=== PATIENT | male | born 1950 | race African-American/Black ===

== ENCOUNTER 2019-11-23 07:24 | Outpatient (CLI) | payer MEDICARE, SELFPAY ==
[2019-11-23 08:06] LABS: Alanine Aminotransferase 24 U/L (4-50); Albumin Level 4.2 g/dL (3.5-5.1); Alkaline Phosphatase 73 U/L (38-126); Aspartate Amino Transferase 25 U/L (17-59); Bilirubin,Total 0.4 mg/dL (0.2-1.3); Blood Urea Nitrogen 13 mg/dL (9-20); Carbon Dioxide 29 mmol/L (22-30); Chloride 104 mmol/L (98-107); Cholesterol 124 mg/dL (0-200); Estimated Glomerular Filt Rate > 60; Glucose 122 mg/dL (75-110); HDL Direct 41 mg/dL; Sodium 137 mmol/L (137-145); Triglycerides 97 mg/dL (<150)
[2019-11-23 08:09] LABS: Hemoglobin A1C 7.2 % (<5.7)
[2019-11-23 08:17] LABS: LDL Cholesterol Direct 64 mg/dL
== END 2019-11-23 07:25 | disposition home or self-care (01) ==
PROVIDERS: PCP Emergency Medicine; Visit Provider Emergency Medicine
DX: E78.5 Hyperlipidemia, unspecified (principal); E11.9 Type 2 diabetes mellitus without complications
CPT/HCPCS: 36415; 80053; 80061; 83036

== ENCOUNTER 2020-04-11 07:42 | Outpatient (CLI) | payer MEDICARE, SELFPAY ==
[2020-04-11 08:39] LABS: Alanine Aminotransferase 21 U/L (4-50); Alkaline Phosphatase 73 U/L (38-126); Anion Gap 7 mmol/L (8-16); Aspartate Amino Transferase 26 U/L (17-59); Bilirubin,Total 0.5 mg/dL (0.2-1.3); Blood Urea Nitrogen 13 mg/dL (9-20); Calcium 9.3 mg/dL (8.4-10.2); Carbon Dioxide 27 mmol/L (22-30); Chloride 103 mmol/L (98-107); Cholesterol 126 mg/dL (0-200); Estimated Glomerular Filt Rate > 60; Glucose 149 mg/dL (75-110); HDL Direct 38 mg/dL; Potassium 4.3 mmol/L (3.4-5.0); Sodium 137 mmol/L (137-145); Triglycerides 115 mg/dL (<150)
[2020-04-11 08:43] LABS: Hemoglobin A1C 6.7 % (<5.7)
[2020-04-11 08:50] LABS: LDL Cholesterol Direct 67 mg/dL
== END 2020-04-11 07:43 | disposition home or self-care (01) ==
PROVIDERS: PCP Emergency Medicine; Visit Provider Emergency Medicine
DX: E11.9 Type 2 diabetes mellitus without complications (principal)
CPT/HCPCS: 36415; 80053; 80061; 83036

== ENCOUNTER 2020-10-11 09:42 | Outpatient (CLI) | payer MEDICARE, SELFPAY ==
[2020-10-11 10:15] LABS: Alanine Aminotransferase 20 U/L (4-50); Albumin Level 4.2 g/dL (3.5-5.1); Alkaline Phosphatase 70 U/L (38-126); Anion Gap 6 mmol/L (8-16); Aspartate Amino Transferase 26 U/L (17-59); Bilirubin,Total 0.4 mg/dL (0.2-1.3); Blood Urea Nitrogen 13 mg/dL (9-20); Calcium 9.4 mg/dL (8.4-10.2); Carbon Dioxide 29 mmol/L (22-30); Chloride 106 mmol/L (98-107); Cholesterol 131 mg/dL (0-200); Estimated Glomerular Filt Rate > 60; Glucose 117 mg/dL (75-110); HDL Direct 44 mg/dL; Potassium 4.4 mmol/L (3.4-5.0); Sodium 141 mmol/L (137-145); Triglycerides 88 mg/dL (<150)
[2020-10-11 10:17] LABS: Hemoglobin A1C 6.9 % (<5.7)
[2020-10-11 10:26] LABS: LDL Cholesterol Direct 64 mg/dL
[2020-10-11 11:24] LABS: Creatinine Urine 154.1 mg/dL
[2020-10-11 15:40] LABS: MALB Creatinine Ratio < 3.9 mg/g (0-30); Microalbumin Urine Random < 6.0 mg/L (0-16.7)
== END 2020-10-11 09:43 | disposition home or self-care (01) ==
PROVIDERS: PCP Emergency Medicine; Visit Provider Emergency Medicine
DX: E78.5 Hyperlipidemia, unspecified (principal); E11.8 Type 2 diabetes mellitus with unspecified complications
CPT/HCPCS: 36415; 80053; 80061; 82043; 83036

== ENCOUNTER 2020-10-18 14:13 | Outpatient (CLI) | payer MEDICARE, SELFPAY ==
[2020-10-18 14:39] LABS: Basophils Percent Auto 0.2 % (0.2-1.2); Eosinophils Absolute Auto 0.1 K/mm3 (0-0.3); Eosinophils Percent Auto 2.1 % (0-4.4); Hematocrit 41.1 % (42.0-52.0); Hemoglobin 13.4 g/dL (14.0-18.0); Immature Granulocyte Absolute 0.01 K/mm3 (0.00-0.031); Immature Granulocyte Percent A 0.2 % (0-0.5); Lymphocytes Absolute Auto 1.73 K/mm3 (0.9-3.2); Lymphocytes Percent Auto 40.2 % (18.3-44.2); Mean Corpuscular HGB Conc 32.6 g/dl (32-36); Mean Corpuscular Hemoglobin 27.1 pg (26-34); Mean Corpuscular Volume 83.2 fl (80-100); Monocytes Absolute Auto 0.4 K/mm3 (0.1-0.6); Monocytes Percent Auto 9.3 % (2.6-8.5); Neutrophils Absolute Auto 2.1 K/mm3 (1.3-6.7); Platelet Count Result 204 k/mm3 (150-375); Red Blood Count 4.94 M/mm3 (4.6-6.20); Red Cell Distribution Width 13.5 % (11.5-14.5); White Blood Count 4.3 K/mm3 (4.5-10.0)
== END 2020-10-18 14:14 | disposition home or self-care (01) ==
PROVIDERS: PCP Emergency Medicine; Visit Provider Emergency Medicine
DX: R53.83 Other fatigue (principal)
CPT/HCPCS: 36415; 84443; 85025

== ENCOUNTER → 2020-11-02 10:54 | Outpatient (CLI) | payer MEDICARE, SELFPAY ==
--- NOTE | ~2020-11-02 | MR_ITS ---
EXAMINATION: MR cervical spine wo con DATE: 11/02/2020 11:43 INDICATION: Cervical radiculopathy. TECHNIQUE: Magnetic resonance imaging (MRI) of the cervical spine was performed without intravenous c ontrast. Sequences included sagittal T2-weighted FSE, sagittal STIR FSE, sagittal T1-weighted FSE, ax ial MERGE, and axial T2-weighted FSE. COMPARISON: Cervical spine MRI 12/12/2010 FINDINGS: There is 7 degrees dextrocurvature of cervical spine. Vertebral body heights are normal. Th ere is moderately decreased disc height at C4-C5 and C5-C6 and mildly decreased disc height at C6-C7. The spinal cord signal intensity is normal. The following disc levels are specifically discussed: C2-C3: The disc does not extend beyond the endplate margin. There is no uncovertebral joint osteoarth ritis. There is mild right and severe left facet joint osteoarthritis. There is mild left neural fora bindu stenosis. There is no central canal stenosis. C3-C4: There is a central extrusion. There is mild bilateral uncovertebral joint osteoarthritis. Ther e is mild right and severe left facet joint osteoarthritis. There is mild bilateral neural foraminal stenosis. There is mild central canal stenosis. C4-C5: The disc is bulging. There is moderate bilateral uncovertebral joint osteoarthritis. There is mild right and moderate left facet joint osteoarthritis. There is moderate bilateral neural foraminal stenosis. There is mild central canal stenosis. C5-C6: The disc is bulging. There is moderate right and severe left uncovertebral joint osteoarthriti s. There is mild bilateral facet joint osteoarthritis. There is moderate right and severe left neural foraminal stenosis. There is mild central canal stenosis. C6-C7: The disc is bulging. There is moderate bilateral uncovertebral joint osteoarthritis. There is no facet joint osteoarthritis. There is mild bilateral neural foraminal stenosis. There is mild centr al canal stenosis. C7-T1: There is a central protrusion. There is no uncovertebral joint osteoarthritis. There is mild r ight and severe left facet joint osteoarthritis. There is mild right and moderate left neural foramin al stenosis. There is mild central canal stenosis. IMPRESSION: 1. Moderate cervical spondylosis, mildly worsened from 12/12/2010. Reviewed, dictated and finalized at location B.
== END ==
PROVIDERS: PCP Emergency Medicine; Visit Provider Nurse Practitioner Family
DX: M54.12 Radiculopathy, cervical region (principal); M47.812 Spondylosis without myelopathy or radiculopathy, cervical region
CPT/HCPCS: 72141

== ENCOUNTER 2021-02-21 09:49 | Outpatient (CLI) | payer MEDICARE, SELFPAY ==
[2021-02-21 11:34] LABS: Alanine Aminotransferase 22 U/L (4-50); Alkaline Phosphatase 70 U/L (38-126); Anion Gap 9 mmol/L (8-16); Aspartate Amino Transferase 26 U/L (17-59); Bilirubin,Total 0.4 mg/dL (0.2-1.3); Blood Urea Nitrogen 11 mg/dL (9-20); Calcium 8.8 mg/dL (8.4-10.2); Carbon Dioxide 25 mmol/L (22-30); Chloride 106 mmol/L (98-107); Estimated Glomerular Filt Rate > 60; Glucose 153 mg/dL (65-110); Potassium 4.2 mmol/L (3.4-5.0); Sodium 140 mmol/L (137-145)
== END 2021-02-21 09:50 | disposition home or self-care (01) ==
LOC: ANHLAB 09:54
PROVIDERS: PCP Emergency Medicine; Visit Provider Emergency Medicine
DX: E11.9 Type 2 diabetes mellitus without complications (principal); I10 Essential (primary) hypertension
CPT/HCPCS: 36415; 80053; 83036

== ENCOUNTER 2021-05-23 06:50 | Outpatient (CLI) | payer MEDICARE, SELFPAY ==
[2021-05-23 07:50] LABS: Hemoglobin A1C 6.7 % (<5.7)
[2021-05-23 07:51] LABS: Alanine Aminotransferase 19 U/L (4-50); Albumin Level 4.1 g/dL (3.5-5.1); Alkaline Phosphatase 85 U/L (38-126); Anion Gap 9 mmol/L (8-16); Aspartate Amino Transferase 24 U/L (17-59); Bilirubin,Total 0.3 mg/dL (0.2-1.3); Blood Urea Nitrogen 12 mg/dL (9-20); Carbon Dioxide 26 mmol/L (22-30); Chloride 105 mmol/L (98-107); Cholesterol 122 mg/dL (0-200); Estimated Glomerular Filt Rate > 60; Glucose 104 mg/dL (65-110); HDL Direct 45 mg/dL; Potassium 3.8 mmol/L (3.4-5.0); Sodium 140 mmol/L (137-145); Triglycerides 88 mg/dL (<150)
[2021-05-23 08:02] LABS: LDL Cholesterol Direct 58 mg/dL
[2021-05-23 08:21] LABS: Creatinine Urine 140.3 mg/dL
[2021-05-23 08:26] LABS: MALB Creatinine Ratio 4.3 mg/g (0-30)
== END 2021-05-23 06:51 | disposition home or self-care (01) ==
PROVIDERS: PCP Emergency Medicine; Visit Provider Emergency Medicine
DX: E11.9 Type 2 diabetes mellitus without complications (principal); I10 Essential (primary) hypertension
CPT/HCPCS: 36415; 80053; 80061; 82043; 83036

== ENCOUNTER 2021-11-03 07:49 | Outpatient (CLI) | payer MEDICARE, SELFPAY ==
[2021-11-03 09:02] LABS: Alanine Aminotransferase 22 U/L (6-50); Albumin Level 3.7 g/dL (3.5-5.1); Alkaline Phosphatase 72 U/L (38-126); Anion Gap 4 mmol/L (8-16); Aspartate Amino Transferase 24 U/L (17-59); Bilirubin,Total 0.3 mg/dL (0.2-1.3); Blood Urea Nitrogen 15 mg/dL (9-20); Calcium 8.6 mg/dL (8.4-10.2); Carbon Dioxide 27 mmol/L (22-30); Chloride 107 mmol/L (98-107); Cholesterol 134 mg/dL (0-200); Estimated Glomerular Filt Rate > 60; Glucose 159 mg/dL (65-110); HDL Direct 42 mg/dL; Potassium 4.5 mmol/L (3.4-5.0); Sodium 138 mmol/L (137-145); Triglycerides 93 mg/dL (<150)
[2021-11-03 09:12] LABS: LDL Cholesterol Direct 64 mg/dL
[2021-11-03 09:17] LABS: Creatinine Urine 145.2 mg/dL
[2021-11-03 09:21] LABS: Hemoglobin A1C 7.1 % (<5.7)
[2021-11-03 10:16] LABS: MALB Creatinine Ratio < 4.1 mg/g (0-30); Microalbumin Urine Random < 6.0 mg/L (0-16.7)
== END 2021-11-03 07:50 | disposition home or self-care (01) ==
LOC: ANHLAB 07:50
PROVIDERS: PCP Emergency Medicine; Visit Provider Emergency Medicine
DX: E11.9 Type 2 diabetes mellitus without complications (principal); I10 Essential (primary) hypertension
CPT/HCPCS: 36415; 80053; 80061; 82043; 83036

== ENCOUNTER 2021-11-08 10:55 | Outpatient (CLI) | payer MEDICARE, SELFPAY ==
[2021-11-08 12:07] LABS: Basophils Percent Auto 0.2 % (0.2-1.2); Eosinophils Absolute Auto 0.1 K/mm3 (0-0.3); Eosinophils Percent Auto 2.3 % (0-4.4); Hematocrit 42.2 % (42.0-52.0); Hemoglobin 13.2 g/dL (14.0-18.0); Immature Granulocyte Absolute 0.01 K/mm3 (0.00-0.031); Immature Granulocyte Percent A 0.2 % (0-0.5); Lymphocytes Absolute Auto 1.62 K/mm3 (0.9-3.2); Lymphocytes Percent Auto 36.6 % (18.3-44.2); Mean Corpuscular HGB Conc 31.3 g/dl (32-36); Mean Corpuscular Hemoglobin 26.9 pg (26-34); Mean Corpuscular Volume 86.1 fl (80-100); Mean Platelet Volume 10.5 fl (7.4-10.4); Monocytes Absolute Auto 0.3 K/mm3 (0.1-0.6); Neutrophils Absolute Auto 2.4 K/mm3 (1.3-6.7); Neutrophils Percent Auto 53.7 % (45.5-73.1); Platelet Count Result 195 k/mm3 (150-375); Red Cell Distribution Width 14.4 % (11.5-14.5); White Blood Count 4.4 K/mm3 (4.5-10.0)
== END 2021-11-08 10:56 | disposition home or self-care (01) ==
PROVIDERS: PCP Emergency Medicine; Visit Provider Emergency Medicine
DX: R53.83 Other fatigue (principal)
CPT/HCPCS: 36415; 84443; 85025

== ENCOUNTER 2022-03-07 08:17 | Outpatient (CLI) | payer MEDICARE, SELFPAY ==
[2022-03-07 09:05] LABS: Alanine Aminotransferase 19 U/L (6-50); Albumin Level 4.3 g/dL (3.5-5.1); Alkaline Phosphatase 76 U/L (38-126); Anion Gap 7 mmol/L (8-16); Aspartate Amino Transferase 23 U/L (17-59); Bilirubin,Total 0.6 mg/dL (0.2-1.3); Blood Urea Nitrogen 14 mg/dL (9-20); Calcium 9.4 mg/dL (8.4-10.2); Carbon Dioxide 28 mmol/L (22-30); Chloride 103 mmol/L (98-107); Cholesterol 185 mg/dL (0-200); Estimated Glomerular Filt Rate > 60; Glucose 121 mg/dL (65-110); HDL Direct 51 mg/dL; Potassium 4.4 mmol/L (3.4-5.0); Sodium 138 mmol/L (137-145); Triglycerides 109 mg/dL (<150)
[2022-03-07 09:17] LABS: LDL Cholesterol Direct 105 mg/dL
[2022-03-07 09:35] LABS: Prostate Specific Antigen 4.6 ng/mL (< OR = 4.0)
[2022-03-07 10:12] LABS: Creatinine Urine 265.6 mg/dL
[2022-03-07 10:14] LABS: MALB Creatinine Ratio 3.8 mg/g (0-30); Microalbumin Urine Random 10.1 mg/L (0-16.7)
[2022-03-07 10:31] LABS: Hemoglobin A1C 6.7 % (<5.7)
== END 2022-03-07 08:18 | disposition home or self-care (01) ==
PROVIDERS: PCP Emergency Medicine; Visit Provider Emergency Medicine
DX: Z12.5 Encounter for screening for malignant neoplasm of prostate (principal); E11.9 Type 2 diabetes mellitus without complications; I10 Essential (primary) hypertension
CPT/HCPCS: 36415; 80053; 80061; 82043; 83036; 84153; G0103

== ENCOUNTER 2022-04-03 08:56 | Outpatient (CLI) | payer MEDICARE, SELFPAY ==
--- NOTE | 2022-04-03 09:00 | ECG_ITS ---
Measurements Intervals [place] Rate: 67 P: 61 [place]: 155 QRS: 72 QRSD: 85 T: 42 QT: 351 QTc: 371 Interpretive Statements SINUS RHYTHM MODERATE VOLTAGE CRITERIA FOR LVH, CONSIDER NORMAL VARIANT [MEETS CRITERIA IN ONE OF: R(aVL), S(V1), R(V5), R(V5/V6)+S(V1)] NO PREVIOUS ECG AVAILABLE FOR COMPARISON Electronically Signed On 04-03-2022 16:15:55 CDT by Dalia Pruitt M.D.
[2022-04-03 09:33] LABS: Anion Gap 13 mmol/L (8-16); Blood Urea Nitrogen 11 mg/dL (9-20); Calcium 8.6 mg/dL (8.4-10.2); Carbon Dioxide 24 mmol/L (22-30); Chloride 104 mmol/L (98-107); Estimated Glomerular Filt Rate > 60; Glucose 168 mg/dL (65-110); Potassium 4.2 mmol/L (3.4-5.0); Sodium 141 mmol/L (137-145)
== END 2022-04-03 08:57 | disposition home or self-care (01) ==
LOC: ANHSURGERY 09:01
PROVIDERS: Anesthesiology; PCP Emergency Medicine; Visit Provider Otolaryngology
DX: E11.9 Type 2 diabetes mellitus without complications (principal); Z01.818 Encounter for other preprocedural examination
CPT/HCPCS: 36415; 80048; 93005

== ENCOUNTER 2022-04-13 01:48 | Day surgery (SDC) | payer MEDICARE, SELFPAY ==
[2022-04-02 12:34] VITALS: BMI 25.0
--- NOTE | 2022-04-02 12:44 | PC.NURSE ---
PRE-OP INSTRUCTIONS, PLEASE READ CAREFULLY Report to the Outpatient Waiting Room, entrance under the green pavilion located off [facility], at time _1100_ on date _04/13/22_. Planned Procedure Time: _1 PM_. Time changes happen often and if your time is changed the preop area will call you the afternoon before. - You and your visitor will be asked to self-screen and do not enter if you have any COVID symptoms. - We encourage only one visitor and NO visitors under age 16 are allowed at this time. Your visitor will receive communication by the phone number that is given day of service. - The patient visitor is requested to social distance or may leave the building when not with patient due to restrictions. - A mask is required within the hospital. Patients may have clear liquids (water, carbonated beverages, clear teas, apple juice) until 3 hours prior to surgery (1000 AM) with a maximum of 20 ounces. - No food from midnight until time of surgery Take the following medications with a SIP of water the morning of surgery: _ALPRAZOLAM, NASAL SPRAY IF NEEDED_ Medications to discontinue per physician _NONE_, Date to take last dose Please no deodorant, or body powder the day of surgery. No jewelry (including any body piercings) or valuables the day of surgery, leave them at home. Please take a shower or bath the night before, or the morning of, surgery with an antibacterial soap. Wear comfortable, loose fitting clothing. - Jewelry must be removed prior to entering the operating room. Rings and piercings that are not removed may be cut off. - The hospital will not accept responsibility for valuables. - Please leave all valuables, including medications, at home the day of surgery. If you are going home after surgery, a licensed emergency medical technician/driver must drive you home. - NO public transportation without another adult. - We recommend that an adult stay with you for 24 hours following discharge. - We also recommend that you do not drive, make important decision, drink alcoholic beverages, or take any drugs that were not prescribed by your health care provider for at least 24 hours after your discharge time. Follow any additional instructions given to you from your surgeon. If you or anyone in your household have experienced Covid symptoms in the past week, please notify your surgeon or the nurse liaison at the phone number below for possible testing. Telephone instructions given to ____PT and asked if any additional questions and then verbalized understanding. Patient advised to call surgeon office or pre surgery nurse liaison [phone] if any additional questions.
--- NOTE | 2022-04-12 10:15 | P.HP_ITS ---
H&P: HPI History of Present Illness Date/Time: 04/12/22 10:15 Chief Complaint: Oropharyngeal mass Narrative: planned surgical procedure Review of Systems Review of Systems: All systems reviewed & are unremarkable except as noted in HPI and below [facility] Past Medical History Medical History Diabetes mellitus HTN (hypertension) Family History Family History Mother Family history of diabetes mellitus in first degree relative, Onset Age: 72 Father Family history of diabetes mellitus in first degree relative, Onset Age: 75 Sibling Family history of kidney disease Social History Social History (Updated 03/26/22 @ 14:14 by KEN Torres) Smoking status: Former smoker Alcohol intake: current Alcohol use details: STATES MAYBE 4 BEERS/MONTH Substance use: current Substance use type: marijuana Other substance usage details: MEDICAL MARIJUANA CARD - DAILY USAGE Spiritual care concerns: No Meds Home Medications and Allergies Home Medications Medication Instructions Recorded Confirmed Type sertraline 50 mg tablet (Zoloft) 50 mg PO DAILY 06/28/19 04/02/22 History sildenafil 50 mg tablet (Viagra) 50 mg PO .COMPLEX 06/28/19 04/02/22 History sitagliptin phosphate 50 mg tablet 50 mg PO DAILY 06/28/19 04/02/22 History (Januvia) zolpidem 10 mg tablet (Ambien) 10 mg PO ONCE PRN insomnia #1 02/22/21 04/02/22 Rx tablet fluticasone propionate 50 1 - 2 spray intranasal DAILY PRN 10/17/21 04/02/22 Rx mcg/actuation nasal nasal congestion #16 mL spray,suspension (Flonase Allergy Relief) alprazolam 0.5 mg tablet (Xanax) 0.5 mg PO BID PRN anxiety #60 tabs 12/06/21 04/02/22 Rx lisinopril 5 mg tablet See Rx Instructions .Route 04/02/22 04/02/22 Rx .COMPLEX #90 tabs Allergies Allergy/AdvReac Type Severity Reaction Status Date / Time No Known Allergies Allergy Unknown NONE Verified 04/02/22 12:31 Exam Narrative: or pharyngeal mass Assessment and Plan Assessment and plan (1) Pharyngeal mass: Code(s): J39.2 - Other diseases of pharynx Status: Acute Assessment and Plan: OR excisional biopsy or pharyngeal mass set up like a tonsil may need the needle tip Bovie extended protected. Operative time 20 minutes risks were discussed including bleeding infection damage to surrounding structures need for further procedures failure to resolve symptoms failure to obtain diagnosis pain bleeding damage to any structure by Anesthesia during the induction and maintenance numbness coughing.
[2022-04-13] VITALS (8 sets, daily range): BP systolic 126–157; BP diastolic 75–86; PULSE 60–86; RESP 14–22; TEMP 36.2–36.8; O2SAT 98–100
--- NOTE | 2022-04-13 07:12 | WPDHPUPDATE1 ---
History and Physical Update Update Date/Time: 04/13/22 07:12 History and Physical has been reviewed, including an updated exam of the patient. There are NO changes in the patient's condition. Risks, benefits, and alternatives have been discussed and questions answered. Patient agrees to proceed with procedure.
[2022-04-13 11:12] LABS: Glucose Point of Care 115 mg/dl (65-105)
[2022-04-13] MEDS: LACTATED RINGERS 1,000 ML 30 ML IV CONT ×2 (11:29→13:05)
--- NOTE | 2022-04-13 11:54 | WPDANESEPPF ---
Anes - Initial Pre Proc Eval Procedure: Operation Date: 04/13/22 12:30 Proposed Procedures p Resection of Oropharyngeal Mass - Solo Salinas MD Date/Time: 04/13/22 11:54 Surgeon: Solo Salinas MD Pre Op Diagnosis: Oropharyngeal Mass Patient Data Age: 71 Gender: M Height: 1.75 m Weight: 75.5 kg Last Vital Signs Temp 36.8 C 04/13/22 11:26 Pulse 68 04/13/22 11:26 Resp 14 04/13/22 11:26 BP 126/75 04/13/22 11:26 Pulse Ox 100 04/13/22 11:26 O2 Del Method Room Air 04/13/22 11:26 Allergies Allergy/AdvReac Type Severity Reaction Status Date / Time No Known Allergies Allergy Unknown NONE Verified 04/13/22 11:29 Home Medications Medication Instructions Recorded Confirmed Type sertraline 50 mg tablet (Zoloft) 50 mg PO DAILY 06/28/19 04/02/22 History sildenafil 50 mg tablet (Viagra) 50 mg PO .COMPLEX 06/28/19 04/02/22 History sitagliptin phosphate 50 mg tablet 50 mg PO DAILY 06/28/19 04/02/22 History (Januvia) zolpidem 10 mg tablet (Ambien) 10 mg PO ONCE PRN insomnia #1 02/22/21 04/02/22 Rx tablet fluticasone propionate 50 1 - 2 spray intranasal DAILY PRN 10/17/21 04/02/22 Rx mcg/actuation nasal nasal congestion #16 mL spray,suspension (Flonase Allergy Relief) alprazolam 0.5 mg tablet (Xanax) 0.5 mg PO BID PRN anxiety #60 tabs 12/06/21 04/13/22 Rx lisinopril 5 mg tablet See Rx Instructions .Route 04/02/22 04/02/22 Rx .COMPLEX #90 tabs Laboratory Tests 04/13/22 11:09 POC Capillary Glucose 115 mg/dl H mg/dl (65-105) Patient hx anesthesia problems: none Family hx anesthesia problems: none Results Review: All pre-operative results and documents have been reviewed as part of the pre-operative evaluation. [facility] Past Medical History Medical History Diabetes mellitus HTN (hypertension) Surgical History Surgical History (Updated 04/13/22 @ 11:54 by Greg Sepulveda MD) History of lumbar surgery Hx of tonsillectomy Family History Family History Mother Family history of diabetes mellitus in first degree relative, Onset Age: 72 Father Family history of diabetes mellitus in first degree relative, Onset Age: 75 Sibling Family history of kidney disease Social History Social History Smoking status: Former smoker Alcohol intake: current Alcohol use details: STATES MAYBE 4 BEERS/MONTH Substance use: current Substance use type: marijuana Other substance usage details: MEDICAL MARIJUANA CARD - DAILY USAGE Living arrangements: with family Spiritual care concerns: No Anes - Eval Final PreProcedure Day of Procedure 04/13/22 11:54 Patient weight: normal Heart: regular rate and rhythm Lungs: clear to auscultation Airway: Mallampati scale class II Neurological: alert and oriented Last oral intake: >/= 8 hours ASA classification: III Emergent: no Anesthetic plan: proceed Anesthesia type and monitoring: general ETT and standard monitoring Results Review: All pre-operative results and documents have been reviewed as part of the pre-operative evaluation. Informed Consent: The patient's anesthetic plan and its attendant risks and benefits were discussed with the patient/family/POA. Questions were solicited and answers provided to the satisfaction of the patient/family/POA.
[2022-04-13 13:20] LABS: Glucose Point of Care 110 mg/dl (65-105)
--- NOTE | 2022-04-16 08:54 | W.PM.PROC2 ---
Procedure Note - Detailed Date of Procedure 04/13/22 Pre-op Diagnosis Oropharyngeal Mass Post-op Diagnosis Same Procedure Performed Excisional biopsy or pharyngeal mass Surgeon Solo Salinas MD Anesthesia General Indications see above Findings very small lymphoid appearing tissue appeared non sinister sent for biopsy purpose sent for pathologic analysis Description of Procedure patient identified consent verified. Patient brought operating. Time-out performed. General anesthesia induced endotracheal tube secured. Patient prepped draped position. Second time-out performed. Set up like a tonsil McIvor mouthgag open reveal small amount of cobblestoning lymphoid tissue in the oropharynx this was excised with Bovie electrocautery at a setting 10 sent for pathologic analysis. Blood loss 1 cc. McIvor gag removed no bleeding care the patient given Anesthesiology. I performed all dictated portions the procedure. There no complications. Patient. Estimated Blood Loss 1 Drains No Packing No Pathology Yes Complications No immediate complications Condition Stable Disposition PACU
== END 2022-04-13 15:05 | disposition home or self-care (01) ==
PROVIDERS: PCP Emergency Medicine; Visit Provider Otolaryngology
PROC: (CPT 42800; principal; 2022-04-13 12:30)
DX: J39.2 Other diseases of pharynx (principal); E11.9 Type 2 diabetes mellitus without complications; I10 Essential (primary) hypertension; Z87.891 Personal history of nicotine dependence
CPT/HCPCS: 42800; 36415; 80048; 82948; 88304; 93005; J0330; J1100; J2405; J2704; J3010; J7120

== ENCOUNTER 2022-07-13 08:07 | Outpatient (CLI) | payer MEDICARE, SELFPAY ==
[2022-07-13 08:59] LABS: Alanine Aminotransferase 20 U/L (6-50); Albumin Level 4.1 g/dL (3.5-5.1); Alkaline Phosphatase 84 U/L (38-126); Anion Gap 8 mmol/L (8-16); Aspartate Amino Transferase 25 U/L (17-59); Bilirubin,Total 0.5 mg/dL (0.2-1.3); Blood Urea Nitrogen 13 mg/dL (9-20); Calcium 8.9 mg/dL (8.4-10.2); Carbon Dioxide 28 mmol/L (22-30); Chloride 105 mmol/L (98-107); Cholesterol 133 mg/dL (0-200); Estimated Glomerular Filt Rate > 60; Glucose 117 mg/dL (65-110); HDL Direct 44 mg/dL; Sodium 141 mmol/L (137-145); Triglycerides 97 mg/dL (<150)
[2022-07-13 09:10] LABS: LDL Cholesterol Direct 56 mg/dL
[2022-07-13 09:13] LABS: Hemoglobin A1C 6.5 % (<5.7)
[2022-07-13 09:21] LABS: Creatinine Urine 174.6 mg/dL
[2022-07-13 09:25] LABS: MALB Creatinine Ratio 3.6 mg/g (0-30); Microalbumin Urine Random 6.2 mg/L (0-16.7)
== END 2022-07-13 08:08 | disposition home or self-care (01) ==
PROVIDERS: PCP Emergency Medicine; Visit Provider Emergency Medicine
DX: E11.9 Type 2 diabetes mellitus without complications (principal); I10 Essential (primary) hypertension
CPT/HCPCS: 36415; 80053; 80061; 82043; 83036

== ENCOUNTER 2022-07-24 10:27 | Emergency (ER) | payer MEDICARE, SELFPAY ==
--- NOTE | ~2022-07-24 | XR_ITS ---
EXAMINATION: XR abdomen obstructive series DATE: 07/24/2022 11:11 INDICATION: Bloating. TECHNIQUE: Upright and supine views of the abdomen on 4 radiographs were obtained. COMPARISON: None. FINDINGS: There are no dilated loops of bowel. There is a paucity of stool in the colon. No free intr aperitoneal gas. IMPRESSION: 1. Normal bowel gas pattern. Reviewed, dictated and finalized at location A. L [employer]
[2022-07-24 10:38] VITALS: BP 136/76; PULSE 98; RESP 18; TEMP 36.8; O2SAT 99
--- NOTE | 2022-07-24 10:47 | ED.ABDPAIN ---
HPI - Abdominal Pain General Chief Complaint: Abdominal Pain Stated Complaint: Diarrhea/Abdominal Pain Time Seen by Provider: 07/24/22 10:47 Source: patient and RN notes reviewed Mode of arrival: ambulatory Limitations: no limitations History of Present Illness HPI narrative: 71 y/o male with hx DM and HTN presented for c/o abdominal bloating and gas, and decreased appetite. Endorses about 1 week ago he started with these symptoms as well as diarrhea. Diarrhea resolved after taking Imodium. These symptoms are worsening his chronic insomnia, stating he is a [place] vet. LBM 2 days ago, after imodium. Reports only able to eat half an omelet this morning. Denies associated abdominal pain, nausea or vomiting. Patient changed from Zoloft to Lexapro about 6 days ago. Otherwise denies significant changes in routine. Denies sick contacts. Reports DM well controlled. Related Data Home Medications Medication Instructions Recorded Confirmed sildenafil 50 mg tablet (Viagra) 50 mg PO .COMPLEX 06/28/19 07/24/22 Allergies Allergy/AdvReac Type Severity Reaction Status Date / Time No Known Allergies Allergy Unknown NONE Verified 07/24/22 10:35 Review of Systems Review of Systems: CONSTITUTIONAL: Denies body aches, fever, chills ENT: Denies rhinorrhea, congestion CARDIOVASCULAR: Denies chest pain, palpitations, or edema. RESPIRATORY: Denies cough or dyspnea. GASTROINTESTINAL: Denies abdominal pain, nausea, vomiting, diarrhea GENITOURINARY: Denies dysuria, hematuria, or CVA tenderness. SKIN: Denies rash, itching, or wounds. MUSCULOSKELETAL: Denies back pain, joint pain, or myalgia. NEUROLOGIC: Denies headache, numbness, tingling, or weakness. All systems reviewed & are unremarkable except as noted in HPI and below [facility] Past Medical History Medical History Diabetes mellitus HTN (hypertension) Surgical History Surgical History History of lumbar surgery Hx of tonsillectomy Family History Family History Mother Family history of diabetes mellitus in first degree relative, Onset Age: 72 Father Family history of diabetes mellitus in first degree relative, Onset Age: 75 Sibling Family history of kidney disease Social History Social History Smoking status: Former smoker Alcohol intake: current Alcohol use details: STATES MAYBE 4 BEERS/MONTH Substance use: current Substance use type: marijuana Other substance usage details: MEDICAL MARIJUANA CARD - DAILY USAGE Living arrangements: with family Gender identity (if verbalized by the patient): Male Sexual Orientation (if Verbalized by the Patient): Straight or Heterosexual Spiritual care concerns: No Comments At time of signature, I have reviewed and agree with nursing past medical, surgical, social and family history unless otherwise noted. Please see nursing chart for further information. There is no relevant family history pertinent to the presenting complaint Exam Narrative: GENERAL: Well-appearing, and in no acute distress. EYES: EOMI. Conjunctivae normal. ENT: Mucous membranes pink and moist. CHEST: No respiratory distress. Clear to auscultation. HEART: Regular rate and rhythm. No murmur appreciated. Normal peripheral pulses. ABDOMEN: abd soft, nondistended, normal active bowel sounds. Nontender abdomen; No guarding, rebound tenderness, asymmetry EXTREMITIES: Normal range of motion. No edema. SKIN: Warm, dry, no rash. Capillary refill normal. Normal skin turgor. NEURO: No focal deficits. Alert and oriented x3. PSYCH: Normal affect. Course Course Emergency Course: Patient is aware of diagnosis, understands and agrees to treatment plan. Anticipatory guidance given. Patient agrees to follow-u
== END 2022-07-24 11:32 | disposition home or self-care (01) ==
PROVIDERS: Emergency Provider Nurse Practitioner Family; PCP Emergency Medicine
DX: R14.0 Abdominal distension (gaseous) (principal); E11.9 Type 2 diabetes mellitus without complications; I10 Essential (primary) hypertension; Z87.891 Personal history of nicotine dependence
CPT/HCPCS: 74019; 99213; G0463

== ENCOUNTER 2022-10-20 06:40 | Outpatient (CLI) | payer MEDICARE, SELFPAY ==
[2022-10-20 07:13] LABS: Alanine Aminotransferase 23 U/L (6-50); Alkaline Phosphatase 86 U/L (38-126); Anion Gap 6 mmol/L (8-16); Aspartate Amino Transferase 24 U/L (17-59); Bilirubin,Total 0.4 mg/dL (0.2-1.3); Blood Urea Nitrogen 9 mg/dL (9-20); Calcium 8.8 mg/dL (8.4-10.2); Carbon Dioxide 28 mmol/L (22-30); Chloride 106 mmol/L (98-107); Cholesterol 108 mg/dL (0-200); Estimated Glomerular Filt Rate > 60; Glucose 103 mg/dL (65-110); HDL Direct 42 mg/dL; Sodium 140 mmol/L (137-145); Triglycerides 83 mg/dL (<150)
[2022-10-20 07:23] LABS: LDL Cholesterol Direct 52 mg/dL
[2022-10-20 07:27] LABS: Creatinine Urine 232.8 mg/dL
[2022-10-20 07:33] LABS: MALB Creatinine Ratio 20.3 mg/g (0-30); Microalbumin Urine Random 47.2 mg/L (0-16.7)
[2022-10-20 08:38] LABS: Hemoglobin A1C 6.8 % (<5.7)
== END 2022-10-20 06:41 | disposition home or self-care (01) ==
PROVIDERS: PCP Emergency Medicine; Visit Provider Emergency Medicine
DX: E11.9 Type 2 diabetes mellitus without complications (principal)
CPT/HCPCS: 36415; 80053; 80061; 82043; 83036

== ENCOUNTER 2022-10-22 09:53 | Outpatient (CLI) | payer MEDICARE, SELFPAY ==
[2022-10-22 10:19] LABS: Hematocrit 41.5 % (42.0-52.0); Hemoglobin 13.3 g/dL (14.0-18.0); Mean Corpuscular Hemoglobin 27.3 pg (26-34); Mean Platelet Volume 10.2 fl (7.4-10.4); Platelet Count Result 182 k/mm3 (150-375); Red Blood Count 4.88 M/mm3 (4.6-6.20); Red Cell Distribution Width 13.9 % (11.5-14.5); White Blood Count 3.3 K/mm3 (4.5-10.0)
[2022-10-22 10:28] LABS: Alanine Aminotransferase 22 U/L (6-50); Alkaline Phosphatase 84 U/L (38-126); Anion Gap 6 mmol/L (8-16); Aspartate Amino Transferase 22 U/L (17-59); Bilirubin,Total 0.4 mg/dL (0.2-1.3); Blood Urea Nitrogen 17 mg/dL (9-20); Calcium 8.8 mg/dL (8.4-10.2); Carbon Dioxide 27 mmol/L (22-30); Chloride 104 mmol/L (98-107); Cholesterol 124 mg/dL (0-200); Estimated Glomerular Filt Rate > 60; Glucose 203 mg/dL (65-110); HDL Direct 41 mg/dL; Potassium 4.4 mmol/L (3.4-5.0); Sodium 137 mmol/L (137-145); Triglycerides 105 mg/dL (<150)
[2022-10-22 10:39] LABS: LDL Cholesterol Direct 64 mg/dL
[2022-10-22 10:56] LABS: Hemoglobin A1C 6.7 % (<5.7)
[2022-10-22 10:58] LABS: Thyroid Stimulating Hormone 0.864 uIU/mL (0.465-4.680)
[2022-10-22 19:00] LABS: Creatinine Urine 119.8 mg/dL
[2022-10-22 19:40] LABS: MALB Creatinine Ratio < 5.0 mg/g (0-30); Microalbumin Urine Random < 6.0 mg/L (0-16.7)
[2022-10-27 15:17] LABS: Testosterone Free 69.9 pg/mL (30.0-135.0); Testosterone Total 603 ng/dL (250-1100)
== END 2022-10-22 09:54 | disposition home or self-care (01) ==
PROVIDERS: PCP Emergency Medicine; Visit Provider Emergency Medicine
DX: R53.83 Other fatigue (principal); E78.5 Hyperlipidemia, unspecified; E11.9 Type 2 diabetes mellitus without complications; R79.89 Other specified abnormal findings of blood chemistry; E03.9 Hypothyroidism, unspecified
CPT/HCPCS: 36415; 80053; 80061; 82043; 83036; 84402; 84403; 84443; 85027

== ENCOUNTER 2023-01-15 04:43 | Emergency (ER) | payer MEDICARE, SELFPAY ==
[2023-01-15 04:44] VITALS: BP 107/67; PULSE 62; RESP 14; TEMP 36.4; O2SAT 100
--- NOTE | 2023-01-15 05:45 | ED.SKABFB ---
HPI - Skin/Abscess/Foreign Bdy General Chief complaint: Skin/Abscess/Foreign Body Stated complaint: growth on the back of my neck Time Seen by Provider: 01/15/23 05:16 Source: patient and RN notes reviewed Mode of arrival: ambulatory Limitations: no limitations History of Present Illness HPI narrative: This is a 72 year old male who presents for evaluation of itchy bump to his neck. He states he has notice itchy bump to the back of his neck. HE is unsure if he was stung by anything. He denies any pain, fever, chills or drainage. He has not taken anything for his symptoms. He denies rash or itching any where. Related Data Home Medications Medication Instructions Recorded Confirmed sildenafil 50 mg tablet (Viagra) 50 mg PO .COMPLEX 06/28/19 07/24/22 Allergies Allergy/AdvReac Type Severity Reaction Status Date / Time No Known Allergies Allergy Unknown NONE Verified 07/24/22 10:35 Review of Systems Review of Systems: All systems reviewed & are unremarkable except as noted in HPI and below [facility] Past Medical History Medical History Diabetes mellitus HTN (hypertension) Surgical History Surgical History History of lumbar surgery Hx of tonsillectomy Family History Family History Mother Family history of diabetes mellitus in first degree relative, Onset Age: 72 Father Family history of diabetes mellitus in first degree relative, Onset Age: 75 Sibling Family history of kidney disease Social History Social History Smoking status: Former smoker Alcohol intake: current Alcohol use details: STATES MAYBE 4 BEERS/MONTH Substance use: current Substance use type: marijuana Other substance usage details: MEDICAL MARIJUANA CARD - DAILY USAGE Living arrangements: with family Gender identity (if verbalized by the patient): Male Sexual Orientation (if Verbalized by the Patient): Straight or Heterosexual Spiritual care concerns: No Exam Const: General: no acute distress and alert Nutritional Appearance: well nourished Orientation/consciousness: patient oriented x3 HENMT: Head: normal to inspection Ears: external ears normal Face and sinus: normal facial exam Mouth: Yes Normal oral and palatal mucosa present, Yes lip normal and Yes moist mucous membranes Eyes: EOM: EOMs intact bilaterally Neck: Neck: no lymphadenopathy and no meningeal signs Other: posterior neck with possible area of swelling, no erythema, no lesions or wounds. Resp: Effort & Inspection: normal respiratory effort Skin: General skin exam: normal color Rashes: no rashes Wounds: no wounds Neuro: General: patient oriented x3, moves all extremities and CN's II-XI intact bilaterally Psych: Mental Status: mental status grossly normal Affect: normal affect Attitude: cooperative Course Reevaluation(s) Reevaluation #1: I looked at patient's neck with bedside ultrasound, no edema or no fluid. I discussed with patient we will treat with antihistamine and steroid cream. I do not see sign of infection at this point. Date: 01/15/23 Time: 05:47 Vital Signs Vital signs: Vital Signs Temperature 97.6 F 01/15/23 04:44 Pulse Rate 62 01/15/23 04:44 Respiratory Rate 14 01/15/23 04:44 Blood Pressure 107/67 01/15/23 04:44 Pulse Oximetry 100 01/15/23 04:44 Oxygen Delivery Room Air 01/15/23 04:44 Temperature 97.6 F 01/15/23 04:44 Pulse Rate 68 01/15/23 05:58 Respiratory Rate 15 01/15/23 05:58 Blood Pressure 118/72 01/15/23 05:58 Pulse Oximetry 99 01/15/23 05:58 Oxygen Delivery Room Air 01/15/23 04:44 Discharge Plan Discharge Clinical Impression: Itching Patient Disposition: Home, Self-Care Condition: Stable Instructions: Ant
[2023-01-15 05:58] VITALS: BP 118/72; PULSE 68; RESP 15; O2SAT 99
== END 2023-01-15 06:00 | disposition home or self-care (01) ==
PROVIDERS: Emergency Provider General Practice; PCP Emergency Medicine
DX: L29.9 Pruritus, unspecified (principal); E11.9 Type 2 diabetes mellitus without complications; I10 Essential (primary) hypertension; Z87.891 Personal history of nicotine dependence
CPT/HCPCS: 99283

== ENCOUNTER 2023-02-02 07:37 | Outpatient (CLI) | payer MEDICARE, SELFPAY ==
[2023-02-02 09:02] LABS: Hemoglobin A1C 6.6 % (<5.7)
[2023-02-02 09:12] LABS: LDL Cholesterol Direct 65 mg/dL
[2023-02-02 09:24] LABS: Alanine Aminotransferase 19 U/L (6-50); Alkaline Phosphatase 74 U/L (38-126); Anion Gap 8 mmol/L (8-16); Aspartate Amino Transferase 24 U/L (17-59); Bilirubin,Total 0.4 mg/dL (0.2-1.3); Blood Urea Nitrogen 16 mg/dL (9-20); Calcium 8.6 mg/dL (8.4-10.2); Carbon Dioxide 25 mmol/L (22-30); Chloride 107 mmol/L (98-107); Cholesterol 117 mg/dL (0-200); Estimated Glomerular Filt Rate > 60; Glucose 106 mg/dL (65-110); HDL Direct 38 mg/dL; Potassium 4.4 mmol/L (3.4-5.0); Sodium 140 mmol/L (137-145); Triglycerides 78 mg/dL (<150)
== END 2023-02-02 07:38 | disposition home or self-care (01) ==
PROVIDERS: PCP Emergency Medicine; Visit Provider Emergency Medicine
DX: E78.5 Hyperlipidemia, unspecified (principal); E11.9 Type 2 diabetes mellitus without complications
CPT/HCPCS: 36415; 80053; 80061; 83036

== ENCOUNTER 2023-02-05 10:06 | Outpatient (CLI) | payer MEDICARE, SELFPAY ==
[2023-02-05 10:29] LABS: Hematocrit 40.7 % (42.0-52.0); Hemoglobin 13.2 g/dL (14.0-18.0); Mean Corpuscular HGB Conc 32.4 g/dl (32-36); Mean Corpuscular Hemoglobin 27.7 pg (26-34); Mean Corpuscular Volume 85.5 fl (80-100); Mean Platelet Volume 9.9 fl (7.4-10.4); Platelet Count Result 203 k/mm3 (150-375); Red Blood Count 4.76 M/mm3 (4.6-6.20); Red Cell Distribution Width 13.7 % (11.5-14.5); White Blood Count 4.4 K/mm3 (4.5-10.0)
== END 2023-02-05 10:07 | disposition home or self-care (01) ==
PROVIDERS: PCP Emergency Medicine; Visit Provider Emergency Medicine
DX: E11.9 Type 2 diabetes mellitus without complications (principal)
CPT/HCPCS: 36415; 84443; 85027

== ENCOUNTER 2023-04-14 03:27 | Emergency (ER) | payer MEDICARE, SELFPAY ==
--- NOTE | ~2023-04-14 | XR_ITS ---
EXAMINATION: XR chest 2V DATE: 04/14/2023 04:36 INDICATION: Cough TECHNIQUE: Frontal and lateral views of the chest are obtained COMPARISON: 05/29/2018 FINDINGS: The lungs are free of acute opacities. No pleural effusion or pneumothorax. The cardiomedia stinal silhouette is normal. There is mild thoracic spondylosis. IMPRESSION: 1. No acute cardiopulmonary abnormality. Reviewed, dictated and finalized at location F. MOBILE SALESMAN
[2023-04-14 03:30] VITALS: BP 120/66; PULSE 86; RESP 20; TEMP 36.6; O2SAT 98
--- NOTE | 2023-04-14 03:45 | ED.URI ---
HPI - URI/Sore Throat General Chief Complaint: Upper Respiratory Infection Stated Complaint: Sinus infection Time Seen by Provider: 04/14/23 03:45 History of Present Illness HPI Narrative: Patient is a 72-year-old male with history of diabetes, hyperlipidemia here with flu-like symptoms. He states that they began 2 days ago. He notes that initially started with some sinus congestion and sore throat. He now notes that he has had a cough. Tonight he came to the emergency department because the cough made it unable for him to sleep. He endorses some shortness of breath. Denies chest pain. Denies any GI symptoms. Denies any urinary symptoms. Related Data Home Medications Medication Instructions Recorded Confirmed sildenafil 50 mg tablet (Viagra) 50 mg PO .COMPLEX 06/28/19 04/02/23 Allergies Allergy/AdvReac Type Severity Reaction Status Date / Time No Known Allergies Allergy Unknown NONE Verified 02/04/23 09:49 Review of Systems Review of Systems: All systems reviewed & are unremarkable except as noted in HPI and below PMFSH Past Medical History Medical History Diabetes mellitus HTN (hypertension) Surgical History Surgical History History of lumbar surgery Hx of tonsillectomy Family History Family History Mother Family history of diabetes mellitus in first degree relative, Onset Age: 72 Father Family history of diabetes mellitus in first degree relative, Onset Age: 75 Sibling Family history of kidney disease Social History Social History Smoking status: Former smoker Alcohol intake: current Alcohol use details: STATES MAYBE 4 BEERS/MONTH Substance use: current Substance use type: marijuana Other substance usage details: MEDICAL MARIJUANA CARD - DAILY USAGE Lack of Transportation: No Lack of Food: Never True Current Housing: I Have Housing Concerned About Future Housing: No Difficulty Paying Gas/Electric Bills: No Difficulty Paying for Meds: No Currently Unemployed: No Education: High School Diploma/GED Difficulty w/ Childcare or Family Care: No Living arrangements: with family Gender identity (if verbalized by the patient): Male Sexual Orientation (if Verbalized by the Patient): Straight or Heterosexual Spiritual care concerns: No Exam Narrative: GENERAL: Well-appearing, well-nourished, and in no acute distress. HEAD: Normocephalic, atraumatic. EYES: PERRLA and EOMI. ENT: Nares clear. Mucous membranes moist. mild posterior pharyngeal erythema, no edema, no exudates, uvula midline. NECK: Supple. CHEST: Bilateral wheeze, good air movement. No respiratory distress. HEART: Regular rate and rhythm. Normal peripheral pulses. ABDOMEN: Soft, nontender, nondistended. EXTREMITIES: Normal range of motion. No edema. SKIN: Warm, dry, no rash. NEURO: No focal deficits. Alert and oriented x3. PSYCH: Normal mood and affect. Course Course Emergency Course: Chart review performed. Patient here with concern for upper respiratory symptoms. Triage vitals normal. PCP visit note from Dr. White reviewed from 02/04/23. They note history of HTN, DM. Patient seen and evaluated. In no acute distress. Suspect viral URI. He is wheezing and has some SOB. Given age, will do ACS workup however he has no chest pain. Will do CXR, breathing treatment, Viral swab. Lab work reviewed. CBC grossly normal, consistent with baseline in our system. CMP grossly normal. Troponin negative. CXR normal. Patient is COVID positive. The results of pertinent diagnostic studies and exam findings were discussed. The patient?s provisional diagnosis and plan of care were discussed with the patient and present family. The patient and/or present family express
[2023-04-14 03:53] VITALS: BP 122/68; PULSE 77; RESP 16; O2SAT 100
--- NOTE | 2023-04-14 04:00 | ECG_ITS ---
Measurements Intervals [place] Rate: 60 P: 59 WI: 155 QRS: 77 QRSD: 82 T: 55 QT: 357 QTc: 358 Interpretive Statements SINUS RHYTHM VOLTAGE CRITERIA FOR LVH BORDERLINE ECG COMPARED TO ECG 04/03/2022 09:20:53 NO SIGNIFICANT CHANGES Electronically Signed On 04-14-2023 6:58:27 SEWER HEAD by Piotr Dubon D.O.
[2023-04-14 04:20] VITALS: PULSE 65; RESP 18
[2023-04-14] MEDS: ALBUTEROL SULFATE NEB 2.5 MG/3 ML INH INHALATION (04:20)
[2023-04-14 04:21] LABS: Basophils Percent Auto 0.5 % (0.2-1.2); Eosinophils Percent Auto 0.8 % (0-4.4); Hematocrit 40.3 % (42.0-52.0); Hemoglobin 13.2 g/dL (14.0-18.0); Immature Granulocyte Absolute 0.01 K/mm3 (0.00-0.031); Immature Granulocyte Percent A 0.3 % (0-0.5); Lymphocytes Absolute Auto 1.12 K/mm3 (0.9-3.2); Lymphocytes Percent Auto 28.3 % (18.3-44.2); Mean Corpuscular HGB Conc 32.8 g/dl (32-36); Mean Corpuscular Hemoglobin 27.6 pg (26-34); Mean Corpuscular Volume 84.1 fl (80-100); Mean Platelet Volume 9.8 fl (7.4-10.4); Monocytes Absolute Auto 0.7 K/mm3 (0.1-0.6); Monocytes Percent Auto 17.2 % (2.6-8.5); Neutrophils Absolute Auto 2.1 K/mm3 (1.3-6.7); Neutrophils Percent Auto 52.9 % (45.5-73.1); Platelet Count Result 160 k/mm3 (150-375); Red Blood Count 4.79 M/mm3 (4.6-6.20); Red Cell Distribution Width 14.4 % (11.5-14.5)
[2023-04-14] MEDS: IPRATROPIUM BR 0.02% INH SOLN 0.5 MG/2.5 ML VIAL INHALATION (04:21)
[2023-04-14 04:29] VITALS: PULSE 58; RESP 18
[2023-04-14 04:31] LABS: Alanine Aminotransferase 23 U/L (6-50); Albumin Level 4.2 g/dL (3.5-5.1); Alkaline Phosphatase 66 U/L (38-126); Anion Gap 8 mmol/L (8-16); Aspartate Amino Transferase 32 U/L (17-59); Bilirubin,Total 0.4 mg/dL (0.2-1.3); Blood Urea Nitrogen 14 mg/dL (9-20); Calcium 8.9 mg/dL (8.4-10.2); Carbon Dioxide 23 mmol/L (22-30); Chloride 105 mmol/L (98-107); Estimated CRCL calculation 58 ml/min; Estimated Glomerular Filt Rate > 60; Glucose 137 mg/dL (65-110); Sodium 136 mmol/L (137-145)
[2023-04-14 04:39] LABS: Influenza A QL RT-PCR Negative (Negative); Influenza B QL RT-PCR Negative (Negative); RSV RNA, RT-PCR Negative (Negative); SARS-CoV-2 RNA PCR Positive (Negative)
[2023-04-14 04:42] LABS: Troponin I 0.016 ng/mL (0.000-0.034)
== END 2023-04-14 05:06 | disposition home or self-care (01) ==
PROVIDERS: Emergency Provider Student in an Organized Health Care Education/Training Program; PCP Emergency Medicine
DX: U07.1 COVID-19 (principal); J06.9 Acute upper respiratory infection, unspecified; E11.9 Type 2 diabetes mellitus without complications; I10 Essential (primary) hypertension; Z87.891 Personal history of nicotine dependence
CPT/HCPCS: 36415; 71046; 80053; 84484; 85025; 87637; 93005; 94640; 99284

== ENCOUNTER 2023-07-02 08:49 | Outpatient (CLI) | payer MEDICARE, SELFPAY | END 2023-07-02 08:50 | disposition home or self-care (01) | LOC: ANHAUDIO 08:50 | PROVIDERS: PCP Emergency Medicine; Visit Provider Emergency Medicine | DX: H90.3 Sensorineural hearing loss, bilateral (principal) | CPT/HCPCS: 92557; 92567 ==

== ENCOUNTER 2023-08-02 09:44 | Outpatient (CLI) | payer MEDICARE, SELFPAY ==
[2023-08-02 10:31] LABS: Cholesterol 137 mg/dL (0-200); HDL Direct 43 mg/dL; Triglycerides 76 mg/dL (<150)
[2023-08-02 10:42] LABS: LDL Cholesterol Direct 81 mg/dL
[2023-08-02 10:47] LABS: Hemoglobin A1C 6.9 % (<5.7)
== END 2023-08-02 09:45 | disposition home or self-care (01) ==
PROVIDERS: PCP Emergency Medicine; Visit Provider Emergency Medicine
DX: E11.9 Type 2 diabetes mellitus without complications (principal); I10 Essential (primary) hypertension
CPT/HCPCS: 36415; 80061; 83036

== ENCOUNTER 2023-10-28 07:31 | Outpatient (CLI) | payer MEDICARE, SELFPAY ==
[2023-10-28 08:25] LABS: LDL Cholesterol Direct 68 mg/dL
[2023-10-28 09:02] LABS: Vitamin D 25 Hydroxy 46.6 ng/mL
[2023-10-28 09:26] LABS: Creatinine Urine 217.9 mg/dL
[2023-10-28 09:31] LABS: Microalbumin Urine Random 6.5 mg/L (0-16.7)
[2023-10-28 09:33] LABS: Hemoglobin A1C 6.3 % (<5.7)
[2023-10-28 10:02] LABS: Alanine Aminotransferase 19 U/L (6-50); Albumin Level 4.3 g/dL (3.5-5.1); Alkaline Phosphatase 80 U/L (38-126); Anion Gap 11 mmol/L (4-12); Aspartate Amino Transferase 26 U/L (17-59); Bilirubin,Total 0.5 mg/dL (0.2-1.3); Blood Urea Nitrogen 16 mg/dL (9-20); Calcium 9.5 mg/dL (8.4-10.2); Carbon Dioxide 22 mmol/L (22-30); Chloride 108 mmol/L (98-107); Cholesterol 128 mg/dL (0-200); Estimated Glomerular Filt Rate > 60; Glucose 66 mg/dL (65-110); HDL Direct 47 mg/dL; Potassium 4.2 mmol/L (3.4-5.0); Sodium 141 mmol/L (137-145); Triglycerides 184 mg/dL (<150)
== END 2023-10-28 07:32 | disposition home or self-care (01) ==
LOC: ANHLAB 07:33
PROVIDERS: PCP Emergency Medicine; Visit Provider Emergency Medicine
DX: E78.5 Hyperlipidemia, unspecified (principal); E55.9 Vitamin D deficiency, unspecified; E11.9 Type 2 diabetes mellitus without complications
CPT/HCPCS: 36415; 80053; 80061; 82043; 82306; 83036

== ENCOUNTER 2023-12-02 09:44 | Emergency (ER) | payer MEDICARE, SELFPAY ==
--- NOTE | ~2023-12-02 | XR_ITS ---
EXAMINATION: XR chest 2V DATE: 12/02/2023 12:55 INDICATION: Shortness of breath TECHNIQUE: PA and lateral views of the chest were obtained. COMPARISON: Chest radiograph dated 04/14/2023 FINDINGS: The lungs remain clear with no focal airspace opacities, pulmonary edema, pleural effusion or pneumot horax. The cardiomediastinal silhouette is normal. Mild to moderate thoracic spondylosis. IMPRESSION: 1. No acute cardiopulmonary disease. Reviewed, dictated and finalized at location B.
[2023-12-02 09:52] VITALS: BP 128/66; PULSE 62; RESP 18; TEMP 36.4; O2SAT 100
--- NOTE | 2023-12-02 11:12 | ECG_ITS ---
Test Date: 2023-12-02 11:15:34 Measurements Intervals [place] Rate: 56 P: 45 OK: 161 QRS: 61 QRSD: 92 T: 26 QT: 366 QTc: 355 Interpretive Statements SINUS BRADYCARDIA EARLY REPOLARIZATION BORDERLINE ECG No previous ECG available for comparison Electronically Signed On 12-02-2023 15:58:32 CDT by Timothy High M.D.
[2023-12-02 11:31] LABS: Basophils Percent Auto 0.3 % (0.2-1.2); Eosinophils Absolute Auto 0.1 K/mm3 (0-0.3); Eosinophils Percent Auto 2.4 % (0-4.4); Hematocrit 41.6 % (42.0-52.0); Hemoglobin 13.4 g/dL (14.0-18.0); Immature Granulocyte Absolute 0.01 K/mm3 (0.00-0.031); Immature Granulocyte Percent A 0.3 % (0-0.5); Lymphocytes Absolute Auto 1.22 K/mm3 (0.9-3.2); Lymphocytes Percent Auto 32.1 % (18.3-44.2); Mean Corpuscular HGB Conc 32.2 g/dl (32-36); Mean Corpuscular Hemoglobin 27.5 pg (26-34); Mean Corpuscular Volume 85.2 fl (80-100); Mean Platelet Volume 9.6 fl (7.4-10.4); Monocytes Absolute Auto 0.3 K/mm3 (0.1-0.6); Monocytes Percent Auto 8.4 % (2.6-8.5); Neutrophils Absolute Auto 2.2 K/mm3 (1.3-6.7); Neutrophils Percent Auto 56.5 % (45.5-73.1); Platelet Count Result 185 k/mm3 (150-375); Red Blood Count 4.88 M/mm3 (4.6-6.20); Red Cell Distribution Width 14.1 % (11.5-14.5); White Blood Count 3.8 K/mm3 (4.5-10.0)
--- NOTE | 2023-12-02 12:28 | ED.GENADULT ---
HPI - General Adult General Chief complaint: Recheck/Abnormal Lab/Rx Stated complaint: light headed, high BP Time Seen by Provider: 12/02/23 12:04 Source: patient, RN notes reviewed and old records reviewed Mode of arrival: ambulatory Limitations: no limitations History of Present Illness HPI narrative: This is a 73 year old male with history of hypertension, BPH who presents for evaluation of weakness. 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 He has not felt well since that event. He reports he reports being weak since that event. He also states this morning he got up and he felt lightheaded. He checked his blood pressure this morning and it was 190s systolic so he called his PCP. They did not answer his call so he came to ER. His blood pressure was normal on arrival to ER. He denies vertigo, chest pain , nausea, abdominal pain or focal weakness. HE does reports weakness and shortness of breath. Related Data Home Medications Medication Instructions Recorded Confirmed sildenafil 50 mg tablet (Viagra) 50 mg PO .COMPLEX 06/28/19 11/05/23 Allergies Allergy/AdvReac Type Severity Reaction Status Date / Time No Known Allergies Allergy Unknown NONE Verified 12/02/23 09:52 Review of Systems Constitutional: Constitutional: Reports fatigue and Reports weakness ENT: Reports dizziness Cardiovascular: Cardiovascular: Denies syncope, Denies rapid heart rate, Denies irregular heart rhythm, Denies leg edema and Reports dyspnea Respiratory: Respiratory: Denies chest congestion, Denies hemoptysis, Denies excessive phlegm production and Reports dyspnea Gastrointestinal: Gastrointestinal: Denies abdominal pain, Denies hematochezia, Denies diarrhea and Denies vomiting Genitourinary: Genitourinary: Denies hematuria, Denies dysuria, Denies penile discharge and Denies testicular pain Musculoskeletal: Musculoskeletal: Denies joint swelling, Denies loss of height and Denies muscle weakness Neurologic: Denies syncope, Reports headache(s), Denies focal weakness and Reports weakness PMFSH Past Medical History Medical History Acute hemorrhoid Acute non-recurrent frontal sinusitis Anxiety disorder, unspecified Apneic spell Asbestos exposure Shanon infection Cervicalgia COPD (chronic obstructive pulmonary disease) Cough with congestion of paranasal sinus COVID Depression Diabetes mellitus Dizziness Encounter for screening for malignant neoplasm of colon HTN (hypertension) Hypogonadism in male Insomnia Intractable hiccups Loud snoring Mixed hyperlipidemia Oral herpes Other hyperlipidemia Pharyngeal mass Post-operative pain PTSD (post-traumatic stress disorder) Rectal bleed Squamous cell carcinoma of penis Thrush Vitamin D deficiency Surgical History Surgical History History of lumbar surgery Hx of tonsillectomy Family History Family History Mother Family history of diabetes mellitus in first degree relative, Onset Age: 72 Father Family history of diabetes mellitus in first degree relative, Onset Age: 75 Sibling Family history of kidney disease Social History Social History Smoking status: Former smoker Alcohol intake: current Alcohol use details: STATES MAYBE 4 BEERS/MONTH Substance use: current Substance use type: marijuana Other substance usage details: MEDICAL MARIJUANA CARD - DAILY USAGE Do You Feel Safe in your Home?: Yes Lack of Transportation: No Lack of Food: Never True Current Housing: I Have Housing Concerned About Future Housing: No Difficulty Paying Gas/Electric Bills: No Difficulty Paying for Meds: No Currently Unemployed: No Education: High School Diploma/GED Difficulty w/ Childcare or Family Car
[2023-12-02 12:49] LABS: Prothrombin Time 13.5 Seconds (11.1-14.7)
[2023-12-02 12:50] LABS: Partial Thromboplastin Time 32.6 Seconds (22.3-36.8)
[2023-12-02 13:00] LABS: NT Pro B Type Natriuretic Pept < 20 pg/mL (19.9-100); Troponin I < 0.012 ng/mL (0.000-0.034)
[2023-12-02 13:03] LABS: D Dimer 0.45 ug/mL (<0.48)
[2023-12-02] MEDS: SODIUM CHLORIDE 0.9% IV 1,000 ML 999 ML IV CONT (13:04)
[2023-12-02 13:05] VITALS: BP 114/66; PULSE 59; RESP 14; O2SAT 100
[2023-12-02 13:13] LABS: Appearance Urine Clear (Clear); Bilirubin Urine Negative (Negative); Blood Urine Negative (Negative); Color Urine Yellow (Yellow); Glucose Urine UA Negative (Negative); Ketones Urine Negative (Negative); Leukocyte Esterase Ur Negative LEU/UL (Negative); Nitrate Urine Negative (Negative); Protein Urine Negative (Negative); Specific Grav Ur 1.008 (1.001-1.035); Urobilinogen Urine 0.2 mg/dL (<2.0); pH Urine 7.5 (5.0-9.0)
[2023-12-02 13:17] LABS: Add Urine Microscopic? NO
[2023-12-02 13:37] VITALS: BP 116/68; BP 120/82; PULSE 59; PULSE 61
[2023-12-02 13:39] VITALS: BP 131/72; PULSE 64
[2023-12-02 14:12] LABS: Alanine Aminotransferase 20 U/L (6-50); Albumin Level 4.2 g/dL (3.5-5.1); Alkaline Phosphatase 69 U/L (38-126); Anion Gap 7 mmol/L (4-12); Aspartate Amino Transferase 32 U/L (17-59); Bilirubin,Total 0.5 mg/dL (0.2-1.3); Blood Urea Nitrogen 12 mg/dL (9-20); Calcium 9.3 mg/dL (8.4-10.2); Carbon Dioxide 23 mmol/L (22-30); Chloride 106 mmol/L (98-107); Estimated CRCL calculation 57 ml/min; Estimated Glomerular Filt Rate > 60; Glucose 135 mg/dL (65-110); Potassium 4.3 mmol/L (3.4-5.0); Sodium 136 mmol/L (137-145)
[2023-12-02 14:44] VITALS: BP 141/84; PULSE 58; RESP 14; TEMP 36.6; O2SAT 100
== END 2023-12-02 14:46 | disposition home or self-care (01) ==
PROVIDERS: Emergency Medicine; Emergency Provider General Practice; PCP Emergency Medicine
DX: E86.0 Dehydration (principal); R42 Dizziness and giddiness; E11.9 Type 2 diabetes mellitus without complications; I10 Essential (primary) hypertension; J44.9 Chronic obstructive pulmonary disease, unspecified; E78.2 Mixed hyperlipidemia; Z87.891 Personal history of nicotine dependence
CPT/HCPCS: 36415; 71046; 80053; 81003; 83880; 84484; 85025; 85380; 85610; 85730; 93005; 96360; 96361; 99284; J7030

== ENCOUNTER 2024-02-11 07:23 | Outpatient (CLI) | payer MEDICARE, SELFPAY ==
[2024-02-11 08:12] LABS: Cholesterol 148 mg/dL (0-200); HDL Direct 48 mg/dL; Triglycerides 71 mg/dL (<150)
[2024-02-11 08:23] LABS: LDL Cholesterol Direct 80 mg/dL
[2024-02-11 08:29] LABS: Hemoglobin A1C 6.7 % (<5.7)
[2024-02-11 10:42] LABS: Creatinine Urine 257.6 mg/dL
[2024-02-11 10:47] LABS: MALB Creatinine Ratio 2.8 mg/g (0-30); Microalbumin Urine Random 7.3 mg/L (0-16.7)
== END 2024-02-11 07:24 | disposition home or self-care (01) ==
LOC: ANHLAB 07:27
PROVIDERS: PCP Emergency Medicine; Visit Provider Emergency Medicine
DX: E78.5 Hyperlipidemia, unspecified (principal); E55.9 Vitamin D deficiency, unspecified; E11.9 Type 2 diabetes mellitus without complications
CPT/HCPCS: 36415; 80061; 82043; 82306; 83036

== ENCOUNTER 2024-05-11 07:01 | Outpatient (CLI) | payer MEDICARE, SELFPAY ==
[2024-05-11 08:07] LABS: Alanine Aminotransferase 16 U/L (6-50); Alkaline Phosphatase 63 U/L (38-126); Anion Gap 4 mmol/L (4-12); Aspartate Amino Transferase 21 U/L (17-59); Bilirubin,Total 0.5 mg/dL (0.2-1.3); Blood Urea Nitrogen 11 mg/dL (9-20); Calcium 8.9 mg/dL (8.4-10.2); Carbon Dioxide 30 mmol/L (22-30); Chloride 106 mmol/L (98-107); Cholesterol 115 mg/dL (0-200); Estimated Glomerular Filt Rate > 60; Glucose 94 mg/dL (65-110); HDL Direct 45 mg/dL; Potassium 3.9 mmol/L (3.4-5.0); Sodium 140 mmol/L (137-145); Triglycerides 82 mg/dL (<150)
[2024-05-11 08:19] LABS: LDL Cholesterol Direct 48 mg/dL
[2024-05-11 09:38] LABS: Creatinine Urine 259.9 mg/dL
[2024-05-11 09:42] LABS: MALB Creatinine Ratio 3.8 mg/g (0-30)
[2024-05-11 09:50] LABS: Vitamin D 25 Hydroxy 54.5 ng/mL
[2024-05-11 09:53] LABS: Hemoglobin A1C 6.9 % (<5.7)
== END 2024-05-11 07:02 | disposition home or self-care (01) ==
PROVIDERS: PCP Emergency Medicine; Visit Provider Emergency Medicine
DX: E78.5 Hyperlipidemia, unspecified (principal); E11.9 Type 2 diabetes mellitus without complications; E55.9 Vitamin D deficiency, unspecified
CPT/HCPCS: 36415; 80053; 80061; 82043; 82306; 83036

== ENCOUNTER 2024-07-04 14:16 | Emergency (ER) | payer MEDICARE, SELFPAY ==
--- NOTE | ~2024-07-04 | CT_ITS ---
Clinical indication:Fall COMPARISON:Reference is made to plain film evaluation of the chest dated 12/02/2023 TECHNIQUE: Multiple contiguous axial images of the chest were performed without the administration of intravenous contrast. FINDINGS: LUNG:Trace bibasilar atelectasis. The remainder of the lungs are clear. MEDIASTINUM:No significant mediastinal lymphadenopathy.1 HEART:The heart is enlarged, without pericardial effusion. SOFT TISSUES OF THE CHEST: Unremarkable BONES OF THE CHEST: No acute rib fracture. VISUALIZED PORTION OF THE UPPER ABDOMEN: The gallbladder, pancreas, and visualized portion of the aryan er are unremarkable without surrounding free fluid suggest acute traumatic injury. IMPRESSION: No acute fracture or CT evidence of pulmonary contusion, as detailed above. Reviewed, dictated and finalized at location A. TH OCCUPATIONS INSTRUCTOR
--- NOTE | ~2024-07-04 | CT_ITS ---
History: Fall PROCEDURE: CT thoracic spine without intravenous contrast. COMPARISON: None TECHNIQUE: Multiple contiguous axial images of the thoracic spine were performed without the administration of i ntravenous contrast. DLP: 1213 mGy-cm FINDINGS: Preservation of the normal curvature of the thoracic spine is identified. Significant degenerative disease is identified with osteophyte formation, disc space narrowing, endpl ate changes and vacuum phenomena. No acute compression fractures are present. No soft tissue abnormality is noted. Impression: Degenerative disease, without acute fracture, as detailed above. Reviewed, dictated and finalized at location A. CLOSER Impression: Degenerative disease, without acute fracture, as detailed above.
--- NOTE | ~2024-07-04 | CT_ITS ---
History: Fall PROCEDURE: CT head without contrast. COMPARISON: None TECHNIQUE: Axial imaging of the head performed from the skull base to the vertex without IV contrast. Sagittal a nd coronal reformations obtained. DLP: 605 mGy-cm FINDINGS: The ventricles are normal in size, shape and position. There is no mass, mass effect or midline shift. There is no abnormal extra-axial fluid collection or intracranial hemorrhage. Basal ganglia calcifications are present. Visualized paranasal sinuses are clear. The mastoid air cells are well aerated. No acute displaced fractures within the overlying cranium. Impression: No acute intracranial hemorrhage or suspicious mass effect. Reviewed, dictated and finalized at location A. P AND WHEAT FARMER Impression: No acute intracranial hemorrhage or suspicious mass effect.
--- NOTE | ~2024-07-04 | CT_ITS ---
History: Fall PROCEDURE: CT cervical spine without intravenous contrast. COMPARISON: None TECHNIQUE: Multiple contiguous axial images of the cervical spine were performed without the administration of i ntravenous contrast. DLP: 457 mGy-cm FINDINGS: Straightening of the normal curvature of the cervical spine is identified, likely muscular in origin. No acute fractures are present. Significant degenerative disease is identified, with osteophyte formation, disc space narrowing, endp late changes and facet arthropathy. The bilateral lung apices are unremarkable. Densely calcified atherosclerotic disease. The airway is patent. Impression: Straightening of the normal curvature of the cervical spine, likely muscular in origin. Degenerative disease, without acute fracture. Reviewed, dictated and finalized at location A. ICAL DATA MANAGEMENT MANAGER Impression: Straightening of the normal curvature of the cervical spine, likely muscular in origin. Degenerative disease, without acute fracture.
--- OUTSIDE RECORDS SUMMARY | 2024-07-04 14:19 | XMS_ITS | Encounter Summary ---
Author Name [facility] [place] [facility] [place] Address [address] [place] [address] Care Team Providers Care Fishing Reel Assembler Name Role Phone LEYLA YANCEY Primary Care Provider Unavailabl e Insurance Providers: All historical and current Section Date Range: From patient's date of to the date document was created. This section includes the names of all active insurance providers for the patient. Insurance Provider Type of Coverage Plan Name Start of Policy Coverage End of Policy Coverage Group Number Member ID Insurance Provider's Telephone Number Policy Kapadia's Name Patient's Relationship to Policy Kapadia [facility] (WNR) MEDICARE ADVANTAGE [facility] ([facility]) Jun 10, 2022 [id number] Dereje RANGEL KETURAHERIL PATIENT AETNA [facility] ([facility]) MEDICARE ADVANTAGE [facility] ([facility]) Jun 10, 2021 [id number] Dereje RANGEL URADELL PATIENT [employer] [facility] (WNR) MEDICARE ADVANTAGE [facility] ([facility]) Jun 10, 2017 [id number] [phone] Dereje RANGELL PATIENT [employer]ETNA [facility] ([facility]) MEDICARE [facility] (WNR) Jun 10, 2017 [id number] P JUAN CARLOS,E URADELL PATIENT [employer] [facility] (WNR) MEDICARE ADVANTAGE [facility] (WNR) Jun 10, 2017 [id number] P JUAN CARLOS,E URADELL PATIENT [employer] [facility] (WNR) MEDICARE ADVANTAGE [facility] (WNR) Jun 10, 2017 [id number] P [phone] JUAN CARLOS,E URADELL PATIENT [facility] Jun 10, 2004 [id number] [phone] JUAN CARLOSDerejeL PATIENT Selected Encounter This section includes the information on record at [place] for the Encounter. Date/Time Encounter Type Encounter Description Reason Provider Source Apr 02, 2024 10:30 AM OFFICE O/P EST LOW 20 MIN PODIATRY ICD-10-CM E11.9 Type 2 diabetes mellitus without complications ABIGAIL ARMENTA [facility] Encounter Template Text not used by [place] Assessments - Encounter Diagnoses This section includes the primary and secondary diagnoses documented for the Encounter. Date/Time Primary/Secondary Diagnosis Diagnosis Name Provider Source Apr 02, 2024 10:53 AM PRIMARY Type 2 diabetes mellitus without complications KAILEE ARMENTA [facility] Apr 02, 2024 10:53 AM SECONDARY Hallux valgus (acquired), left foot KAILEE ARMENTA [facility] Apr 02, 2024 10:53 AM SECONDARY Hallux valgus (acquired), right foot KAILEE ARMENTA [facility] Apr 02, 2024 10:53 AM SECONDARY Other hammer toe(s) (acquired), left foot KAILEE ARMENTA [facility] Apr 02, 2024 10:53 AM SECONDARY Other hammer toe(s) (acquired), right foot KAILEE ARMENTA [facility] Apr 02, 2024 10:53 AM SECONDARY Tinea unguium KAILEE ARMENTA [facility] Plan of Treatment: Future Appointments (+ 6 months) and Future Tests (+/- 45 days) The Plan of Treatment section includes future care activities for the patient from all [place] [facility] This section includes future appointments and future orders which are active, pending or scheduled. Future Appointments This section includes appointments that were scheduled to occur 6 months from the date of the Encounter, up to a maximum of 20 appointments. The data comes from all [place] treatment [facility]. Appointment Date/Time Appointment Type Appointme nt Facility Name Apr 22, 2024 01:30 PM AMBULATORY - SURGERY . [facility] Apr 27, 2024 10:20 AM AMBULATORY - NONE [facility] May 25, 2024 01:00 PM AMBULATORY - NONE [facility] Jul 03, 2024 10:00 AM AMBULATORY - NONE [facility] Aug 03, 2024 11:00 AM AMBULATORY - SURGERY [facility] Sep 01, 2024 11:00 AM AMBULATORY - MEDICINE [facility] Sep 07, 2024 03:00 PM AMBULATORY - SURGERY [facility] Social History: Smoking Status (Most current) and Tobacco Use (All prior to encounter date) This section includes the most current, and the historical, smoking and tobacco- related health factors from the [place] facility where the Encounter took place. Current Smoking Status This section includes the most current smoking, or tobacco-related health factor, from the [place] facility where the Encounter took place. Date/Time Current Smoking Status Comment Michela ity May 18, 2019 09:42 AM [place]-TOBACCO QUIT [address] [facility] Tobacco Use History This section includes a history of the smoking, or tobacco-related health factors, that were collected on or before the date of the Encounter. The data comes from the [place] facility where the Encounter took place. Date/Time Smoking Status/Tobacco Use Comment F acility May 18, 2019 09:42 AM [place]-TOBACCO QUIT [address] [facility] May 23, 2015 09:00 AM QUIT TOBACCO >[address] [facility] May 20, 2014 10:02 AM QUIT TOBACCO >[address] [facility] Jul 01, 2012 05:09 PM LIFETIME NON-USER OF TOBACCO [facility] May 26, 2012 07:39 PM LIFETIME NON-USER OF TOBACCO [facility] Feb 13, 2011 10:35 PM LIFETIME NON-USER OF TOBACCO [facility] Jul 22, 2009 11:00 AM QUIT TOBACCO >[address] [facility] Jul 18, 2009 10:12 PM LIFETIME NON-USER OF TOBACCO [facility] October 29, 2008 06:19 PM QUIT TOBACCO >[address] [facility] Advance Directives: All historical and current Section Date Range: From patient's date of to the date document was created. This section includes ALL of a patient's completed or amended [place] Advance and Rescinded Directives. The entries below indicate that a directive exists for the patient, but an actual copy is not included with this document. The data comes from all [place] facilities. Date Advance Directives Provider Source May 28, 2012 ADVANCE DIRECTIVE DISCUSSION RENETTA DIOR [facility] Nov 21, 2010 ADVANCE DIRECTIVE DISCUSSION CHRISTOPHER MUNOZ [facility] Jan 02, 2007 ADVANCE DIRECTIVE RANDEE CAMARILLO [facility] October 28, 2002 ADVANCE DIRECTIVE JUANCHO BURROWS [facility] Encounter Notes: All associated encounter notes This section contains the clinical notes associated to the Encounter. Date/Time Encounter Note(s) Provider Source Apr 02, 2024 10:38 AM PODIATRY NOTE: LOCAL TITLE: PODIATRY NOTE STANDARD TITLE: PODIATRY NOTE DATE OF NOTE: APR 02, 2024@10:38 ENTRY DATE: APR 02, 2024@10:38:42 AUTHOR: SHEILA ARMENTA COSIGNER: URGENCY: STATUS: COMPLETED S: 73 year old NIDDM male presents to clinic for routine diabetic foot exam. He denies any current foot pain or problems. Pt. has hx of spinal sx at [facility] with chronic low back pain per pt. Pt. denies any changes to his medical history since his last clinic visit on 10-21-23. Pt. denies any history of trauma, redness, or swelling b/l. He endorses intermittent numbness b/l. Pt. states that he is being followed by his PCP for diabetes and blood sugar levels. His last blood sugar was 85 mg/dl three mornings ago per pt. Pt. denies tobacco use. He is retired. Since his last visit, pt. received new DM shoes/inserts thru prosthetics as ordered without complications per pt. Pt. denies any foot problems or pain b/l. 69 in [175.3 cm] (08/27/2023 10:26) 173.6 lb [78.74 kg] (08/27/2023 10:26) HBA1c: HGA1C 6.9 H % 02/27/2024 11:16 No changes to objective exam findings from last visit. O: Pt. ambulated into clinic wearing DM shoes without assistance in NAD. He is alert and oriented x 3. Vasc: DP and PT pulses 2/4 b/l. CFT < 4 seconds x 10 digits. No edema or variscosities noted b/l. Sparse digital hair growth noted b/l Neuro: Protective sensation was intact to all sites tested per the 5.07 semmes norma monofilament b/l. Derm: Skin temp, texture, and turgor WNL b/l. Interdigital webspaces dry, clean, and intact b/l. No skin keratomas, breaks, or ulcers noted b/l. Mycotic toenails x 10. Clinical evidence of mycosis exists including: yellow, hypertrophic, nail lysis, and nail debris. No signs of tinea pedis b/l. No SOI noted b/l. No erythema, edema or calor noted b/l. Ortho: No pain noted on palpation of either foot or ankle. Upon WB mild pes planus foot type noted b/l. No signs of equinus noted b/l. No signs of acute or chronic charcot joint changes noted b/l. Moderate HAV L and severe HAV R 1st MPJ with lateral hallux deviation noted --- asymptomatic. Digits 2-4 b/l are dorsally and semi-rigidly contracted --- asymptomatic. Both hallux abut the b/l 2nd digits. No other gross foot abnormalities noted b/l. A: 1. NIDDM controlled 2. HAV b/l --- asymptomatic 3. Hammertoes b/l --- asymptomatic 4. Onychomycosis x 10 P: 1. Exam 2. Debride mycotic toenails x 10 without incident 3. Inspect feet daily for changes 4. Continue to wear his DM shoes/inserts daily 5. RTC 4 months per order Low risk per [facility] directive 1122 Pt. told any complications or new pedal complaints to go to the ER or triage clinic [id number]. /brittany/ SHEILA ARMENTA DPM Staff Physician - Podiatry Signed: 04/02/2024 10:53 SHEILA ARMENTA [facility]
--- OUTSIDE RECORDS SUMMARY | 2024-07-04 14:19 | XMS_ITS | Clinical Summary ---
Author Organization [facility] Address [address] [place] [address] Care Team Providers Care Chemist Proteins Name Role Phone Timothy White MD Primary Care Provide r Allergies No known active allergies Medications metFORMIN (GLUCOPHAGE) 500 mg tablet take 1 tablet by oral route 2 times every day with morning and evening meals 0 0 03/18/2014 Active sertraline (ZOLOFT) 25 mg tablet take 1 tablet by oral route every day 0 0 08/19/2014 Active ALPRAZolam (XANAX) 0.5 mg tablet TK 1 T PO BID 0 12/15/2018 Active lisinopril (PRINIVIL,ZESTR IL) 5 mg tablet TK 1 T PO QD 2 10/23/2018 Active JANUVIA 25 mg tablet TK 1 T PO QD 2 11/11/2018 Active cyclobenzaprine (FLEXERIL) 5 mg tablet TK 1 T PO TID PRN FOR 1 WEEK 10/20/2019 Active albuterol HFA (PROVENTIL HFA,VENTOLIN HFA,PROAIR HFA) 90 mcg/actuation inhaler 06/06/2023 Active fluticasone propionate (FLONASE) 50 mcg/actuation nasal spray 06/06/2023 Active Active Problems Problem Noted Date Diagnosed Date Restrictive lung disease 07/19/2020 Assessment & Plan (07/19/2020 5:09 PM LEDGE MAN): Previous CT scan of the chest did not show any parenchymal lung disease. Restrictive lung disease is likely due to obesity. TJ (obstructive sleep apnea) 07/19/2020 Assessment & Plan (06/20/2021 1:30 PM LEDGE MAN): The patient will continue with auto titrating CPAP set at 8-15 cm water pressure to treat obstructive sleep apnea. The patient denied need for supplies. D[facility] [employer] The patient and I discussed the recall in depth. The patient was instructed to examine CPAP machine prior to use for debris. The patient also received information while in the office in regards to the CPAP registration for the recall. Assessment & Plan (02/23/2021 3:31 PM CDT): The patient was benefiting from the CPAP unit prior to the recall. Since he is not using a So Clean machine and has not noticed any particulate matter in his humidifier hose, then I have recommended restarting the auto titrating CPAP unit with a range of 8-15 cm water pressure. His DME supplier is [employer]. I asked him to follow up here in 3 months. I will send an order to the [facility] for him to receive a previous style of fullface mask. Assessment & Plan (07/19/2020 5:09 PM LEDGE MAN): Continue with CPAP at night. Shortness of breath 12/30/2019 Assessment & Plan (07/19/2020 5:09 PM LEDGE MAN): PFT's show moderate restrictive lung disease likely due to body habitus. Patient was advised to lose weight. Assessment & Plan (12/30/2019 2:50 PM CDT): I will obtain BNP and full set of PFTs for further evaluation of his dyspnea with exertion. Diastolic congestive heart failure (CMS/HCC) Assessment & Plan (07/19/2020 5:10 PM LEDGE MAN): Diastolic dysfunction is compensated. He is not requiring diuretics at present. Assessment & Plan (12/30/2019 2:50 PM CDT): Heart failure seems to be compensated at present. As mentioned above will obtain BNP. Assessment & Plan (01/04/2019 7:55 PM CDT): Patient has grade 1 diastolic dysfunction. He is asymptomatic. His not requiring any diuretics at present. Asbestos exposure 10/23/2016 Assessment & Plan (12/30/2019 2:51 PM CDT): No evidence of asbestosis on prior CT scans. Assessment & Plan (01/04/2019 7:56 PM CDT): Patient has history of asbestos exposure. CT scan of the chest done with high-resolution and PFTs do not support any evidence of asbestosis. Neck pain 08/14/2016 Overview (11/02/2016): Neck pain Low back pain 08/14/2016 Overview (11/02/2016): Low back pain, unspecified back pain laterality, unspecified chronicity, with sciatica presence unspecified Multiple-level cervical spondylosis without myel opathy 08/14/2016 Overview (11/02/2016): Multiple-level cervical spondylosis without myelopathy Osteoarthritis of cervical spine 08/27/2014 Overview (09/14/2016): Cervical spondylosis Postprocedural state 04/15/2014 Overview (09/14/2016): Postprocedural state finding Sciatica 03/18/2014 Overview (09/15/2016): Sciatica of right side Herniation of lumbar intervertebral disc without myelopathy 03/18/2014 Overview (09/15/2016): Displacement of lumbar intervertebral disc without myelopathy Resolved Problems Problem Noted Date Diagnosed Date Resolved Date ILD (interstitial lung disease) (CMS/[facility]) 10/30/2016 12/23/2018 Encounters Date Type Department Care Team Description 04/14/2024 2:44 PM LEDGE MAN - 04/14/2024 11:59 PM LEDGE MAN Hospital Encounter [facility] Respiratory Therapy [address] [place] [address] Shortness of breath Discharge Disposition: Discharge to home or self care 04/13/2024 2:20 PM LEDGE MAN Office Visit [facility] [address] [facility] [facility] 6th [address] [place] [address] Gosia Liao, PhD Insomnia due to mental condition (Primary Dx); PTSD (post-traumatic stress disorder) from Last 3 Months Immunizations Name Administration Dates Next Due Pneumococcal Polysaccharide PPV23 01/16/2017 Surgical History Surgery Date Site/Laterality Comments TONSILLECTOMY SINUS SURGERY LUMBAR SPINE SURGERY Medical History Medical History Date Comments Diabetes mellitus (HCC) Diabetes mellitus; Comments: CCB 03/18/2014 - Acquired scoliosis Scoliosis Depression Depression PTSD (post-traumatic stress disorder) High blood pressure Family History Medical History Relation Name Comments Diabetes Mother Diabetes mellit us; Relation Name Status Comments Mother Social History Tobacco Use Types Packs/Day Years Used Date Smoking Tobacco: Never Smokeless Tobacco: Never Tobacco Cessation:Counseling Given: Not Answered AUDIT-C Answer Date Recorded Q1: How often do you have a drink containing alc ohol? 2-4 times a month 06/20/2021 Average Number of Drinks Not on file 022 Q3: How often do you have si x or more drinks on one occasion? Never 06/20/2021 Sex and Gender Information Value Date Recorded Sex Assigned at Not on file Legal Sex Male 10:01 AM LEDGE MAN Gender Identity Not on file Sexual Orientation Not on file Obstetrics History Last Filed Vital Signs Vital Sign Reading Time Taken Comments Blood Pressure 131/83 03/25/2024 7:27 PM CDT Pulse 72 03/25/2024 7:27 PM CDT Temperature 36.8 ??C (98.3 ??F) 03/25/2024 7:27 PM CD T Respiratory Rate 18 03/25/2024 1:09 PM CDT Oxygen Saturation 100% 04/14/2024 3:00 PM LEDGE MAN Inhaled Oxygen Concentration - - Weight 77.3 kg (170 lb 8 oz) 03/25/2024 7:27 PM CDT Height 175.3 cm (5' 9 ) 03/25/2024 7:27 PM CDT Body Mass Index 25.18 03/25/2024 7:27 PM CDT Plan of Treatment Health Maintenance Due Date Last Done Comments Colon Cancer Screening-Colonoscopy 1950 Depression Screening 1950 Fall Risk Assessment 1950 Hepatitis C Screening 1950 Prostate Cancer Screening-PSA 1950 Hepatitis B Screening 11/01/1967 Well Visit 65+ 2014 Covid-19 Vaccine (5 - 2023-2 5 season) 2024 10/05/2021, 03/29/2021, 08/25/2020, Additional history exists Influenza Vaccine (#1) 2024 03/18/2007 DTaP/Tdap/Td Vaccine (3 - Td or Tdap) 05/16/2026 05/16/2016, 10/08/2006 Pneumococcal vaccine 65+ Completed 017, 12/19/2016, 01/14/2015, Additional history exists Zoster Vaccine Completed 03/21/2018, 12/08, 07/04/2010 Procedures Procedure Name Priority Date/Time Associated Diagnosis Comments PULMONARY FUNCTION TEST (PFT) Routine 04/14/2024 4:09 PM LEDGE MAN Shortness of breath from Last 3 Months Results * Pulmonary Function Test - (04/14/2024 4:09 PM LEDGE MAN) Anatomical Region Laterality Modality PFT 04/14/2024 3:00 PM LEDGE MAN Narrative 04/16/2024 12:48 PM LEDGE MAN METHACHOLINE CHALLENGE TEST Diann Elder 04/15/2024 INTERPRETATION Methacholine challenge test was performed with incremental doses of methacholine per protocol. There was no significant decrease noted in the FEV1. IMPRESSION 1. No bronchial hyper-responsiveness by spirometric indices. ??Clinical correlation recommended. Electronically signed by Monse Gerber MD ?? Kayla Atkinson MD PFT ORDERABLES Final Result from Last 3 Months Insurance [address] [address] MEDICARE SOLUTIONS Member Subscriber Plan / Payer (Ef fective 2022-Present) Name:Diann Elder Relation to Subscriber:Self Name:Diann Elder Payer ID:[id number] (NAIC) Type:[facility] MEDICARE Address: [place] [id number] [address] [id number] MEDICARE SOLUTIONS [address] [id number] MEDICARE SOLUTIONS Member Subscriber Plan / Payer (Ef fective 2023-Present) Name:Diann Elder Relation to Subscriber:Self Name:Diann Elder Payer ID:[id number] (NAIC) Type:[employer] MEDICARE Address: [address] Care Teams Chemist Proteins Relationship Specialty Start Date End Date Timothy White MD [address] [place] [address] [facility] - General 09/07/16
--- OUTSIDE RECORDS SUMMARY | 2024-07-04 14:19 | XMS_ITS | Encounter Summary ---
Author Name [facility] [facility] [place] [facility] [facility] [place] Address [address] [place] [address] Care Team Providers Care City Secretary Name Role Phone LEYLA YANCEY Primary Care [...] Kapadia's Name Patient's Relationship to Policy Kapadia [facility] (WNR) MEDICARE ADVANTAGE [facility] ([facility]) Jun 10, 2022 [id number] Dereje RANGELADELL PATIENT AETNA [facility] ([facility]) MEDICARE ADVANTAGE MCR ([facility]) Jun 10, 2021 [id number] Dereje RANGEL URADELL PATIENT AETNA [facility] (WN) MEDICARE ADVANTAGE MCR ([facility]) Jun 10, 2017 [id number] [phone] Dereje RANGEL URADELL PATIENT AETNA [facility] ([facility]) MEDICARE ADVANTAGE MCR (WNR) Jun 10, 2017 [id number] [phone] Dereje RANGELL PATIENT AETNA [facility] (WNR) MEDICARE ADVANTAGE MCR (WNR) Jun 10, 2017 [id number] P Dereje RANGELL PATIENT AETNA [facility] (WNR) MEDICARE ADVANTAGE MCR (WNR) Jun 10, 2017 [id number] P Dereje RANGELL PATIENT [facility] ([facility] CE ORGANIZ CAREE R SERVI CE Jun 10, 2004 [id number] [phone] Dereje RANGEL PATIENT Selected Encounter This section includes the information on record at [place] for the Encounter. Date/Time Encounter Type Encounter Description Reason Provider Source Apr 27, 2024 10:20 AM MANUAL THERAPY 1/> [facility] CLIENT ENGAGEMENT MANAGER ICD-10-CM M54.2 Cervicalgia TEODORO NICHOLAS [facility] Encounter Template Text not used by [place] Assessments - Encounter Diagnoses This section includes the primary and secondary diagnoses documented for the Encounter. Date/Time Primary/Secondary Diagnosis Diagnosis Name Provider Source Apr 27, 2024 10:31 AM PRIMARY Cervicalgia [facility] Apr 27, 2024 10:31 AM SECONDARY Low back pain, unspecified [facility] Apr 27, 2024 10:31 AM SECONDARY Pain in thoracic spine [facility] Plan of Treatment: Future Appointments (+ 6 months) and Future Tests (+/- 45 days) The Plan of Treatment section includes future care activities for the patient from all [place] [facility]. This section includes future appointments and future orders which are active, pending or scheduled. Future Appointments This section includes appointments that were scheduled to occur 6 months from the date of the Encounter, up to a maximum of 20 appointments. The data comes from all [place] treatment facilities. Appointment Date/Time Appointment Type Appointme nt Facility Name May 25, 2024 01:00 PM AMBULATORY - NONE [facility] Jul 03, 2024 10:00 AM AMBULATORY - NONE [facility] Aug 03, 2024 11:00 AM AMBULATORY - SURGERY [facility] Sep 01, 2024 11:00 AM AMBULATORY - MEDICINE [facility] Sep 07, 2024 03:00 PM AMBULATORY - SURGERY [facility] Social History: Smoking Status (Most current) and Tobacco Use (All prior to encounter date) This section includes the most current, and the historical, smoking and tobacco- related health factors from the [place] facility where the Encounter took place. Current Smoking Status This section includes the most current smoking, or tobacco-related health factor, from the [place] facility where the Encounter took place. Date/Time Current Smoking Status Comment Facil ity May 18, 2019 09:42 AM [place] [address] [facility] Tobacco Use History This section includes a history of the smoking, or tobacco-related health factors, that were collected on or before the date of the Encounter. The data comes from the [place] facility where the Encounter took place. Date/Time Smoking Status/Tobacco Use Comment F acility May 18, 2019 09:42 AM [place]-TO[place] QU[place] [address] [facility] May 23, 2015 09:00 AM QUIT TOBACCO >[address] [facility] May 20, 2014 10:02 AM QUIT TOBACCO >[address] [facility] Jul 01, 2012 05:09 PM LIFETIME NON-USER OF TOBACCO [facility] May 26, 2012 07:39 PM LIFETIME NON-USER OF TOBACCO [facility] Feb 13, 2011 10:35 PM LIFETIME NON-USER OF TOBACCO [facility] Jul 22, 2009 11:00 AM QUIT TOBACCO >[address] [facility] Jul 18, 2009 10:12 PM LIFETIME NON-USER OF TOBACCO [facility] October 29, 2008 06:19 PM QUIT TOBACCO >[address] [facility] Advance Directives: All historical and current Section Date Range: From patient's date of to the date document was created. This section includes ALL of a patient's completed or amended [place] Advance and Rescinded Directives. The entries below indicate that a directive exists for the patient, but an actual copy is not included with this document. The data comes from all [place] facilities. Date Advance Directives Provider Source May 28, 2012 ADVANCE DIRECTIVE DISCUSSION RENETTA DIOR [facility] Nov 21, 2010 ADVANCE DIRECTIVE DISCUSSION CHRISTOPHER MUNOZ [facility] Jan 02, 2007 ADVANCE DIRECTIVE RANDEE CAMARILLO [facility] October 28, 2002 ADVANCE DIRECTIVE JUANCHO BURROWS [facility] Encounter Notes: All associated encounter notes This section contains the clinical notes associated to the Encounter. Date/Time Encounter Note(s) Provider Source Apr 27, 2024 07:33 AM CHIROPRACTIC NOTE: LOCAL TITLE: [facility] F[facility]U [facility] STANDARD TITLE: CHIROPRACTIC NOTE DATE OF NOTE: APR 27, 2024@07:33 ENTRY DATE: APR 27, 2024@07:33:33 AUTHOR: TEODORO NICHOLAS COSIGNER: URGENCY: STATUS: COMPLETED VISIT # 5 SUBJECTIVE: presents for a follow-up chiropractic visit. He feels the same since last visit. He reports short term relief with treatment and says he always feel looser. He has no pain, just stiffness. Nothing new to report regarding his health history. He rates his pain today as 0/10. OBJECTIVE: MOVEMENT/POSTURE: The Kiester ambulates without difficulty or the need for assistance. SEGMENTAL DYSFUNCTION: motion restrictions noted in the cervical, thoracic, and lumbar/SIJ regions PALPATION: Tight and tender muscles of the cervical, thoracic and lumbar paraspinal mm b/l EXAMINATION APPEARANCE, MOOD & ORIENTATION The patient is a 73 year old BLACK OR NOT OR MALE, who is alert and oriented to person, place, and time. The patient is in no apparent distress and is well developed and well nourished. Patient walks with no difficulty. There is no visible antalgia nor hitch in his gait. ASSESSMENT: Non-specific chronic neck and low back pain with associated segmental dysfunction complicated by myalgia, past surgery and comorbidities. No red flags. Described past resident care manager rn as beneficial. Patient prognosis for conservative care is good. Currently he is very active, is managing his own health, knows and understands the benefits of active care vs passive. Trial of care can proceed. No need for further testing at this time. REFERRAL DATE: 08/27/23 EXAM DATE(S): 01/15/24 14:00 INITIAL TREATMENT DATE: 01/15/24 14:00 TYPE OF CARE: active DISCHARGE DATE: ALERTS: L/S surgery, scar present in the lower segments PLAN: Plan of care will consist of 4-6 visits consisting of chiropractic manipulation with an incremental increase in home care instructions depending on the patient's response. The patient agrees to this plan. The was informed that part of today's treatment would be performed by chiropractic student Roel Gaspar and they agreed to treatment. Today's treatment consisted of: -Table-assisted flexion/distraction with circumduction of the lumbar spine. Passive stretching of lumbar paraspinal mm was also achieved during this treatment. -Table-assited manual manipulation was performed in the lumbar/SIJ regions. -Gentle manual manipulation Thoracic (AP) -Gentle mobilization of cervical (supine) region -Instrument Assisted mobilization of the cervical -Myofascial treatment (mix of pin and stretch and soft tissue mobilization) of the cervical paraspinal mm b/l. Manual Therapy: 8 min Treatment was well tolerated and without incident. HOME CARE: -continue using pool for walking/exercise 3x/week -continue using mindfulness ashanti at home -Desk posture handout (chin tucks, Bruegger exercise, doorway pec stretch, lacrosse ball for self-myofascial care, cat/camel, self-thoracic mobilization)- 12 reps, 3 sec hold, 2x/day -Seated Yoga WHOLE HEALTH: We discussed [facility] offerings that are available as an adjunct to resident care manager rn. The orientation/coaching process was described. I gave the a printed information packet, website, and phone number for scheduling. RTC: 4 weeks /brittany/ TEODORO NICHOLAS [facility] Chiropractor Signed: 04/27/2024 10:31 TEODORO NICHOLAS [facility]
--- OUTSIDE RECORDS SUMMARY | 2024-07-04 14:19 | XMS_ITS | Encounter Summary ---
Author Name [facility] [place] Organization [facility] [place] [facility] [place] Address [address] [place] [address] Care Team Providers Care Feather Edger Name Role Phone LEYLA YANCEY Primary Care [...] Kapadia's Name Patient's Relationship to Policy Kapadia [facility] (WNR) MEDICARE ADVANTAGE [facility] ([facility]) Jun 10, 2022 [id number] Dereje RANGELADELL PATIENT AETNA [facility] ([facility]) MEDICARE ADVANTAGE [facility] ([facility]) Jun 10, 2021 [id number] Dereje RANGEL URADELL PATIENT AETNA [facility] (WN) MEDICARE ADVANTAGE MCR ([facility]) Jun 10, 2017 [id number] Dereje RANGEL URADELL PATIENT AETNA [facility] ([facility]) MEDICARE ADVANTAGE [facility] (WNR) Jun 10, 2017 [id number] P [phone] Dereje RANGELL PATIENT AETNA [facility] (WNR) MEDICARE ADVANTAGE [facility] (WNR) Jun 10, 2017 [id number] P Dereje RANGELL PATIENT AETNA [facility] (WNR) MEDICARE ADVANTAGE [facility] (WNR) Jun 10, 2017 [id number] P Dereje RANGELL PATIENT [facility] ([facility] ORGANIZ CAREE R SERVI CE Jun 10, 2004 [id number] [phone] Dereje RANGEL PATIENT Selected Encounter This section includes the information on record at MD for the Encounter. 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 Date/Time Primary/Secondary Diagnosis Diagnosis Name Provider Source May 25, 2024 03:50 PM PRIMARY Cervicalgia SERRANT MARGRET STALLINGS [facility] May 25, 2024 03:50 PM SECONDARY Low back pain, unspecified MARGRET LAZO [facility] May 25, 2024 03:50 PM SECONDARY Pain in thoracic spine MARGRET LAZO [facility] Plan of Treatment: Future Appointments (+ 6 months) and Future Tests (+/- 45 days) The Plan of Treatment section includes future care activities for the patient from all [facility]. This section includes future appointments and future orders which are active, pending or scheduled. Future Appointments This section includes appointments that were scheduled to occur 6 months from the date of the Encounter, up to a maximum of 20 appointments. The data comes from all MD treatment facilities. Appointment Date/Time Appointment Type Appointme nt Facility Name Jul 03, 2024 10:00 AM AMBULATORY - NONE [facility] Aug 03, 2024 11:00 AM AMBULATORY - SURGERY [facility] Sep 01, 2024 11:00 AM AMBULATORY - MEDICINE Eneida TONY [facility] Sep 07, 2024 03:00 PM AMBULATORY - SURGERY [facility] Nga [facility] Social History: Smoking Status (Most current) and Tobacco Use (All prior to encounter date) This section includes the most current, and the historical, smoking and tobacco- related health factors from the MD facility where the Encounter took place. Current Smoking Status This section includes the most current smoking, or tobacco-related health factor, from the MD facility where the Encounter took place. Date/Time Current Smoking Status Comment Facil ity May 18, 2019 09:42 AM MD-TOBACCO QUIT 15 YRS OR MORE [facility] Tobacco Use History This section includes a history of the smoking, or tobacco-related health factors, that were collected on or before the date of the Encounter. The data comes from the MD facility where the Encounter took place. Date/Time Smoking Status/Tobacco Use Comment F acility May 18, 2019 09:42 AM MD-TOBACCO QUIT 15 YRS OR MORE [facility] May 23, 2015 09:00 AM QUIT TOBACCO >7 YEARS AGO [facility] May 20, 2014 10:02 AM QUIT TOBACCO >7 YEARS AGO [facility] Jul 01, 2012 05:09 PM LIFETIME NON-USER OF TOBACCO [facility] May 26, 2012 07:39 PM LIFETIME NON-USER OF TOBACCO [facility] Feb 13, 2011 10:35 PM LIFETIME NON-USER OF TOBACCO [facility] Jul 22, 2009 11:00 AM QUIT TOBACCO >7 YEARS AGO [facility] Jul 18, 2009 10:12 PM LIFETIME NON-USER OF TOBACCO [facility] October 29, 2008 06:19 PM QUIT TOBACCO >7 YEARS AGO [facility] Advance Directives: All historical and current Section Date Range: From patient's date of to the date document was created. This section includes ALL of a patient's completed or amended MD Advance and Rescinded Directives. The entries below indicate that a directive exists for the patient, but an actual copy is not included with this document. The data comes from all MD facilities. Date Advance Directives Provider Source May 28, 2012 ADVANCE DIRECTIVE DISCUSSION RENETTA DIOR [facility] Nov 21, 2010 ADVANCE DIRECTIVE DISCUSSION CHRISTOPHER MUNOZ [facility] Jan 02, 2007 ADVANCE DIRECTIVE MARQUISERANDEE R [facility] October 28, 2002 ADVANCE DIRECTIVE JUANCHO BURROWS [facility] Encounter Notes: All associated encounter notes This section contains the clinical notes associated to the Encounter. Date/Time Encounter Note(s) Provider Source May 25, 2024 07:32 AM CHIROPRACTIC NOTE: LOCAL TITLE: CHIROPRACTIC WHOLE HEALTH F/U [facility] STANDARD TITLE: CHIROPRACTIC NOTE DATE OF NOTE: MAY 25, 2024@07:32 ENTRY DATE: MAY 25, 2024@07:33 AUTHOR: MATTHEW LAZO COSIGNER: TEODORO NICHOLAS URGENCY: STATUS: COMPLETED CHIROPRACTIC WHOLE HEALTH F/U STL Has ADDENDA VISIT #6 SUBJECTIVE: presents for follow-up chiropractic visit. Report had cryotherapy 2 weeks ago, felt better and looser afterwards. Denies any pain just general stiffness. Has been performing his HEP, adding additional stretches that he has found on a phone ashanti. Reports he mostly feels tired and has not been able to sleep well the last couple of days, attributes to new medication prescribed, reports has appointment on Saturday with his primary and will be talking about it. Rates his pain 0 out of 10. OBJECTIVE: MOVEMENT/POSTURE: The [place] ambulates without difficulty or the need for [...] and comorbidities. No red flags. Described past hemodialysis patient care specialist as beneficial. Patient prognosis for conservative care [...] response. The patient agrees to this plan. Today's treatment consisted of: -Table-assisted flexion/distraction with [...] that are available as an adjunct to hemodialysis patient care specialist. The orientation/coaching process was described. I gave the a printed information packet, website, and phone number for scheduling. RTC: 4 weeks /brittany/ JARON STALLINGS Chiropractic Resident Signed: 05/25/2024 16:39 /es/ TEODORO NICHOLAS [facility] Chiropractor Cosigned: 05/26/2024 07:33 05/26/2024 ADDENDUM STATUS: COMPLETED I reviewed the subjective and regional findings related to this 's condition. I verified and concur with those findings. I evaluated and supervised the resident's treatment today. /brittany/ TEODORO NICHOLAS [facility] Chiropractor Signed: 05/26/2024 07:33 [facility]
--- OUTSIDE RECORDS SUMMARY | 2024-07-04 14:19 | XMS_ITS | Encounter Summary ---
Author Name [place] Address [address] [place] [address] Care Team Providers Care Cellulose Insulation Helper Name Role Phone LEYLA YANCEY Primary Care [...] Kapadia's Name Patient's Relationship to Policy Kapadia [facility] (WNR) MEDICARE ADVANTAGE [facility] ([facility]) Jun 10, 2022 [id number] Dereje RANGEL KETURAHERIL PATIENT AETNA [facility] ([facility]) MEDICARE ADVANTAGE [facility] ([facility]) Jun 10, 2021 [id number] [phone] Dereje RANGEL URADELL PATIENT AETNA [facility] (WNR) MEDICARE ADVANTAGE [facility] ([facility]) Jun 10, 2017 [id number] P [phone] Dereje RANGELL PATIENT AETNA [facility] ([facility]) MEDICARE ADVANTAGE [facility] (WNR) Jun 10, 2017 [id number] P [phone] Dereje RANGELL PATIENT AETNA [facility] (WNR) MEDICARE ADVANTAGE [facility] (WNR) Jun 10, 2017 [id number] P JUAN CARLOSDerejeADELL PATIENT AETNA [facility] (WNR) MEDICARE ADVANTAGE [facility] (WNR) Jun 10, 2017 [id number] P Dereje RANGELL PATIENT [facility] ORGANIZ CAREE R SERVI CE Jun 10, 2004 [id number] Dereje RANGEL PATIENT Selected Encounter This section includes the information on record at [place] for the Encounter. Date/Time Encounter Type Encounter Description Reason Provider Source Apr 22, 2024 01:30 PM OFFICE O/P EST LOW 20 MIN OPTOMETRY ICD-10-CM H25.13 Age-related nuclear cataract, bilateral BALLARD,DORINDASoteroFADI THI IHE Encounter Template Text not used by [place] Assessments - Encounter Diagnoses This section includes the primary and secondary diagnoses documented for the Encounter. Date/Time Primary/Secondary Diagnosis Diagnosis Name Provider Source Apr 22, 2024 03:22 PM PRIMARY Age-related nuclear cataract, bilateral [facility] Apr 22, 2024 03:22 PM SECONDARY Dry eye syndrome of bilateral lacrimal glands [facility] Apr 22, 2024 03:22 PM SECONDARY Ocular hypertension, bilateral [facility] Plan of Treatment: Future Appointments (+ 6 months) and Future Tests (+/- 45 days) The Plan of Treatment section includes future care activities for the patient from all [place] treatmentfacilities. This section includes future appointments and future orders which are active, pending or scheduled. Future Appointments This section includes appointments that were scheduled to occur 6 months from the date of the Encounter, up to a maximum of 20 appointments. The data comes from all [place] treatment facilities. Appointment Date/Time Appointment Type Appointme nt Facility Name Apr 27, 2024 10:20 AM AMBULATORY - NONE [facility] May 25, 2024 01:00 PM AMBULATORY - NONE . MARY Ennis [facility] Jul 03, 2024 10:00 AM AMBULATORY - NONE [facility] MARY Enins [facility] Aug 03, 2024 11:00 AM AMBULATORY - SURGERY . Nga TRAN [facility] Sep 01, 2024 11:00 AM AMBULATORY - MEDICINE [facility] Sep 07, 2024 03:00 PM AMBULATORY - SURGERY [facility] N[facility] Advance Directives: All historical and current Section Date Range: From patient's date of to the date document was created. This section includes ALL of a patient's completed or amended [place] Advance and Rescinded Directives. The entries below indicate that a directive exists for the patient, but an actual copy is not included with this document. The data comes from all [place] facilities. Date Advance Directives Provider Source May 28, 2012 ADVANCE DIRECTIVE DISCUSSION RENETTA DIOR [facility] Nov 21, 2010 ADVANCE DIRECTIVE DISCUSSION CHRISTOPHER MUNOZ [facility] Jan 02, 2007 ADVANCE DIRECTIVE RANDEE CAMARILLO [facility] October 28, 2002 ADVANCE DIRECTIVE JUANCHO BURROWS [facility] Encounter Notes: All associated encounter notes This section contains the clinical notes associated to the Encounter. Date/Time Encounter Note(s) Provider Source Apr 22, 2024 01:51 PM OPTOMETRY CONSULT: LOCAL TITLE: OPTOMETRY CONSULT [facility] STANDARD TITLE: OPTOMETRY CONSULT DATE OF NOTE: APR 22, 2024@13:51 ENTRY DATE: APR 22, 2024@13:51:21 AUTHOR: ALLEN BALLARD COSIGNER: URGENCY: STATUS: COMPLETED Ocular Coherence Tomography Report RNFL/ONH and Macula Note: The image can be viewed on [employer] Reason for OCT: 1. Ocular Hypertension Assessment: Pachymetry OD: 490 um OS: 490 um /es/ ALLEN BALLARD O.D. Staff Physician, Optometry Signed: 04/22/2024 13:51 ALLEN BALLARD [facility] Apr 22, 2024 08:11 AM OPTOMETRY NOTE: LOCAL TITLE: OPTOMETRY NOTE STANDARD TITLE: OPTOMETRY NOTE DATE OF NOTE: APR 22, 2024@08:11 ENTRY DATE: APR 22, 2024@08:11:14 AUTHOR: ALLEN BALLARD EXP COSIGNER: URGENCY: STATUS: COMPLETED Last seen: 12/24/2023 CC: 1. Physician directed follo up for ocular hypertension started on latanoprost QHS OU last exam reports compliance is very good, like clock work 2. dry eye having difficulty using gtts 3-4 times a day would like something that lasts a little longer Ocular meds: Latanoprost QHS OU LD: last night Refresh soln 0.5% Ocular ROS: 1. 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 Cataracts, OU 3. Dry Eye, OU (-) ocular injuries (-) ocular surgeries/injections/lase r treatments Family OcHX: (-) blindness (-) glaucoma (-) AMD (-) RD Cardiovascular ROS: no change from problem & medication lists CPRS Problem list, medications and allergies reviewed: CPRS Serology for Diabetes GLUCOSE 206 H mg/dL 02/27/2024 11:16 HGA1C 6.9 H % 02/27/2024 11:16 Cardiovascular BP: 136/81 (02/27/2024 10:27) Pulse: 69 (02/27/2024 10:27) Neuro: Orientation: Normal Psych: Mood/Affect: Normal Depression/suicide ideation: NO VISUAL ACUITY With correction Distance Visual Acuity Pie Chef OD: 20/20 OS: 20/20 Pupils PERRL OU (-)APD, Pie Chef very miotic pupils, minimally reactive Confrontation: FTFC OU Extra-Ocular Muscles Full OU Externals/adnexa Unremarkable OU SLIT LAMP EXAMINATION Lids/Lashes/Lacrimal mild MDG Conjunctiva/Sclera White/quiet OU Cornea Clear OU, Nasal pterygium OU OD>OS Ant Chamber Deep and quiet OU Iris Normal, (-)NVI OU Lens 1 NS cataract OU (undilated) Intraocular Pressures (Goldmann) 1 gtt fluress Date OD OS Tests Drops 04/22/2024 10 11 Pachs Latanoprost QHS OU 12/24/23 24 24 1402 none 06/17/23 25 26 1257 none 06/19/22 21 21 1342 none 12/21/20 19 20 OCT none 03/18/19 22 22 OCT 04/03/18 21 21 OCT none 10/03/17 20 19 none 04/03/17 20 24 HVF none 09/27/16 18 18 OCT, HVF none 03/27/16 21 21 none 11/04/14 19 20-dilated 09/23/13 18 18-dilated 05/22/13 19 21 07/21/12 18 21 OCT 02/28/12 18 18 02/25/12 OCT 07/19/11 18 18 01/04/10 15 18 gonio, pachs, HVF 09/27/09 20 20 04/01/07 14 16 RETINAL EVALUATION - undilated views w/ 90D, last DFE 06/2023, difficult views 2/2 small pupils - Optic Nerve OD: 0.6 CDR Flat, pink, distinct (-)NVD OS: 0.5 CDR Flat, pink, distinct (-)NVD Aurora Bansal, Optometry Pie Chef participated in the care of this under my supervision. I personally examined the patient and provided the following assessment and plan: Assessment/Plan 04/22/2024 1. 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, OU - IOPs: today 03/20 treated Tmax: , gonio open to CBB 360 prior (2021) CCT today 490 OU - OCT RNFL 06/17/2023 OD: no RNFL quad thinning, clock hour thinning at 12,1 and 5 OS: superior RNFL thinning however scanning artifact - HVF 24-2 12/24/2023 - low reliability, excessive high FPs OD: no glaucomatous defects OS: dense defect PD, TD map clear - Hx of unreliable HVF test taker, unreliable x3 - Pachs 04/23/2024 OD 492, OS 492 - (-)FoHx glaucoma - Edu pt on all findings and including: nature of condition and importance of compliance with returns for scheduled follow up to prevent optic nerve damage, reduction in vision and/or blindness. - Continue using latanaprost QHS OU as directed - RTC 6 months for comprehensive with OCT RNFL, sooner prn 2. 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 3. Cataracts, OU - Not visually significant - Defer c/e until BVA is 20/40 or worse and signs/sx indicate - monitor 4. Dry Eye, OU - Switched to liquigel OU TID - Edu pt on all findings. Discussed importance of compliance with treatment to alleviate and prevent symptoms of dry eye. - Monitor 5. Refractive Error with Presbyopia, OU - BCVA stable - monitor in 4 months Pt edu on all findings and given the opportunity to have questions answered RTC 6 months for comprehensive with OCT RNFL, sooner prn /brittany/ ALLEN BALLARD O.D. Staff Physician, Optometry Signed: 04/23/2024 10:39 ALLEN BALLARD [facility]
--- OUTSIDE RECORDS SUMMARY | 2024-07-04 14:19 | XMS_ITS | Continuity of Care Document ---
Author Organization [employer] Address [address] [place] [address] Insurance Providers Payer Plan Claims Address Claims Phone Policy Number Group Number Relation Employer Guarantor Name Guarantor Guarantor Address Guarantor Phone Aena [facility] [id number] Vladimir Elder 1950 [address] [place] [id number] [facility] [id number] Vladimir Elder 1950 [address] [place] [address] [facility] [id number] Vladimir Elder 1950 [address] [place] [id number] Problems Unknown Problems Results Test Value / Unit Interpretation Reference Ran Jerrod Orozco_[facility]X_Genetic _Lab_Result.pdf Allergies, adverse reactions, alerts No known allergies and adverse reactions Medications No administered medications reported Vital Signs No vital signs reported Social History No smoking Hx information available
--- OUTSIDE RECORDS SUMMARY | 2024-07-04 14:19 | XMS_ITS | Encounter Summary ---
Author Name [facility] [facility] [place] Address [address] [place] [address] Care Team Providers Care Straddle Bug Name Role Phone LEYLA YANCEY Primary Care [...] Kapadia's Name Patient's Relationship to Policy Kapadia [facility] ([place]NR) MEDICARE ADVANTAGE [facility] ([facility]) Jun 10, 2022 [id number] Dereje RANGELADELL PATIENT AETNA [facility] ([facility]) MEDICARE ADVANTAGE [facility] ([facility]) Jun 10, 2021 [id number] Dereje RANGEL URADELL PATIENT AETNA [facility] (WN) MEDICARE ADVANTAGE [facility] ([facility]) Jun 10, 2017 [id number] [phone] Dereje RANGEL URADELL PATIENT AETNA [facility] ([facility]) MEDICARE ADVANTAGE [facility] (WNR) Jun 10, 2017 [id number] [phone] Dereje RANGELL PATIENT AETNA [facility] ([place]NR) MEDICARE ADVANTAGE [facility] (WNR) Jun 10, 2017 [id number] P Dereje RANGELL PATIENT AETNA [facility] ([place]) MEDICARE ADVANTAGE [facility] (WNR) Jun 10, 2017 [id number] P Dereje RANGELL PATIENT [facility] ([facility] ORGANIZ CAREE R SERVI CE Jun 10, 2004 [id number] [phone] Dereje RANGEL PATIENT Selected Encounter This section includes the information on record at [place] for the Encounter. 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 Date/Time Primary/Secondary Diagnosis Diagnosis Name Provider Source Feb 21, 2024 08:44 AM PRIMARY Cervicalgia SERRANT STALLINGS,MARGRET [facility] Feb 21, 2024 08:44 AM SECONDARY Low back pain, unspecified SERRANT STALLINGS,MARGRET [facility] Feb 21, 2024 08:44 AM SECONDARY Myalgia, unspecified site SERRANT STALLINGS,MARGRET [facility] Feb 21, 2024 08:44 AM SECONDARY Pain in thoracic spine SERRANT STALLINGS,MARGRET [facility] Plan of Treatment: Future Appointments (+ 6 months) and Future Tests (+/- 45 days) The Plan of Treatment section includes future care activities for the patient from all [place] [facility]. This section includes future appointments and future orders which are active, pending or scheduled. Future Appointments This section includes appointments that were scheduled to occur 6 months from the date of the Encounter, up to a maximum of 20 appointments. The data comes from all [place] treatment facilities. Appointment Date/Time Appointment Type Appointme nt Facility Name Feb 26, 2024 09:30 AM AMBULATORY - NONE [facility] Feb 27, 2024 10:30 AM [facility] Mar 18, 2024 02:00 PM AMBULATORY - NONE . CANDICE Andrade [facility] Mar 30, 2024 10:20 AM AMBULATORY - NONE [facility] Apr 02, 2024 10:30 AM AMBULATORY - SURGERY [facility] Apr 22, 2024 01:30 PM AMBULATORY - SURGERY [facility] Apr 27, 2024 10:20 AM AMBULATORY - NONE [facility] May 25, 2024 01:00 PM AMBULATORY - NONE [facility] Jul 03, 2024 10:00 AM AMBULATORY - NONE . [facility] Aug 03, 2024 11:00 AM AMBULATORY - SURGERY [facility] Lab Results: +/- 30 days of the encounter This section includes the Chemistry and Hematology Lab Results on record with [place] for the patient. Radiology Reports and Pathology Reports are provided separately, in subsequent sections. Lab Results This section contains the Chemistry/Hematology Results that were resulted 30 days before or 30 daysafter the date of the Encounter. Date/Time Source Result Type Result - Unit Interpretation Reference Range Comment Feb 27, 2024 11:16 AM [facility] TSH (MA-PB) Specimen Type: SERUM No comment entered. Ordering Provider: LEYLA YANCEY Report Released Date/Time: Feb 27, 2024 11:00 AM Reporting Lab: [facility] [address] [facility] [id number] Performing Lab: [facility] [address] [phone] TSH 0.748 u[IU]/mL 0.47-5 Feb 27, 2024 11:16 AM [facility] HGA1C Specimen Type: BLOOD No comment entered. Ordering Provider: LEYLA YANCEY Report Released Date/Time: Feb 27, 2024 11:00 AM Reporting Lab: [facility] [address] [phone] Performing Lab: [facility] [address] [facility] [address] HGA1C 6.9 H 4.0-6.0 Feb 27, 2024 11:16 AM [facility] VITAMIN D, 25-HYDROXY Specimen Type: SERUM No comment entered. Ordering Provider: LEYLA YANCEY Report Released Date/Time: Feb 27, 2024 11:00 AM Reporting Lab: [facility] [address] [place] [id number] Performing Lab: [address] [address] VITAMIN D, 25-HYDROXY 53.1 ng/mL 30-96 Feb 27, 2024 11:16 AM [facility] COMPREHENSIVE METABOLIC PANEL Specimen Type: PLASMA Comment: No hemolysis noted. Ordering Provider: LEYLA YANCEY Report Released Date/Time: Feb 27, 2024 11:00 AM Reporting Lab: [facility] [address] [facility] [phone] Performing Lab: [place] [id number] [facility] [phone] CREATININE 1.10 mg/dL 0.7-1.3 UREA NITROGEN 13.6 mg/dL 9.0-25.0 GLUCOSE 206 mg/dL H 72-99 SODIUM 138 meq/L 136-145 POTASSIUM 4.2 meq/L 3.5-5 CHLORIDE 105 meq/L 98-107 CARBON DIOXIDE 25 meq/L 22-31 CALCIUM 9.6 mg/dL 8.4-10.4 PROTEIN 6.8 g/dL 6-8.6 ALBUMIN 4.3 g/dL 3.4-5 TOTAL BILIRUBIN 0.6 mg/dL 0.2-1.2 ALKALINE PHOSPHATASE 69 U/L 40-150 AST/SGOT 20 U/L 5-34 ALT/SGPT 16 U/L 8-40 EGFR (CKD-EPI 2020) 70.4 >60 Social History: Smoking Status (Most current) and Tobacco Use (All prior to encounter date) This section includes the most current, and the historical, smoking and tobacco- related health factors from the [place] facility where the Encounter took place. Current Smoking Status This section includes the most current smoking, or tobacco-related health factor, from the [place] facility where the Encounter took place. Date/Time Current Smoking Status Comment Michela ity May 18, 2019 09:42 AM VA-TOBACCO FORMER USER [facility] Tobacco Use History This section includes a history of the smoking, or tobacco-related health factors, that were collected on or before the date of the Encounter. The data comes from the [place] facility where the Encounter took place. Date/Time Smoking Status/Tobacco Use Comment F acility May 18, 2019 09:42 AM VA-TOBACCO QUIT 15 YRS OR MORE [facility] May 23, 2015 09:00 AM QUIT TOBACCO >7 YEARS AGO [facility] May 20, 2014 10:02 AM QUIT TOBACCO >7 YEARS AGO [facility] Jul 01, 2012 05:09 PM LIFETIME NON-USER OF TOBACCO [facility] May 26, 2012 07:39 PM LIFETIME NON-USER OF TOBACCO [facility] Feb 13, 2011 10:35 PM LIFETIME NON-USER OF TOBACCO [facility] Jul 22, 2009 11:00 AM QUIT TOBACCO >7 YEARS AGO [facility] Jul 18, 2009 10:12 PM LIFETIME NON-USER OF TOBACCO [facility] October 29, 2008 06:19 PM QUIT TOBACCO >7 YEARS AGO [facility] Advance Directives: All historical and current Section Date Range: From patient's date of to the date document was created. This section includes ALL of a patient's completed or amended [place] Advance and Rescinded Directives. The entries below indicate that a directive exists for the patient, but an actual copy is not included with this document. The data comes from all [place] facilities. Date Advance Directives Provider Source May 28, 2012 ADVANCE DIRECTIVE DISCUSSION RENETTA DIOR [facility] Nov 21, 2010 ADVANCE DIRECTIVE DISCUSSION CHRISTOPHER MUNOZ [facility] Jan 02, 2007 ADVANCE DIRECTIVE RANDEE CAMARILLO [facility] October 28, 2002 ADVANCE DIRECTIVE JUANCHO [facility] Encounter Notes: All associated encounter notes This section contains the clinical notes associated to the Encounter. Date/Time Encounter Note(s) Provider Source Feb 21, 2024 07:03 AM CHIROPRACTIC NOTE: LOCAL TITLE: CHIROPRACTIC [facility] F/U ST [facility] TITLE: CHIROPRACTIC NOTE DATE OF NOTE: FEB 21, 2024@07:03 ENTRY DATE: FEB 21, 2024@07:03:37 AUTHOR: MATTHEW LAZO COSIGNER: TEODORO NICHOLAS URGENCY: STATUS: COMPLETED CHIROPRACTIC [facility] F/U [facility] Has ADDENDA VISIT #3 SUBJECTIVE: Patient denies pain at time of visit. Mr. Rangel states recently have been feeling more tired, mostly attributed to his sleep apnea (taking care of this with [facility] and PCP). Also admits poor sleep due to smoke detector running low on batteries. He endorses recently bought a pill he saw on the internet, sciatic sooth , describes it has been helping with his pain on the left glute region. Today he just describes general stiffness on midback and low back region. Patient shared is getting ready to start his Yoga classes through . OBJECTIVE: MOVEMENT/POSTURE: The [place] ambulates without difficulty or the need for [...] and comorbidities. No red flags. Described past child adolescent care as beneficial. Patient prognosis for conservative care [...] to this plan. Today's treatment consisted of: -Table-assited manual manipulation was performed in the lumbar/SIJ regions. -Instrument Assisted mobilization of the cervical -Myofascial treatment (mix of pin and stretch and soft tissue mobilization) of the cervical paraspinal mm b/l. -Gentle manual manipulation Thoracic (AP) -Table-assisted flexion/distraction with circumduction of the lumbar spine. Passive stretching of lumbar paraspinal mm was also achieved during this treatment. -Gentle mobilization of cervical (supine) region Manual Therapy: 8 min Treatment was well tolerated and without incident. BFA also performed during today's visit, see separate note. HOME CARE: -continue using pool for walking/exercise 3x/week -continue using mindfulness ashanti at home -Desk posture handout (chin tucks, Bruegger exercise, doorway pec stretch, lacrosse ball for self-myofascial care, cat/camel, self-thoracic mobilization)- 12 reps, 3 sec hold, 2x/day -Seated Yoga WHOLE HEALTH: We discussed Whole Health offerings that are available as an adjunct to child adolescent care. The orientation/coaching process was described. I gave the a printed information packet, website, and phone number for scheduling. RTC: 4 weeks /brittany/ JARON STALLINGS Chiropractic Resident Signed: 02/21/2024 12:55 /brittany/ TEODORO NICHOLAS [facility] Chiropractor Cosigned: 02/21/2024 12:57 02/21/2024 ADDENDUM STATUS: COMPLETED I reviewed the subjective and regional findings related to this 's condition. I verified and concur with those findings. I evaluated and supervised the resident's treatment today. /brittany/ TEODORO NICHOLAS [facility] Chiropractor Signed: 02/21/2024 12:57 02/21/2024 ADDENDUM STATUS: COMPLETED Disregard BFA also perform... . BFA was not performed on this patient today. /brittany/ JARON STALLINGS Chiropractic Resident Signed: 02/21/2024 13:04 /brittany/ TEODROO NICHOLAS [facility] Chiropractor Cosigned: 02/21/2024 13:[address] [facility]
--- OUTSIDE RECORDS SUMMARY | 2024-07-04 14:19 | XMS_ITS | Continuity of Care Document ---
Author Name [facility] Organization [facility] Care Team Providers Care Electrician Deck Name Role Phone [facility] Unavailable Unavailable Problems Combined list of problems from Department of Defense and [facility] facilities. It does not include entries that were removed or entered in error. Problem Status Onset Date Problem Type Date of Resolution Comments Source Benign essential hypertension (SNOMED CT 0809735) Active Condition [facility] Benign prostatic hyperplasia (SNOMED CT 380493288) Active Condition [facility] Chronic sinusitis (SNOMED CT 60509770) Active Condition October 08, 2006 Entered By: CHRISTOPHER MUNOZ Comment: patient has had sinus surgery [facility] Dry eyes Active Condition [facility] Elevated PSA Active Condition [facility] Erectile dysfunction (SNOMED CT 594594899) Active Condition [facility] History of asbestos exposure Active Condition [facility] Hyperlipidemia (SNOMED CT 48317417) Active Condition [facility] Insomnia Active Condition [facility] Long-term current use of cannabis (SNOMED CT 325314899040569) Active Condition [facility] Low back pain Active Condition [facility] Obstructive sleep apnea Active Condition [facility] Sensorineural hearing loss of right ear with normal hearing on left side Active Condition [facility] Type 2 diabetes mellitus (SNOMED CT 11038887) Active Condition [facility] Adjustment disorder with depressed mood (SNOMED CT 01343454) Inactive Condition 08/27/2023 [facility] Alcohol Abuse Inactive Condition 08/27/2023 [facility] Alcohol Dependence Inactive Condition 08/27/2023 [facility] Arthritis Inactive Condition 08/27/2023 [facility] Wall * (ICD-9-CM 949.0/E899.) Inactive Condition 08/27/2023 [facility] Chronic post-traumatic stress disorder following combat (SNOMED CT 520907290) Inactive Condition 08/27/2023 [facility] Depression (SNOMED CT 96160836) Inactive Condition 08/27/2023 [facility] Heme Positive Stool (ICD-9-CM 578.1) Inactive Condition 08/27/2023 [facility] Overweight * (ICD-9-CM 278.00) Inactive Condition [facility] Pain in lower limb (SNOMED CT 91540964) Inactive Condition 08/27/2023 [facility] Sleep Disturbance Inactive Condition 08/27/2023 [facility] Suicidal thoughts (SNOMED CT 3024146) Inactive Condition 08/27/2023 [facility] Unresolved Inactive Condition 08/27/2023 [facility] Diagnosis: ICD-10-CM M54.2 Cervicalgia Active Diagnosis [facility] Diagnosis: ICD-10-CM H25.13 Age-related nuclear cataract, bilateral Active Diagnosis [facility] Diagnosis: ICD-10-CM E11.9 Type 2 diabetes mellitus without complications Active Diagnosis [facility] Diagnosis: ICD-10-CM Z71.89 Other specified counseling Active Diagnosis [facility] Diagnosis: ICD-10-CM H90.41 Snsrnrl hear loss, uni, right ear, w unrestr hear cntra side Active Diagnosis [facility] Diagnosis: ICD-10-CM H40.013 Open angle with borderline findings, low risk, bilateral Active Diagnosis [facility] Diagnosis: ICD-10-CM H40.053 Ocular hypertension, bilateral Active Diagnosis [facility] Diagnosis: ICD-10-CM I10 Essential (primary) hypertension Active Diagnosis [facility] Medications Combined list of outpatient medications from Department of Defense and [facility] facilities.Medications provided include 1) outpatient medications from the last 15 months, and 2) patient-reported medications. Medication Details Route Status Patient Instructions Prescription Expires Prescription Number Last Dispense Date Ordering Provider Order Date Order Qty Source ALBUTEROL (CFC-F) INHL,ORAL INHALE BY ORAL INHALATI ON FOUR TIMES A DAY NEEDED RESPIR ATORY (INHAL ATION) ACTIVE SCOTT YANCEY R 2023 [facility] ATORVASTATI N CA 80MG TAB TAKE ONE-HALF TABLET BY MOUTH EVERY EVENING FOR CHOLESTE ROL. REPORT ANY UNEXPLAI CASSIDY MUSCLE PAIN/WEA KNESS TO PROVIDER . ORAL ACTIVE 02/27/2025 [id number] SCOTT YANCEY R 2023 45 [facility] ATORVASTATI N CA 80MG TAB TAKE ONE-HALF TABLET BY MOUTH EVERY EVENING FOR CHOLESTE ROL. REPORT ANY UNEXPLAI CASSIDY MUSCLE PAIN/WEA KNESS TO PROVIDER . ORAL DISCONT INUED 08/27/2024 [id number] 4 SCOTT YANCEY R 2023 45 [facility] ATORVASTATI N CA 80MG TAB TAKE ONE-HALF TABLET BY MOUTH EVERY EVENING FOR CHOLESTE ROL. REPORT ANY UNEXPLAI CASSIDY MUSCLE PAIN/WEA KNESS TO PROVIDER . ORAL DISCONT INUED 12/04/2023 [id number] 3 SCOTT YANCEY R 2022 45 [facility] CARBOXYMETH YLCELLULOSE NA 0.5% SOLN,OPH INSTILL 1 DROP IN BOTH EYES FOUR TIMES A DAY NEEDED OPHTHA LMIC DISCONT INUED BY PROVIDE R 12/24/2024 [id number] Mina TREVINO 2023 30 [facility] CARBOXYMETH YLCELLULOSE NA 0.5% SOLN,OPH INSTILL 1 DROP IN BOTH EYES FOUR TIMES A DAY NEEDED FOR DRY EYE(S) OPHTHA LMIC DISCONT INUED (EDIT) 06/17/2024 [id number] 4 Mina TREVINO 2023 30 [facility] CARBOXYMETH YLCELLULOSE NA 1% GEL,OPH INSTILL 1 DROP INTO BOTH EYES FOUR TIMES A DAY NEEDED FOR DRY EYE OPHTHA LMIC ACTIVE 04/23/2025 [id number] DORINDA BALLARD THI 2023 45 [facility] FINASTERIDE 5MG TAB TAKE ONE TABLET BY MOUTH ONCE A DAY FOR PROSTATE . SWALLOW WHOLE, DO NOT CRUSH, SPLIT, OR CHEW. ORAL ACTIVE 02/27/2025 [id number] 4 SCOTT YANCEY LBY R 2023 90 [facility] FINASTERIDE 5MG TAB TAKE ONE TABLET BY MOUTH ONCE A DAY FOR PROSTATE . SWALLOW WHOLE, DO NOT CRUSH, SPLIT, OR CHEW. ORAL DISCONT INUED 08/01/2024 [id number] 4 JOSESITO LARSEN 2023 90 [facility] FINASTERIDE 5MG TAB TAKE ONE TABLET BY MOUTH ONCE A DAY FOR PROSTATE . SWALLOW WHOLE, DO NOT CRUSH, SPLIT, OR CHEW. ORAL DISCONT INUED 01/01/2024 [id number] JOSESITO LARSEN 2022 90 [facility] FLUTICASONE PROPIONATE 50MCG/SPRAY SOLN,NASAL, 16GM INSTILL 2 SPRAYS IN NOSTRIL( S) ONCE A DAY FOR ALLERGIE S (MUST BE USED DIRECTED FOR MINIMUM OF 21 DAYS TO PROVIDE ADEQUATE BENEFITS ) NASAL ACTIVE 08/27/2024 [id number] 4 SCOTT YANCEYY R 2023 1 [facility] GLIPIZIDE 10MG TAB TAKE ONE TABLET BY MOUTH TWO TIMES A DAY BEFORE MEALS TAKE 30 MINUTES BEFORE EATING. ORAL ACTIVE 08/27/2024 [id number] 4 SCOTT YANCEY R 2023 180 [facility] GLIPIZIDE 10MG TAB TAKE ONE TABLET BY MOUTH TWO TIMES A DAY BEFORE MEALS TAKE 30 MINUTES BEFORE EATING. ORAL DISCONT INUED 08/24/2023 [id number] 4 SCOTT YANCEY R 2022 180 [facility] LATANOPROST 0.005% SOLN,OPH INSTILL 1 DROP IN BOTH EYES EVERY EVENING KEEP REFRIGER ATED UNTIL READY TO USE, THEN STORE AT ROOM TEMPERAT URE FOR MAXIMUM OF 42 DAYS. OPHTHA LMIC ACTIVE 12/24/2024 [id number] Mina TREVINO 2023 10 [facility] MYLA Burnett LISINOPRIL 10MG TAB TAKE ONE-HALF TABLET BY MOUTH ONCE A DAY ORAL ACTIVE CAMERON MORALES 2021 [facility] MELATONIN 5MG CAP/TAB TAKE ONE CAP/TAB BY MOUTH AT BEDTIME FOR SLEEP ORAL ACTIVE 02/27/2025 [id number] 5 SCOTT YANCEY R 2023 90 [facility] MELATONIN 5MG CAP/TAB TAKE ONE CAP/TAB BY MOUTH AT BEDTIME FOR SLEEP ORAL DISCONT INUED 02/28/2024 [id number] SHYAM GONZALEZ 2022 90 [facility] METFORMIN HCL 1000MG TAB TAKE ONE TABLET BY MOUTH TWICE A DAY WITH MEALS FOR BLOOD SUGAR CONTROL. TAKE WITH FOOD. AVOID ALCOHOL. DISCONTI NUE BEFORE GETTING XRAY DYE. ORAL ACTIVE 01/29/2025 [id number] 4 SCOTT YANCEY R 2023 180 [facility] METFORMIN HCL 1000MG TAB TAKE ONE TABLET BY MOUTH TWICE A DAY WITH MEALS FOR BLOOD SUGAR CONTROL. TAKE WITH FOOD. AVOID ALCOHOL. DISCONTI NUE BEFORE GETTING XRAY DYE. ORAL DISCONT INUED 05/13/2024 [id number] 4 SCOTT YANCEY R 2022 180 [facility] SILDENAFIL CITRATE 100MG TAB TAKE ONE-HALF TABLET BY MOUTH TWO TIMES PER WEEK NEEDED FOR ERECTILE DYSFUNCT ION (TAKE 60 MINUTES PRIOR TO SEXUAL ACTIVITY ) - LIMIT 6 DOSES PER 30 DAYS ORAL ACTIVE 02/27/2025 [id number] 4 SCOTT YANCEY R 2023 9 [facility] SILDENAFIL CITRATE 100MG TAB TAKE ONE-HALF TABLET BY MOUTH TWO TIMES PER WEEK NEEDED FOR ERECTILE DYSFUNCT ION (TAKE 60 MINUTES PRIOR TO SEXUAL ACTIVITY ) - LIMIT 6 DOSES PER 30 DAYS ORAL DISCONT INUED 08/27/2024 [id number] 4 SCOTT YANCEY R 2023 18 [facility] SILDENAFIL CITRATE 100MG TAB TAKE ONE-HALF TABLET BY MOUTH TWO TIMES PER WEEK NEEDED FOR ERECTILE DYSFUNCT ION (TAKE 60 MINUTES PRIOR TO SEXUAL ACTIVITY ) - LIMIT 6 DOSES PER 30 DAYS ORAL DISCONT INUED 02/19/2024 [id number] 4 SCOTT YANCEY R 2022 9 [facility] TAMSULOSIN HCL 0.4MG CAP TAKE TWO CAPSULES BY MOUTH EVERY EVENING APPROXIM ATELY 30 MINUTES AFTER THE SAME MEAL EACH DAY (FOR PROSTATE ) ORAL ACTIVE 12/17/2024 [id number] SCOTT YANCEY R 2023 180 [facility] TAMSULOSIN HCL 0.4MG CAP TAKE TWO CAPSULES BY MOUTH EVERY EVENING APPROXIM ATELY 30 MINUTES AFTER THE SAME MEAL EACH DAY (FOR PROSTATE ) ORAL DISCONT INUED 12/17/2024 [id number] 4 JOSESITO LARSEN 2023 60 [facility] TAMSULOSIN HCL 0.4MG CAP TAKE TWO CAPSULES BY MOUTH EVERY EVENING APPROXIM ATELY 30 MINUTES AFTER THE SAME MEAL EACH DAY (FOR PROSTATE ) ORAL DISCONT INUED 01/01/2024 [id number] 4 JOSESITO LARSEN 2022 60 [facility] TAMSULOSIN HCL 0.4MG CAP TAKE TWO CAPSULES BY MOUTH EVERY EVENING APPROXIM ATELY 30 MINUTES AFTER THE SAME MEAL EACH DAY (FOR PROSTATE ) ORAL DISCONT INUED 01/01/2024 [id number] JOSESITO LARSEN 2022 180 [facility] Allergies, Adverse Reactions, Alerts Combined list of allergies from Department of Defense and Veterans Affairs facilities. It does not include entries that were removed or entered in error. Substance Category Reaction Severity Reaction type Status Date Reported Comments Source SIMVASTATIN Propensity to adverse reactions to drug (finding) active 5 [facility] Immunizations Combined list of available immunizations from the Department of [facility] and [facility] facilities. Immunization Series Date Given Administered By Site Reaction Lot Number CVX Code Drug Business Representative Status Comments Source COVID-19 (MODERNA), MRNA, LNP-S, PF, 50 MCG/0.5 ML (AGES 12+ YEARS) 3 2023 312 complet ed [facility] COVID-19 (MODERNA), MRNA, LNP-S, BIVALENT BOOSTER, PF, 50 MCG/0.5 ML OR 25MCG/0.25 ML DOSE 1 2022 KILO SCHAFFER RIGHT DELTO ID [id number] 229 complet ed [facility] COVID-19 (PFIZER), MRNA, LNP-S, PF, 30 MCG/0.3 ML DOSE, REY-SUCROSE (AGES 12+ YEARS) 4 2021 217 complet ed [facility] N INFLUENZA VACCINE, QUADRIVALENT, ADJUVANTED 2020 205 complet ed [facility] COVID-19 (PFIZER), MRNA, LNP-S, PF, 30 MCG/0.3 ML DOSE 3 2020 208 complet ed PFR; [id number]; 1 [facility] COVID-19 (Punchbowl), MRNA, LNP-S, PF, 30 MCG/0.3 ML DOSE 2 2020 208 complet ed PFR; [id number]; 1 [facility] COVID-19 (Punchbowl), MRNA, LNP-S, PF, 30 MCG/0.3 ML DOSE 1 2020 208 complet ed PFR; [id number]; 1 [facility] ZOSTER RECOMBINANT 2 2017 187 complet ed [facility] ZOSTER RECOMBINANT 1 2017 187 complet ed [facility] PNEUMOCOCCAL POLYSACCHARID E PPV23 2016 33 complet ed [facility] TDAP 2015 115 complet ed Left Deltoid [facility] PNEUMOCOCCAL CONJUGATE PCV 13 2014 133 complet ed [facility] ZOSTER LIVE 2010 121 complet ed [facility] PNEUMOCOCCAL, UNSPECIFIED FORMULATION 2009 109 complet ed [facility] INFLUENZA, UNSPECIFIED FORMULATION 2006 88 complet ed [facility] TDAP 2006 115 complet ed Left Deltoid [facility] Results Combined list of recent chemistry, hematology and other laboratory results from Department of Defense and Veterans Affairs, ranging from 15 months to all on record, depending upon the facility. Order Name Results Value Reference Range Date Interpretation Specimen Comments Source HGA1C HEMOGLOBIN A1C/HEMOGLOB IN.TOTAL IN BLOOD 6.9 4.0 - 6.0 02/26 H Specimen Type: BLOOD No comment entered. Ordering Provider: MEENA YANCEY Report Released Date/Time: Feb 27, 2024 11:00 AM Reporting Lab: [facility] [address] [place] [phone] Performing Lab: [facility] [address] [place] [phone] [facility] TSH (MA-PB) THYROTROPIN [UNITS/VOLUM E] IN SERUM OR PLASMA 0.748 u[IU]/ mL 0.47 - 5 02/26 Specimen Type: SERUM No comment entered. Ordering Provider: MEENA YANCEY Report Released Date/Time: Feb 27, 2024 11:00 AM Reporting Lab: [facility] [address] [place] [phone] Performing Lab: [facility] [address] [place] [phone] [facility] VITAMIN D, 25-HYDROXY 25-HYDROXYVI TAMIN D3 [MASS/VOLUME ] IN SERUM OR PLASMA 53.1 ng/mL 30 - 96 02/26 Specimen Type: SERUM No comment entered. Ordering Provider: MEENA YANCEY Report Released Date/Time: Feb 27, 2024 11:00 AM Reporting Lab: [facility] [address] [facility] [phone] Performing Lab: [facility] [address] [place] [address] [facility] COMPREHENSI VE METABOLIC PANEL CREATININE [MASS/VOLUME ] IN SERUM OR PLASMA 1.10 mg/dL 0.7 - 1.3 02/26 Specimen Type: PLASMA Comment: No hemolysis noted. Ordering Provider: MEENA YANCEY Report Released Date/Time: Feb 27, 2024 11:00 AM Reporting Lab: [facility] [address] [place] [phone] Performing Lab: [facility] [address] [place] [phone] [facility] COMPREHENSI VE METABOLIC PANEL UREA NITROGEN [MASS/VOLUME ] IN SERUM OR PLASMA 13.6 mg/dL 9.0 - 25.0 02/26 Specimen Type: PLASMA Comment: No hemolysis noted. Ordering Provider: MEENA YANCEY Report Released Date/Time: Feb 27, 2024 11:00 AM Reporting Lab: [facility] [address] [place] [phone] Performing Lab: [facility] [address] [place] [phone] [facility] COMPREHENSI VE METABOLIC PANEL GLUCOSE [MASS/VOLUME ] IN SERUM OR PLASMA 206 mg/dL 72 - 99 02/26 H Specimen Type: PLASMA Comment: No hemolysis noted. Ordering Provider: MEENA YANCEY Report Released Date/Time: Feb 27, 2024 11:00 AM Reporting Lab: [facility] [address] [place] [address] Performing Lab: [facility] [address] [place] [address] [facility] COMPREHENSI VE METABOLIC PANEL SODIUM [MOLES/VOLUM E] IN SERUM OR PLASMA 138 meq/L 136 - 145 02/26 Specimen Type: PLASMA Comment: No hemolysis noted. Ordering Provider: MEENA YANCEY Report Released Date/Time: Feb 27, 2024 11:00 AM Reporting Lab: [address] [address] Performing Lab: [facility] [address] [place] [phone] [place] [address] COMPREHENSI VE METABOLIC PANEL POTASSIUM [MOLES/VOLUM E] IN SERUM OR PLASMA 4.2 meq/L 3.5 - 5 02/26 Specimen Type: PLASMA Comment: No hemolysis noted. Ordering Provider: MEENA YANCEY Report Released Date/Time: Feb 27, 2024 11:00 AM Reporting Lab: [address] [phone] Performing Lab: [address] [phone] [facility] COMPREHENSI VE METABOLIC PANEL CHLORIDE [MOLES/VOLUM E] IN SERUM OR PLASMA 105 meq/L 98 - 107 02/26 Specimen Type: PLASMA Comment: No hemolysis noted. Ordering Provider: MEENA YANCEY Report Released Date/Time: Feb 27, 2024 11:00 AM Reporting Lab: [address] [address] Performing Lab: [address] [phone] [facility] COMPREHENSI VE METABOLIC PANEL CARBON DIOXIDE, TOTAL [MOLES/VOLUM E] IN SERUM OR PLASMA 25 meq/L 22 - 31 02/26 Specimen Type: PLASMA Comment: No hemolysis noted. Ordering Provider: MEENA YANCEY Report Released Date/Time: Feb 27, 2024 11:00 AM Reporting Lab: [address] [phone] Performing Lab: [address] [phone] [place] [address] COMPREHENSI VE METABOLIC PANEL CALCIUM [MASS/VOLUME ] IN SERUM OR PLASMA 9.6 mg/dL 8.4 - 10.4 02/26 Specimen Type: PLASMA Comment: No hemolysis noted. Ordering Provider: MEENA YANCEY Report Released Date/Time: Feb 27, 2024 11:00 AM Reporting Lab: [address] [phone] Performing Lab: [address] [phone] [place] [address] COMPREHENSI VE METABOLIC PANEL PROTEIN [MASS/VOLUME ] IN SERUM OR PLASMA 6.8 g/dL 6 - 8.6 02/26 Specimen Type: PLASMA Comment: No hemolysis noted. Ordering Provider: MEENA YANCEY Report Released Date/Time: Feb 27, 2024 11:00 AM Reporting Lab: [address] [phone] Performing Lab: [address] [phone] [place] [address] COMPREHENSI VE METABOLIC PANEL ALBUMIN [MASS/VOLUME ] IN SERUM OR PLASMA 4.3 g/dL 3.4 - 5 02/26 Specimen Type: PLASMA Comment: No hemolysis noted. Ordering Provider: MEENA YANCEY Report Released Date/Time: Feb 27, 2024 11:00 AM Reporting Lab: [address] [address] Performing Lab: [address] [phone] [place] [address] COMPREHENSI VE METABOLIC PANEL BILIRUBIN.TO KYLAH [MASS/VOLUME ] IN SERUM OR PLASMA 0.6 mg/dL 0.2 - 1.2 02/26 Specimen Type: PLASMA Comment: No hemolysis noted. Ordering Provider: MEENA YANCEY Report Released Date/Time: Feb 27, 2024 11:00 AM Reporting Lab: [facility] [address] [place] [phone] Performing Lab: [facility] [address] [facility] [address] [facility] COMPREHENSI VE METABOLIC PANEL ALKALINE PHOSPHATASE [ENZYMATIC ACTIVITY/VOL UME] IN SERUM OR PLASMA 69 U/L 40 - 150 02/26 Specimen Type: PLASMA Comment: No hemolysis noted. Ordering Provider: MEENA YANCEY BY R Report Released Date/Time: Feb 27, 2024 11:00 AM Reporting Lab: [facility] [address] [place] [phone] Performing Lab: [facility] [address] [place] [phone] [facility] COMPREHENSI VE METABOLIC PANEL ASPARTATE AMINOTRANSFE RASE [ENZYMATIC ACTIVITY/VOL UME] IN SERUM OR PLASMA 20 U/L 5 - 34 02/26 Specimen Type: PLASMA Comment: No hemolysis noted. Ordering Provider: MEENA YANCEY BY Raymond Report Released Date/Time: Feb 27, 2024 11:00 AM Reporting Lab: [facility] [address] [place] [phone] Performing Lab: [address] [phone] [facility] COMPREHENSI VE METABOLIC PANEL ALANINE AMINOTRANSFE RASE [ENZYMATIC ACTIVITY/VOL UME] IN SERUM OR PLASMA 16 U/L 8 - 40 02/26 Specimen Type: PLASMA Comment: No hemolysis noted. Ordering Provider: MEENA YANCEY Report Released Date/Time: Feb 27, 2024 11:00 AM Reporting Lab: [facility] [address] [place] [phone] Performing Lab: [address] [address] [facility] COMPREHENSI VE METABOLIC PANEL GLOMERULAR FILTRATION RATE/1.73 SQ M.PREDICTED [VOLUME RATE/AREA] IN SERUM, PLASMA OR BLOOD BY CREATININE-B ASED FORMULA (CKD-EPI 2020) 70.4 60 02/26 Specimen Type: PLASMA Comment: No hemolysis noted. Ordering Provider: MEENA YANCEY BY R Report Released Date/Time: Feb 27, 2024 11:00 AM Reporting Lab: [facility] [address] [place] [address] Performing Lab: [facility] [address] [place] [address] [facility] HGA1C HEMOGLOBIN A1C/HEMOGLOB IN.TOTAL IN BLOOD 6.8 4.0 - 6.0 08/26 H Specimen Type: BLOOD No comment entered. Ordering Provider: MEENA YANCEY Report Released Date/Time: Aug 27, 2023 11:07 AM Reporting Lab: [facility] [address] [place] [address] Performing Lab: [facility] [address] [place] [phone] [facility] MICRAL/CREA T PROFILE (STL) ALBUMIN [MASS/VOLUME ] IN URINE 5.7 mg/L 08/26 Specimen Type: URINE No comment entered. Ordering Provider: MEENA YANCEY Report Released Date/Time: Aug 27, 2023 11:07 AM Reporting Lab: [facility] [address] [facility] [address] Performing Lab: [facility] [address] [place] [address] [facility] MICRAL/CREA T PROFILE (STL) ALBUMIN/CREA TININE [MASS RATIO] IN URINE 3 mg/g 0 - 29 08/26 Specimen Type: URINE No comment entered. Ordering Provider: MEENA YANCEY Report Released Date/Time: Aug 27, 2023 11:07 AM Reporting Lab: [facility] [address] [facility] [place] [address] Performing Lab: [facility] [address] [place] [phone] [facility] MICRAL/CREA T PROFILE (STL) CREATININE [MASS/VOLUME ] IN URINE 188.8 mg/dL 63 - 166 08/26 H Specimen Type: URINE No comment entered. Ordering Provider: YANCEY,MEENA BY R Report Released Date/Time: Aug 27, 2023 11:07 AM Reporting Lab: [facility] [address] [facility] [address] Performing Lab: [facility] [address] [facility] [address] [facility] LIPID PANEL (STL) CHOLESTEROL [MASS/VOLUME ] IN SERUM OR PLASMA 136 mg/dL 0 - 200 08/26 Specimen Type: PLASMA Comment: No hemolysis noted. Ordering Provider: MEENA YANCEY Report Released Date/Time: Aug 27, 2023 11:09 AM Reporting Lab: [facility] [address] [facility] [address] Performing Lab: [facility] [address] [place] [id number] [facility] LIPID PANEL (STL) TRIGLYCERIDE [MASS/VOLUME ] IN SERUM OR PLASMA 116 mg/dL 0 - 150 08/26 Specimen Type: PLASMA Comment: No hemolysis noted. Ordering Provider: MEENA YANCEY Report Released Date/Time: Aug 27, 2023 11:09 AM Reporting Lab: [facility] [address] [facility] [id number] Performing Lab: [facility] [address] [facility] [id number] [facility] LIPID PANEL (STL) CHOLESTEROL IN LDL [MASS/VOLUME ] IN SERUM OR PLASMA BY CALCULATION 66 mg/dL 08/26 Specimen Type: PLASMA Comment: No hemolysis noted. Ordering Provider: MEENA YANCEY Report Released Date/Time: Aug 27, 2023 11:09 AM Reporting Lab: [facility] [address] [facility] [id number] Performing Lab: [facility] [address] [facility] [id number] [facility] LIPID PANEL (STL) CHOLESTEROL IN HDL [MASS/VOLUME ] IN SERUM OR PLASMA 47 mg/dL 40 08/26 Specimen Type: PLASMA Comment: No hemolysis noted. Ordering Provider: MEENA YANCEY Report Released Date/Time: Aug 27, 2023 11:09 AM Reporting Lab: [facility] [address] [address] Performing Lab: [facility] [address] [place] [phone] [facility] COMPREHENSI VE METABOLIC PANEL CREATININE [MASS/VOLUME ] IN SERUM OR PLASMA 1.14 mg/dL 0.7 - 1.3 08/26 Specimen Type: PLASMA Comment: No hemolysis noted. Ordering Provider: MEENA YANCEY Report Released Date/Time: Aug 27, 2023 11:06 AM Reporting Lab: [facility] [address] [place] [phone] Performing Lab: [facility] [address] [place] [phone] [place] [address] COMPREHENSI VE METABOLIC PANEL UREA NITROGEN [MASS/VOLUME ] IN SERUM OR PLASMA 13.7 mg/dL 9.0 - 25.0 08/26 Specimen Type: PLASMA Comment: No hemolysis noted. Ordering Provider: MEENA YANCEY Report Released Date/Time: Aug 27, 2023 11:06 AM Reporting Lab: [facility] [address] [place] [phone] Performing Lab: [facility] [address] [place] [phone] [facility] COMPREHENSI VE METABOLIC PANEL GLUCOSE [MASS/VOLUME ] IN SERUM OR PLASMA 199 mg/dL 72 - 99 08/26 H Specimen Type: PLASMA Comment: No hemolysis noted. Ordering Provider: MEENA YANCEY Report Released Date/Time: Aug 27, 2023 11:06 AM Reporting Lab: [facility] [address] [place] [phone] Performing Lab: [facility] [address] [place] [phone] [facility] COMPREHENSI VE METABOLIC PANEL SODIUM [MOLES/VOLUM E] IN SERUM OR PLASMA 139 meq/L 136 - 145 08/26 Specimen Type: PLASMA Comment: No hemolysis noted. Ordering Provider: MEENA YANCEY Report Released Date/Time: Aug 27, 2023 11:06 AM Reporting Lab: [facility] [address] [place] [phone] Performing Lab: [facility] [address] [facility] [address] [facility] COMPREHENSI VE METABOLIC PANEL POTASSIUM [MOLES/VOLUM E] IN SERUM OR PLASMA 4.7 meq/L 3.5 - 5 08/26 Specimen Type: PLASMA Comment: No hemolysis noted. Ordering Provider: MEENA YANCEY Report Released Date/Time: Aug 27, 2023 11:06 AM Reporting Lab: [facility] [address] [place] [phone] Performing Lab: [facility] [address] [place] [phone] [place] [address] COMPREHENSI VE METABOLIC PANEL CHLORIDE [MOLES/VOLUM E] IN SERUM OR PLASMA 103 meq/L 98 - 107 08/26 Specimen Type: PLASMA Comment: No hemolysis noted. Ordering Provider: MEENA YANCEY Report Released Date/Time: Aug 27, 2023 11:06 AM Reporting Lab: [facility] [address] [place] [phone] Performing Lab: [facility] [address] [place] [phone] [place] [address] COMPREHENSI VE METABOLIC PANEL CARBON DIOXIDE, TOTAL [MOLES/VOLUM E] IN SERUM OR PLASMA 26 meq/L 22 - 31 08/26 Specimen Type: PLASMA Comment: No hemolysis noted. Ordering Provider: MEENA YANCEY Report Released Date/Time: Aug 27, 2023 11:06 AM Reporting Lab: [facility] [address] [place] [phone] Performing Lab: [facility] [address] [place] [phone] [facility] COMPREHENSI VE METABOLIC PANEL CALCIUM [MASS/VOLUME ] IN SERUM OR PLASMA 9.7 mg/dL 8.4 - 10.4 08/26 Specimen Type: PLASMA Comment: No hemolysis noted. Ordering Provider: MEENA YANCEY Report Released Date/Time: Aug 27, 2023 11:06 AM Reporting Lab: [facility] [address] [facility] [place] [address] Performing Lab: [facility] [address] [place] [phone] [facility] COMPREHENSI VE METABOLIC PANEL PROTEIN [MASS/VOLUME ] IN SERUM OR PLASMA 7.2 g/dL 6 - 8.6 08/26 Specimen Type: PLASMA Comment: No hemolysis noted. Ordering Provider: MEENA YANCEY Report Released Date/Time: Aug 27, 2023 11:06 AM Reporting Lab: [facility] [address] [place] [phone] Performing Lab: [facility] [address] [place] [phone] [place] [address] COMPREHENSI VE METABOLIC PANEL ALBUMIN [MASS/VOLUME ] IN SERUM OR PLASMA 4.5 g/dL 3.4 - 5 08/26 Specimen Type: PLASMA Comment: No hemolysis noted. Ordering Provider: MEENA YANCEY Report Released Date/Time: Aug 27, 2023 11:06 AM Reporting Lab: [facility] [address] [place] [phone] Performing Lab: [facility] [address] [place] [phone] [facility] COMPREHENSI VE METABOLIC PANEL BILIRUBIN.TO KYLAH [MASS/VOLUME ] IN SERUM OR PLASMA 0.4 mg/dL 0.2 - 1.2 08/26 Specimen Type: PLASMA Comment: No hemolysis noted. Ordering Provider: MEENA YANCEY Report Released Date/Time: Aug 27, 2023 11:06 AM Reporting Lab: [facility] [address] [facility] [place] [address] Performing Lab: [facility] [address] [place] [phone] [facility] COMPREHENSI VE METABOLIC PANEL ALKALINE PHOSPHATASE [ENZYMATIC ACTIVITY/VOL UME] IN SERUM OR PLASMA 70 U/L 40 - 150 08/26 Specimen Type: PLASMA Comment: No hemolysis noted. Ordering Provider: MEENA YANCEY Report Released Date/Time: Aug 27, 2023 11:06 AM Reporting Lab: [facility] [address] [facility] [address] Performing Lab: [facility] [address] [place] [phone] [facility] COMPREHENSI VE METABOLIC PANEL ASPARTATE AMINOTRANSFE RASE [ENZYMATIC ACTIVITY/VOL UME] IN SERUM OR PLASMA 21 U/L 5 - 34 08/26 Specimen Type: PLASMA Comment: No hemolysis noted. Ordering Provider: MEENA YANCEY Report Released Date/Time: Aug 27, 2023 11:06 AM Reporting Lab: [facility] [address] [place] [phone] Performing Lab: [facility] [address] [place] [phone] [place] [address] COMPREHENSI VE METABOLIC PANEL ALANINE AMINOTRANSFE RASE [ENZYMATIC ACTIVITY/VOL UME] IN SERUM OR PLASMA 17 U/L 8 - 40 08/26 Specimen Type: PLASMA Comment: No hemolysis noted. Ordering Provider: MEENA YANCEY Report Released Date/Time: Aug 27, 2023 11:06 AM Reporting Lab: [facility] [address] [place] [phone] Performing Lab: [facility] [address] [place] [phone] [facility] COMPREHENSI VE METABOLIC PANEL GLOMERULAR FILTRATION RATE/1.73 SQ M.PREDICTED [VOLUME RATE/AREA] IN SERUM, PLASMA OR BLOOD BY CREATININE-B ASED FORMULA (CKD-EPI 2020) 67.9 60 08/26 Specimen Type: PLASMA Comment: No hemolysis noted. Ordering Provider: MEENA YANCEY Report Released Date/Time: Aug 27, 2023 11:06 AM Reporting Lab: [facility] [address] [place] [phone] Performing Lab: [facility] [address] [facility] [address] [facility] CBC LEUKOCYTES [#/VOLUME] IN BLOOD BY AUTOMATED COUNT 4.5 10*3/u L 3.6 - 11.2 08/26 Specimen Type: BLOOD No comment entered. Ordering Provider: MEENA YANCEY R Report Released Date/Time: Aug 27, 2023 11:09 AM Reporting Lab: [facility] [address] [place] [phone] Performing Lab: [address] [address] [facility] CBC ERYTHROCYTES [#/VOLUME] IN BLOOD BY AUTOMATED COUNT 5.23 10*6/u L 4.10 - 5.70 08/26 Specimen Type: BLOOD No comment entered. Ordering Provider: MEENA YANCEY BY R Report Released Date/Time: Aug 27, 2023 11:09 AM Reporting Lab: [address] [phone] Performing Lab: [address] [address] [facility] CBC HEMOGLOBIN [MASS/VOLUME ] IN BLOOD 14.3 g/dL 13.1 - 16.8 08/26 Specimen Type: BLOOD No comment entered. Ordering Provider: MEENA YANCEY Report Released Date/Time: Aug 27, 2023 11:09 AM Reporting Lab: [address] [phone] Performing Lab: [address] [address] [facility] CBC HEMATOCRIT [VOLUME FRACTION] OF BLOOD 44.7 38.2 - 48.4 08/26 Specimen Type: BLOOD No comment entered. Ordering Provider: MEENA YANCEY BY Raymond Report Released Date/Time: Aug 27, 2023 11:09 AM Reporting Lab: [address] [address] Performing Lab: [address] [phone] [facility] CBC MCV [ENTITIC VOLUME] BY AUTOMATED COUNT 85.5 fL 80.0 - 100.0 08/26 Specimen Type: BLOOD No comment entered. Ordering Provider: MEENA YANCEY BY R Report Released Date/Time: Aug 27, 2023 11:09 AM Reporting Lab: [address] [address] Performing Lab: [address] [address] [facility] CBC MCH [ENTITIC MASS] BY AUTOMATED COUNT 27.3 pg 27.0 - 34.0 08/26 Specimen Type: BLOOD No comment entered. Ordering Provider: MEENA YANCEY BY R Report Released Date/Time: Aug 27, 2023 11:09 AM Reporting Lab: [address] [address] Performing Lab: [address] [phone] [place] [address] CBC MCHC [MASS/VOLUME ] BY AUTOMATED COUNT 32.0 g/dL 33.0 - 36.0 08/26 L Specimen Type: BLOOD No comment entered. Ordering Provider: MEENA YANCEY BY R Report Released Date/Time: Aug 27, 2023 11:09 AM Reporting Lab: [address] [address] Performing Lab: [address] [address] [facility] CBC PLATELETS [#/VOLUME] IN BLOOD BY AUTOMATED COUNT 209 10*3/u L 150 - 400 08/26 Specimen Type: BLOOD No comment entered. Ordering Provider: MEENA YANCEY BY R Report Released Date/Time: Aug 27, 2023 11:09 AM Reporting Lab: [address] [phone] Performing Lab: [address] [address] [facility] CBC PLATELET MEAN VOLUME [ENTITIC VOLUME] IN BLOOD BY AUTOMATED COUNT 11.1 fL 7.5 - 11.2 08/26 Specimen Type: BLOOD No comment entered. Ordering Provider: MEENA YANCEY BY R Report Released Date/Time: Aug 27, 2023 11:09 AM Reporting Lab: [facility] [address] [facility] [place] [address] Performing Lab: [facility] [address] [place] [phone] [facility] CBC ERYTHROCYTE DISTRIBUTION WIDTH [RATIO] BY AUTOMATED COUNT 14.1 11.8 - 15.1 08/26 Specimen Type: BLOOD No comment entered. Ordering Provider: MEENA YANCEY BY R Report Released Date/Time: Aug 27, 2023 11:09 AM Reporting Lab: [facility] [address] [place] [phone] Performing Lab: [facility] [address] [place], [place] [phone] [place] [address] CBC LYMPHOCYTES/ 100 LEUKOCYTES IN BLOOD BY AUTOMATED COUNT 45 08/26 Specimen Type: BLOOD No comment entered. Ordering Provider: MEENA YANCEY BY R Report Released Date/Time: Aug 27, 2023 11:09 AM Reporting Lab: [facility] [address] [facility] [place] [address] Performing Lab: [facility] [address] [place] [phone] [facility] CBC MONOCYTES/10 0 LEUKOCYTES IN BLOOD BY AUTOMATED COUNT 8 08/26 Specimen Type: BLOOD No comment entered. Ordering Provider: MEENA YANCEY BY R Report Released Date/Time: Aug 27, 2023 11:09 AM Reporting Lab: [facility] [address] [place] [phone] Performing Lab: [facility] [address] [place] [phone] [facility] CBC NEUTROPHILS/ 100 LEUKOCYTES IN BLOOD BY AUTOMATED COUNT 45 08/26 Specimen Type: BLOOD No comment entered. Ordering Provider: MEENA YANCEY BY R Report Released Date/Time: Aug 27, 2023 11:09 AM Reporting Lab: [facility] [address] [place] [phone] Performing Lab: [address] [address] [facility] CBC EOSINOPHILS/ 100 LEUKOCYTES IN BLOOD BY AUTOMATED COUNT 2 08/26 Specimen Type: BLOOD No comment entered. Ordering Provider: MEENA YANCEY BY R Report Released Date/Time: Aug 27, 2023 11:09 AM Reporting Lab: [facility] [address] [place] [address] Performing Lab: [place] [id number] CBC BASOPHILS/10 0 LEUKOCYTES IN BLOOD BY AUTOMATED COUNT 0 08/26 Specimen Type: BLOOD No comment entered. Ordering Provider: MEENA YANCEY BY R Report Released Date/Time: Aug 27, 2023 11:09 AM Reporting Lab: [facility] [address] [place] [address] Performing Lab: [address] [phone] [place] [address] CBC LYMPHOCYTES [#/VOLUME] IN BLOOD BY AUTOMATED COUNT 1.99 10*3/u L 0.77 - 4.50 08/26 Specimen Type: BLOOD No comment entered. Ordering Provider: MEENA YANCEY BY R Report Released Date/Time: Aug 27, 2023 11:09 AM Reporting Lab: [facility] [address] [place] [address] Performing Lab: [facility] [address] [place] [address] [facility] CBC MONOCYTES [#/VOLUME] IN BLOOD BY AUTOMATED COUNT 0.37 10*3/u L 0.19 - 0.80 08/26 Specimen Type: BLOOD No comment entered. Ordering Provider: MEENA YANCEY BY R Report Released Date/Time: Aug 27, 2023 11:09 AM Reporting Lab: [facility] [address] [facility] [place] [address] Performing Lab: [facility] [address] [place] [phone] [facility] CBC NEUTROPHILS [#/VOLUME] IN BLOOD BY AUTOMATED COUNT 1.99 10*3/u L 2.10 - 8.00 08/26 L Specimen Type: BLOOD No comment entered. Ordering Provider: MEENA YANCEY Report Released Date/Time: Aug 27, 2023 11:09 AM Reporting Lab: [address] [address] Performing Lab: [address] [phone] [place] [address] CBC EOSINOPHILS [#/VOLUME] IN BLOOD BY AUTOMATED COUNT 0.09 10*3/u L 0.00 - 0.60 08/26 Specimen Type: BLOOD No comment entered. Ordering Provider: MEENA YANCEY Report Released Date/Time: Aug 27, 2023 11:09 AM Reporting Lab: [address] [address] Performing Lab: [address] [phone] [place] [address] CBC BASOPHILS [#/VOLUME] IN BLOOD BY AUTOMATED COUNT 0.02 10*3/u L 0.00 - 0.20 08/26 Specimen Type: BLOOD No comment entered. Ordering Provider: MEENA YANCEY Report Released Date/Time: Aug 27, 2023 11:09 AM Reporting Lab: [address] [address] Performing Lab: [address] [address] [facility] HGA1C HEMOGLOBIN A1C/HEMOGLOB IN.TOTAL IN BLOOD 7.1 4.0 - 6.0 03/01 H Specimen Type: BLOOD No comment entered. Ordering Provider: LIMA GONZALEZ Report Released Date/Time: Feb 27, 2023 09:01 PM Reporting Lab: [facility] [address] [address] Performing Lab: [facility] [address] [place] [address] [facility] Vital Signs Combined list of inpatient and outpatient Vital Signs from Department of Defense and Veterans Affairs, ranging from 12 months to all on record, depending upon the facility. Vital Sign Value Date Comments Source SYSTOLIC BLOOD PRESSURE 136 02/27/2024 10:27:52 [facility] DIASTOLIC BLOOD PRESSURE 81 02/27/2024 10:27:[facility] PULSE OXIMETRY 97 02/27/2024 10:27:52 [facility] PAIN 0 02/27/2024 10:27:[facility] TEMPERATURE 98.8 02/27/2024 10:27:52 [facility] PULSE 69 02/27/2024 10:27:[facility] RESPIRATION 18 02/27/2024 10:27:[facility] SYSTOLIC BLOOD PRESSURE 133 08/27/2023 10:26:38 [facility] DIASTOLIC BLOOD PRESSURE 70 08/27/2023 10:26:38 [facility] PULSE OXIMETRY 99 08/27/2023 10:26:38 [facility] WEIGHT 173.6 08/27/2023 10:26:38 [facility] BMI 26kg/m2 08/27/2023 10:26:[facility] PAIN 0 08/27/2023 10:26:[facility] HEIGHT 69 08/27/2023 10:26:38 [facility] TEMPERATURE 97.7 08/27/2023 10:26:38 [facility] PULSE 62 08/27/2023 10:26:[facility] RESPIRATION 18 08/27/2023 10:26:38 [facility] Encounters Combined list of: 1) Encounters from Department of Veterans Affairs facilities going back up to [facility] 18 months. 2) Encounters from the Department of Defense facilities going back up to 280 months. Location Location Details Encounter Type Encounter Number Reason For Visit Attending Provider ADM Date DC Date Status Disposition Source [facility] OFFICE O/P EST LOW 20-29 MIN [id number] Diagnos is: ICD-10- CM E11.9 Type 2 diabete s mellitu s without complic ations< br/> CLEMENTE ARMENTA A 02/21 [facility] OFFICE O/P EST MOD 30-39 MIN [id number] Diagnos is: ICD-10- CM I10 Essenti al (primar y) hyperte nsion<b r/> MEENA YANCEY 02/27 [facility] Outpatient Encounter [id number] 03/06 [facility] Outpatient Encounter [id number] 03/11 [facility] Outpatient Encounter [id number] 03/11 [facility] Outpatient Encounter [id number] [place] BLOOM 03/12 [facility] Outpatient Encounter [id number] 04/15 [facility] Outpatient Encounter [id number] [place] BLOOM 04/18 [facility] OFFICE O/P EST MOD 30 MIN [id number] Diagnos is: ICD-10- CM E11.9 Type 2 diabete s mellitu s without complic ations< br/> SONALI TREVINO TTHEW C 06/17 [facility] Outpatient Encounter [id number] 06/18 [facility] OFFICE O/P EST LOW 20 MIN [id number] Diagnos is: ICD-10- CM E11.9 Type 2 diabete s mellitu s without complic ations< br/> CLEMENTE ARMENTA A 06/21 [facility] OFFICE O/P EST MOD 30 MIN [id number] Diagnos is: ICD-10- CM E11.9 Type 2 diabete s mellitu s without complic ations< br/> MEENA YANCEY 08/26 [facility] Outpatient Encounter [id number] 08/26 [facility] Outpatient Encounter [id number] [place] BLOOM L 08/26 [facility] Outpatient Encounter [id number] 08/27 [facility] Outpatient Encounter [id number] 08/27 [facility] Outpatient Encounter [id number] 09/29 [facility] Outpatient Encounter [id number] 09/30 [facility] Outpatient Encounter [id number] CAMERON RUBI 10/06 [facility] Outpatient Encounter [id number] 10/09 [facility] Outpatient Encounter [id number] [place] BLOOM L 10/10 [facility] OFFICE O/P EST LOW 20 MIN [id number] Diagnos is: ICD-10- CM E11.9 Type 2 diabete s mellitu s without complic ations< br/> CLEMENTE ARMENTA A 10/20 [facility] Outpatient Encounter [id number] 11/20 [facility] OFFICE O/P EST MOD 30 MIN [id number] Diagnos is: ICD-10- CM 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
SONALI TREVINO TTHEW C 12/23 [facility] EXTENDED VISUAL FIELD XM [id number] Diagnos is: ICD-10- CM H40.013 Open angle with borderl ine finding s, low risk, bilater al
Osbaldo GALLAGHER S 12/23 [facility] Outpatient Encounter [id number] LICHA VALENTIN C 12/29 [facility] OFF/OP CNSLTJ NEW/EST MOD 40 [id number] Diagnos is: ICD-10- CM M54.2 Cervica lgia
YU,ROS S 01/14 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
MER BARBOZA 02/03 [facility] MANUAL THERAPY 1/> [place] [id number] Diagnos is: ICD-10- CM M54.2 Cervica lgia
YU,ROS S 02/04 [facility] Outpatient Encounter [id number] 02/10 [facility] Outpatient Encounter [id number] 02/11 [facility] MANUAL THERAPY 1/> [place] 14597-9.65 [id number] Diagnos is: ICD-10- CM M54.2 Cervica lgia
YU,ROS S 02/20 [facility] 27207-7.65 [id number] Diagnos is: ICD-10- CM Z71.89 Other specifi ed spiritual counselor ing<br/ > DOUTRE,TRA CI R 02/25 [facility] EST MOD 30 MIN [id number] [id number] Diagnos is: ICD-10- CM E11.9 Type 2 diabete s mellitu s without complic ations< br/> MEENA YANCEY 02/26 [facility] 1ST 07377-4.65 [id number] Diagnos is: ICD-10- CM Z71.89 Other specifi ed spiritual counselor ing<br/ > KEVIN CEVALLOS 03/18 [facility] MANUAL THERAPY 1/> [place] 13631-6.65 [id number] Diagnos is: ICD-10- CM M54.2 Cervica lgia
YU,ROS S 03/30 [facility] EST LOW 20 MIN 39774-2.65 [id number] Diagnos is: ICD-10- CM E11.9 Type 2 diabete s mellitu s without complic ations< br/> CLEMENTE ARMENTA A 04/[address] [facility] OFFICE O/P EST LOW 20 MIN 34691-6.65 [id number] Diagnos is: ICD-10- CM H25.13 Age-rel ated nuclear catarac t, bilater al
BALLARD,MY- FADI THI 04/22 [facility] MANUAL THERAPY 1/> [place] 08355-8.65 [id number] Diagnos is: ICD-10- CM M54.2 Cervica lgia
YU,ROS S 04/27 [facility]/> [place] 10674-5.65 [id number] Diagnos is: ICD-10- CM M54.2 Cervica lgia
FRANSISCO NICHOLAS S 05/25 [facility] N [facility] Outpatient Encounter [id number] 07/02 [facility] N Social History Combined list of available smoking, tobacco, and other social history from [facility] and [facility] facilities. Social History Type Response Date Comment [facility] e Tobacco smoking status NHIS VA-TOBACCO FORMER USER 08/27/2023 [facility] History of tobacco use VA-TOBACCO QUIT 15 YRS OR MORE 08/27/2023 [facility] History of tobacco use VA-TOBACCO FORMER USER 08/23/2022 [facility] History of tobacco use VA-TOBACCO FORMER USER 07/13/2021 [facility] [facility] History of tobacco use VA-TOBACCO QUIT 15 YRS OR MORE 07/07/2020 [facility] History of tobacco use VA-TOBACCO QUIT 15 YRS OR MORE 05/18/2019 [facility] History of tobacco use VA-TOBACCO NEVER USED 06/19/2018 [facility] History of tobacco use VA-TOBACCO NEVER USED 12/19/2017 [facility] History of tobacco use QUIT TOBACCO >7 YEARS AGO 12/19/2017 [facility] History of tobacco use TOBACCO REFUSED SCREEN V15 05/23/2017 [facility] History of tobacco use QUIT TOBACCO >7 YEARS AGO 02/25/2017 [facility] History of tobacco use LIFETIME NON-USER OF TOBACCO 12/19/2016 [facility] History of tobacco use QUIT TOBACCO >7 YEARS AGO 05/16/2016 [facility] History of tobacco use QUIT TOBACCO >7 YEARS AGO 05/23/2015 [facility] History of tobacco use QUIT TOBACCO >7 YEARS AGO 05/20/2014 [facility] History of tobacco use QUIT TOBACCO >7 YEARS AGO 04/06/2013 [facility] History of tobacco use LIFETIME NON-USER OF TOBACCO 07/01/2012 [facility] History of tobacco use LIFETIME NON-USER OF TOBACCO 05/26/2012 [facility] History of tobacco use LIFETIME NON-USER OF TOBACCO 02/13/2011 [facility] History of tobacco use QUIT TOBACCO >7 YEARS AGO 07/22/2009 [facility] History of tobacco use LIFETIME NON-USER OF TOBACCO 07/18/2009 [facility] History of tobacco use QUIT TOBACCO >7 YEARS AGO 10/29/2008 [facility] History of tobacco use QUIT TOBACCO >7 YEARS AGO 10/08/2006 [facility] History of tobacco use NON-SMOKER 08/01/2004 [facility] (EFF. 06/10/96) Plan of Care List of future care activities from [facility] facilities. Additional future care activities may be listed in the Assessment and Plan section. Date/Time Care Activity Care Activity Detail Facili ty 07/08/2024 AMBULATORY - NONE AMBULATORY - NONE [facility] Nga [facility] 08/03/2024 AMBULATORY - SURGERY AMBULATORY - SURGERY [facility] 09/01/2024 AMBULATORY - MEDICINE AMBULATORY - MEDICI NE [facility] 09/07/2024 AMBULATORY - SURGERY AMBULATORY - SURGERY [facility] Advance Directives List of completed, amended, or rescinded Advance Directives on record at [facility] facilities. An actual copy of the Directive is not included. Date Advance Directive Provider Source 05/28/2012 ADVANCE DIRECTIVE DISCUSSION RENETTA DIOR [facility] 11/21/2010 ADVANCE DIRECTIVE DISCUSSION CHRISTOPHER MUNOZ [facility] 01/02/2007 ADVANCE DIRECTIVE RANDEE CAMARILLO [facility] 10/28/2002 ADVANCE DIRECTIVE JUANCHO BURROWS [facility]
--- OUTSIDE RECORDS SUMMARY | 2024-07-04 14:19 | XMS_ITS | Encounter Summary ---
Author Organization 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 us Historical Provider CV CARDIAC SERVICES HILARIO CAR Final Result documented in this encounter Visit Diagnoses Not on filedocumented in this encounter Care Teams Asset Protection Specialist Relationship Specialty Start Date End Date Timothy White MD [address] [place], [place] [id number] PCP - General 09/07/16 documented as of this encounter
--- OUTSIDE RECORDS SUMMARY | 2024-07-04 14:19 | XMS_ITS | Encounter Summary ---
Author Name [facility] [facility] [place] Address [address] [place] [address] Care Team Providers Care Buildings And Grounds Director Name Role Phone LEYLA YANCEY Primary Care [...] Kapadia's Name Patient's Relationship to Policy Kapadia [facility] (WNR) MEDICARE ADVANTAGE [facility] ([facility]) Jun 10, 2022 [id number] Dereje RANGELADELL PATIENT AETNA [facility] ([facility]) MEDICARE ADVANTAGE [facility] ([facility]) Jun 10, 2021 [id number] Dereje RANGEL URADELL PATIENT AETNA [facility] (WN) MEDICARE ADVANTAGE MCR ([facility]) Jun 10, 2017 [id number] [phone] Dereje RANGEL URADELL PATIENT AETNA [facility] ([facility]) MEDICARE ADVANTAGE MCR (WNR) Jun 10, 2017 [id number] [phone] Dereje RANGELL PATIENT AETNA [facility] (WNR) MEDICARE ADVANTAGE [facility] (WNR) Jun 10, 2017 [id number] P Dereje RANGELL PATIENT AETNA [facility] (WNR) MEDICARE ADVANTAGE [facility] (WNR) Jun 10, 2017 [id number] P Dereje RANGELL PATIENT [facility] ORGANIZ CAREE R SERVI CE Jun 10, 2004 [id number] Dereje RANGEL PATIENT Selected Encounter This section includes the information on record at [place] for the Encounter. Date/Time Encounter Type Encounter Description Reason Provider Source Mar 30, 2024 10:20 AM MANUAL THERAPY 1/> [facility] ICD-10-CM M54.2 Cervicalgia TEODORO NICHOLAS Encounter Template Text not used by [place] Assessments - Encounter Diagnoses This section includes the primary and secondary diagnoses documented for the Encounter. Date/Time Primary/Secondary Diagnosis Diagnosis Name Provider Source Mar 30, 2024 10:47 AM PRIMARY Cervicalgia SERRANT MARGRET STALLINGS [facility] Mar 30, 2024 10:47 AM SECONDARY Low back pain, unspecified SERRANT MARGRET STALLINGS [facility] Mar 30, 2024 10:47 AM SECONDARY Myalgia, unspecified site [facility] Mar 30, 2024 10:47 AM SECONDARY Pain in thoracic spine [facility] Plan of Treatment: Future Appointments (+ 6 months) and Future Tests (+/- 45 days) The Plan of Treatment section includes future care activities for the patient [facility] [place] [facility] This section includes future appointments and future orders which are active, pending or scheduled. Future Appointments This section includes appointments that were scheduled to occur 6 months from the date of the Encounter, up to a maximum of 20 appointments. The data comes from all [place] treatment facilities. Appointment Date/Time Appointment Type Appointme nt Facility Name Apr 02, 2024 10:30 AM AMBULATORY - SURGERY [facility] Apr 22, 2024 01:30 PM AMBULATORY - SUR[facility]ERY [facility] Apr 27, 2024 10:20 AM AMBULATORY - NONE [facility] May 25, 2024 01:00 PM AMBULATORY - NONE [facility] Jul 03, 2024 10:00 AM AMBULATORY - NONE [facility] Aug 03, 2024 11:00 AM AMBULATORY - SURGERY [facility] Sep 01, 2024 11:00 AM AMBULATORY - MEDICINE . [facility] Sep 07, 2024 03:00 PM AMBULATORY - SURGERY [facility] Social History: Smoking Status (Most current) and Tobacco Use (All prior to encounter date) This section includes the most current, and the historical, smoking and tobacco- related health factors from the [place] facility where the Encounter took place. Current Smoking Status This section includes the most current smoking, or tobacco-related health factor, from the [place] facility where the Encounter took place. Date/Time Current Smoking Status Comment Michela ity May 18, 2019 09:42 AM [place]-TOBACCO QUIT 15 YRS OR MORE [facility] Tobacco Use History This section includes a history of the smoking, or tobacco-related health factors, that were collected on or before the date of the Encounter. The data comes from the [place] facility where the Encounter took place. Date/Time Smoking Status/Tobacco Use Comment F chiara May 18, 2019 09:42 AM VA-TOBACCO QUIT 15 YRS OR MORE [facility] May 23, 2015 09:00 AM QUIT TOBACCO >7 YEARS AGO [facility] May 20, 2014 10:02 AM QUIT TOBACCO >7 YEARS AGO [facility] Jul 01, 2012 05:09 PM LIFETIME NON-USER OF TOBACCO [facility] May 26, 2012 07:39 PM LIFETIME NON-USER OF TOBACCO [facility] Feb 13, 2011 10:35 PM LIFETIME NON-USER OF TOBACCO [facility] Jul 22, 2009 11:00 AM QUIT TOBACCO >7 YEARS AGO [facility] Jul 18, 2009 10:12 PM LIFETIME NON-USER OF TOBACCO [facility] October 29, 2008 06:19 PM QUIT TOBACCO >7 YEARS AGO [facility] Advance Directives: All historical and current Section Date Range: From patient's date of to the date document was created. This section includes ALL of a patient's completed or amended [place] Advance and Rescinded Directives. The entries below indicate that a directive exists for the patient, but an actual copy is not included with this document. The data comes from all [place] facilities. Date Advance Directives Provider Source May 28, 2012 ADVANCE DIRECTIVE DISCUSSION RENETTA DIOR [facility] Nov 21, 2010 ADVANCE DIRECTIVE DISCUSSION CHRISTOPHER MUNOZ [facility] Jan 02, 2007 ADVANCE DIRECTIVE RANDEE CAMARILLO [facility] October 28, 2002 ADVANCE DIRECTIVE JUANCHO BURROWS [facility] Encounter Notes: All associated encounter notes This section contains the clinical notes associated to the Encounter. Date/Time Encounter Note(s) Provider Source Mar 30, 2024 07:48 AM CHIROPRACTIC NOTE: LOCAL TITLE: CHIROPRACTIC WHOLE [facility] F/U [facility] STANDARD TITLE: CHIROPRACTIC NOTE DATE OF NOTE: MAR 30, 2024@07:48 ENTRY DATE: MAR 30, 2024@07:48:13 AUTHOR: MATTHEW LAZO COSIGNER: TEODORO NICHOLAS URGENCY: STATUS: COMPLETED CHIROPRACTIC WHOLE [facility] F/U [facility] Has ADDENDA VISIT #4 SUBJECTIVE: Mr. Rangel presents for f/u visit. Shares had sleep study last Saturday, and was diagnosis with sleep apnea. States providers at [facility] mention he is a good candidate for Inspire surgery, he is just waiting for the call to have the surgery scheduled. Denies pain at time of visit, states is just thightness and he feels tired. He reports being adheren with HEP. OBJECTIVE: MOVEMENT/POSTURE: The [place] ambulates without difficulty or the need for [...] and comorbidities. No red flags. Described past landcare officer as beneficial. Patient prognosis for conservative care [...] that are available as an adjunct to landcare officer. The orientation/coaching process was described. I gave the a printed information packet, website, and phone number for scheduling. RTC: 4 weeks /brittany/ JARON STALLINGS Chiropractic Resident Signed: 03/30/2024 15:56 /brittany/ TEODORO NICHOLAS [facility] Chiropractor Cosigned: 03/30/2024 16:06 03/30/2024 ADDENDUM STATUS: COMPLETED I reviewed the subjective and regional findings related to this 's condition. I verified and concur with those findings. I evaluated and supervised the resident's treatment today. /brittany/ TEODORO NICHOLAS [facility] Chiropractor Signed: 03/30/2024 16:06 JARON LAZO [facility]
--- OUTSIDE RECORDS SUMMARY | 2024-07-04 14:19 | XMS_ITS | Encounter Summary ---
Author Name [facility] [place] Address [address] [place] [address] Care Team Providers Care Aerial Photograph Interpreter Name Role Phone LEYLA YANCEY Primary Care [...] Kapadia's Name Patient's Relationship to Policy Kapadia [facility] (WNR) MEDICARE ADVANTAGE [facility] ([facility]) Jun 10, 2022 [id number] Dereje RANGEL KETURAHADELL PATIENT AETNA [facility] ([facility]) MEDICARE [facility] ([facility]) Jun 10, 2021 [id number] [phone] Dereje RANGEL URADELL PATIENT AETNA [facility] (WNR) MEDICARE [facility] ([facility]) Jun 10, 2017 [id number] P [phone] Dereje RANGEL URADELL PATIENT AETNA [facility] ([facility]) MEDICARE ADVANTAGE [facility] ([facility]) Jun 10, 2017 [id number] P [phone] Dereje RANGELL PATIENT AETNA [facility] (WNR) MEDICARE ADVANTAGE [facility] (WNR) Jun 10, 2017 [id number] P Dereje RANGELL PATIENT AETNA [facility] (WNR) MEDICARE ADVANTAGE [facility] (WNR) Jun 10, 2017 [id number] P [id number] Dereje RANGELL PATIENT [place] ([facility] ORGANIZ CAREE R SERVI CE Jun 10, 2004 [id number] Dereje RANGEL PATIENT Selected Encounter This section includes the information on record at [place] for the Encounter. Date/Time Encounter Type Encounter Description Reason Provider Source Mar 18, 2024 02:00 PM HLTH&WB COACHING INDIV [facility] ICD-10-CM Z71.89 Other specified counseling JONES,EV AN IHE Encounter Template Text not used by [place] Assessments - Encounter Diagnoses This section includes the primary and secondary diagnoses documented for the Encounter. Date/Time Primary/Secondary Diagnosis Diagnosis Name Provider Source Mar 18, 2024 02:49 PM PRIMARY Other specified counseling JONES,KASSANDRA Lex [facility] Plan of Treatment: Future Appointments (+ 6 months) and Future Tests (+/- 45 days) The Plan of Treatment section includes future care activities for the patient from all [place] treatmentfacilities. This section includes future appointments and future orders which are active, pending or scheduled. Future Appointments This section includes appointments that were scheduled to occur 6 months from the date of the Encounter, up to a maximum of 20 appointments. The data comes from all [place] treatment facilities. Appointment Date/Time Appointment Type Appointme nt Facility Name Mar 30, 2024 10:20 AM AMBULATORY - NONE [facility] Apr 02, 2024 10:30 AM AMBULATORY - SURGERY [facility] Apr 22, 2024 01:30 PM AMBULATORY - SURGERY [facility] Apr 27, 2024 10:20 AM AMBULATORY - NONE [facility] May 25, 2024 01:00 PM AMBULATORY - NONE [facility] Ennis [facility] Jul 03, 2024 10:00 AM AMBULATORY - NONE [facility] Aug 03, 2024 11:00 AM AMBULATORY - SURGERY [facility] TRAN [facility] Sep 01, 2024 11:00 AM AMBULATORY - MEDICINE [facility] Sep 07, 2024 03:00 PM AMBULATORY - SURGERY [facility] TRAN [facility] Lab Results: +/- 30 days of the encounter This section includes the Chemistry and Hematology Lab Results on record with [place] for the patient. Radiology Reports and Pathology Reports are provided separately, in subsequent sections. Lab Results This section contains the Chemistry/Hematology Results that were resulted 30 days before or 30 daysafter the date of the Encounter. Date/Time Source Result Type Result - Unit Interpretation Reference Range Comment Feb 27, 2024 11:16 AM [facility] TSH (MA-PB) Specimen Type: SERUM No comment entered. Ordering Provider: LEYLA YANCEY Report Released Date/Time: Feb 27, 2024 11:00 AM Reporting Lab: [facility] [address] [facility] [phone] Performing Lab: [facility] [address] [place] [id number] TSH 0.748 u[IU]/mL 0.47-5 Feb 27, 2024 11:16 AM [facility] HGA1C Specimen Type: BLOOD No comment entered. Ordering Provider: LEYLA YANCEY Report Released Date/Time: Feb 27, 2024 11:00 AM Reporting Lab: [facility] [address] [facility] [phone] Performing Lab: [facility] [address] [facility] [phone] HGA1C 6.9 H 4.0-6.0 Feb 27, 2024 11:16 AM [facility] VITAMIN D, 25-HYDROXY Specimen Type: SERUM No comment entered. Ordering Provider: LEYLA YANCEY Report Released Date/Time: Feb 27, 2024 11:00 AM Reporting Lab: [facility] [address] [facility] [phone] Performing Lab: [facility] [address] [facility] [phone] VITAMIN D, 25-HYDROXY 53.1 ng/mL 30-96 Feb 27, 2024 11:16 AM [facility] COMPREHENSIVE METABOLIC PANEL Specimen Type: PLASMA Comment: No hemolysis noted. Ordering Provider: LEYLA YANCEY Report Released Date/Time: Feb 27, 2024 11:00 AM Reporting Lab: [facility] [address] [facility] [phone] Performing Lab: [facility] [address] [facility] [address] CREATININE 1.10 mg/dL 0.7-1.3 UREA NITROGEN 13.6 [...] and tobacco- related health factors from the [place] facility where the Encounter took place. Current Smoking Status This section includes the most current smoking, or tobacco-related health factor, from the [place] facility where the Encounter took place. Date/Time Current Smoking Status Comment Facil ity Aug 27, 2023 10:30 AM [place]-TOBACCO FORMER USER [facility] Tobacco Use History This section includes a history of the smoking, or tobacco-related health factors, that were collected on or before the date of the Encounter. The data comes from the [place] facility where the Encounter took place. Date/Time Smoking Status/Tobacco Use Comment F acility Aug 27, 2023 10:30 AM VA-TOBACCO QUIT [address] [facility] [facility] Aug 23, 2022 10:00 AM VA-TOBACCO FORMER USER [facility] Aug 23, 2022 10:00 AM VA-TOBACCO QUIT [address] [facility] Jul 13, 2021 11:30 AM VA-TOBACCO FORMER USER [facility] Jul 13, 2021 11:30 AM VA-TOBACCO QUIT [address] [facility] [facility] Jul 07, 2020 09:30 AM VA-TOBACCO FORMER USER [facility] Jul 07, 2020 09:30 AM VA-TOBACCO QUIT [address] [facility] [facility] Jun 19, 2018 01:17 PM VA-TOBACCO NEVER USED [facility] Dec 19, 2017 11:49 AM VA-TOBACCO NEVER USED [facility] Dec 19, 2017 10:53 AM QUIT TOBACCO >7 YEARS AGO . [facility] May 23, 2017 01:02 PM TOBACCO REFUSED SCREEN V15 . [facility] Feb 25, 2017 03:31 PM QUIT TOBACCO >[address] [facility] Dec 19, 2016 02:26 PM LIFETIME NON-USER OF TOBACCO . [facility] May 16, 2016 03:16 PM QUIT TOBACCO >7 YEARS AGO . [facility] Apr 06, 2013 11:23 AM QUIT TOBACCO >7 YEARS AGO . [facility] October 08, 2006 09:17 AM QUIT TOBACCO >7 YEARS AGO [facility] Advance Directives: All historical and current Section Date Range: From patient's date of to the date document was created. This section includes ALL of a patient's completed or amended [place] Advance and Rescinded Directives. The entries below indicate that a directive exists for the patient, but an actual copy is not included with this document. The data comes from all [place] facilities. Date Advance Directives Provider Source May 28, 2012 ADVANCE DIRECTIVE DISCUSSION RENETTA DIOR [facility] Nov 21, 2010 ADVANCE DIRECTIVE DISCUSSION CHRISTOPHER MUNOZ . [facility] Jan 02, 2007 ADVANCE DIRECTIVE RANDEE CAMARILLO [facility] October 28, 2002 ADVANCE DIRECTIVE BURROWS,JUANCHO COKER [facility] Encounter Notes: All associated encounter notes This section contains the clinical notes associated to the Encounter. Date/Time Encounter Note(s) Provider Source Mar 18, 2024 02:26 PM [facility] NOTE: LOCAL TITLE: HEALTH AND WELLNESS COACHING STANDARD TITLE: [facility] NOTE DATE OF NOTE: MAR 18, 2024@14:26 ENTRY DATE: MAR 18, 2024@14:26:49 AUTHOR: KEVIN JONESIGNER: URGENCY: STATUS: COMPLETED Health and Wellness Coaching HEALTH AND WELLNESS COACHING VISIT *Type of Visit: In-person *Session number: 1 Time spent with [facility]: 30-60 minutes Health and Wellness Coaching Agreement was discussed and agreed to by [facility] and assistant womens volleyball coach. Well-Being Signs (WBS) reviewed. Well-Being Signs Well-Being Signs (WBS) WBS Average Score: 8.33 Questions and Answers: Over the past month, on average how often have you been: 1. Fully satisfied with how these things are going? 5 2. Regularly involved in things that are important to you? 10 3. Functioning your best in the most important things you do? 10 was seen for Health and Wellness Coaching related to: Recharge [employer] GO[employer] Long-Term Whole Health Goals: Other: Short-Term S.M.A.R.T. Goals: [facility]'s S.M.A.R.T. goal(s): set a new S.M.A.R.T. goal(s) of: Goal 1: call for [facility], and call for psychology (LUL[facility]) ADDITIONAL SESSION INFORMATION [facility] is interested in referral to: [facility] Additional information (e.g. 's self-identified strengths, Values, Vision for the Future): [facility] and staff met for first time, discussed PHI, conducted WBS, and MAP. shared about injury that caused him to need surgery, and [facility] care is helping decrease pain. [facility] shared about having his 4 year old grandson at home and how that causes him to be tired often. Also has sleep study upcoming to see if he is a candidate for implant to combat sleep apnea. PLAN Plan: [facility] declined follow-up on goal(s) /brittany/ Kevin Jones WHOLE HEALTH LIBRARY PAGE Signed: 03/18/2024 14:49 KEVIN JONES [facility]
--- OUTSIDE RECORDS SUMMARY | 2024-07-04 14:19 | XMS_ITS | Continuity of Care Document ---
Author Organization [facility] [place] Address [address] [place] [address] [address] [place] [address] Phone Care Team Providers Care Platinumsmith Name Role Phone Nathaniel PT,MPT,ATC, Joseph Unavailable [...] Freq Route DOC Mar Pain Assess Positive [facility] 2014 BMI Normal and DOC 18-64 [...] Freq Route DOC Nov Pain Assess Positive [facility] 2014 BMI Normal and DOC 18-64 yo=18.5-25.0 65 + yo=23.0-30.0 No Falls or 1 Fall w/o Injury Screened f or Fall Risk Functional Outcome Assessmen t documented, deficits identified, treatment plan es Advance Directives Directive Yes / No Effective Date File Name No Information Encounters Encounter Description Practice Location Reason(s) For Visit Diagnoses Date Provider Providers Copied on Encounter [facility], [place], [place], [id number], tel:[phone] [place] No Information 7 [place]iel [place], [place]. [facility], [place], [place], [id number], tel:[phone] [place] No Information 7 [place] [facility], [place], [place], [id number], tel:[phone] [place] No Information 7 [place] [facility], [place], [place], [id number], tel:[phone] [place] No Information 7 [place] [facility], [place], [place], [id number], [place] tel:[phone] [place] No Information October-2 2- 7 Armstrong Joseph. , [place], [place]. [facility], [place], [place], [id number], tel:[phone] [place] No Information October-1 - 7 Armstrong Joseph. , [place], [place]. [facility], [place], [place], [address], tel:[phone] [place] No Information October-1 - 7 Salinas Yaritza. [address] [place] [address], [address], [place], [place], [facility], . tel: [phone] [facility], [place], [place], [address], tel:[phone] [place] Low back pain October-1 - 7 Salinas Yaritza. [address] [place] [address], [address], [place], [facility], [place]. tel: [phone] [facility], [place], [place], [address], tel:[phone] [place] No Information October-06 10- 7 Salinas Yaritza. [address] [place] [address], [address], [place], [facility], . tel: [phone] [facility], [place], [place], [address], [place] tel:[phone] [place] No Information October-0 -201 7 Salinas Yaritza. [address] [place] [address], [address], [place], [facility], . tel: [phone] [facility], [place], [place], [address], [place] tel:[phone] [place] Spondylosis w/o myelopathy or radiculopathy, cervical region May-0 5-201 7 Armstrong Joseph. , [place], [place]. [facility], [place], [place], [address], [place] tel:[phone] [place] No Information May-0 3-201 7 Armstrong Joseph. , [place], [place]. [facility], [place], [place], [address], [place] tel:[phone] [place] No Information Feb-1 2-201 6 Salinas Yaritza. [address] [place] [address], [address], [place], [address], [place]. tel: [phone] [facility], [place], [place], [address], [place] tel:[phone] [place] No Information Feb-0 9-201 6 Salinas Yaritza. [address] [place] [address], [address], [place], [address], [place]. tel: [phone] [facility], [place], [address], [place] tel:[phone] [place] No Information Feb-0 5-201 6 Salinas Yaritza. [address] [place] [address], [address], [place], [address], [place]. tel: [phone] [facility] [address], [place], [place], [address], [place] tel:[phone] [place] No Information Feb-0 3-201 6 Salinas Yaritza. [address] [place] [address], [address], [place], [address], [place]. tel: [phone] [facility], [place], [place], [address], [place] tel:[phone] [place] No Information 2 9-201 6 Salinas Yaritza. [address] [place] [address], [address], [place], [address], [place]. tel: [phone] [facility], [place], [place], [address], [place] tel:[phone] [place] No Information 7- 6 Salinas Yaritza. [address] [place] [address], [address], [place], [address], [place]. tel: [phone] [address], [place], [place], [address], [place] tel:[phone] [place] No Information 2- 6 Salinas Yaritza. [address] [place] [address], [address], [place], [address], [place]. tel: [phone] [facility] [address], [place], [place], [address], [place] tel:[phone] [place] No Information 6 Salinas Yaritza. [address] [place] [address], [address], [place], [address], [place]. tel: [phone] [facility] [address], [place], [place], [address], [place] tel:[phone] [place] No Information - 6 Thuet Shaun. [address] [place] [address], [address], [place], [address], [place]. tel: [phone] [facility] [address], [place], [place], [address], [place] tel:[phone] [place] No Information 3- 6 Salinas Yaritza. [address] [place] [address], [address], [place], [address], [place]. tel: [phone] [facility] [address], [place], [place], [address], [place] tel:[phone] [place] No Information 5-201 6 Salinas Yaritza. [address] [place] [address], [address], [place], [address], [place]. tel: [phone] [facility] [address], [place], [place], [address], tel:[phone] [place] No Information Dec-2 9-201 5 Salinas Yaritza. [address] [place] [address], [address], [place], [facility], [place]. tel: [phone] [address], [place], [place], [address], tel:[phone] [place] No Information Dec-2 2-201 5 Salinas Yaritza. [address] [place] [address], [address], [place], [facility], [place]. tel: [phone] [address], [place], [place], [address], tel:[phone] [place] No Information Dec-1 5-201 5 Salinas Yaritza. [address] [place] [address], [address], [place], [facility], [place]. tel: [phone] [address], [place], [place], [address], tel:[phone] [place] No Information Dec-0 8-201 5 Salinas Yaritza. [address] [place] [address], [address], [place], [facility], [place]. tel: [phone] [address], [place], [address], [place] tel:[phone] [place] Pain in right hipStiffness of right hip, not elsewhere classifiedCerv icalgiaTortico llisOther bursitis of hip, right hipOther spondylosis with radiculopathy, cervical region Dec-0 3-201 5 Salinas Yaritza. [address] [place] [address], [address], [place], [facility], [place]. tel: [phone] [facility] [address], [place], [place], [address], [place] tel:[phone] [place] No Information Nov-0 2-201 5 Giuseppe Negin. [address] [place] [address], [address], [place], [facility], [place]. tel: [phone] [address], [place], [place], [address], [place] tel:[phone] [place] No Information Oct-2 8-201 5 Giuseppe Negin. [address] [place] [address], [address], [place], [facility], [place]. tel: [phone] [address], [place], [place], [address], [place] tel:[phone] [place] No Information Oct-2 6-201 5 Jerrica Garza. [address] [place] [address], [address], [place], [facility], [place]. tel: [phone] [address], [place], [place], [address], tel:[phone] [place] No Information Oct-2 1-201 5 Giuseppe Negin. [address] [place] [address], [address], [place], [facility], [place]. tel: [phone] [address], [place], [place], [address], [place] tel:[phone] [place] No Information Oct-1 9-201 5 Jerrica Garza. [address] [place] [address], [address], [place], [facility], [place]. tel: [phone] [address], [place], [place], [address], [place] tel:[phone] [place] No Information Oct-1 4-201 5 Giuseppe Engin. [address] [place] [address], [address], [place], [facility], [place]. tel: [phone] [address], [place], [place], [address], [place] tel:[phone] [place] No Information Oct-1 2-201 5 Jerrica Garza. [address] [place] [address], [address], [place], [facility], . tel: [phone] [place] [address], [place], [place], [address], tel:[phone] [place] No Information Oct-0 7-201 5 Geoffmarilynwayne Garza. [address] [place] [address], [address], [place], [facility], . tel:[phone] [address] [place] [address], [place], [place], [address], tel:[phone] [place] Lumbago with sciatica, right sideStiffness of unspecified joint, not elsewhere classifiedMusc le weakness (generalized)I ntervertebral disc disorders w radiculopathy, lumbar region Oct-0 5-201 5 Giuseppe Kam. [address] [place] [address], [address] [place] [address], . tel:[phone] [address] [place] [address], [place], [place], [address], tel:[phone] [place] No Information Sep-1 0-201 5 Brad Yaritza. [address] [place] [address], [address], [place], [facility], . tel:[phone] Referring Provider: Cecil Sylvester, [address] [place] [address] [place] [address], [facility]. tel:[phone] [place] [address], [place], [place], [address], tel:[phone] [place] No Information Sep-0 8-201 5 Brad Yaritza. [address] [place] [address], [address], [place] [address], . tel:[phone] Referring Provider: Cecil Sylvester, [address] [place] [address] [address], [place], [place], [facility]. tel:[phone] [place] [address], [place], [address], tel:[phone] [place] No Information Sep-0 3-201 5 Brad Yaritza. [address] [place] [address], [address], [place], [facility], . tel:[phone] Referring Provider: Cecil Sylvester, [address] [place] [address] [address], [place], [address]. tel:[phone] [place] [address], [id number], tel:[phone] [place] No Information Sep-0 1-201 5 Jerrica Garza. [address] [place] [address], [address], [place], [facility], . tel:[phone] Referring Provider: Cecil Sylvester, [address] [place] [address] [address], [place], [address]. tel:[phone] [place] [address], [id number], tel:[phone] [place] No Information Aug-2 8 5 Jerrica Garza. [address] [place] [address], [address], [place], [facility], . tel:[phone] Referring Provider: Cecil Sylvester, [address] [place] [address] [address], [place], [address]. tel:[phone] [place] [address], [id number], tel:[phone] [place] No Information Aug-2 7 5 Jerrica Garza. [address] [place] [address], [address], [place], [facility], . tel:[phone] Referring Provider: Cecil Sylvester, [address] [place] [address] [address], [place], [address]. tel:[phone] [place] [address], [id number], tel:[phone] [place] No Information Aug-2 1 5 Jerrica Garza. [address] [place] [address], [address], [place], [facility], . tel:[phone] Referring Provider: Cecil Sylvester, [address] [place] [address] [address], [place], [address]. tel:[phone] [place] [address], [id number], tel:[phone] [place] No Information 5 Jerrica Garza. [address] [place] [address], [address], [place], [facility], . tel:[phone] Referring Provider: Cecil Sylvester, [address] [place] [address] [address], [place], [address]. tel:[phone] [place] [address], [id number], tel:[phone] [place] No Information 5 Salinas Yaritza. [address] [place] [address], [address], [place], [facility], . tel:[phone] Referring Provider: Cecil Sylvester, [address] [place] [address] [address], [address]. tel:[phone] [place] [address], [id number], tel:[phone] [place] No Information 5 Jerrica Garza. [address] [place] [address], [address], [place], [facility], . tel:[phone] Referring Provider: Cecil Sylvester, [address] [place] [address] [address], [address]. tel:[phone] [place] [address], [id number], tel:[phone] [place] No Information Jan-0 5 Salinas Yaritza. [address] [place] [address], [address], [place], [facility], . tel:[phone] Referring Provider: Cecil Sylvester, [address] [place] [address] [address], [place], [address]. tel:[phone] [place], [place] [address], [place], [place], [address], tel:[phone] [place] No Information 5 Salinas Yaritza. [address] [place] [address], [address], [place], [facility], . tel:[phone] Referring Provider: Cecil Sylvester, [address] [place] [address] [address], [place], [address]. tel:[phone] [place] [address] [address], [place], [place], [address], tel:[phone] [place] No Information 5 Salinas Yaritza. [address] [place] [address], [address], [place], [facility], . tel:[phone] Referring Provider: Cecil Sylvester, [address] [place] [address] [address], [place], [address]. tel:[phone] [place] [address], [place], [address], tel:[phone] [place] No Information 5 Salinas Yaritza. [address] [place] [address], [address], [place], [facility], . tel:[phone] Referring Provider: Cecil Sylvester, [address] [place] [address] [address], [place], [address]. tel:[phone] [place] [address], [place], [address], tel:[phone] [place] No Information 5 Salinas Yaritza. [address] [place] [address], [address], [place], [facility], . tel:[phone] Referring Provider: Cecil Sylvester, [address] [place] [address] [address], [place], [address]. tel:[phone] [place], [place] [address], [place], [place], [address], tel:[phone] [place] No Information Dec-0 9-201 5 Salinas Yaritza. [address] [place] [address], [address], [facility], . tel:[phone] Referring Provider: Cecil Sylvester, [address] [place] [address] [place] [address], [facility]. tel:[phone] [place] [address], [id number], tel:[phone] [place] No Information Dec-0 6-201 5 Salinas Yaritza. [address] [place] [address], [address], [facility], . tel:[phone] Referring Provider: Cecil Sylvester, [address] [place] [address] [place] [address], [facility]. tel:[phone] [place] [address], [id number], tel:[phone] [place] No Information Dec-0 2-201 5 Salinas Yaritza. [address] [place] [address], [address] [place] [address], [facility], . tel:[phone] Referring Provider: Cecil Sylvester, [address] [place] [address] [place] [address], [facility]. tel:[phone] [place] [address], [id number], tel:[phone] [place] No Information John-2 9-201 5 Salinas Yaritza. [address] [place] [address], [address] [address], . tel:[phone] Referring Provider: Cecil Sylvester, [address] [place] [address] [place] [address], [facility]. tel:[phone] [place] [address] [place] [address], [id number], tel:[phone] [place] Cervicalgia John- 5 Brad Vigil. [address] [facility], [address], [place], [address], [place]. tel: [phone] Referring Provider: Cecil Sylvester, [address] [facility] [address], [place], [address]. tel:[phone] Family History Family Member Type Diagnosis Age At Onset No Information Payers Payer name Insurance type Covered green party ID Authoriza tiemilia(s) Medicare [place] [id number] [employer] [id number] [facility] [id number] Social History Type Description Quantity Date Captured [...]
--- OUTSIDE RECORDS SUMMARY | 2024-07-04 14:19 | XMS_ITS | Referral Summary ---
Author Organization [facility] Address [address] [place] [address] Care Team Providers Care Fruit Coordinator Name Role Phone Timothy White MD Primary Care Provide r Encounters Date Type Department Care Team Description 04/14/2024 2:44 PM FILM CRITIC - 04/14/2024 11:59 PM FILM CRITIC Hospital Encounter [facility] Respiratory Therapy [address] [place] [address] Shortness of breath Discharge Disposition: Discharge to home or self care 04/13/2024 2:20 PM FILM CRITIC Office Visit [facility] Neuro Sleep [address] [facility] 6[address] [place] [address] Gosia Liao, PhD 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 Restrictive lung disease is likely due to obesity. TJ (obstructive sleep apnea) 07/19/2020 Assessment & Plan (06/20/2021 1:30 PM FILM CRITIC): The patient will continue with auto titrating CPAP set at 8-15 cm water pressure to treat obstructive sleep apnea. The patient denied need for supplies. DME company [facility] [employer]. The patient and I discussed the recall [...] water pressure. His DME supplier is [facility]. I asked him to follow up here in 3 months. I will send an order to [facility] for him to receive a previous style of fullface mask. Assessment & Plan (07/19/2020 5:09 PM FILM CRITIC): Continue with CPAP at night. Shortness of breath 12/30/2019 Assessment & Plan (07/19/2020 5:09 PM FILM CRITIC): PFT's show moderate restrictive lung disease likely due to body habitus. Patient was advised to lose weight. Assessment & Plan (12/30/2019 2:50 PM CDT): I will obtain BNP and full set of PFTs for further evaluation of his dyspnea with exertion. Diastolic congestive heart failure (CMS/HCC) Assessment & Plan (07/19/2020 5:10 PM FILM CRITIC): Diastolic dysfunction is compensated. He is not [...] Date Resolved Date ILD (interstitial lung disease) (CMS/HCC) 10/30/2016 12/23/2018 Immunizations Name Administration Dates Next Due Pneumococcal Polysaccharide PPV23 01/16/2017 Social History Tobacco Use Types Packs/Day Years [...] on file Legal Sex Male 10:01 AM FILM CRITIC Gender Identity Not on file Sexual Orientation Not on file Last Filed Vital Signs Vital Sign Reading Time Taken Comments Blood Pressure 131/83 03/25/2024 7:27 PM CDT Pulse 72 03/25/2024 7:27 PM CDT Temperature 36.8 ??C (98.3 ??F) 03/25/2024 7:27 PM CD T Respiratory Rate 18 03/25/2024 1:09 PM CDT Oxygen Saturation 100% 04/14/2024 3:00 PM FILM CRITIC Inhaled Oxygen Concentration - - Weight 77.3 kg (170 lb 8 oz) 03/25/2024 7:27 PM CDT Height 175.3 cm (5' 9 ) 03/25/2024 7:27 PM CDT Body Mass Index 25.18 03/25/2024 7:27 PM CDT Plan of Treatment Not on file Procedures Procedure Name Priority Date/Time Associated Diagnosis Comments PULMONARY FUNCTION TEST (PFT) Routine 04/14/2024 4:09 PM FILM CRITIC Shortness of breath from Last 3 Months Results * Pulmonary Function Test - (04/14/2024 4:09 PM FILM CRITIC) Anatomical Region Laterality Modality PFT 04/14/2024 3:00 PM FILM CRITIC Narrative 04/16/2024 12:48 PM FILM CRITIC METHACHOLINE CHALLENGE TEST Diann Elder 04/15/2024 INTERPRETATION Methacholine challenge test was performed with incremental doses of methacholine per protocol. There was no significant decrease noted in the FEV1. IMPRESSION 1. No bronchial hyper-responsiveness by spirometric indices. ??Clinical correlation recommended. Electronically signed by Monse Gerber MD ?? Kayla Atkinson MD PFT ORDERABLES Final Result from Last 3 Months Insurance [employer] [facility] MED[facility] Address: [address] [address] [employer] [facility] MED[facility] Address: [address] [address] MED[employer] Care Teams Fruit Coordinator Relationship Specialty Start Date End Date Timothy White MD [address] [place] [address] PCP - General 09/07/16
--- OUTSIDE RECORDS SUMMARY | 2024-07-04 14:19 | XMS_ITS | Encounter Summary ---
Author Name [facility] [facility] [place] [facility] [place] Address [address] [place] [address] Care Team Providers Care It Risk Analyst Name Role Phone LEYLA YANCEY Primary Care [...] Kapadia's Name Patient's Relationship to Policy Kapadia [facility] ([facility]) MEDICARE ADVANTAGE [facility] ([facility]) Jun 10, 2022 [id number] Dereje RANGELL PATIENT [employer]ET[employer] [facility] ([facility]) MEDICARE ADVANTAGE [facility] ([facility]) Jun 10, 2021 [id number] [phone] Dereje RANGEL URADELL PATIENT [employer]NA [facility] ([facility]) MEDICARE ADVANTAGE MCR ([facility]) Jun 10, 2017 [id number] [phone] Dereje RANGEL URERIL PATIENT [employer]NA [facility] ([facility]) MEDICARE ADVANTAGE MCR (WNR) Jun 10, 2017 [id number] [phone] Dereje RANGELL PATIENT AETNA [facility] (WNR) MEDICARE ADVANTAGE MCR (WNR) Jun 10, 2017 [id number] P JUAN CARLOSDereje URADELL PATIENT AET[employer] [facility] (WNR) MEDICARE ADVANTAGE M[facility] (WNR) Jun 10, 2017 [id number] P JUAN CARLOSDerejeL PATIENT [facility] CAREE R SERVI CE Jun 10, 2004 [id number] [phone] Dereje RANGEL PATIENT Selected Encounter This section includes the information on record at [place] for the Encounter. Date/Time Encounter Type Encounter Description Reason Provider Source Feb 04, 2024 08:45 AM TYMPANOMETRY & REFLEX THRESH AUDIOLOGY ICD-10-CM H90.41 Snsrnrl hear loss, uni, right ear, w unrestr hear cntra side SILVESTRE BARBOZA [facility] Encounter Template Text not used by [place] Assessments - Encounter Diagnoses This section includes the primary and secondary diagnoses documented for the Encounter. Date/Time Primary/Secondary Diagnosis Diagnosis Name Provider Source Feb 04, 2024 09:33 AM PRIMARY Snsrnrl hear loss, uni, right ear, w unrestr hear cntra side KATHIE BARBOZA [facility] Plan of Treatment: Future Appointments (+ 6 months) and Future Tests (+/- 45 days) The Plan of Treatment section includes future care activities for the patient from all [place] treatmentfacilities. This section includes future appointments and future orders which are active, pending or scheduled. Future Appointments This section includes appointments that were scheduled to occur 6 months from the date of the Encounter, up to a maximum of 20 appointments. The data comes from all [place] treatment facilities. Appointment Date/Time Appointment Type Appointme nt Facility Name Feb 05, 2024 03:00 PM AMBULATORY - NONE . [facility] Feb 21, 2024 08:20 AM AMBULATORY - NONE [facility] Feb 26, 2024 09:30 AM AMBULATORY - NONE [facility] Feb 27, 2024 10:30 AM AMBULATORY - MEDICINE . [facility] Mar 18, 2024 02:00 PM AMBULATORY - NONE [facility] Andrade [facility] Mar 30, 2024 10:20 AM AMBULATORY - NONE [facility] Apr 02, 2024 10:30 AM AMBULATORY - SURGERY [facility] Apr 22, 2024 01:30 PM AMBULATORY - SURGERY [facility] Apr 27, 2024 10:20 AM AMBULATORY - NONE [facility] May 25, 2024 01:00 PM AMBULATORY - NONE [facility] Jul 03, 2024 10:00 AM AMBULATORY - NONE [facility] Aug 03, 2024 11:00 AM AMBULATORY - SURGERY [facility] Lab Results: +/- 30 days of the encounter This section includes the Chemistry and Hematology Lab Results on record with [facility] for the patient. Radiology Reports and Pathology Reports are provided separately, in subsequent sections. Lab Results This section contains the Chemistry/Hematology Results that were resulted 30 days before or 30 daysafter the date of the Encounter. Date/Time Source Result Type Result - Unit Interpretation Reference Range Comment Feb 27, 2024 11:16 AM [facility] TSH (MA-PB) Specimen Type: SERUM No comment entered. Ordering Provider: LEYLA YANCEY Report Released Date/Time: Feb 27, 2024 11:00 AM Reporting Lab: [facility] [address] [address] Performing Lab: [facility] [address] [address] TSH 0.748 u[IU]/mL 0.47-5 Feb 27, 2024 11:16 AM [facility] HGA1C Specimen Type: BLOOD No comment entered. Ordering Provider: LEYLA YANCEY Report Released Date/Time: Feb 27, 2024 11:00 AM Reporting Lab: [facility] [address] [address] Performing Lab: [facility] [address] [place], [place] [phone] HGA1C 6.9 H 4.0-6.0 Feb 27, 2024 11:16 AM [facility] VITAMIN D, 25-HYDROXY Specimen Type: SERUM No comment entered. Ordering Provider: LEYLA YANCEY Report Released Date/Time: Feb 27, 2024 11:00 AM Reporting Lab: [facility] [address] [address] Performing Lab: [facility] [address] [place] [phone] VITAMIN D, 25-HYDROXY 53.1 ng/mL 30-96 Feb 27, 2024 11:16 AM [facility] COMPREHENSIVE METABOLIC PANEL Specimen Type: PLASMA Comment: No hemolysis noted. Ordering Provider: LEYLA YANCEY Report Released Date/Time: Feb 27, 2024 11:00 AM Reporting Lab: [address] [address] Performing Lab: [facility] [address] [phone] CREATININE 1.10 mg/dL 0.7-1.3 UREA NITROGEN 13.6 [...] and tobacco- related health factors from the [place] facility where the Encounter took place. Current Smoking Status This section includes the most current smoking, or tobacco-related health factor, from the [place] facility where the Encounter took place. Date/Time Current Smoking Status Comment Michela [email or web address] May 18, 2019 09:42 AM VA-TOBACCO QUIT 15 YRS OR MORE [facility] Tobacco Use History This section includes a history of the smoking, or tobacco-related health factors, that were collected on or before the date of the Encounter. The data comes from the [place] facility where the Encounter took place. Date/Time Smoking Status/Tobacco Use Comment Talia acsmith May 18, 2019 09:42 AM VA-TOBACCO QUIT 15 YRS OR MORE [facility] May 23, 2015 09:00 AM QUIT TOBACCO >7 YEARS AGO [facility] May 20, 2014 10:02 AM QUIT TOBACCO >7 YEARS AGO [facility] Jul 01, 2012 05:09 PM LIFETIME NON-USER OF TOBACCO [facility] May 26, 2012 07:39 PM LIFETIME NON-USER OF TOBACCO [facility] Feb 13, 2011 10:35 PM LIFETIME NON-USER OF TOBACCO [facility] Jul 22, 2009 11:00 AM QUIT TOBACCO >7 YEARS AGO [facility] Jul 18, 2009 10:12 PM LIFETIME NON-USER OF TOBACCO [facility] October 29, 2008 06:19 PM QUIT TOBACCO >7 YEARS AGO [facility] Advance Directives: All historical and current Section Date Range: From patient's date of to the date document was created. This section includes ALL of a patient's completed or amended [place] Advance and Rescinded Directives. The entries below indicate that a directive exists for the patient, but an actual copy is not included with this document. The data comes from all [facility]. Date Advance Directives Provider Source May 28, 2012 ADVANCE DIRECTIVE DISCUSSION RENETTA DIOR [facility] Nov 21, 2010 ADVANCE DIRECTIVE DISCUSSION CHRISTOPHER MUNOZ [facility] Jan 02, 2007 ADVANCE DIRECTIVE RANDEE CAMARILLO [facility] October 28, 2002 ADVANCE DIRECTIVE JUANCHO BURROWS [facility] Radiology Reports: +/- 30 days of the encounter Radiology Reports For cases when an order for radiology services may have been completed prior to the date of the Encounter, the report list includes the Radiology Reports that were completed up to 30 days before dateof the Encounter. For cases when an order for radiology services may have been completed after the date of the Encounter, the report list also includes the Radiology Reports that were completed up to30 days after date of the Encounter. The data comes from all [place] treatment facilities. Date/Time Radiology Report Provider Source Jan 15, 2024 03:13 PM SPINE CERVICAL MIN 4 OR 5 VIEWS: LORNA RANGEL [id number] -1950 M Exm Date: JAN 15, 2024@15:13 Req Phys: JARON LAZO Loc: [facility] BLD 55 2ND FLR Img Loc: [facility] Service: [address] [address] (Case [id number] COMPLETE) SPINE CERVICAL MIN 4 OR 5 VIEWS (RAD Detailed) CPT:69995 Reason for Study: neck pain Clinical History: Report Status: Verified Date Reported: JAN 16, 2024 Date Verified: JAN 16, 2024 Car Changer E-Sig:/ES/VANESSA BURNS MD Report: Case #[id number]. Cervical spine examination. COMPARISON: 08/14/2012. Finding: AP and lateral views of the cervical spine followed by swimmers lateral and open-mouth odontoid view is limited examination. Below the level of C6 it is not well delineated. Mild disc space narrowing at C5-6 and probably at C6-7. No abnormal prevertebral soft tissue swelling. The atlantoaxial alignment is satisfactory. Impression: Limited examination. Mild degenerative disc change at the C5-6 and probably at the C6-7. Primary Interpreting Staff: VANESSA BURNS MD, Staff Physician - Radiologist (Car Changer) /VANESSA [facility] Jan 15, 2024 03:13 PM SPINE LUMBOSACRAL 2 OR 3 VIEWS: ANDRIY RANGELNga [id number] -1950 M Exm Date: JAN 15, 2024@15:13 Req Phys: JARON LAZO Loc: [facility] CON BLD 55 2ND FLR Img Loc: [facility] Service: Unknown [facility], [address] [place] [address] (Case [id number] COMPLETE) SPINE LUMBOSACRAL 2 OR 3 VIEWS (RAD Detailed) CPT:34990 Reason for Study: low back pain with remote history of surgey w/o [facility] documentation Clinical History: Report Status: Verified Date Reported: JAN 16, 2024 Date Verified: JAN 16, 2024 Car Changer E-Sig:/ES/VANESSA BURNS MD Report: Case #[id number]. Lumbar spine examination. COMPARISON: The 2012. Finding: AP and lateral views of the lumbar spine followed by cone-down lateral view of the lumbosacral junction shows progressive disc space narrowing at L4-5. Other disc spaces appear unremarkable. No other evidence of lytic or blastic bony lesion. No evidence of spondylolisthesis. Impression: Progressive degenerative disc change at L4-5. Primary Interpreting Staff: VANESSA BURNS MD, Staff Physician - Radiologist (Car Changer) /VANESSA [facility] Encounter Notes: All associated encounter notes This section contains the clinical notes associated to the Encounter. Date/Time Encounter Note(s) Provider Source Feb 04, 2024 08:52 AM AUDIOLOGY E & M NO TE: [place] [employer] TITLE: AUDIO EVALS [facility] STANDARD TITLE: AUDIOLOGY E & M NOTE DATE OF NOTE: FEB 04, 2024@08:52 ENTRY DATE: FEB 04, 2024@08:52:38 AUTHOR: ALAM ROSA BARBOZA COSIGNER: URGENCY: STATUS: COMPLETED SUBJECT: Hearing Audiogram: Purpose of appointment: audio [x] initiated visit Case history: Otoscopic evaluation: normal AU. Eunice's main complaint is hearing loss & tinnitus on the right side; Eunice reports that he work up earlier this year and couldn't hear out of his right ear and he had a hearing test completed at [facility] that showed essentially normal hearing, bilaterally. reports that he still feels like something is going on with his right ear and that it feels muffled. Eunice reports intermittent tinnitus in the right ear only that began when he first noticed difficulty hearing on the right side in June 2023; denied any tinnitus in the left ear. Eunice reports constant long-standing headaches. Eunice reports slight, intermittent pressure that occurs in both ears; reports slight pressure in his left ear at the time of his appointment. reports general unsteadiness every day. Eunice also reports that he feels like his energy levels have been decreasing; advised Eunice to follow- up with PCP & verbalized good understanding. 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 Eunice denied any ear pain, fullness, dizziness/vertigo, history of otosurgery, history of TM perforation, and any recent ear infections. Martina has never had [place]-issued hearing devices. -Martina has an iPhone. Last evaluation on 12/02/2014. -Martina brought hearing test completed at [facility] on 07/02/2023 by provider with license number [id number] (unable to decipher name from signature); Audio entered in GRAY. RESULTS: RIGHT EAR Audiometry (air and/or bone conduction): Hearing thresholds WNL from 0.25kHz through 4kHz, sloping to mild at 6kHz & 8kHz; stable since 07/02/2023 test at [facility]. SRT: 15 dB HL. WRS: Excellent. 92% at 55 dB HL with 25 dB HL of contralateral masking noise. [100% at last eval.] Tympanogram: type A Acoustic Reflexes: Ipsilateral: Present at 0.5kHz, 1kHz, 2kHz, & 4kHz. Contralateral: Present at 0.5kHz, 1kHz, 2kHz, & 4kHz. LEFT EAR Audiometry (air and/or bone conduction): Hearing thresholds WNL from 0.25kHz through 8kHz; most significant change at 8kHz. Changes since last test: Slight deterioration of 10 dB HL at 8kHz. SRT: 15 dB HL. WRS: Excellent. 96% at 55 dB HL with 25 dB HL of contralateral masking noise. [100% at last eval.] Tympanogram: type A Acoustic Reflexes: Ipsilateral: Present at 0.5kHz, 1kHz, 2kHz, & 4kHz. Contralateral: Present at 0.5kHz, 1kHz, 2kHz, & 4kHz. Martina is not a candidate for hearing aids at this time. Counseled regarding degree of loss. Discussed tinnitus management strategies including the importance of maintaining a sound enriched environment. provided with ReSound Relief card. RECOMMENDATIONS: 1. to contact [facility] Audiology & RTC as needed. /brittany/ MER CA Staff Geographic Information Systems DirectorDAVIE, CCC-A Signed: 02/04/2024 09:40 MER BARBOZA [facility]
--- OUTSIDE RECORDS SUMMARY | 2024-07-04 14:19 | XMS_ITS | Encounter Summary ---
Author Name [facility] [facility] [place] Address [address] [place] [address] Care Team Providers Care Passenger Train Braker Name Role Phone RADHA YANCEY Primary Care Provider Unavailabl e Insurance [...] Kapadia's Name Patient's Relationship to Policy Kapadia [facility] (WNR) MEDICARE ADVANTAGE [facility] ([facility]) Jun 10, 2022 [id number] Dereje ELDER KETURAHADELL PATIENT AETNA [facility] ([facility]) MEDICARE [facility] ([facility]) Jun 10, 2021 [id number] Dereje ELDER URADELL PATIENT AETNA [facility] (WNR) MEDICARE [facility] ([facility]) Jun 10, 2017 [id number] [phone] Dereje ELDER URADELL PATIENT AETNA [facility] ([facility]) MEDICARE ADVANTAGE [facility] ([facility]) Jun 10, 2017 [id number] P [phone] JUAN CARLOSDereje URADELL PATIENT AETNA [facility] (WNR) MEDICARE ADVANTAGE [facility] (WNR) Jun 10, 2017 [id number] P JUAN CARLOS,E URADELL PATIENT AETNA [facility] (WNR) MEDICARE ADVANTAGE [facility] (WNR) Jun 10, 2017 [id number] P JUAN CARLOS,E URADELL PATIENT [facility] ([facility] [place] [facility] ORGANIZ CAREE R SERVI CE Jun 10, 2004 [id number] Dereje ELDERL PATIENT Selected Encounter This section includes the information on record at [place] for the Encounter. Date/Time Encounter Type Encounter Description Reason Provider Source Feb 27, 2024 10:30 AM OFFICE O/P EST MOD 30 MIN PRIMARY CARE/MEDICINE ICD-10-CM E11.9 Type 2 diabetes mellitus without complications RADHA YANCEY Dereje Encounter Template Text not used by [place] Assessments - Encounter Diagnoses This section includes the primary and secondary diagnoses documented for the Encounter. Date/Time Primary/Secondary Diagnosis Diagnosis Name Provider Source Feb 27, 2024 11:04 AM PRIMARY Type 2 diabetes mellitus without complications RADHA YANCEY [facility] [place] [facility] Feb 27, 2024 11:04 AM SECONDARY Benign prostatic hyperplasia with lower urinary tract symp RADHA YANCEY [facility] [place] [facility] Feb 27, 2024 11:04 AM SECONDARY Cannabis use, unspecified, uncomplicated RADHA YANCEY [facility] [place] [facility] Feb 27, 2024 11:04 AM SECONDARY Chronic sinusitis, unspecified RADHA YANCEY [facility] [place] [facility] Feb 27, 2024 11:04 AM SECONDARY Dry eye syndrome of bilateral lacrimal glands RADHA YANCEY [facility] [place] [facility] Feb 27, 2024 11:04 AM SECONDARY Elevated prostate specific antigen [PSA] RADHA YANCEY [facility] [place] [facility] Feb 27, 2024 11:04 AM SECONDARY Essential (primary) hypertension RADHA YANCEY [facility] [place] [facility] Feb 27, 2024 11:04 AM SECONDARY Hyperlipidemia, unspecified RADHA YANCEY [facility] [place] [facility] Feb 27, 2024 11:04 AM SECONDARY Insomnia, unspecified RADHA YANCEY [facility] [facility] Feb 27, 2024 11:04 AM SECONDARY Low back pain, unspecified RADHA YANCEY [facility] [place] [facility] Feb 27, 2024 11:04 AM SECONDARY Male erectile dysfunction, unspecified RADHA YANCEY [facility] [place] [facility] Feb 27, 2024 11:04 AM SECONDARY Obstructive sleep apnea (adult) (pediatric) RADHA YANCEY [facility] [place] [facility] Feb 27, 2024 11:04 AM SECONDARY Snsrnrl hear loss, uni, right ear, w unrestr hear cntra side RADHA YANCEY CEC[facility] [place] [facility] Plan of Treatment: Future Appointments (+ 6 months) and Future Tests (+/- 45 days) The Plan of Treatment section includes future care activities for the patient from all [place] treatmentfacilities. This section includes future appointments and future orders which are active, pending or scheduled. Future Appointments This section includes appointments that were scheduled to occur 6 months from the date of the Encounter, up to a maximum of 20 appointments. The data comes from all [place] treatment facilities. Appointment Date/Time Appointment Type Appointme nt Facility Name Mar 18, 2024 02:00 PM AMBULATORY - NONE . CANDICE Andrade [facility] [place] Mar 30, 2024 10:20 AM AMBULATORY - NONE [facility] Apr 02, 2024 10:30 AM AMBULATORY - SURGERY [facility] Apr 22, 2024 01:30 PM AMBULATORY - SURGERY [facility] Apr 27, 2024 10:20 AM AMBULATORY - NONE [facility] S [facility] May 25, 2024 01:00 PM AMBULATORY - NONE [facility] S [facility] Jul 03, 2024 10:00 AM AMBULATORY - NONE [facility] Aug 03, 2024 11:00 AM AMBULATORY - SURGERY [facility] Lab Results: +/- 30 days [...] Range Comment Feb 27, 2024 11:16 AM [facility] TSH ([place]) Specimen Type: SERUM No comment entered. Ordering Provider: RADHA YANCEY Report Released Date/Time: Feb 27, 2024 11:00 AM Reporting Lab: [facility] [address] [place] [phone] Performing Lab: [facility] [address] [facility] [phone] TSH 0.748 u[IU]/mL 0.47-5 Feb 27, 2024 11:16 AM [facility] HGA1C Specimen Type: BLOOD No comment entered. Ordering Provider: RADHA YANCEY Report Released Date/Time: Feb 27, 2024 11:00 AM Reporting Lab: [facility] [address] [place] [phone] Performing Lab: [facility] [address] [facility] [phone] HGA1C 6.9 H 4.0-6.0 Feb 27, 2024 11:16 AM [facility] VITAMIN D, 25-HYDROXY Specimen Type: SERUM No comment entered. Ordering Provider: RADHA YANCEY Report Released Date/Time: Feb 27, 2024 11:00 AM Reporting Lab: [facility] [address] [facility] [phone] Performing Lab: [facility] [address] [facility] [phone] VITAMIN D, 25-HYDROXY 53.1 ng/mL 30-96 Feb 27, 2024 11:16 AM [facility] COMPREHENSIVE METABOLIC PANEL Specimen Type: PLASMA Comment: No hemolysis noted. Ordering Provider: RADHA YANCEY Report Released Date/Time: Feb 27, 2024 11:00 AM Reporting Lab: [facility] [address] [facility] [phone] Performing Lab: [facility] [address] [place] [phone] CREATININE 1.10 mg/dL 0.7-1.3 UREA NITROGEN 13.6 [...] U/L 8-40 EGFR (CKD-EPI 2020) 70.4 >60 Vital Signs: All taken on the encounter date This section contains inpatient and outpatient Vital Signs collected on the date of the Encounter. Date/Time Temperature Pulse Blood Pressure Respiratory Rate SP02 Pain Height Weight Body Mass Index Source Feb 27, 2024 10:27 AM 98.8 69 136/81 18 97 0 [facility] Social History: Smoking Status (Most current) and Tobacco Use (All prior to encounter date) This section includes the most current, and the historical, smoking and tobacco- related health factors from the [place] facility where the Encounter took place. Current Smoking Status This section includes the most current smoking, or tobacco-related health factor, from the [place] facility where the Encounter took place. Date/Time Current Smoking Status Comment Facil ity Aug 27, 2023 10:30 AM VA-TOBACCO FORMER USER [facility] Tobacco Use History This section includes a history of the smoking, or tobacco-related health factors, that were collected on or before the date of the Encounter. The data comes from the [place] facility where the Encounter took place. Date/Time Smoking Status/Tobacco Use Comment F acility Aug 27, 2023 10:30 AM [place]-TOBACCO QUIT 15 YRS OR MORE [facility] Aug 23, 2022 10:00 AM [place]-TOBACCO FORMER USER [facility] Aug 23, 2022 10:00 AM [place]-TOBACCO QUIT 15 YRS OR MORE [facility] Jul 13, 2021 11:30 AM [place]-TOBACCO FORMER USER [facility] Jul 13, 2021 11:30 AM VA-TOBACCO QUIT 15 YRS OR MORE [facility] Jul 07, 2020 09:30 AM VA-TOBACCO FORMER USER [facility] Jul 07, 2020 09:30 AM [place]-TOBACCO QUIT 15 YRS OR MORE [facility] Jun 19, 2018 01:17 PM VA-TOBACCO NEVER USED [facility] Dec 19, 2017 11:49 AM VA-TOBACCO NEVER USED [facility] Dec 19, 2017 10:53 AM QUIT TOBACCO >7 YEARS AGO [facility] May 23, 2017 01:02 PM TOBACCO REFUSED SCREEN V15 [facility] Feb 25, 2017 03:31 PM QUIT TOBACCO >7 YEARS AGO [facility] Dec 19, 2016 02:26 PM LIFETIME NON-USER OF TOBACCO [facility] May 16, 2016 03:16 PM QUIT TOBACCO >7 YEARS AGO [facility] Apr 06, 2013 11:23 AM QUIT TOBACCO >7 YEARS AGO [facility] October 08, 2006 09:17 AM QUIT TOBACCO >7 YEARS AGO [facility] Advance Directives: All historical and current Section Date Range: From patient's date of to the date document was created. This section includes ALL of a patient's completed or amended [place] Advance and Rescinded Directives. The entries below indicate that a directive exists for the patient, but an actual copy is not included with this document. The data comes from all [place] facilities. Date Advance Directives Provider Source May 28, 2012 ADVANCE DIRECTIVE DISCUSSION RENETTA DIOR [facility] Nov 21, 2010 ADVANCE DIRECTIVE DISCUSSION CHRISTOPHER MUNOZ [facility] Jan 02, 2007 ADVANCE DIRECTIVE RANDEE CAMARILLO IS [facility] October 28, 2002 ADVANCE DIRECTIVE JUANCHO BURROWSS [facility] Encounter Notes: All associated encounter notes This section contains the clinical notes associated to the Encounter. Date/Time Encounter Note(s) Provider Source Feb 28, 2024 08:28 AM PHYSICIAN LETTERS: LOCAL TITLE: TEST RESULT GENERAL LETTER [facility] STANDARD TITLE: PHYSICIAN LETTERS DATE OF NOTE: FEB 28, 2024@08:28 ENTRY DATE: FEB 28, 2024@08:28:28 AUTHOR: PRAVEENA MEDEROS COSIGNER: URGENCY: STATUS: COMPLETED [facility] [address] [place] [address] FEB 28, 2024 LORNA ELDER [address] [place], [place] [address] Dear Lorna Elder, I would like to update you on your recent test results. HEMOGLOBIN A1C - Gives us information about your diabetes (sugar or glucose) control over the past 3 months. Your target is to keep your A1C below 7 %. HGA1C 6.9 H % 02/27/2024 11:16 The results are similar to previous values and shows your average blood sugars are controlled for diabetes. -------- CHEM 7 - This is important information about the current status of your kidneys, liver, and electrolyte and acid/base balance as well as of your blood sugar and blood proteins. SODIUM 138 mEq/L 02/27/2024 11:16 POTASSIUM 4.2 mEq/L 02/27/2024 11:16 CHLORIDE 105 mEq/L 02/27/2024 11:16 UREA NITROGEN 13.6 mg/dL 02/27/2024 11:16 CREATININE 1.10 mg/dL 02/27/2024 11:16 CALCIUM 9.6 mg/dL 02/27/2024 11:16 CARBON DIOXIDE 25 mEq/L 02/27/2024 11:16 GLUCOSE 206 H mg/dL 02/27/2024 11:16 EGFR (CKD-EPI 2020) 70.4 02/27/2024 11:16 These readings are within normal limits other than an elevated blood sugar. Recommend to continue your medications as prescribed and follow a diabetic diet. LIVER FUNCTION PANEL - These are tests for liver function: PROTEIN 6.8 g/dL 02/27/2024 11:16 ALBUMIN 4.3 g/dL 02/27/2024 11:16 TOTAL BILIRUBIN 0.6 mg/dL 02/27/2024 11:16 ALKALINE PHOSPHATASE 69 U/L 02/27/2024 11:16 AST/SGOT 20 U/L 02/27/2024 11:16 ALT/SGPT 16 U/L 02/27/2024 11:16 These readings are within normal limits. TSH - Thyroid-stimulating hormone (also known as TSH or thyrotropin) is a peptide hormone synthesized and secreted by thyrotrope cells in the anterior pituitary gland, which regulates the endocrine function of the thyroid gland. TSH TSH 0.748 uIU/mL 02/27/2024 11:16 These readings are within normal limits. --------- VITAMIN D - Helps promote the proper utilization of calcium and phosphorus, thereby producing proper bone maintenance. VITAMIN D, 25-HYDROXY 53.1 ng/mL 02/27/2024 11:16 These readings are within normal limits. --------- PLAN Please continue your treatment as we discussed during your visit. If you have any questions please call your complex case manager. I look forward to seeing you at your next clinic appointment. Thank you for choosing the [facility] for your healthcare. -------- FUTURE APPOINTMENTS: 03/20/2024 09:20 [facility]CHIRO B BLDG [facility] 04/02/2024 10:30 [facility]-PODIATRY [facility] 04/22/2024 13:30 [facility]-OPTOMETRY 2 09/01/2024 11:00 [facility] PACT 3 PCP Sincerely, PRAVEENA MEDEROS Staff Physician LORNA ELDER,PRAVEENA BRANDON [facility] Feb 27, 2024 10:45 AM PRIMARY CARE NOTE: LOCAL TITLE: PRIMARY CARE PROVIDER ESTABLISHED VISIT [facility] STANDARD TITLE: PRIMARY CARE NOTE DATE OF NOTE: FEB 27, 2024@10:45 ENTRY DATE: FEB 27, 2024@10:45:06 AUTHOR: RADHA YANCEY EXP COSIGNER: URGENCY: STATUS: COMPLETED PRIMARY CARE PROVIDER ESTABLISHED VISIT [facility] Has ADDENDA REASON FOR VISIT/CHIEF COMPLAINT: Evaluation and management of chronic medical conditions/ My scheduled visit HPI: Patient is a 73 year old BLACK OR MALE who presents to the clinic for evaluation and management of chronic medical conditions. Patient denies any recent ED visits or hospitalizations. Patient goes by Stevo. Private providers: -Private PCP Dr. Timothy White at [facility]. -Private urologist Dr. Martinez at [facility]. -Private ENT Dr. Chavez. -Private pulmonary Dr. Cortes. #DM 2: -HGA1C 6.8 H % 08/27/2023. -Medications: Glipizide and Metformin. -Reports compliance to medication regimen. -Blood sugar readings at home: On average 120-130. -Eye exam: per [place] optometry. -Foot exam: Per [place] podiatry. -Micral: 08/2023. -Statin: Yes. -ACEI: Yes. -Denies recent hypo/hyperglycemia episodes. #HTN: -Medications: Lisinopril. -Reports compliance to medication regimen. -Reports having blood pressure machine at home. -Blood pressure readings at home: <130/80. -Denies CP, SOB, heart palpitations, headaches, blurred vision, dizziness/lightheadedness. #HLD: -Medication: Atorvastatin. -Reports compliance with medication regimen. -Denies any new onset of myalgias. #Mildly ecstatic distal abdominal aorta. Ecstatic, borderline aneurysmal left common iliac artery: Exam Date/Time 09/25/2022 09:18 Procedure Name US ABDOMEN AORTA (AAA), LIMITED Reason for Study Smoking history Impression: Mildly ecstatic distal abdominal aorta. Ecstatic, borderline aneurysmal left common iliac artery. -E-consult with vascular surgeon in 2022: There is no aortic aneurysm . No vascular input is needed. Will be happy to see the patient if there is disease in other vascular territories. #ED: -Stable, denies concerns at this time. -Medications: Viagra. #BPH: -Medications: Tamsulosin and Finasteride. -Patient reports medication compliance. -Reports nocturia that is at its baseline. -Denies frequency, hesitancy, urgency, burning with urination or hematuria. #Elevated PSA: -Patient reports being evaluated by a private urologist Dr. Martinez and a prostate biopsy was obtained. Patient reports the biopsy was negative in the private sector. #Hx of asbestos exposure: -Patient reports he was told he had this in 2008. -Denies concerns today. -Medication: Albuterol PRN. -Patient is managed per private pulmonary for this. #TJ: -Denies nightly CPAP use. Reports wearing this twice per week. -Patient reports he is considering the Inspire in the private sector at [facility], reports he is having a sleep study 03/25/24 and once that is completed the procedure will be scheduled. #Chronic sinusitis: -Medication: Flonase PRN. -Controlled per patient. #Insomnia: -Medication: Melatonin. -Stable per patient. #Chronic LBP: -Stable per patient. -Participated in PT historically. 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 -Patient wears a brace PRN. -Denies bowel or bladder incontinence and saddle anesthesia. #Inflammation of throat: -Reports he had this evaluated in 09/16/2023 in the private sector. -Patient reports having a negative biopsy in 2023. #Dry eyes: -Reports compliance with eye drops. 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 Quit in approx. in 2008. Smoked for approx. 5-6 years 1/2 PPD. Alcohol: 1 beer every two weeks. Illicit: Smokes and uses cannabis gummies. Has medical card per patient. -Patient lives with . Reports continuing to complete ADL's at home and drives. ALLERGIES: SIMVASTATIN ALLERGY REVIEW: Allergy list reviewed and remains current. MEDICATIONS: Active and Recently Outpatient Medications (excluding Supplies): Active Outpatient Medications Status ========= 1) ACCU-CHEK GUIDE (GLUCOSE) TEST STRIP USE 1 STRIP FOR ACTIVE BLOOD TEST DIRECTED *HYPOGLYCEMIA, 100 STRIPS PER YEAR* Dec 2) ATORVASTATIN CALCIUM 80MG TAB TAKE ONE-HALF TABLET BY ACTIVE MOUTH EVERY EVENING FOR CHOLESTEROL. REPORT ANY UNEXPLAINED MUSCLE PAIN/WEAKNESS TO PROVIDER. 3) CARBOXYMETHYLCELLULOSE NA 0.5% OPH SOLN INSTILL 1 ACTIVE DROP IN BOTH EYES FOUR TIMES A DAY NEEDED 4) FINASTERIDE 5MG TAB TAKE ONE TABLET BY MOUTH ONCE A ACTIVE DAY FOR PROSTATE. SWALLOW WHOLE, DO NOT CRUSH, SPLIT, OR CHEW. 5) FLUTICASONE PROP 50MCG 120D NASAL INHL INSTILL 2 ACTIVE SPRAYS IN NOSTRIL(S) ONCE A DAY FOR ALLERGIES (MUST BE USED DIRECTED FOR MINIMUM OF 21 DAYS TO PROVIDE ADEQUATE BENEFITS) 6) GLIPIZIDE 10MG TAB TAKE ONE TABLET BY MOUTH TWO TIMES ACTIVE A DAY BEFORE MEALS TAKE 30 MINUTES BEFORE EATING. 7) LATANOPROST 0.005% OPH SOLN INSTILL 1 DROP IN BOTH ACTIVE EYES EVERY EVENING KEEP REFRIGERATED UNTIL READY TO USE, THEN STORE AT ROOM TEMPERATURE FOR MAXIMUM OF 42 DAYS. 8) MELATONIN 5MG CAP/TAB TAKE ONE CAP/TAB BY MOUTH AT ACTIVE BEDTIME FOR SLEEP 9) METFORMIN HCL 1000MG TAB TAKE ONE TABLET BY MOUTH ACTIVE (S) TWICE A DAY WITH MEALS FOR BLOOD SUGAR CONTROL. TAKE WITH FOOD. AVOID ALCOHOL. DISCONTINUE BEFORE GETTING XRAY DYE. 10) SILDENAFIL CITRATE 100MG TAB TAKE ONE-HALF TABLET BY ACTIVE MOUTH TWO TIMES PER WEEK NEEDED FOR ERECTILE DYSFUNCTION (TAKE 60 MINUTES PRIOR TO SEXUAL ACTIVITY) - LIMIT 6 DOSES PER 30 DAYS 11) TAMSULOSIN HCL 0.4MG CAP TAKE TWO CAPSULES BY MOUTH ACTIVE EVERY EVENING APPROXIMATELY 30 MINUTES AFTER THE SAME MEAL EACH DAY (FOR PROSTATE) Active Non-VA Medications Status ========= 1) Non-VA LISINOPRIL 10MG TAB 5MG BY MOUTH ONCE A DAY ACTIVE 12 Total Medications REVIEW OF SYSTEMS: Constitutional: Denies weight loss, fever, chills. Ears, Nose, Mouth, Throat: Denies nasal drainage or sore throat. Denies dizziness. Endocrinology: Denies heat or cold intolerance, polydipsia, polyuria, or polyphagia. Cardiovascular: Denies chest pain, palpitations, or dizziness. Respiratory: Denies cough or shortness of breath. ABD/GI: Denies abdominal pain, nausea, vomiting, constipation, diarrhea or incontinence. Musculoskeletal/Extremities: Denies edema. /SHAKER WASHER: Denies frequency, hesitancy, urgency, or hematuria. Psychology: Denies insomnia or SI/HI. Denies anxiety or depression. Neurology: Denies MERCER, tremors, neuropathy, or seizures. Skin: Denies rashes, skin lesions. PHYSICAL EXAMINATION: VITALS (most recent, as listed in the electronic record): Temperature: 98.8 F [37.1 C] (02/27/2024 10:27) BP: 136/81 (02/27/2024 10:27) Pulse: 69 (02/27/2024 10:27) Resp: 18 (02/27/2024 10:27) PulsOx: 97% (02/27/2024 10:27) Pain: 0 (02/27/2024 10:27) Weight: Measurement DT WEIGHT LB(KG)[BMI] 08/27/2023 10:26 173.6(78.74)[26] 02/27/2023 13:25 167.6(76.02)[25] HEENT: EOMI, PERRLA, Moist mucous membranes. No Scleral icterus or cervical lymphadenopathy. Lungs: Clear to auscultation bilaterally. No accessory muscle use. Cardiovascular: Regular rate and rhythm. No murmur. No JVD. Abdomen: Soft, nontender and non-distended. No palpable masses. Positive bowel sounds in all four quadrants. Extremities: No edema. Nontender. Full ROM to all joints. 2+ pedal pulses bilaterally. Gait steady. : Deferred. Neurologic: No focal neurological deficits. CN II-XII grossly intact. Psychiatric: Appropriate mood and affect. Skin: Skin warm, dry and intact. No lesions or rashes noted. DATA REVIEW: HGA1C 6.8 H % 08/27/2023 11:17 ====== Lipid Panel: TRIGLYCERIDE 116 mg/dL 08/27/2023 11:17 CHOLESTEROL 136 mg/dL 08/27/2023 11:17 HDL(New) 47 mg/dL 08/27/2023 11:17 CALCULATED LDL 66 mg/dL 08/27/2023 11:17 ==== CMP: SODIUM 139 mEq/L 08/27/2023 11:17 POTASSIUM 4.7 mEq/L 08/27/2023 11:17 CHLORIDE 103 mEq/L 08/27/2023 11:17 UREA NITROGEN 13.7 mg/dL 08/27/2023 11:17 CREATININE 1.14 mg/dL 08/27/2023 11:17 CALCIUM 9.7 mg/dL 08/27/2023 11:17 PROTEIN 7.2 g/dL 08/27/2023 11:17 ALBUMIN 4.5 g/dL 08/27/2023 11:17 ALKALINE PHOSPHATASE 70 U/L 08/27/2023 11:17 ALT/SGPT 17 U/L 08/27/2023 11:17 AST/SGOT 21 U/L 08/27/2023 11:17 TOTAL BILIRUBIN 0.4 mg/dL 08/27/2023 11:17 CARBON DIOXIDE 26 mEq/L 08/27/2023 11:17 GLUCOSE 199 H mg/dL 08/27/2023 11:17 EGFR (CKD-EPI 2020) 67.9 08/27/2023 11:17 ===== CBC: WBC 4.5 10*3/uL 08/27/2023 11:17 RBC 5.23 10*6/uL 08/27/2023 11:17 HGB 14.3 g/dL 08/27/2023 11:17 HCT 44.7 % 08/27/2023 11:17 MCV 85.5 fL 08/27/2023 11:17 MCH 27.3 pg 08/27/2023 11:17 MCHC 32.0 L g/dL 08/27/2023 11:17 RDW 14.1 % 08/27/2023 11:17 PLT 209 10*3/uL 08/27/2023 11:17 MPV 11.1 fL 08/27/2023 11:17 NEUTROPHILS, AUTO % 45 % 08/27/2023 11:17 LYMPHOCYTES, AUTO % 45 % 08/27/2023 11:17 MONOCYTES, AUTO % 8 % 08/27/2023 11:17 EOSINOPHILS, AUTO % 2 % 08/27/2023 11:17 BASOPHILS, AUTO % 0 % 08/27/2023 11:17 NEUTROPHILS, ABSOLUTE 1.99 L 10*3/uL 08/27/2023 11:17 LYMPHOCYTES, ABSOLUTE 1.99 10*3/uL 08/27/2023 11:17 MONOCYTES, ABSOLUTE 0.37 10*3/uL 08/27/2023 11:17 EOSINOPHILS, ABSOLUTE 0.09 10*3/uL 08/27/2023 11:17 BASOPHILS, ABSOLUTE 0.02 10*3/uL 08/27/2023 11:17 ====== PSA: PROST. SPECIFIC AG.(PB-STL) 4.123 H* ng/mL 04/18/2022 10:26 Result: Acceptable Health maintenance: -Declines immunizations today. Immunization Series Date Facility Reaction Info COVID-19 (MODERNA), MRNA, LNP-S,* 1 09/03/2022 [facility] COVID-19 (MODERNA), MRNA, LNP-S,* 3 06/18/2023 [facility] COVID-19 (PFIZER), MRNA, LNP-S, * 3 03/29/2021 [facility]* <C> COVID-19 (PFIZER), MRNA, LNP-S, * 2 08/25/2020 [facility]* <C> COVID-19 (PFIZER), MRNA, LNP-S, * 1 08/04/2020 [facility]* <C> COVID-19 (PFIZER), MRNA, LNP-S, * 4 10/05/2021 [facility] * INFLUENZA, ADJUVANTED, QUADRIVAL* 04/10/2021 [facility]* PNEUMOCOCCAL CONJUGATE PCV 13 01/14/2015 [facility]* PNEUMOCOCCAL POLYSACCHARIDE PPV23 12/19/2016 [facility] GARCIAIR* PNEUMOCOCCAL, UNSPECIFIED FORMUL* 11/22/2009 [facility]* TDAP 05/16/2016 [facility]* <C> TDAP 10/08/2006 [facility]* <C> ZOSTER LIVE 07/04/2010 [facility]* ZOSTER RECOMBINANT 2 03/21/2018 [facility] TONY* ZOSTER RECOMBINANT 1 12/19/2017 [facility]* Colonoscopy: 06/07/2020 IMPRESSION - Prep quality BBPS total score: 9 - Internal Hemorrhoids - External Hemorrhoids RECOMMENDATIONS Due to patient's age, risk level, and/or co-morbid conditions, discontinuation of asymptomatic colorectal cancer screening/surveillance is recommended. PSA: 4.123 H* ng/mL 04/18/2022. Obtains in the private sector. LDCT: Does not qualify. AAA screening: Exam Date/Time 09/25/2022 09:18 Procedure Name US ABDOMEN AORTA (AAA), LIMITED Reason for Study Smoking history Impression: Mildly ecstatic distal abdominal aorta. Ecstatic, borderline aneurysmal left common iliac artery. Eye exam: Evaluation and management per [place] optometry. Labs ordered: CMP, A1C, TSH and Vitamin D. ASSESSMENT/PLAN: DM 2: -Continue to check BG as recommended. -Continue medication regimen. -Reviewed lifestyle modifications. -Educated to check feet daily and to have an eye exam yearly. -Evaluation and management per [place] podiatry for foot exams. Recommend patient schedule an appointment. HTN: -Continue prescribed regimen. -Instructed patient to check BP daily 1-2 hours after medications. -Discussed importance of regular exercise and/or physical activity in the control of blood pressure. -Discussed low sodium diet w/ <2 g daily. -Discussed avoidance of caffeine. -Discussed appropriate sleep hygiene and quality with >6 hours of uninterrupted sleep. -Self-monitor BP at home and report readings consistently above goal of <130/80. -Evaluation and management per private PCP. HLD: -Continue medication regimen. -Reviewed lifestyle modifications including participating in a low fat/low cholesterol diet. -Dietitian contact information given. Mildly ecstatic distal abdominal aorta. Ecstatic, borderline aneurysmal left common iliac artery: -Lifestyle modifications reviewed. ED: -Continue current medications on an as needed basis. -If medications fail to give desired effect, pt instructed to notify the clinic. BPH: -Continue medication regimen. -Educated to limit fluid intake to frequent smaller amounts and decrease after evening meal, urinate frequently during the day, reduce or avoid caffeine and alcohol, and to avoid medications that can cause urinary retention or frequency when possible. Elevated PSA: -Evaluation and management per private urologist. 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 -Evaluation and management per private pulmonary. TJ: -Recommend using CPAP machine nightly. -Clean machine daily and replace filters q6m. -The patient has been advised that using CPAP regularly can decrease cardiac strain and help to control blood pressure. Chronic sinusitis: -Continue medication regimen. -Educated to limit exposures to allergens, wash bedding in hot water weekly, decrease humidity in the home, and to avoid firsthand or secondhand smoke. Insomnia: -Continue medication regimen. -Sleep hygiene reviewed. Chronic LBP: -Controlled. -[facility] health contact information given. -Evaluation and management per [place] chiropractor. Inflammation of throat: -Evaluation and management per private ENT. Dry eyes: -Evaluation and management per [place] optometry. RETURN TO CLINIC: 6 months or earlier as needed. SUMMARY STATEMENT: Plan of care has been discussed with including expected therapeutic benefits and potential side effects of prescribed medication and treatments. [place] verbalizes understanding and is in agreement with the plan of care. Patient was instructed to keep all scheduled appointments and contact scaler for any additional problems. Medication Reconciliation Opt STL: I have reviewed the patient's medication list (including active outpatient prescriptions dispensed from this [facility] (local) and dispensed from another [facility] or [facility]D facility (remote) as well as inpatient orders (local pending and active), local clinic medications, locally documented non-VA medications, and local prescriptions that have or been discontinued in the past 90 days.) with the patient and/or his/her care-dishwasher busser. Handwritten corrections, additions and/or deletions were made to the list, as appropriate. Corrected Outpatient Medication List was provided to the patient/caregiver. Follow-Up Pos PTSD/Depression: I have reviewed the results of the Mental Health screens and have evaluated the patient. Based on the evaluation, the following disposition plan will be implemented: No further intervention is needed at this time. Contact information and instructions for accessing emergency services provided. /brittany/ Radha Yancey DNP, SUPERINTENDENT OVERHEAD DISTRIBUTION, SENIOR MANAGEMENT CONSULTANT-C Primary Care Nurse Practitioner Signed: 02/27/2024 11:04 02/27/2024 ADDENDUM STATUS: COMPLETED Addition to HPI/A&P: #STANDING ROCK: -Reports difficultly with hearing. -Denies dizziness or fluid in the ear. --------- STANDING ROCK: -Audiology contact information given. -Educated to avoid loud noises, avoid cotton swabs and to keep ears dry. /brittany/ Radha Yancey DNP, SUPERINTENDENT OVERHEAD DISTRIBUTION, AMA-C Primary Care Nurse Practitioner Signed: 02/27/2024 11:05 RADHA YANCEY [facility] Feb 27, 2024 10:42 AM NURSING NOTE: LOCAL TITLE: V15 PACT FACE TO FACE NOTE ST STANDARD TITLE: NURSING NOTE DATE OF NOTE: FEB 27, 2024@10:42 ENTRY DATE: FEB 27, 2024@10:43:09 AUTHOR: CARL SHIPMAN EXP COSIGNER: URGENCY: STATUS: COMPLETED Provider Visit: Patient Identifiers : Full Name Date of Reason for visit: Established Follow-Up Mode of Arrival: Ambulatory Allergy Review: SIMVASTATIN Allergy list reviewed and remains current. Recent Vital Signs: Temperature: 98.8 F [37.1 C] (02/27/2024 10:27) Pulse: 69 (02/27/2024 10:27) Respiration: 18 (02/27/2024 10:27) B/P: 136/81 (02/27/2024 10:27) Pain: 0 (02/27/2024 10:27) Wt: 173.6 lb [78.74 kg] (08/27/2023 10:26) Ht: 69 in [175.3 cm] (08/27/2023 10:26) BMI: 25.7 POX: 97% (02/27/2024 10:27) Would you like to discuss any personal problem, family problem, alcohol use, drug use, or a mental or emotional illness? No My [facility] ([facility]), please select appointment type: [facility] ([facility]VC) - Are you registered for [facility]? No- Are you interested in getting this done? No Contact provided Primary Care phone number and encouraged to call if any questions or concerns. Review that after hours nurse line [phone] and emergency room are available 31/12 for patient use. Contact verbalized good understanding. Sexual Orientation: The patient thinks of their sexual orientation as: Straight or Heterosexual Depression Screening: Perform PHQ-2 A PHQ-2 screen was performed. The score was 4 which is a positive screen for depression. Over the past two weeks, how often have you been bothered by the following problems? 1. Little interest or pleasure in doing things More than half the days 2. Feeling down, depressed, or hopeless More than half the days Licensed Independent Provider notified of positive screen and need for follow-up. Name of provider notified: radha yancey Learning Assessment: - * This patient's learning ABILITIES, BARRIERS to learning, CULTURAL and GNOSTICISM beliefs, and learning PREFERENCES were assessed. Following are findings of note: Patient reads well. Patient has the following hearing/auditory barrier(s) to consider when teaching: No hearing barrier identified. Patient has the following speech barrier to consider when teaching: No speech barrier identified. LANGUAGE Patient reports that Yoruba is preferred language for healthcare. Patient has the following language barrier to consider when teaching: No language barrier has been identified. Patient has the following vision barrier(s) to consider when teaching: Requires glasses/contacts for reading Patient has the following dexterity/mobility barrier(s) to consider when teaching: No dexterity/mobility barrier has been identified. Patient has the following cognitive/memory barrier(s) to consider when teaching: Has difficulty in remembering instructions/names Patient has the following emotional/psychological barrier(s) to consider when teaching: Otherdepression * COVID-19 Immunization: Refused Pfizer Monovalent COVID-19 vaccine Immunization: COVID-19 (PFIZER), MRNA, LNP-S, PF, REY-SUCROSE, 30 MCG/0.3 ML (AGES 12+ YEARS) Refusal Reason: PATIENT DECISION Patient refuses all immunization(s) in the COVID-19 group Date Documented: 02/27/24 10:45 Influenza Immunization: Deferral / Refusal The patient declines to receive the recommended dose of seasonal influenza vaccine. Immunization: INFLUENZA, UNSPECIFIED FORMULATION Refusal Reason: PATIENT DECISION Patient refuses all immunization(s) in the FLU group Date Documented: 02/27/24 10:46 /brittany/ CARL SHIPMAN LPN LICENSED PRACITCAL NURSE Signed: 02/27/2024 10:46 CARL SHIPMAN [facility]
--- OUTSIDE RECORDS SUMMARY | 2024-07-04 14:19 | XMS_ITS | Encounter Summary ---
Author Name [facility] [place] [facility] [place] [facility] [facility] [place] Address [address] [place] [address] Care Team Providers Care Medical Staff Director Name Role Phone LEYLA YANCEY Primary [...] Kapadia's Name Patient's Relationship to Policy Kapadia [facility] (WNR) MEDICARE ADVANTAGE [facility] ([facility]) Jun 10, 2022 [id number] Dereje RANGELADELL PATIENT AETNA [facility] ([place]) MEDICARE ADVANTAGE [facility] ([place]) Jun 10, 2021 [id number] Dereje RANGEL URADELL PATIENT AETNA [facility] ([facility]) MEDICARE ADVANTAGE [facility] ([place]) Jun 10, 2017 [id number] [phone] Dereje RANGEL URADELL PATIENT AETNA [facility] ([place] MEDICARE ADVANTAGE [facility] ([place]) Jun 10, 2017 [id number] P [phone] Dereje RANGELL PATIENT [employer]ET[employer] [facility] ([place]) MEDICARE ADVANTAGE [facility] ([place]NR) Jun 10, 2017 [id number] Dereje RANGELL PATIENT [employer] [facility] ([place]) MEDICARE ADVANTAGE [facility] ([place]) Jun 10, 2017 [id number] P Dereje RANGELL PATIENT [facility] [place] [place] [facility] ORGANIZ CAREE R SERVI CE Jun 10, 2004 [id number] [phone] Dereje RANGEL PATIENT Selected Encounter This section includes the information on record at [place] for the Encounter. Date/Time Encounter Type Encounter Description Reason Provider Source Feb 05, 2024 03:00 PM MANUAL THERAPY 1/> [facility] ACTIVITY DIRECTOR ICD-10-CM M54.2 Cervicalgia TEODORO NICHOLAS Encounter Template Text not used by [place] Assessments - Encounter Diagnoses This section includes the primary and secondary diagnoses documented for the Encounter. Date/Time Primary/Secondary Diagnosis Diagnosis Name Provider Source Feb 05, 2024 03:23 PM PRIMARY Cervicalgia SERRANT STALLINGS,MARGRET [facility] Feb 05, 2024 03:23 PM SECONDARY Low back pain, unspecified SERRANT STALLINGS,MARGRET E [facility] Feb 05, 2024 03:23 PM SECONDARY Myalgia, unspecified site SERRANT STALLINGS,MARGRET E [facility] Feb 05, 2024 03:23 PM SECONDARY Pain in thoracic spine SERRANT STALLINGS,MARGRET [facility] Plan of Treatment: Future Appointments (+ 6 months) and Future Tests (+/- 45 days) The Plan of Treatment section includes future care activities for the patient [facility] [place] [facility] This section includes future appointments and future orders which are active, pending or scheduled. Future Appointments This section includes appointments that were scheduled to occur 6 months from the date of the Encounter, up to a maximum of 20 appointments. The data comes from all [place] treatment facilities. Appointment Date/Time Appointment Type Appointme nt Facility Name Feb 21, 2024 08:20 AM AMBULATORY - NONE [facility] Feb 26, 2024 09:30 AM AMBULATORY - NONE [facility] Feb 27, 2024 10:30 AM AMBULATORY - MEDICINE [facility] Mar 18, 2024 02:00 PM AMBULATORY - NONE . CANDICE Andrade [facility] Mar 30, 2024 10:20 AM AMBULATORY - NONE [facility] Apr 02, 2024 10:30 AM AMBULATORY - SURGERY [facility] Apr 22, 2024 01:30 PM AMBULATORY - SURGERY [facility] Apr 27, 2024 10:20 AM AMBULATORY - NONE [facility] May 25, 2024 01:00 PM AMBULATORY - NONE [facility] Jul 03, 2024 10:00 AM AMBULATORY - NONE [facility] M[facility] En[facility] Aug 03, 2024 11:00 AM AMBULATORY - SURGERY [facility] Lab Results: +/- 30 days [...] Range Comment Feb 27, 2024 11:16 AM [facility] TSH ([place]-PB) Specimen Type: SERUM No comment entered. Ordering Provider: LEYLA YANCEY Report Released Date/Time: Feb 27, 2024 11:00 AM Reporting Lab: [facility] [address] [id number] Performing Lab: [facility] [address] [id number] TSH 0.748 u[IU]/mL 0.47-5 Feb 27, 2024 11:16 AM [facility] HGA1C Specimen Type: BLOOD No comment entered. Ordering Provider: LEYLA YANCEY Report Released Date/Time: Feb 27, 2024 11:00 AM Reporting Lab: [facility] [address] [address] Performing Lab: [facility] [address] [address] HGA1C 6.9 H 4.0-6.0 Feb 27, 2024 11:16 AM [facility] VITAMIN D, 25-HYDROXY Specimen Type: SERUM No comment entered. Ordering Provider: LEYLA YANCEY Report Released Date/Time: Feb 27, 2024 11:00 AM Reporting Lab: [address] [phone] Performing Lab: [address] [phone] VITAMIN D, 25-HYDROXY 53.1 ng/mL 30-96 Feb 27, 2024 11:16 AM [facility] COMPREHENSIVE METABOLIC PANEL Specimen Type: PLASMA Comment: No hemolysis noted. Ordering Provider: LEYLA YANCEY Report Released Date/Time: Feb 27, 2024 11:00 AM Reporting Lab: [facility] [address] [place] [phone] Performing Lab: [address] [address] CREATININE 1.10 mg/dL 0.7-1.3 UREA NITROGEN 13.6 [...] and tobacco- related health factors from the [place] facility where the Encounter took place. Current Smoking Status This section includes the most current smoking, or tobacco-related health factor, from the [place] facility where the Encounter took place. Date/Time Current Smoking Status Comment Michela ity May 18, 2019 09:42 AM [place]-TOBACCO QUIT 15 YRS OR MORE [facility] Tobacco Use History This section includes a history of the smoking, or tobacco-related health factors, that were collected on or before the date of the Encounter. The data comes from the [place] facility where the Encounter took place. Date/Time Smoking Status/Tobacco Use Comment F acility May 18, 2019 09:42 AM [place]-TOBACCO QUIT 15 YRS OR MORE [facility] May 23, 2015 09:00 AM QUIT TOBACCO >7 YEARS AGO [facility] May 20, 2014 10:02 AM QUIT TOBACCO >7 YEARS AGO [facility] Jul 01, 2012 05:09 PM LIFETIME NON-USER OF TOBACCO [facility] May 26, 2012 07:39 PM LIFETIME NON-USER OF TOBACCO [facility] Feb 13, 2011 10:35 PM LIFETIME NON-USER OF TOBACCO [facility] Jul 22, 2009 11:00 AM QUIT TOBACCO >7 YEARS AGO [facility] Jul 18, 2009 10:12 PM LIFETIME NON-USER OF TOBACCO [facility] October 29, 2008 06:19 PM QUIT TOBACCO >7 YEARS AGO [facility] Advance Directives: All historical and current Section Date Range: From patient's date of to the date document was created. This section includes ALL of a patient's completed or amended [place] Advance and Rescinded Directives. The entries below indicate that a directive exists for the patient, but an actual copy is not included with this document. The data comes from all [facility]. Date Advance Directives Provider Source May 28, 2012 ADVANCE DIRECTIVE DISCUSSION RENETTA DIOR [facility] Nov 21, 2010 ADVANCE DIRECTIVE DISCUSSION CHRISTOPHER MUNOZ [facility] Jan 02, 2007 ADVANCE DIRECTIVE RANDEE CAMARILLO [facility] October 28, 2002 ADVANCE DIRECTIVE JUANCHO BURROWS [facility] Radiology Reports: +/- 30 days of [...] the Encounter. The data comes from all [place] treatment facilities. Date/Time Radiology Report Provider Source Jan 15, 2024 03:13 PM SPINE CERVICAL MIN 4 OR 5 VIEWS: LORNA RANGEL [id number] -1950 M Exm Date: JAN 15, 2024@15:13 Req Phys: JARON LAZO Loc: [facility] CHIRO CON BLD 55 2ND FLR Img Loc: [facility] RADIOLOGY Service: [facility], [facility] [address] [place] [address] (Case [id number] COMPLETE) SPINE CERVICAL MIN 4 OR 5 VIEWS (RAD Detailed) CPT:83597 Reason for Study: neck pain Clinical History: Report Status: Verified Date Reported: JAN 16, 2024 Date Verified: JAN 16, 2024 [facility] E-Sig:/ES/VANESSA BURNS MD Report: Case #[id number]. Cervical [...] VANESSA BURNS MD, Staff Physician - Radiologist ([facility]) /VANESSA WASHINGTON [facility] Jan 15, 2024 03:13 PM SPINE LUMBOSACRAL 2 OR 3 VIEWS: LORNA RANGEL [id number] -1950 M Exm Date: JAN 15, 2024@15:13 Req Phys: JARON LAZO Pat Loc: [facility]CHUY CHIRO CON BLD 55 2ND FLR Img Loc: [facility] RADIOLOGY Service: Unknown [facility], [facility] [address] [place] [address] (Case [id number] COMPLETE) SPINE LUMBOSACRAL 2 OR 3 VIEWS (RAD Detailed) CPT:57339 Reason for Study: low back pain with remote history of surgey w/o [facility] documentation Clinical History: Report Status: Verified Date Reported: JAN 16, 2024 Date Verified: JAN 16, 2024 [facility] E-Sig:/ES/VANESSA BURNS MD Report: Case #[id number]. Lumbar [...] VANESSA BURNS MD, Staff Physician - Radiologist ([facility]) /VANESSA WASHINGTON [facility] Encounter Notes: All associated encounter notes This section contains the clinical notes associated to the Encounter. Date/Time Encounter Note(s) Provider Source Feb 05, 2024 07:30 AM CHIROPRACTIC NOTE: LOCAL TITLE: CHIROPRACTIC WHOLE [facility] F/U [facility] STANDARD TITLE: CHIROPRACTIC NOTE DATE OF NOTE: FEB 05, 2024@07:30 ENTRY DATE: FEB 05, 2024@07:30:41 AUTHOR: MATTHEW LAZO COSIGNER: TEODORO NICHOLAS URGENCY: STATUS: COMPLETED CHIROPRACTIC WHOLE [facility] F/U [facility] Has ADDENDA VISIT #2 SUBJECTIVE: [place] present for f/u. States after first appointment felt better, less stiff. Today patient denies pain, reports general stiffness. Endorses being adherent with HEP, just discontinue one exercises that bother made his shoulder blade hurt. OBJECTIVE: MOVEMENT/POSTURE: The ambulates without difficulty or the need for [...] visible antalgia nor hitch in his gait. Proc Ord: SPINE CERVICAL 2 OR 3 VIEWS Exm Date: JAN 15, 2024@15:13 Reason for Study: neck pain Report: Case #[id number]. Cervical spine examination. COMPARISON: [...] the C5-6 and probably at the C6-7. SPINE LUMBOSACRAL 2 OR 3 VIEWS Exm Date: JAN 15, 2024@15:13 Reason for Study: low back pain with remote history of surgery w/o [facility] documentation Report: Case #[id number]. Lumbar spine examination. COMPARISON: The 2012. Finding: AP and lateral views of the lumbar spine followed by cone-down lateral view of the lumbosacral junction shows progressive disc space narrowing at L4-5. Other disc spaces appear unremarkable. No other evidence of lytic or blastic bony lesion. No evidence of spondylolisthesis. Impression: Progressive degenerative disc change at L4-5. ASSESSMENT: Non-specific chronic neck and low back pain with associated segmental dysfunction complicated by myalgia, past surgery and comorbidities. No red flags. Described past care professional as beneficial. Patient prognosis for conservative care [...] that are available as an adjunct to care professional. The orientation/coaching process was described. I gave the a printed information packet, website, and phone number for scheduling. RTC: 2 weeks /brittany/ JARON STALLINGS Chiropractic Resident Signed: 02/05/2024 15:57 /brittany/ TEODORO NICHOLAS [facility] Chiropractor Cosigned: 02/05/2024 15:58 02/05/2024 ADDENDUM STATUS: COMPLETED I reviewed the subjective and regional findings related to this 's condition. I verified and concur with those findings. I evaluated and supervised the resident's treatment today. /brittany/ TEODORO NICHOLAS [facility] Chiropractor Signed: 02/05/2024 15:59 JARON LAZO [facility]
[2024-07-04 14:29] VITALS: BP 139/71; PULSE 96; RESP 20; TEMP 36.8; O2SAT 100
[2024-07-04 15:47] VITALS: BP 147/69; PULSE 63; RESP 12; TEMP 36.2; O2SAT 95
--- OUTSIDE RECORDS SUMMARY | 2024-07-04 15:53 | XMS_ITS | Continuity of Care Document ---
Author Name [facility] Organization [facility] Care Team Providers Care Accountant Assistant Name Role Phone [facility] Unavailable Unavailable Problems Combined list of problems from Department of Defense and [facility] facilities. It does not include entries that were removed or entered in error. Problem Status Onset Date Problem Type Date of Resolution Comments Source Benign essential hypertension (SNOMED CT 4005751) Active Condition [facility] Benign prostatic hyperplasia (SNOMED CT 230212846) Active Condition [facility] Chronic sinusitis (SNOMED CT 93568120) Active Condition October 08, 2006 Entered By: CHRISTOPHER MUNOZ Comment: patient has had sinus surgery [facility] Dry eyes Active Condition [facility] Elevated PSA Active Condition [facility] Erectile dysfunction (SNOMED CT 483443524) Active Condition [facility] History of asbestos exposure Active Condition [facility] Hyperlipidemia (SNOMED CT 73383760) Active Condition [facility] Insomnia Active Condition [facility] Long-term current use of cannabis (SNOMED CT 665256422070701) Active Condition [facility] Low back pain Active Condition [facility] Obstructive sleep apnea Active Condition [facility] Sensorineural hearing loss of right ear with normal hearing on left side Active Condition [facility] Type 2 diabetes mellitus (SNOMED CT 94361769) Active Condition [facility] Adjustment disorder with depressed mood (SNOMED CT 55198281) Inactive Condition 08/27/2023 [facility] Alcohol Abuse Inactive Condition 08/27/2023 [facility] Alcohol Dependence Inactive Condition 08/27/2023 [facility] Arthritis Inactive Condition 08/27/2023 [facility] Wall * (ICD-9-CM 949.0/E899.) Inactive Condition 08/27/2023 [facility] Chronic post-traumatic stress disorder following combat (SNOMED CT 930564691) Inactive Condition 08/27/2023 [facility] Depression (SNOMED CT 89807817) Inactive Condition 08/27/2023 [facility] Heme Positive Stool (ICD-9-CM 578.1) Inactive Condition 08/27/2023 [facility] Overweight * (ICD-9-CM 278.00) Inactive Condition [facility]2023 [facility] Pain in lower limb (SNOMED CT 16772661) Inactive Condition 08/27/2023 [facility] Sleep Disturbance Inactive Condition 08/27/2023 [facility] Suicidal thoughts (SNOMED CT 1673849) Inactive Condition 08/27/2023 [facility] Unresolved Inactive Condition 08/27/2023 [facility] Diagnosis: ICD-10-CM M54.2 Cervicalgia Active Diagnosis [facility] Diagnosis: ICD-10-CM H25.13 Age-related nuclear cataract, bilateral Active Diagnosis [facility] Diagnosis: ICD-10-CM E11.9 Type 2 diabetes mellitus without complications Active Diagnosis [facility] Diagnosis: ICD-10-CM Z71.89 Other specified counseling Active Diagnosis [facility] Diagnosis: ICD-10-CM H90.41 Snsrnrl hear loss, uni, right ear, w unrestr hear cntra side Active Diagnosis [facility] Diagnosis: ICD-10-CM H40.013 Open angle with borderline findings, low risk, bilateral Active Diagnosis [facility] Diagnosis: ICD-10-CM H40.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 Medication Details Route Status Patient Instructions Prescription Expires Prescription Number Last Dispense Date Ordering Provider Order Date Order Qty Source ALBUTEROL (CFC-F) INHL,ORAL INHALE BY ORAL INHALATI ON FOUR TIMES A DAY NEEDED RESPIR ATORY (INHAL ATION) ACTIVE SCOTT YANCEY R 2023 [facility] ATORVASTATI N CA 80MG TAB TAKE ONE-HALF TABLET BY MOUTH EVERY EVENING FOR CHOLESTE ROL. REPORT ANY UNEXPLAI CASSIDY MUSCLE PAIN/WEA KNESS TO PROVIDER . ORAL ACTIVE 02/27/2025 [id number] 4 SCOTT YANCEY R 2023 45 [facility] ATORVASTATI N CA 80MG TAB TAKE ONE-HALF TABLET BY MOUTH EVERY EVENING FOR CHOLESTE ROL. REPORT ANY UNEXPLAI CASSIDY MUSCLE PAIN/WEA KNESS TO PROVIDER . ORAL DISCONT INUED 08/27/2024 [id number] 4 SCOTT YANCEY R 2023 45 [facility] ATORVASTATI N CA 80MG TAB TAKE ONE-HALF TABLET BY MOUTH EVERY EVENING FOR CHOLESTE ROL. REPORT ANY UNEXPLAI CASSIDY MUSCLE PAIN/WEA KNESS TO PROVIDER . ORAL DISCONT INUED 12/04/2023 [id number] SCOTT YANCEY R 2022 45 [facility] CARBOXYMETH YLCELLULOSE NA 0.5% SOLN,OPH INSTILL 1 DROP IN BOTH EYES FOUR TIMES A DAY NEEDED OPHTHA LMIC DISCONT INUED BY PROVIDE R 12/24/2024 [id number] 4 Mina TREVINO 2023 30 [facility] CARBOXYMETH YLCELLULOSE NA 0.5% SOLN,OPH INSTILL 1 DROP IN BOTH EYES FOUR TIMES A DAY NEEDED FOR DRY EYE(S) OPHTHA LMIC DISCONT INUED (EDIT) 06/17/2024 [id number] 4 Mina TREVINO 2023 30 [facility] CARBOXYMETH YLCELLULOSE NA 1% GEL,OPH INSTILL 1 DROP INTO BOTH EYES FOUR TIMES A DAY NEEDED FOR DRY EYE OPHTHA LMIC ACTIVE 04/23/2025 [id number] DORINDA BALLARD THI 2023 45 [facility] FINASTERIDE 5MG TAB TAKE ONE TABLET BY MOUTH ONCE A DAY FOR PROSTATE . SWALLOW WHOLE, DO NOT CRUSH, SPLIT, OR CHEW. ORAL ACTIVE 02/27/2025 [id number] 4 SCOTT YANCEY LBY R 2023 90 [facility] FINASTERIDE 5MG TAB TAKE ONE TABLET BY MOUTH ONCE A DAY FOR PROSTATE . SWALLOW WHOLE, DO NOT CRUSH, SPLIT, OR CHEW. ORAL DISCONT INUED 08/01/2024 [id number] 4 JOSESITO LARSEN 2023 90 [facility] FINASTERIDE 5MG TAB TAKE ONE TABLET BY MOUTH ONCE A DAY FOR PROSTATE . SWALLOW WHOLE, DO NOT CRUSH, SPLIT, OR CHEW. ORAL DISCONT INUED 01/01/2024 [id number] JOSESITO LARSEN 2022 90 [facility] FLUTICASONE PROPIONATE 50MCG/SPRAY SOLN,NASAL, 16GM INSTILL 2 SPRAYS IN NOSTRIL( S) ONCE A DAY FOR ALLERGIE S (MUST BE USED DIRECTED FOR MINIMUM OF 21 DAYS TO PROVIDE ADEQUATE BENEFITS ) NASAL ACTIVE 08/27/2024 [id number] 4 SCOTT YANCEYY R 2023 1 [facility] GLIPIZIDE 10MG TAB TAKE ONE TABLET BY MOUTH TWO TIMES A DAY BEFORE MEALS TAKE 30 MINUTES BEFORE EATING. ORAL ACTIVE 08/27/2024 [id number] 4 SCOTT YANCEY R 2023 180 [facility] GLIPIZIDE 10MG TAB TAKE ONE TABLET BY MOUTH TWO TIMES A DAY BEFORE MEALS TAKE 30 MINUTES BEFORE EATING. ORAL DISCONT INUED 08/24/2023 [id number] 4 SCOTT YANCEY R 2022 180 [facility] LATANOPROST 0.005% SOLN,OPH INSTILL 1 DROP IN BOTH EYES EVERY EVENING KEEP REFRIGER ATED UNTIL READY TO USE, THEN STORE AT ROOM TEMPERAT URE FOR MAXIMUM OF 42 DAYS. OPHTHA LMIC ACTIVE 12/24/2024 [id number] Mina TREVINO 2023 10 [facility] MYLA Burnett LISINOPRIL 10MG TAB TAKE ONE-HALF TABLET BY MOUTH ONCE A DAY ORAL ACTIVE CAMERON MORALES 2021 [facility] MELATONIN 5MG CAP/TAB TAKE ONE CAP/TAB BY MOUTH AT BEDTIME FOR SLEEP ORAL ACTIVE 02/27/2025 [id number] 5 SCOTT YANCEY R 2023 90 [facility] MELATONIN 5MG CAP/TAB TAKE ONE CAP/TAB BY MOUTH AT BEDTIME FOR SLEEP ORAL DISCONT INUED 02/28/2024 [id number] SHYAM GONZALEZ 2022 90 [facility] METFORMIN HCL 1000MG TAB TAKE ONE TABLET BY MOUTH TWICE A DAY WITH MEALS FOR BLOOD SUGAR CONTROL. TAKE WITH FOOD. AVOID ALCOHOL. DISCONTI NUE BEFORE GETTING XRAY DYE. ORAL ACTIVE 01/29/2025 [id number] 4 SCOTT YANCEY R 2023 180 [facility] METFORMIN HCL 1000MG TAB TAKE ONE TABLET BY MOUTH TWICE A DAY WITH MEALS FOR BLOOD SUGAR CONTROL. TAKE WITH FOOD. AVOID ALCOHOL. DISCONTI NUE BEFORE GETTING XRAY DYE. ORAL DISCONT INUED 05/13/2024 [id number] 4 SCOTT YANCEY R 2022 180 [facility] SILDENAFIL CITRATE 100MG TAB TAKE ONE-HALF TABLET BY MOUTH TWO TIMES PER WEEK NEEDED FOR ERECTILE DYSFUNCT ION (TAKE 60 MINUTES PRIOR TO SEXUAL ACTIVITY ) - LIMIT 6 DOSES PER 30 DAYS ORAL ACTIVE 02/27/2025 [id number] 4 SCOTT YANCEY R 2023 9 [facility] SILDENAFIL CITRATE 100MG TAB TAKE ONE-HALF TABLET BY MOUTH TWO TIMES PER WEEK NEEDED FOR ERECTILE DYSFUNCT ION (TAKE 60 MINUTES PRIOR TO SEXUAL ACTIVITY ) - LIMIT 6 DOSES PER 30 DAYS ORAL DISCONT INUED 08/27/2024 [id number] 4 SCOTT YANCEY R 2023 18 [facility] SILDENAFIL CITRATE 100MG TAB TAKE ONE-HALF TABLET BY MOUTH TWO TIMES PER WEEK NEEDED FOR ERECTILE DYSFUNCT ION (TAKE 60 MINUTES PRIOR TO SEXUAL ACTIVITY ) - LIMIT 6 DOSES PER 30 DAYS ORAL DISCONT INUED 02/19/2024 [id number] 4 SCOTT YANCEY R 2022 9 [facility] TAMSULOSIN HCL 0.4MG CAP TAKE TWO CAPSULES BY MOUTH EVERY EVENING APPROXIM ATELY 30 MINUTES AFTER THE SAME MEAL EACH DAY (FOR PROSTATE ) ORAL ACTIVE 12/17/2024 [id number] 4 SCOTT YANCEY R 2023 180 [facility] TAMSULOSIN HCL 0.4MG CAP TAKE TWO CAPSULES BY MOUTH EVERY EVENING APPROXIM ATELY 30 MINUTES AFTER THE SAME MEAL EACH DAY (FOR PROSTATE ) ORAL DISCONT INUED 12/17/2024 [id number] 4 JOSESITO LARSEN 2023 60 [facility] TAMSULOSIN HCL 0.4MG CAP TAKE TWO CAPSULES BY MOUTH EVERY EVENING APPROXIM ATELY 30 MINUTES AFTER THE SAME MEAL EACH DAY (FOR PROSTATE ) ORAL DISCONT INUED 01/01/2024 [id number] JOSESITO LARSEN 2022 60 [facility] TAMSULOSIN HCL 0.4MG CAP TAKE TWO CAPSULES BY MOUTH EVERY EVENING APPROXIM ATELY 30 MINUTES AFTER THE SAME MEAL EACH DAY (FOR PROSTATE ) ORAL DISCONT INUED 01/01/2024 [id number] JOSESITO LARSEN 2022 180 [facility] Allergies, Adverse Reactions, Alerts Combined list of allergies from Department of Defense and Veterans Affairs facilities. It does not include entries that were removed or entered in error. Substance Category Reaction Severity Reaction type Status Date Reported Comments Source SIMVASTATIN Propensity to adverse reactions to drug (finding) active 5 [facility] Immunizations Combined list of available immunizations from the Department of [facility] and Veterans Affairs facilities. Immunization Series Date Given Administered By Site Reaction Lot Number CVX Code Drug Caponizer Status Comments Source COVID-19 (MODERNA), MRNA, LNP-S, PF, 50 MCG/0.5 ML (AGES 12+ YEARS) 3 2023 312 complet ed [facility] COVID-19 (MODERNA), MRNA, LNP-S, BIVALENT BOOSTER, PF, 50 MCG/0.5 ML OR 25MCG/0.25 ML DOSE 1 2022 KILO SCHAFFER RIGHT DELTO ID [id number] 229 complet ed [facility] COVID-19 (PFIZER), MRNA, LNP-S, PF, 30 MCG/0.3 ML DOSE, REY-SUCROSE (AGES 12+ YEARS) 4 2021 217 complet ed [facility] N INFLUENZA VACCINE, QUADRIVALENT, ADJUVANTED 2020 205 complet ed [facility] COVID-19 (PFIZER), MRNA, LNP-S, PF, 30 MCG/0.3 ML DOSE 3 2020 208 complet ed PFR; [id number]; 1 [facility] COVID-19 (GelSight), MRNA, LNP-S, PF, 30 MCG/0.3 ML DOSE 2 2020 208 complet ed PFR; [id number]; 1 [facility] COVID-19 (GelSight), MRNA, LNP-S, PF, 30 MCG/0.3 ML DOSE 1 2020 208 complet ed PFR; [id number]; 1 [facility] ZOSTER RECOMBINANT 2 2017 187 complet ed [facility] ZOSTER RECOMBINANT 1 2017 187 complet ed [facility] PNEUMOCOCCAL POLYSACCHARID E PPV23 2016 33 complet ed [facility] TDAP 2015 115 complet ed Left Deltoid [facility] PNEUMOCOCCAL CONJUGATE PCV 13 2014 133 complet ed [facility] ZOSTER LIVE 2010 121 complet ed [facility] PNEUMOCOCCAL, UNSPECIFIED FORMULATION 2009 109 complet ed [facility] INFLUENZA, UNSPECIFIED FORMULATION 2006 88 complet ed [facility] TDAP 2006 115 complet ed Left Deltoid [facility] Results Combined list of recent chemistry, hematology and other laboratory results from Department of Defense and Veterans Affairs, ranging from 15 months to all on record, depending upon the facility. Order Name Results Value Reference Range Date Interpretation Specimen Comments Source COMPREHENSI VE METABOLIC PANEL CREATININE [MASS/VOLUME ] IN SERUM OR PLASMA 1.10 mg/dL 0.7 - 1.3 02/26 Specimen Type: PLASMA Comment: No hemolysis noted. Ordering Provider: MEENA YANCEY Report Released Date/Time: Feb 27, 2024 11:00 AM Reporting Lab: [facility] [address] [facility] [address] Performing Lab: [facility] [address] [facility] [phone] [facility] COMPREHENSI VE METABOLIC PANEL UREA NITROGEN [MASS/VOLUME ] IN SERUM OR PLASMA 13.6 mg/dL 9.0 - 25.0 02/26 Specimen Type: PLASMA Comment: No hemolysis noted. Ordering Provider: MEENA YANCEY Report Released Date/Time: Feb 27, 2024 11:00 AM Reporting Lab: [facility] [address] [facility] [address] Performing Lab: [facility] [address] [place] [phone] [facility] COMPREHENSI VE METABOLIC PANEL GLUCOSE [MASS/VOLUME ] IN SERUM OR PLASMA 206 mg/dL 72 - 99 02/26 H Specimen Type: PLASMA Comment: No hemolysis noted. Ordering Provider: MEENA YANCEY Report Released Date/Time: Feb 27, 2024 11:00 AM Reporting Lab: [facility] [address] [facility] [address] Performing Lab: [facility] [address] [place] [phone] [facility] COMPREHENSI VE METABOLIC PANEL SODIUM [MOLES/VOLUM E] IN SERUM OR PLASMA 138 meq/L 136 - 145 02/26 Specimen Type: PLASMA Comment: No hemolysis noted. Ordering Provider: MEENA YANCEY Report Released Date/Time: Feb 27, 2024 11:00 AM Reporting Lab: [facility] [address] [place] [phone] Performing Lab: [facility] [address] [place] [phone] [place] [address] COMPREHENSI VE METABOLIC PANEL POTASSIUM [MOLES/VOLUM E] IN SERUM OR PLASMA 4.2 meq/L 3.5 - 5 02/26 Specimen Type: PLASMA Comment: No hemolysis noted. Ordering Provider: MEENA YANCEY Report Released Date/Time: Feb 27, 2024 11:00 AM Reporting Lab: [facility] [address] [place] [phone] Performing Lab: [facility] [address] [place] [phone] [facility] COMPREHENSI VE METABOLIC PANEL CHLORIDE [MOLES/VOLUM E] IN SERUM OR PLASMA 105 meq/L 98 - 107 02/26 Specimen Type: PLASMA Comment: No hemolysis noted. Ordering Provider: MEENA YANCEY Report Released Date/Time: Feb 27, 2024 11:00 AM Reporting Lab: [facility] [address] [place] [phone] Performing Lab: [facility] [address] [place] [phone] [facility] COMPREHENSI VE METABOLIC PANEL CARBON DIOXIDE, TOTAL [MOLES/VOLUM E] IN SERUM OR PLASMA 25 meq/L 22 - 31 02/26 Specimen Type: PLASMA Comment: No hemolysis noted. Ordering Provider: MEENA YANCEY Report Released Date/Time: Feb 27, 2024 11:00 AM Reporting Lab: [facility] [address] [facility] [address] Performing Lab: [facility] [address] [place] [phone] [place] [address] COMPREHENSI VE METABOLIC PANEL CALCIUM [MASS/VOLUME ] IN SERUM OR PLASMA 9.6 mg/dL 8.4 - 10.4 02/26 Specimen Type: PLASMA Comment: No hemolysis noted. Ordering Provider: MEENA YANCEY Report Released Date/Time: Feb 27, 2024 11:00 AM Reporting Lab: [address] [phone] Performing Lab: [facility] [address] [place] [phone] [facility] COMPREHENSI VE METABOLIC PANEL PROTEIN [MASS/VOLUME ] IN SERUM OR PLASMA 6.8 g/dL 6 - 8.6 02/26 Specimen Type: PLASMA Comment: No hemolysis noted. Ordering Provider: MEENA YANCEY Report Released Date/Time: Feb 27, 2024 11:00 AM Reporting Lab: [address] [phone] Performing Lab: [facility] [address] [place] [phone] [facility] COMPREHENSI VE METABOLIC PANEL ALBUMIN [MASS/VOLUME ] IN SERUM OR PLASMA 4.3 g/dL 3.4 - 5 02/26 Specimen Type: PLASMA Comment: No hemolysis noted. Ordering Provider: MEENA YANCEY Report Released Date/Time: Feb 27, 2024 11:00 AM Reporting Lab: [facility] [address] [place] [phone] Performing Lab: [facility] [address] [place] [phone] COMPREHENSI VE METABOLIC PANEL BILIRUBIN.TO KYLAH [MASS/VOLUME ] IN SERUM OR PLASMA 0.6 mg/dL 0.2 - 1.2 02/26 Specimen Type: PLASMA Comment: No hemolysis noted. Ordering Provider: MEENA YANCEY Report Released Date/Time: Feb 27, 2024 11:00 AM Reporting Lab: [place] [phone] Performing Lab: [address] [phone] [place] [address] COMPREHENSI VE METABOLIC PANEL ALKALINE PHOSPHATASE [ENZYMATIC ACTIVITY/VOL UME] IN SERUM OR PLASMA 69 U/L 40 - 150 02/26 Specimen Type: PLASMA Comment: No hemolysis noted. Ordering Provider: MENEA YANCEY Report Released Date/Time: Feb 27, 2024 11:00 AM Reporting Lab: [place] [phone] Performing Lab: [address] [phone] [place] [address] COMPREHENSI VE METABOLIC PANEL ASPARTATE AMINOTRANSFE RASE [ENZYMATIC ACTIVITY/VOL UME] IN SERUM OR PLASMA 20 U/L 5 - 34 02/26 Specimen Type: PLASMA Comment: No hemolysis noted. Ordering Provider: MEENA YANCEY Report Released Date/Time: Feb 27, 2024 11:00 AM Reporting Lab: [facility] [address] [place] [phone] Performing Lab: [facility] [address] [place] [phone] COMPREHENSI VE METABOLIC PANEL ALANINE AMINOTRANSFE RASE [ENZYMATIC ACTIVITY/VOL UME] IN SERUM OR PLASMA 16 U/L 8 - 40 02/26 Specimen Type: PLASMA Comment: No hemolysis noted. Ordering Provider: MEENA YANCEY Report Released Date/Time: Feb 27, 2024 11:00 AM Reporting Lab: [facility] [address] [place] [phone] Performing Lab: [facility] [address] [facility] [phone] [place] [address] COMPREHENSI VE METABOLIC PANEL GLOMERULAR FILTRATION RATE/1.73 SQ M.PREDICTED [VOLUME RATE/AREA] IN SERUM, PLASMA OR BLOOD BY CREATININE-B ASED FORMULA (CKD-EPI 2020) 70.4 60 02/26 Specimen Type: PLASMA Comment: No hemolysis noted. Ordering Provider: MEENA YANCEY Report Released Date/Time: Feb 27, 2024 11:00 AM Reporting Lab: [facility] [address] [place] [phone] Performing Lab: [address] [phone] [place] [address] HGA1C HEMOGLOBIN A1C/HEMOGLOB IN.TOTAL IN BLOOD 6.9 4.0 - 6.0 02/26 H Specimen Type: BLOOD No comment entered. Ordering Provider: MEENA YANCEY Report Released Date/Time: Feb 27, 2024 11:00 AM Reporting Lab: [facility] [address] [place] [phone] Performing Lab: [address] [phone] [place] [address] TSH (MA-PB) THYROTROPIN [UNITS/VOLUM E] IN SERUM OR PLASMA 0.748 u[IU]/ mL 0.47 - 5 02/26 Specimen Type: SERUM No comment entered. Ordering Provider: MEENA YANCEY Report Released Date/Time: Feb 27, 2024 11:00 AM Reporting Lab: [facility] [address] [place] [phone] Performing Lab: [address] [phone] [place] [address] VITAMIN D, 25-HYDROXY 25-HYDROXYVI TAMIN D3 [MASS/VOLUME ] IN SERUM OR PLASMA 53.1 ng/mL 30 - 96 02/26 Specimen Type: SERUM No comment entered. Ordering Provider: MEENA YANCEY Report Released Date/Time: Feb 27, 2024 11:00 AM Reporting Lab: [facility] [address] [facility] [phone] Performing Lab: [facility] [address] [place] [phone] [facility] CBC LEUKOCYTES [#/VOLUME] IN BLOOD BY AUTOMATED COUNT 4.5 10*3/u L 3.6 - 11.2 08/26 Specimen Type: BLOOD No comment entered. Ordering Provider: MEENA YANCEY BY R Report Released Date/Time: Aug 27, 2023 11:09 AM Reporting Lab: [facility] [address] [place] [phone] Performing Lab: [facility] [address] [place] [phone] [place] [address] CBC ERYTHROCYTES [#/VOLUME] IN BLOOD BY AUTOMATED COUNT 5.23 10*6/u L 4.10 - 5.70 08/26 Specimen Type: BLOOD No comment entered. Ordering Provider: MEENA YANCEY Report Released Date/Time: Aug 27, 2023 11:09 AM Reporting Lab: [facility] [address] [place] [phone] Performing Lab: [facility] [address] [place] [phone] [place] [address] CBC HEMOGLOBIN [MASS/VOLUME ] IN BLOOD 14.3 g/dL 13.1 - 16.8 08/26 Specimen Type: BLOOD No comment entered. Ordering Provider: MEENA YANCEY BY Raymond Report Released Date/Time: Aug 27, 2023 11:09 AM Reporting Lab: [facility] [address] [place] [phone] Performing Lab: [facility] [address] [place] [address] [phone] [place] [address] CBC HEMATOCRIT [VOLUME FRACTION] OF BLOOD 44.7 38.2 - 48.4 08/26 Specimen Type: BLOOD No comment entered. Ordering Provider: MEENA YANCEY BY Raymond Report Released Date/Time: Aug 27, 2023 11:09 AM Reporting Lab: [facility] [address] [place] [phone] Performing Lab: [facility] [address] [place] [phone] [facility] CBC MCV [ENTITIC VOLUME] BY AUTOMATED COUNT 85.5 fL 80.0 - 100.0 08/26 Specimen Type: BLOOD No comment entered. Ordering Provider: MEENA YANCEY BY R Report Released Date/Time: Aug 27, 2023 11:09 AM Reporting Lab: [address] [phone] Performing Lab: [address] [phone] [place] [address] CBC MCH [ENTITIC MASS] BY AUTOMATED COUNT 27.3 pg 27.0 - 34.0 08/26 Specimen Type: BLOOD No comment entered. Ordering Provider: MEENA YANCEY BY R Report Released Date/Time: Aug 27, 2023 11:09 AM Reporting Lab: [address] [phone] Performing Lab: [address] [phone] [facility] CBC MCHC [MASS/VOLUME ] BY AUTOMATED COUNT 32.0 g/dL 33.0 - 36.0 08/26 L Specimen Type: BLOOD No comment entered. Ordering Provider: MEENA YANCEY BY Raymond Report Released Date/Time: Aug 27, 2023 11:09 AM Reporting Lab: [address] [phone] Performing Lab: [address] [phone] [facility] CBC PLATELETS [#/VOLUME] IN BLOOD BY AUTOMATED COUNT 209 10*3/u L 150 - 400 08/26 Specimen Type: BLOOD No comment entered. Ordering Provider: MEENA YANCEY BY R Report Released Date/Time: Aug 27, 2023 11:09 AM Reporting Lab: [facility] [address] [facility] [address] Performing Lab: [facility] [address] [address] [facility] PLATELET MEAN VOLUME [ENTITIC VOLUME] IN BLOOD BY AUTOMATED COUNT 11.1 fL 7.5 - 11.2 08/26 Specimen Type: BLOOD No comment entered. Ordering Provider: MEENA YANCEY BY R Report Released Date/Time: Aug 27, 2023 11:09 AM Reporting Lab: [facility] [address] [address] Performing Lab: [facility] [address] [place] [id number] [facility] ERYTHROCYTE DISTRIBUTION WIDTH [RATIO] BY AUTOMATED COUNT 14.1 11.8 - 15.1 08/26 Specimen Type: BLOOD No comment entered. Ordering Provider: MEENA YANCEY BY R Report Released Date/Time: Aug 27, 2023 11:09 AM Reporting Lab: [facility] [address] [phone] Performing Lab: [facility] [address] [place] [phone] [facility] CBC LYMPHOCYTES/ 100 LEUKOCYTES IN BLOOD BY AUTOMATED COUNT 45 08/26 Specimen Type: BLOOD No comment entered. Ordering Provider: MEENA YANCEY BY Raymond Report Released Date/Time: Aug 27, 2023 11:09 AM Reporting Lab: [facility] [address] [place] [phone] Performing Lab: [facility] [address] [place] [phone] [facility] CBC MONOCYTES/10 0 LEUKOCYTES IN BLOOD BY AUTOMATED COUNT 8 08/26 Specimen Type: BLOOD No comment entered. Ordering Provider: MEENA YANCEY BY R Report Released Date/Time: Aug 27, 2023 11:09 AM Reporting Lab: [facility] [address] [facility] [address] Performing Lab: [facility] [address] [place] [phone] [facility] CBC NEUTROPHILS/ 100 LEUKOCYTES IN BLOOD BY AUTOMATED COUNT 45 08/26 Specimen Type: BLOOD No comment entered. Ordering Provider: MEENA YANCEY BY Raymond Report Released Date/Time: Aug 27, 2023 11:09 AM Reporting Lab: [facility] [address] [facility] [address] Performing Lab: [facility] [address] [place] [phone] [place] [address] CBC EOSINOPHILS/ 100 LEUKOCYTES IN BLOOD BY AUTOMATED COUNT 2 08/26 Specimen Type: BLOOD No comment entered. Ordering Provider: MEENA YANCEY BY R Report Released Date/Time: Aug 27, 2023 11:09 AM Reporting Lab: [facility] [address] [place] [phone] Performing Lab: [place] [phone] CBC BASOPHILS/10 0 LEUKOCYTES IN BLOOD BY AUTOMATED COUNT 0 08/26 Specimen Type: BLOOD No comment entered. Ordering Provider: MEENA YANCEY BY Raymond Report Released Date/Time: Aug 27, 2023 11:09 AM Reporting Lab: [facility] [address] [place] [phone] Performing Lab: [facility] [address] [place] [phone] [place] [address] CBC LYMPHOCYTES [#/VOLUME] IN BLOOD BY AUTOMATED COUNT 1.99 10*3/u L 0.77 - 4.50 08/26 Specimen Type: BLOOD No comment entered. Ordering Provider: MEENA YANCEY BY Raymond Report Released Date/Time: Aug 27, 2023 11:09 AM Reporting Lab: [facility] [address] [place] [phone] Performing Lab: [facility] [address] [place] [phone] [facility] CBC MONOCYTES [#/VOLUME] IN BLOOD BY AUTOMATED COUNT 0.37 10*3/u L 0.19 - 0.80 08/26 Specimen Type: BLOOD No comment entered. Ordering Provider: MEENA YANCEY BY R Report Released Date/Time: Aug 27, 2023 11:09 AM Reporting Lab: [facility] [address] [place] [address] Performing Lab: [facility] [address] [place] [phone] CBC NEUTROPHILS [#/VOLUME] IN BLOOD BY AUTOMATED COUNT 1.99 10*3/u L 2.10 - 8.00 08/26 L Specimen Type: BLOOD No comment entered. Ordering Provider: MEENA YANCEY BY Raymond Report Released Date/Time: Aug 27, 2023 11:09 AM Reporting Lab: [place] [address] Performing Lab: [address] [phone] CBC EOSINOPHILS [#/VOLUME] IN BLOOD BY AUTOMATED COUNT 0.09 10*3/u L 0.00 - 0.60 08/26 Specimen Type: BLOOD No comment entered. Ordering Provider: MEENA YANCEY BY Raymond Report Released Date/Time: Aug 27, 2023 11:09 AM Reporting Lab: [facility] [address] [place] [phone] Performing Lab: [address] [phone] [place] [address] CBC BASOPHILS [#/VOLUME] IN BLOOD BY AUTOMATED COUNT 0.02 10*3/u L 0.00 - 0.20 08/26 Specimen Type: BLOOD No comment entered. Ordering Provider: MEENA YANCEY BY Raymond Report Released Date/Time: Aug 27, 2023 11:09 AM Reporting Lab: [facility] [address] [place] [phone] Performing Lab: [address] [phone] [place] [address] COMPREHENSI VE METABOLIC PANEL CREATININE [MASS/VOLUME ] IN SERUM OR PLASMA 1.14 mg/dL 0.7 - 1.3 08/26 Specimen Type: PLASMA Comment: No hemolysis noted. Ordering Provider: MEENA YANCEY Report Released Date/Time: Aug 27, 2023 11:06 AM Reporting Lab: [facility] [address] [facility] [address] Performing Lab: [facility] [address] [place] [phone] [facility] COMPREHENSI VE METABOLIC PANEL UREA NITROGEN [MASS/VOLUME ] IN SERUM OR PLASMA 13.7 mg/dL 9.0 - 25.0 08/26 Specimen Type: PLASMA Comment: No hemolysis noted. Ordering Provider: MEENA YANCEY Report Released Date/Time: Aug 27, 2023 11:06 AM Reporting Lab: [facility] [address] [place] [phone] Performing Lab: [facility] [address] [place] [phone] [place] [address] COMPREHENSI VE METABOLIC PANEL GLUCOSE [MASS/VOLUME ] IN SERUM OR PLASMA 199 mg/dL 72 - 99 08/26 H Specimen Type: PLASMA Comment: No hemolysis noted. Ordering Provider: MEENA YANCEY Report Released Date/Time: Aug 27, 2023 11:06 AM Reporting Lab: [facility] [address] [place] [phone] Performing Lab: [facility] [address] [place] [phone] [place] [address] COMPREHENSI VE METABOLIC PANEL SODIUM [MOLES/VOLUM E] IN SERUM OR PLASMA 139 meq/L 136 - 145 08/26 Specimen Type: PLASMA Comment: No hemolysis noted. Ordering Provider: MEENA YANCEY Report Released Date/Time: Aug 27, 2023 11:06 AM Reporting Lab: [facility] [address] [place] [phone] Performing Lab: [facility] [address] [place] [phone] [facility] COMPREHENSI VE METABOLIC PANEL POTASSIUM [MOLES/VOLUM E] IN SERUM OR PLASMA 4.7 meq/L 3.5 - 5 08/26 Specimen Type: PLASMA Comment: No hemolysis noted. Ordering Provider: MEENA YANCEY Report Released Date/Time: Aug 27, 2023 11:06 AM Reporting Lab: [facility] [address] [facility] [phone] Performing Lab: [facility] [address] [place] [phone] [facility] COMPREHENSI VE METABOLIC PANEL CHLORIDE [MOLES/VOLUM E] IN SERUM OR PLASMA 103 meq/L 98 - 107 08/26 Specimen Type: PLASMA Comment: No hemolysis noted. Ordering Provider: MEENA YANCEY Report Released Date/Time: Aug 27, 2023 11:06 AM Reporting Lab: [facility] [address] [place] [phone] Performing Lab: [address] [phone] [facility] COMPREHENSI VE METABOLIC PANEL CARBON DIOXIDE, TOTAL [MOLES/VOLUM E] IN SERUM OR PLASMA 26 meq/L 22 - 31 08/26 Specimen Type: PLASMA Comment: No hemolysis noted. Ordering Provider: MEENA YANCEY Report Released Date/Time: Aug 27, 2023 11:06 AM Reporting Lab: [facility] [address] [place] [phone] Performing Lab: [facility] [address] [place] [phone] [facility] COMPREHENSI VE METABOLIC PANEL CALCIUM [MASS/VOLUME ] IN SERUM OR PLASMA 9.7 mg/dL 8.4 - 10.4 08/26 Specimen Type: PLASMA Comment: No hemolysis noted. Ordering Provider: MEENA YANCEY Report Released Date/Time: Aug 27, 2023 11:06 AM Reporting Lab: [facility] [address] [place] [phone] Performing Lab: [address] [phone] [facility] COMPREHENSI VE METABOLIC PANEL PROTEIN [MASS/VOLUME ] IN SERUM OR PLASMA 7.2 g/dL 6 - 8.6 08/26 Specimen Type: PLASMA Comment: No hemolysis noted. Ordering Provider: MEENA YANCEY Report Released Date/Time: Aug 27, 2023 11:06 AM Reporting Lab: [facility] [address] [place] [phone] Performing Lab: [facility] [address] [place] [phone] [facility] COMPREHENSI VE METABOLIC PANEL ALBUMIN [MASS/VOLUME ] IN SERUM OR PLASMA 4.5 g/dL 3.4 - 5 08/26 Specimen Type: PLASMA Comment: No hemolysis noted. Ordering Provider: MEENA YANCEY Report Released Date/Time: Aug 27, 2023 11:06 AM Reporting Lab: [address] [phone] Performing Lab: [address] [phone] [facility] COMPREHENSI VE METABOLIC PANEL BILIRUBIN.TO KYLAH [MASS/VOLUME ] IN SERUM OR PLASMA 0.4 mg/dL 0.2 - 1.2 08/26 Specimen Type: PLASMA Comment: No hemolysis noted. Ordering Provider: MEENA YANCEY Report Released Date/Time: Aug 27, 2023 11:06 AM Reporting Lab: [address] [phone] Performing Lab: [address] [address] [facility] COMPREHENSI VE METABOLIC PANEL ALKALINE PHOSPHATASE [ENZYMATIC ACTIVITY/VOL UME] IN SERUM OR PLASMA 70 U/L 40 - 150 08/26 Specimen Type: PLASMA Comment: No hemolysis noted. Ordering Provider: MEENA YANCEY Report Released Date/Time: Aug 27, 2023 11:06 AM Reporting Lab: [address] [phone] Performing Lab: [address] [place] [address] [facility] COMPREHENSI VE METABOLIC PANEL ASPARTATE AMINOTRANSFE RASE [ENZYMATIC ACTIVITY/VOL UME] IN SERUM OR PLASMA 21 U/L 5 - 34 08/26 Specimen Type: PLASMA Comment: No hemolysis noted. Ordering Provider: MEENA YANCEY R Report Released Date/Time: Aug 27, 2023 11:06 AM Reporting Lab: [address] [address] Performing Lab: [address] [phone] [place] [address] COMPREHENSI VE METABOLIC PANEL ALANINE AMINOTRANSFE RASE [ENZYMATIC ACTIVITY/VOL UME] IN SERUM OR PLASMA 17 U/L 8 - 40 08/26 Specimen Type: PLASMA Comment: No hemolysis noted. Ordering Provider: MEENA YANCEY Report Released Date/Time: Aug 27, 2023 11:06 AM Reporting Lab: [address] [phone] Performing Lab: [address] [phone] [place] [address] COMPREHENSI VE METABOLIC PANEL GLOMERULAR FILTRATION RATE/1.73 SQ M.PREDICTED [VOLUME RATE/AREA] IN SERUM, PLASMA OR BLOOD BY CREATININE-B ASED FORMULA (CKD-EPI 2020) 67.9 60 08/26 Specimen Type: PLASMA Comment: No hemolysis noted. Ordering Provider: MEENA YANCEY Report Released Date/Time: Aug 27, 2023 11:06 AM Reporting Lab: [address] [address] Performing Lab: [place] [phone] HGA1C HEMOGLOBIN A1C/HEMOGLOB IN.TOTAL IN BLOOD 6.8 4.0 - 6.0 08/26 H Specimen Type: BLOOD No comment entered. Ordering Provider: MEENA YANCEY BY R Report Released Date/Time: Aug 27, 2023 11:07 AM Reporting Lab: [facility] [address] [facility] [address] Performing Lab: [facility] [address] [facility] [address] [facility] LIPID PANEL (STL) CHOLESTEROL [MASS/VOLUME ] IN SERUM OR PLASMA 136 mg/dL 0 - 200 08/26 Specimen Type: PLASMA Comment: No hemolysis noted. Ordering Provider: MEENA YANCEY Report Released Date/Time: Aug 27, 2023 11:09 AM Reporting Lab: [facility] [address] [facility] [address] Performing Lab: [address] [address] [facility] LIPID PANEL (STL) TRIGLYCERIDE [MASS/VOLUME ] IN SERUM OR PLASMA 116 mg/dL 0 - 150 08/26 Specimen Type: PLASMA Comment: No hemolysis noted. Ordering Provider: MEENA YANCEY Report Released Date/Time: Aug 27, 2023 11:09 AM Reporting Lab: [facility] [address] [facility] [address] Performing Lab: [facility] [address] [place] [phone] [facility] LIPID PANEL (STL) CHOLESTEROL IN LDL [MASS/VOLUME ] IN SERUM OR PLASMA BY CALCULATION 66 mg/dL 08/26 Specimen Type: PLASMA Comment: No hemolysis noted. Ordering Provider: MEENA YANCEY Report Released Date/Time: Aug 27, 2023 11:09 AM Reporting Lab: [facility] [address] [facility] [address] Performing Lab: [facility] [address] [place] [phone] [facility] LIPID PANEL (STL) CHOLESTEROL IN HDL [MASS/VOLUME ] IN SERUM OR PLASMA 47 mg/dL 40 08/26 Specimen Type: PLASMA Comment: No hemolysis noted. Ordering Provider: MEENA YANCEY Report Released Date/Time: Aug 27, 2023 11:09 AM Reporting Lab: [facility] [address] [facility] [address] Performing Lab: [facility] [address] [facility] [address] [facility] MICRAL/CREA T PROFILE (STL) ALBUMIN [MASS/VOLUME ] IN URINE 5.7 mg/L 08/26 Specimen Type: URINE No comment entered. Ordering Provider: MEENA YANCEY Report Released Date/Time: Aug 27, 2023 11:07 AM Reporting Lab: [facility] [address] [place] [phone] Performing Lab: [address] [address] [facility] MICRAL/CREA T PROFILE (STL) ALBUMIN/CREA TININE [MASS RATIO] IN URINE 3 mg/g 0 - 29 08/26 Specimen Type: URINE No comment entered. Ordering Provider: MEENA YANCEY Report Released Date/Time: Aug 27, 2023 11:07 AM Reporting Lab: [facility] [address] [facility] [address] Performing Lab: [address] [address] [facility] MICRAL/CREA T PROFILE (STL) CREATININE [MASS/VOLUME ] IN URINE 188.8 mg/dL 63 - 166 08/26 H Specimen Type: URINE No comment entered. Ordering Provider: MEENA YANCEY Report Released Date/Time: Aug 27, 2023 11:07 AM Reporting Lab: [facility] [address] [facility] [address] Performing Lab: [address] [address] [facility] HGA1C HEMOGLOBIN A1C/HEMOGLOB IN.TOTAL IN BLOOD 7.1 4.0 - 6.0 03/01 H Specimen Type: BLOOD No comment entered. Ordering Provider: LIMA GONZALEZ Report Released Date/Time: Feb 27, 2023 09:01 PM Reporting Lab: [facility] [address] [facility] [address] Performing Lab: [facility] [address] [facility] [address] [facility] Vital Signs Combined list of inpatient and outpatient Vital Signs from Department of Defense and Veterans Affairs, ranging from 12 months to all on record, depending upon the facility. Vital Sign Value Date Comments Source SYSTOLIC BLOOD PRESSURE 136 02/27/2024 10:27:52 [facility] DIASTOLIC BLOOD PRESSURE 81 02/27/2024 10:27:52 [facility] PULSE OXIMETRY 97 02/27/2024 10:27:52 [facility] PAIN 0 02/27/2024 10:27:[facility] TEMPERATURE 98.8 02/27/2024 10:27:52 [facility] PULSE 69 02/27/2024 10:27:[facility] RESPIRATION 18 02/27/2024 10:27:52 [facility] SYSTOLIC BLOOD PRESSURE 133 08/27/2023 10:26:38 [facility] DIASTOLIC BLOOD PRESSURE 70 08/27/2023 10:26:38 [facility] PULSE OXIMETRY 99 08/27/2023 10:26:38 [facility] WEIGHT 173.6 08/27/2023 10:26:38 [facility] BMI 26kg/m2 08/27/2023 10:26:38 [facility] PAIN 0 08/27/2023 10:26:38 [facility] HEIGHT 69 08/27/2023 10:26:38 [facility] TEMPERATURE 97.7 08/27/2023 10:26:38 [facility] PULSE 62 08/27/2023 10:26:38 [facility] RESPIRATION 18 08/27/2023 10:26:38 [facility] Encounters Combined list of: 1) Encounters from Department of Veterans Affairs facilities going back up to [facility] 18 months. 2) Encounters from the Department of Defense facilities going back up to 280 months. Location Location Details Encounter Type Encounter Number Reason For Visit Attending Provider ADM Date DC Date Status Disposition Source [facility] OFFICE O/P EST LOW 20-29 MIN [id number] Diagnos is: ICD-10- CM E11.9 Type 2 diabete s mellitu s without complic ations< br/> CLEMENTE ARMENTA A 02/21 [facility] OFFICE O/P EST MOD 30-39 MIN [id number] Diagnos is: ICD-10- CM I10 Essenti al (primar y) hyperte nsion<b r/> MEENA YANCEY 02/27 [facility] Outpatient Encounter [id number] 03/06 [facility] Outpatient Encounter [id number] 03/11 [facility] Outpatient Encounter [id number] 03/11 [facility] Outpatient Encounter [id number] [place] BLOOM 03/12 [facility] Outpatient Encounter [id number] 04/15 [facility] Outpatient Encounter [id number] [place] BLOOM 04/18 [facility] OFFICE O/P EST MOD 30 MIN [id number] Diagnos is: ICD-10- CM E11.9 Type 2 diabete s mellitu s without complic ations< br/> SONALI TREVINO TTHEW C 06/17 [facility] Outpatient Encounter [id number] 06/18 [facility] OFFICE O/P EST LOW 20 MIN [id number] Diagnos is: ICD-10- CM E11.9 Type 2 diabete s mellitu s without complic ations< br/> CLEMENTE ARMENTA A 06/21 [facility] OFFICE O/P EST MOD 30 MIN [id number] Diagnos is: ICD-10- CM E11.9 Type 2 diabete s mellitu s without complic ations< br/> MEENA YANCEY 08/26 [facility] Outpatient Encounter [id number] 08/26 [facility] Outpatient Encounter [id number] [place] BLOOM L 08/26 [facility] Outpatient Encounter [id number] 08/27 [facility] Outpatient Encounter [id number] 08/27 [facility] Outpatient Encounter [id number] 09/29 [facility] Outpatient Encounter [id number] 09/30 [facility] Outpatient Encounter [id number] CAMERON RUBI 10/06 [facility] Outpatient Encounter [id number] 10/09 [facility] Outpatient Encounter [id number] [place] BLOOM L 10/10 [facility] OFFICE O/P EST LOW 20 MIN [id number] Diagnos is: ICD-10- CM E11.9 Type 2 diabete s mellitu s without complic ations< br/> CLEMENTE ARMENTA A 10/20 [facility] Outpatient Encounter [id number] 11/20 [facility] OFFICE O/P EST MOD 30 MIN [id number] Diagnos is: ICD-10- CM 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
SONALI TREVINO TTHEW C 12/23 [facility] EXTENDED VISUAL FIELD XM [id number] Diagnos is: ICD-10- CM H40.013 Open angle with borderl ine finding s, low risk, bilater al
Osbaldo GALLAGHER S 12/23 [facility] Outpatient Encounter [id number] LICHA VALENTIN C 12/29 [facility] OFF/OP CNSLTJ NEW/EST MOD 40 [id number] Diagnos is: ICD-10- CM M54.2 Cervica lgia
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
MER BARBOZA 02/[address] [facility] MANUAL THERAPY 1/> [place] [id number] Diagnos is: ICD-10- CM M54.2 Cervica lgia
YU,ROS S 02/04 [facility] Outpatient Encounter [id number] 02/10 [facility] Outpatient Encounter [id number] 02/11 [facility] MANUAL THERAPY 1/> [place] [id number] Diagnos is: ICD-10- CM M54.2 Cervica lgia
YU,ROS S 02/[address] 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 development counselor ing<br/ > DOUTRE,TRA CI R 02/25 [facility]P EST MOD 30 MIN [id number] Diagnos is: ICD-10- CM E11.9 Type 2 diabete s mellitu s without complic ations< br/> MEENA YANCEY 02/26 [facility] 1ST [id number] Diagnos is: ICD-10- CM Z71.89 Other specifi ed career development counselor ing<br/ > KEVIN CEVALLOS 03/18 [facility] MANUAL THERAPY 1/> [place] [id number] Diagnos is: ICD-10- CM M54.2 Cervica lgia
YU,ROS S 03/30 [facility] O[facility]P EST LOW 20 MIN [id number] Diagnos is: ICD-10- CM E11.9 Type 2 diabete s mellitu s without complic ations< br/> CLEMENTE ARMENTA A 04/02 [facility] OFFICE O/P EST LOW 20 MIN [id number] Diagnos is: ICD-10- CM H25.13 Age-rel ated nuclear catarac t, bilater al
BALLARD,MY- FADI THI 04/22 [facility] MANUAL THERAPY 1/> [place] [id number] Diagnos is: ICD-10- CM M54.2 Cervica lgia
YU,ROS S 04/[address] [facility]/> [place] [id number] Diagnos is: ICD-10- CM M54.2 Cervica lgia
FRANSICSO NICHOLAS S 05/25 [facility] Outpatient Encounter [id number] 07/02 [facility] Social History Combined list of available smoking, tobacco, and other social history from Department of Defense and Veterans Affairs facilities. Social History Type Response Date Comment [facility] e Tobacco smoking status NHIS [facility] FORMER USER 08/27/2023 [facility] History of tobacco use VA-TOBACCO QUIT 15 YRS OR MORE 08/27/2023 [facility] History of tobacco use VA-TOBACCO FORMER USER 08/23/2022 [facility] History of tobacco use VA-TOBACCO FORMER USER 07/13/2021 [facility] History of tobacco use VA-TOBACCO QUIT 15 YRS OR MORE 07/07/2020 [facility] History of tobacco use VA-TOBACCO QUIT 15 YRS OR MORE 05/18/2019 [facility] History of tobacco use VA-TOBACCO NEVER USED 06/19/2018 [facility] History of tobacco use VA-TOBACCO NEVER USED 12/19/2017 [facility] History of tobacco use QUIT TOBACCO >7 YEARS AGO 12/19/2017 [facility] History of tobacco use TOBACCO REFUSED SCREEN V15 05/23/2017 [facility] History of tobacco use QUIT TOBACCO >7 YEARS AGO 02/25/2017 [facility] History of tobacco use LIFETIME NON-USER OF TOBACCO 12/19/2016 [facility] History of tobacco use QUIT TOBACCO >7 YEARS AGO 05/16/2016 [facility] History of tobacco use QUIT TOBACCO >7 YEARS AGO 05/23/2015 [facility] History of tobacco use QUIT TOBACCO >7 YEARS AGO 05/20/2014 [facility] History of tobacco use QUIT TOBACCO >7 YEARS AGO 04/06/2013 [facility] History of tobacco use LIFETIME NON-USER OF TOBACCO 07/01/2012 [facility] History of tobacco use LIFETIME NON-USER OF TOBACCO 05/26/2012 [facility] History of tobacco use LIFETIME NON-USER OF TOBACCO 02/13/2011 [facility] History of tobacco use QUIT TOBACCO >7 YEARS AGO 07/22/2009 [facility] History of tobacco use LIFETIME NON-USER OF TOBACCO 07/18/2009 [facility] History of tobacco use QUIT TOBACCO >7 YEARS AGO 10/29/2008 [facility] History of tobacco use QUIT TOBACCO >7 YEARS AGO 10/08/2006 [facility] History of tobacco use NON-SMOKER 08/01/2004 [facility] (EFF. 06/10/96) Plan of Care List of future care activities from [facility] facilities. Additional future care activities may be listed in the Assessment and Plan section. Date/Time Care Activity Care Activity Detail Facili ty 07/08/2024 AMBULATORY - NONE AMBULATORY - NONE [facility] 08/03/2024 AMBULATORY - SURGERY AMBULATORY - SURGERY [facility] 09/01/2024 AMBULATORY - MEDICINE AMBULATORY - MEDICI [facility] 09/07/2024 AMBULATORY - SURGERY AMBULATORY - SURGERY [facility] Advance Directives List of completed, amended, or rescinded Advance Directives on record at [facility] facilities. An actual copy of the Directive is not included. Date Advance Directive Provider Source 05/28/2012 ADVANCE DIRECTIVE DISCUSSION RENETTA DIOR [facility] 11/21/2010 ADVANCE DIRECTIVE DISCUSSION CHRISTOPHER MUNOZ [facility] 01/02/2007 ADVANCE DIRECTIVE RANDEE CAMAIRLLO [facility] 10/28/2002 ADVANCE DIRECTIVE JUANCHO BURROWS [facility]
--- OUTSIDE RECORDS SUMMARY | 2024-07-04 15:53 | XMS_ITS | Continuity of Care Document ---
Author Organization [facility] Address [address] [place] [address] [address] [place] [address] Phone Care Team Providers Care Regrader Name Role Phone Nathaniel PT,MPT,ATC, Joseph Unavailable [...] Freq Route DOC Mar Pain Assess Positive [facility] 2014 BMI Normal and DOC 18-64 yo=18.5-25.0 [...] Freq Route DOC Nov Pain Assess Positive [facility] 2014 BMI Normal and DOC 18-64 yo=18.5-25.0 65 + yo=23.0-30.0 No Falls or 1 Fall w/o Injury Screened f or Fall Risk Functional Outcome Assessmen t documented, deficits identified, treatment plan es Advance Directives Directive Yes / No Effective Date File Name No Information Encounters Encounter Description Practice Location Reason(s) For Visit Diagnoses Date Provider Providers Copied on Encounter [facility], [place], [place], [id number], tel:[phone] [place] No Information 7 [place]. [facility], [place], [place], [id number], tel:[phone] [place] No Information 7 [place] [facility], [place], [place], [address], tel:[phone] [place] No Information 7 [place] [facility], [place], [place], [address], tel:[phone] [place] No Information 7 [place] [facility], [place], [place], [address], [place] tel:[phone] [place] No Information October-2 2- 7 Armstrong Joseph. , [place], [place]. [facility], [place], [place], [address], tel:[phone] [place] No Information October-1 - 7 Armstrong [place]. , [place], [place]. [facility], [place], [place], [id number], tel:[phone] [place] No Information October-1 - 7 Salinas Yaritza. [address] [place] [address], [address], [place], [place], [facility], . tel: [phone] [facility], [place], [place], [address], tel:[phone] [place] Low back pain October-1 - 7 Salinas Yaritza. [address] [place] [address], [address], [place], [facility], [place]. tel: [phone] [facility], [place], [place], [address], tel:[phone] [place] No Information October-06 10- 7 Salinas Yaritza. [address] [place] [address], [address], [place], [facility], . tel: [phone] [facility], [place], [place], [address], [place] tel:[phone] [place] No Information October-0 -201 7 Salinas Yaritza. [address] [place] [address], [address], [place], [facility], . tel: [phone] [facility], [place], [place], [address], [place] tel:[phone] [place] Spondylosis w/o myelopathy or radiculopathy, cervical region May-0 5-201 7 Armstrong Joseph. , [place], [place]. [facility], [place], [place], [address], [place] tel:[phone] [place] No Information May-0 3-201 7 Armstrong Joseph. , [place]. [facility], [place], [place], [address], [place] tel:[phone] [place] No Information Feb-1 2-201 6 Salinas Yaritza. [address] [place] [address], [address], [place], [address], [place]. tel: [phone] [facility], [place], [place], [address], [place] tel:[phone] [place] No Information Feb-0 9-201 6 Salinas Yaritza. [address] [place] [address], [address], [place], [address], [place]. tel: [phone] [facility], [place], [place], [address], [place] tel:[phone] [place] No Information Feb-0 5-201 6 Salinas Yaritza. [address] [place] [address], [address], [place], [address], [place]. tel: [phone] [facility] [address], [place], [place], [address], [place] tel:[phone] [place] No Information Feb-0 3-201 6 Salinas Yaritza. [address] [place] [address], [address], [place], [address], [place]. tel: [phone] [facility], [place], [place], [address], [place] tel:[phone] [place] No Information 2 9-201 6 Salinas Yaritza. [address] [place] [address], [address], [place], [address], [place]. tel: [phone] [facility], [place], [place], [address], [place] tel:[phone] [place] No Information 7- 6 Salinas Yaritza. [address] [place] [address], [address], [place], [address], [place]. tel: [phone] [address], [place], [place], [address], [place] tel:[phone] [place] No Information 2- 6 Salinas Yaritza. [address] [place] [address], [address], [place], [address], [place]. tel: [phone] [facility] [address], [place], [place], [address], [place] tel:[phone] [place] No Information 6 Salinas Yaritza. [address] [place] [address], [address], [place], [address], [place]. tel: [phone] [facility] [address], [place], [place], [address], [place] tel:[phone] [place] No Information - 6 Thuet Shaun. [address] [place] [address], [address], [place], [address], [place]. tel: [phone] [facility] [address], [place], [place], [address], [place] tel:[phone] [place] No Information 3- 6 Salinas Yaritza. [address] [place] [address], [address], [place], [address], [place]. tel: [phone] [facility] [address], [place], [place], [address], [place] tel:[phone] [place] No Information 5-201 6 Salinas Yaritza. [address] [place] [address], [address], [place], [address], [place]. tel: [phone] [facility] [address], [place], [place], [address], tel:[phone] [place] No Information Dec-2 9-201 5 Salinas Yaritza. [address] [place] [address], [address], [place], [facility], [place]. tel: [phone] [address], [place], [place], [address], tel:[phone] [place] No Information Dec-2 2-201 5 Salinas Yaritza. [address] [place] [address], [address], [place], [facility], [place]. tel: [phone] [address], [place], [place], [address], tel:[phone] [place] No Information Dec-1 5-201 5 Salinas Yaritza. [address] [place] [address], [address], [place], [facility], [place]. tel: [phone] [address], [place], [place], [address], tel:[phone] [place] No Information Dec-0 8-201 5 Salinas Yaritza. [address] [place] [address], [address], [place], [facility], [place]. tel: [phone] [address], [place], [place], [address], [place] tel:[phone] [place] Pain in right hipStiffness of right hip, not elsewhere classifiedCerv icalgiaTortico llisOther bursitis of hip, right hipOther spondylosis with radiculopathy, cervical region Dec-0 3-201 5 Salinas Yaritza. [address] [place] [address], [address], [place], [facility], [place]. tel: [phone] [facility] [address], [place], [place], [address], [place] tel:[phone] [place] No Information Nov-0 2-201 5 Giuseppe Negin. [address] [place] [address], [address], [place], [facility], [place]. tel: [phone] [address], [place], [place], [address], [place] tel:[phone] [place] No Information Oct-2 8-201 5 Giuseppe Negin. [address] [place] [address], [address], [place], [facility], [place]. tel: [phone] [address], [place], [place], [address], [place] tel:[phone] [place] No Information Oct-2 6-201 5 Jerrica Garza. [address] [place] [address], [address], [place], [facility], [place]. tel: [phone] [address], [place], [place], [address], tel:[phone] [place] No Information Oct-2 1-201 5 Giuseppe Negin. [address] [place] [address], [address], [place], [facility], [place]. tel: [phone] [address], [place], [place], [address], [place] tel:[phone] [place] No Information Oct-1 9-201 5 Jerrica Garza. [address] [place] [address], [address], [place], [facility], [place]. tel: [phone] [address], [place], [place], [address], [place] tel:[phone] [place] No Information Oct-1 4-201 5 Giuseppe Negin. [address] [place] [address], [address], [place], [facility], [place]. tel: [phone] [address], [place], [place], [address], [place] tel:[phone] [place] No Information Oct-1 2-201 5 Jerrica Garza. [address] [place] [address], [address], [place], [facility], . tel: [phone] [place] [address], [place], [place], [address], tel:[phone] [place] No Information Oct-0 7-201 5 Geoffmarilynwayne Garza. [address] [place] [address], [address], [place], [facility], . tel:[phone] [address] [address], [place], [place], [address], tel:[phone] [place] Lumbago with sciatica, right sideStiffness of unspecified joint, not elsewhere classifiedMusc le weakness (generalized)I ntervertebral disc disorders w radiculopathy, lumbar region Oct-0 5-201 5 Giuseppe Kam. [address] [place] [address], [address] [place] [address], . tel:[phone] [address] [address], [place], [place], [address], tel:[phone] [place] No Information Sep-1 0-201 5 Brad Yaritza. [address] [place] [address], [address], [place], [facility], . tel:[phone] Referring Provider: Cecil Sylvester, [address] [place] [address] [place] [address], [facility]. tel:[phone] [place] [address], [place], [place], [address], tel:[phone] [place] No Information Sep-0 8-201 5 Brad Yaritza. [address] [place] [address], [address], [place] [address], . tel:[phone] Referring Provider: Cecil Sylvester, [address] [place] [address] [address], [place], [facility]. tel:[phone] [place] [address], [place], [address], tel:[phone] [place] No Information Sep-0 3-201 5 Brad Yaritza. [address] [place] [address], [address], [place], [facility], . tel:[phone] Referring Provider: Cecil Sylvester, [address] [place] [address] [address], [place], [address]. tel:[phone] [place] [address], [id number], tel:[phone] [place] No Information Sep-0 1-201 5 Jerrica Garza. [address] [place] [address], [address], [place], [facility], . tel:[phone] Referring Provider: Cecil Sylvester, [address] [place] [address] [address], [place], [address]. tel:[phone] [place] [address], [address], tel:[phone] [place] No Information Aug-2 8 5 Jerrica Garza. [address] [place] [address], [address], [place], [facility], . tel:[phone] Referring Provider: Cecil Sylvester, [address] [place] [address] [address], [place], [address]. tel:[phone] [place] [address], [id number], tel:[phone] [place] No Information Aug-2 7 5 Jerrica Garza. [address] [place] [address], [address], [place], [facility], . tel:[phone] Referring Provider: Cecil Sylvester, [address] [place] [address] [address], [address]. tel:[phone] [place] [address], [id number], tel:[phone] [place] No Information Aug-2 1 5 Jerrica Garza. [address] [place] [address], [address], [place], [facility], . tel:[phone] Referring Provider: Cecil Sylvester, [address] [place] [address] [address], [place], [address]. tel:[phone] [place] [address], [id number], tel:[phone] [place] No Information 5 Jerrica Garza. [address] [place] [address], [address], [place], [facility], . tel:[phone] Referring Provider: Cecil Sylvester, [address] [place] [address] [address], [address]. tel:[phone] [place] [address], [id number], tel:[phone] [place] No Information 5 Salinas Yaritza. [address] [place] [address], [address], [place], [facility], . tel:[phone] Referring Provider: Cecil Sylvester, [address] [place] [address] [address], [address]. tel:[phone] [place] [address], [id number], tel:[phone] [place] No Information 5 Jerrica Garza. [address] [place] [address], [address], [place], [facility], . tel:[phone] Referring Provider: Cecil Sylvester, [address] [place] [address] [address], [place], [address]. tel:[phone] [place] [address], [id number], tel:[phone] [place] No Information Jan-0 5 Salinas Yaritza. [address] [place] [address], [address], [place], [facility], . tel:[phone] Referring Provider: Cecil Sylvester, [address] [place] [address] [address], [address]. tel:[phone] [place], [place] [address], [place], [place], [address], tel:[phone] [place] No Information 5 Salinas Yaritza. [address] [place] [address], [address], [place], [facility], . tel:[phone] Referring Provider: Cecil Sylvester, [address] [place] [address] [address], [place], [address]. tel:[phone] [place] [address] [address], [place], [place], [address], tel:[phone] [place] No Information 5 Salinas Yaritza. [address] [place] [address], [address], [place], [facility], . tel:[phone] Referring Provider: Cecil Sylvester, [address] [place] [address] [address], [address]. tel:[phone] [place], [place] [address], [place], [address], tel:[phone] [place] No Information 5 Salinas Yaritza. [address] [place] [address], [address], [place], [facility], . tel:[phone] Referring Provider: Cecil Sylvester, [address] [place] [address] [address], [address]. tel:[phone] [place], [place] [address], [place], [address], tel:[phone] [place] No Information 5 Salinas Yaritza. [address] [place] [address], [address], [place], [facility], . tel:[phone] Referring Provider: Cecil Sylvester, [address] [place] [address] [address], [address]. tel:[phone] [place], [place] [address], [place], [place], [address], tel:[phone] [place] No Information Dec-0 9-201 5 Salinas Yaritaz. [address] [place] [address], [address], [facility], . tel:[phone] Referring Provider: Cecil Sylvester, [address] [place] [address] [place] [address], [facility]. tel:[phone] [place] [address], [id number], tel:[phone] [place] No Information Dec-0 6-201 5 Salinas Yaritza. [address] [place] [address], [address], [facility], . tel:[phone] Referring Provider: Cecil Sylvester, [address] [place] [address] [place] [address], [facility]. tel:[phone] [place] [address], [id number], tel:[phone] [place] No Information Dec-0 2-201 5 Salinas Yaritza. [address] [place] [address], [address] [place] [address], [facility], . tel:[phone] Referring Provider: Cecil Sylvester, [address] [place] [address] [place] [address], [facility]. tel:[phone] [place] [address], [id number], tel:[phone] [place] No Information John-2 9-201 5 Salinas Yaritza. [address] [place] [address], [address] [address], . tel:[phone] Referring Provider: Cecil Sylvester, [address] [place] [address] [place] [address], [facility]. tel:[phone] [place] [address] [place] [address], [id number], tel:[phone] [place] Cervicalgia John- 5 Brad Vigil. [address] [facility], [address], [place], [address], [place]. tel: [phone] Referring Provider: Cecil Sylvester, [address] [facility] [address], [place], [address]. tel:[phone] Family History Family Member Type Diagnosis Age At Onset No Information Payers Payer name Insurance type Covered alliance party ID Authoriza tiemilia(s) [place] [id number] [employer] [id number] [facility] [id number] Social History Type Description Quantity Date Captured [...]
--- OUTSIDE RECORDS SUMMARY | 2024-07-04 15:54 | XMS_ITS | Clinical Summary ---
Author Organization [facility] Address [address] [place] [address] Care Team Providers Care Nail Puller Name Role Phone Timothy White MD Primary [...] 07/19/2020 Assessment & Plan (07/19/2020 5:09 PM STAFFING OPERATIONS MANAGER): Previous CT scan of the chest did not show any parenchymal lung disease. Restrictive lung disease is likely due to obesity. TJ (obstructive sleep apnea) 07/19/2020 Assessment & Plan (06/20/2021 1:30 PM STAFFING OPERATIONS MANAGER): The patient will continue with auto titrating CPAP set at 8-15 cm water pressure to treat obstructive sleep apnea. The patient denied need for supplies. DME company [employer]. The patient and I discussed the recall [...] water pressure. His DME supplier is [employer]. I asked him to follow up here in 3 months. I will send an order to the [employer] for him to receive a previous style of fullface mask. Assessment & Plan (07/19/2020 5:09 PM STAFFING OPERATIONS MANAGER): Continue with CPAP at night. Shortness of breath 12/30/2019 Assessment & Plan (07/19/2020 5:09 PM STAFFING OPERATIONS MANAGER): PFT's show moderate restrictive lung disease likely due to body habitus. Patient was advised to lose weight. Assessment & Plan (12/30/2019 2:50 PM CDT): I will obtain BNP and full set of PFTs for further evaluation of his dyspnea with exertion. Diastolic congestive heart failure (CMS/HCC) Assessment & Plan (07/19/2020 5:10 PM STAFFING OPERATIONS MANAGER): Diastolic dysfunction is compensated. He is not [...] Date Resolved Date ILD (interstitial lung disease) (CMS/[facility]) 10/30/2016 12/23/2018 Encounters Date Type Department Care Team Description 04/14/2024 2:44 PM STAFFING OPERATIONS MANAGER - 04/14/2024 11:59 PM STAFFING OPERATIONS MANAGER Hospital Encounter [facility] Respiratory Therapy [address] [place] [address] Shortness of breath Discharge Disposition: Discharge to home or self care 04/13/2024 2:20 PM STAFFING OPERATIONS MANAGER Office Visit [facility] Neuro Sleep [address] [facility] [address] [place] [address] Gosia Liao, PhD Insomnia due [...] on file Legal Sex Male 10:01 AM STAFFING OPERATIONS MANAGER Gender Identity Not on file Sexual Orientation Not on file Obstetrics History Last Filed Vital Signs Vital Sign Reading Time Taken Comments Blood Pressure 131/83 03/25/2024 7:27 PM CDT Pulse 72 03/25/2024 7:27 PM CDT Temperature 36.8 ??C (98.3 ??F) 03/25/2024 7:27 PM CD T Respiratory Rate 18 03/25/2024 1:09 PM CDT Oxygen Saturation 100% 04/14/2024 3:00 PM STAFFING OPERATIONS MANAGER Inhaled Oxygen Concentration - - Weight 77.3 [...] FUNCTION TEST (PFT) Routine 04/14/2024 4:09 PM STAFFING OPERATIONS MANAGER Shortness of breath from Last 3 Months Results * Pulmonary Function Test - (04/14/2024 4:09 PM STAFFING OPERATIONS MANAGER) Anatomical Region Laterality Modality PFT 04/14/2024 3:00 PM STAFFING OPERATIONS MANAGER Narrative 04/16/2024 12:48 PM STAFFING OPERATIONS MANAGER METHACHOLINE CHALLENGE TEST Diann Elder 04/15/2024 INTERPRETATION Methacholine challenge test was performed with incremental doses of methacholine per protocol. There was no significant decrease noted in the FEV1. IMPRESSION 1. No bronchial hyper-responsiveness by spirometric indices. ??Clinical correlation recommended. Electronically signed by Monse Gerber MD ?? Kayla Atkinson MD PFT ORDERABLES Final Result from Last 3 Months Insurance [address] [address] [employer] [facility] MED[facility] Address: [place] [id number] [address] [place] [id number] [facility] [facility] MED[facility] Address: [place] [address] [address] [place] [id number] [employer] Member Subscriber Plan / Payer (Ef fective 2023-Present) Name:Diann Elder Relation to Subscriber:Self Name:Diann Elder Payer ID:[id number] (NAIC) Type:UHC MEDICARE Address: [address] Care Teams Nail Puller Relationship Specialty Start Date End Date Timothy White MD [address] [place] [address] [facility] - General 09/07/16
--- OUTSIDE RECORDS SUMMARY | 2024-07-04 15:54 | XMS_ITS | Referral Summary ---
Author Organization [facility] at [facility] Address [address] [place] [address] Care Team Providers Care Quality Supervisor Name Role Phone Timothy White MD Primary Care Provide r Encounters Date Type Department Care Team Description 04/14/2024 2:44 PM PERSONAL SECURITY SPECIALIST - 04/14/2024 11:59 PM PERSONAL SECURITY SPECIALIST Hospital Encounter [facility] Respiratory Therapy [address] [place] [address] Shortness of breath Discharge Disposition: Discharge to home or self care 04/13/2024 2:20 PM PERSONAL SECURITY SPECIALIST Office Visit [facility] Neuro Sleep [address] 6[address] [place] [address] Gosia Liao, PhD Insomnia due [...] 07/19/2020 Assessment & Plan (07/19/2020 5:09 PM PERSONAL SECURITY SPECIALIST): Previous CT scan of the chest did not show any parenchymal lung disease. Restrictive lung disease is likely due to obesity. TJ (obstructive sleep apnea) 07/19/2020 Assessment & Plan (06/20/2021 1:30 PM PERSONAL SECURITY SPECIALIST): The patient will continue with auto titrating CPAP set at 8-15 cm water pressure to treat obstructive sleep apnea. The patient denied need for supplies. DME company [employer] [place]. The patient and I discussed the recall [...] water pressure. His DME supplier is the [place]. I asked him to follow up here in 3 months. I will send an order to the [place] for him to receive a previous style of fullface mask. Assessment & Plan (07/19/2020 5:09 PM PERSONAL SECURITY SPECIALIST): Continue with CPAP at night. Shortness of breath 12/30/2019 Assessment & Plan (07/19/2020 5:09 PM PERSONAL SECURITY SPECIALIST): PFT's show moderate restrictive lung disease likely due to body habitus. Patient was advised to lose weight. Assessment & Plan (12/30/2019 2:50 PM CDT): I will obtain BNP and full set of PFTs for further evaluation of his dyspnea with exertion. Diastolic congestive heart failure (CMS/HCC) Assessment & Plan (07/19/2020 5:10 PM PERSONAL SECURITY SPECIALIST): Diastolic dysfunction is compensated. He is not [...] on file Legal Sex Male 10:01 AM PERSONAL SECURITY SPECIALIST Gender Identity Not on file Sexual Orientation Not on file Last Filed Vital Signs Vital Sign Reading Time Taken Comments Blood Pressure 131/83 03/25/2024 7:27 PM CDT Pulse 72 03/25/2024 7:27 PM CDT Temperature 36.8 ??C (98.3 ??F) 03/25/2024 7:27 PM CD T Respiratory Rate 18 03/25/2024 1:09 PM CDT Oxygen Saturation 100% 04/14/2024 3:00 PM PERSONAL SECURITY SPECIALIST Inhaled Oxygen Concentration - - Weight 77.3 kg (170 lb 8 oz) 03/25/2024 7:27 PM CDT Height 175.3 cm (5' 9 ) 03/25/2024 7:27 PM CDT Body Mass Index 25.18 03/25/2024 7:27 PM CDT Plan of Treatment Not on file Procedures Procedure Name Priority Date/Time Associated Diagnosis Comments PULMONARY FUNCTION TEST (PFT) Routine 04/14/2024 4:09 PM PERSONAL SECURITY SPECIALIST Shortness of breath from Last 3 Months Results * Pulmonary Function Test - (04/14/2024 4:09 PM PERSONAL SECURITY SPECIALIST) Anatomical Region Laterality Modality PFT 04/14/2024 3:00 PM PERSONAL SECURITY SPECIALIST Narrative 04/16/2024 12:48 PM PERSONAL SECURITY SPECIALIST METHACHOLINE CHALLENGE TEST Diann Elder 04/15/2024 INTERPRETATION Methacholine challenge test was performed with incremental doses of methacholine per protocol. There was no significant decrease noted in the FEV1. IMPRESSION 1. No bronchial hyper-responsiveness by spirometric indices. ??Clinical correlation recommended. Electronically signed by Monse Gerber MD ?? Kayla Atkinson MD PFT ORDERABLES Final Result from Last 3 Months Insurance MEDICARE [facility] Address: [address] [address] MEDICARE [facility] Address: [address] [address] MED[employer]ARE [employer] Care Teams Quality Supervisor Relationship Specialty Start Date End Date Timothy White MD [address] [place] [address] PCP - General 09/07/16
--- OUTSIDE RECORDS SUMMARY | 2024-07-04 15:54 | XMS_ITS | Encounter Summary ---
Author Organization [facility] Facility Care Team Providers Care Warehouseman Name Role Phone Timothy White MD Primary Care Provide r Encounter Details Date Type Department Care Team (Latest Contact Info) Description 11/19/2017 Orders Only [facility] CLINCONV ProviderNeeta MD [address] [place] [id number] Social History Tobacco Use Types Packs/Day Years Used Date Smoking Tobacco: Never Assessed Sex and Gender Information Value Date Recorded Sex Assigned at Not on file Legal Sex Male 10:01 AM PERINATAL INSTRUCTOR Gender Identity Not on file Sexual Orientation [...] on filedocumented in this encounter Care Teams Warehouseman Relationship Specialty Start Date End Date Timothy White MD [address] [place], [place] [id number] PCP - General 09/07/16 documented as of this encounter
--- NOTE | 2024-07-04 16:30 | ED_ITS ---
HPI - Neck Pain/Injury General Chief Complaint: Neck Pain/Injury Stated Complaint: unable to move neck after a fall Time Seen by Provider: 07/04/24 15:47 Source: patient Mode of arrival: ambulatory Limitations: no limitations History of Present Illness HPI Narrative: 73 YEARS OLD MALE DROVE HIMSELF TO THE EMERGENCY ROOM BECAUSE OF NECK PAIN NOTICED AFTER WAKING UP FROM SLEEP YESTERDAY. GETTING WORSE. SEVERE LIMITED RANGE OF MOTION. PATIENT ALSO COMPLAINING OF UPPER BACK PAIN, SHOULDER PAIN BILATERALLY, AND CHEST PAIN ALL OVER. PATIENT IS TELLING ME THAT HE HAD A FALL ON ICE WITHIN THE LAST 2 WEEKS, WITH MILD PAIN ALL OVER MAINLY UPPER HALF, YESTERDAY MORNING WORKUP UNABLE TO MOVE HIS NECK. HE DENIES ANY FEVER, CHILLS, NAUSEA, VOMITING, HEADACHE, OR ANY RESPIRATORY SYMPTOMS. Related Data Home Medications ?Medication ?Instructions ?Recorded ?Confirmed ?Last Taken ?Type sildenafil 50 mg tablet (Viagra) 50 mg PO .COMPLEX 06/28/19 05/13/24 Unknown History mirabegron 50 mg tablet,extended 50 mg PO DAILY 05/14/24 Unknown History release 24 hr Allergies Allergy/AdvReac Type Severity Reaction Status Date / Time No Known Allergies Allergy Unknown NONE Verified 07/04/24 15:48 Review of Systems Review of Systems: All systems reviewed & are unremarkable except as noted in HPI and below PMFSH Past Medical History Medical History COPD (chronic obstructive pulmonary disease) Vitamin D deficiency Squamous cell carcinoma of penis Rectal bleed PTSD (post-traumatic stress disorder) Other hyperlipidemia Mixed hyperlipidemia Intractable hiccups Hypogonadism in male Encounter for screening for malignant neoplasm of colon Dizziness Cervicalgia Shanon infection Asbestos exposure Anxiety disorder, unspecified Acute non-recurrent frontal sinusitis Acute hemorrhoid COVID Post-operative pain Pharyngeal mass Oral herpes Thrush Cough with congestion of paranasal sinus Insomnia Loud snoring Apneic spell Diabetes mellitus HTN (hypertension) Depression Surgical History Surgical History Hx of tonsillectomy History of lumbar surgery Family History Family History Mother Family history of diabetes mellitus in first degree relative, Onset Age: 72 Father Family history of diabetes mellitus in first degree relative, Onset Age: 75 Sibling Family history of kidney disease Social History Social History Smoking status: Former smoker Alcohol intake: current Alcohol use details: STATES MAYBE 4 BEERS/MONTH Substance use: current Substance use type: marijuana Other substance usage details: MEDICAL MARIJUANA CARD - DAILY USAGE Do You Feel Safe in your Home?: Yes Lack of Transportation: No Lack of Food: Never True Current Housing: I Have Housing Concerned About Future Housing: No Difficulty Paying Gas/Electric Bills: No Difficulty Paying for Meds: No Currently Unemployed: No Education: High School Diploma/GED Difficulty w/ Childcare or Family Care: No Living arrangements: with family Gender identity (if verbalized by the patient): Male Sexual Orientation (if Verbalized by the Patient): Straight or Heterosexual Spiritual care concerns: No Exam Narrative: GENERAL APPEARANCE: WELL-DEVELOPED, WELL-NOURISHED SKIN: NORMAL COLOR HEAD: NORMOCEPHALIC, NONTRAUMATIC EYES: CLEAR CONJUNCTIVA ENT: OROPHARYNX NORMAL, EARS NORMAL, NOSE NORMAL NECK: DIFFUSE NECK TENDERNESS, NO BRUISES OR SWELLING OR RASH OR DEFORMITY CHEST AND RESPIRATORY: AIRWAY PATENT, NO RESPIRATORY DISTRESS, NO ACCESSORY MUSCLE USE DIFFUSE ANTERIOR CHEST TENDERNESS BILATERALLY, NO BRUISES, NO SWELLING OR RASH HEART: REGULAR RATE/RHYTHM ABDOMEN: SOFT, NONTENDER, NO ORGANOMEGALY, QUIET BOWEL SOUNDS VASCULAR: NORMAL PERIPHERAL PULSES, NORMAL CAPILLARY REFILL. MUSCULOSKELETAL: DIFFUSE BACK TENDERNESS MAINLY THORACIC SPINE, NO BRUISES OR SWELLING OR RASH, PATIENT ABLE TO MOVE LOWER EXTREMITY WITHOUT COMPLAINT, MOVING UPPER EXTREMITY BILATERALLY WITH PAIN NEUROLOGIC: ALERT AND ORIENTED ?3, CLASSROOM INSTRUCTIONAL AIDE IS NORMAL TESTED, NO GROSS MOTOR DEFICIT Course Vital Signs Vital signs: Vital Signs Temperature 36.8 C 07/04/24 14:29 Pulse Rate 96 07/04/24 14:29 Respiratory Rate 20 07/04/24 14:29 Blood Pressure 139/71 07/04/24 14:29 Pulse Oximetry 100 07/04/24 14:29 Oxygen Delivery Room Air 07/04/24 14:29 Temperature 36.6 C 07/04/24 18:15 Pulse Rate 63 07/04/24 18:15 Respiratory Rate 25 H 07/04/24 18:15 Blood Pressure 144/77 H 07/04/24 18:15 Pulse Oximetry 97 07/04/24 18:15 Oxygen Delivery Room Air 07/04/24 14:29 MDM - Neck Pain/Injury MDM Narrative Medical decision making narrative: PATIENT PRESENTS WITH UPPER HAVE BODY PAIN MAINLY NECK VITAL SIGNS ARE STABLE PHYSICAL EXAMINATION CONSISTENT WITH DIFFUSE TENDERNESS OF THE NECK BACK AND CHEST DIFFERENTIAL DIAGNOSIS INCLUDE FLUID MUSCULOSKELETAL PAIN, STRAIN, SPRAIN HIGH LIKELY SECONDARY TO FALLING ON ICE [address] HEAD WITHOUT CONTRAST, CT CERVICAL SPINE WITHOUT CONTRAST, CT THORACIC SPINE WITHOUT CONTRAST SHOWED NO ACUTE ABNORMALITIES CT CHEST TO RULE OUT RIB FRACTURE OR STERNAL FRACTURE SHOWED NO ACUTE ABNORMALITIES DIAGNOSIS MUSCULOSKELETAL PAIN, CERVICALGIA DISCHARGED ON DICLOFENAC AND FLEXERIL. THE PT WAS DISCHARGED TO HOME.THE PT,S CONDITION UPON DISCHARGE WAS FAIR,EDUCATION WAS PROVIDED TO THE PT IN REFERENCE TO THE FINAL IMPRESSION,DISCHARGE STUDY RESULTS,TREATMENT,PROGNOSIS AND NEED FOR FOLLOW UP . Differential Diagnosis Differential diagnosis: Likely other ( ABOVE) Imaging Data Radiologist's impression: Impressions Head CT 07/04/24 18:35 Impression: No acute intracranial hemorrhage or suspicious mass effect. Chest CT 07/04/24 18:37 IMPRESSION: No acute fracture or CT evidence of pulmonary contusion, as detailed above. Cervical Spine CT 07/04/24 18:40 Impression: Straightening of the normal curvature of the cervical spine, likely muscular in origin. Degenerative disease, without acute fracture. Thoracic Spine CT 07/04/24 18:43 Impression: Degenerative disease, without acute fracture, as detailed above. Critical Care Time Critical Care Time Critical Care Time: No Discharge Plan Discharge Clinical Impression: Musculoskeletal pain, Cervicalgia Patient Disposition: Home, Self-Care Condition: Stable Instructions: Musculoskeletal Pain (ED), Acute Neck Pain (ED) Additional Instructions: RETURN IF SYMPTOMS ARE WORSENING , CALL YOUR FAMILY PHYSICIAN FOR APPOINTMENT, TAKE TYLENOL NEEDED FOR ACHES AND PAIN, CONTINUE HOME MEDICATIONS. MASSAGE HEATING PAD EXERCISE Patient Language: Nepali Prescriptions: New diclofenac sodium 75 mg tablet,delayed release (DR/EC) 75 mg PO BID PRN (Reason: pain) Qty: 14 0RF cyclobenzaprine 10 mg tablet 10 mg PO TID PRN (Reason: muscle spasm) Qty: 20 0RF No Action Januvia 25 mg tablet 25 mg PO DAILY Qty: 90 2RF alprazolam [Xanax] 0.5 mg tablet 0.5 mg PO BID PRN (Reason: anxiety) Qty: 60 2RF sildenafil [Viagra] 50 mg tablet 50 mg PO .COMPLEX Rx Instructions: 50 mg PO daily as needed approximately 1 hour before sexual activity; administer 30 minutes to 4 hours before activity cholecalciferol (vitamin D3) 50 mcg (2,000 unit) capsule 100 mcg PO DAILY Qty: 180 2RF fluticasone propionate [Flonase Allergy Relief] 50 mcg/actuation spray,suspension 1 - 2 spray NASAL DAILY PRN (Reason: nasal congestion) Qty: 16 2RF Rx Instructions: administer into each nostril lisinopril 5 mg tablet See Rx Instructions .ROUTE .COMPLEX Qty: 90 3RF Dose Instruction: TAKE 1 TABLET BY MOUTH DAILY Rx Instructions: TAKE 1 TABLET BY MOUTH DAILY albuterol sulfate 90 mcg/actuation HFA aerosol inhaler See Rx Instructions .ROUTE .COMPLEX Qty: 25.5 3RF Dose Instruction: USE 2 INHALATIONS BY MOUTH 4 TIMES DAILY NEEDED FOR SHORTNESS OF BREATH OR WHEEZING Rx Instructions: USE 2 INHALATIONS BY MOUTH 4 TIMES DAILY NEEDED FOR SHORTNESS OF BREATH OR WHEEZING mirabegron 50 mg tablet extended release 24 hr 50 mg PO DAILY Follow-up/Referrals: Timothy White MD [Primary Care Provider] -
[2024-07-04] MEDS: ONDANSETRON HCL ODT 4 MG TABLET PO (16:39)
[2024-07-04] MEDS: HYDROmorphone HCL INJ (*CRX) 1 MG/ML SYR IM (16:39)
[2024-07-04 17:23] VITALS: BP 143/77; PULSE 70; RESP 16; TEMP 36.6; O2SAT 95
[2024-07-04 18:15] VITALS: BP 144/77; PULSE 63; RESP 25; TEMP 36.6; O2SAT 97
[2024-07-04 19:32] VITALS: BP 132/73; PULSE 66; RESP 22; O2SAT 96
== END 2024-07-04 19:37 | disposition home or self-care (01) ==
PROVIDERS: Emergency Provider Emergency Medicine; PCP Emergency Medicine
DX: M54.2 Cervicalgia (principal); J44.9 Chronic obstructive pulmonary disease, unspecified; I10 Essential (primary) hypertension; E55.9 Vitamin D deficiency, unspecified; E78.2 Mixed hyperlipidemia; E11.9 Type 2 diabetes mellitus without complications; F41.9 Anxiety disorder, unspecified; F43.10 Post-traumatic stress disorder, unspecified; Z86.16 Personal history of COVID-19; Z87.891 Personal history of nicotine dependence; Z79.84 Long term (current) use of oral hypoglycemic drugs; Z79.899 Other long term (current) drug therapy
CPT/HCPCS: 70450; 71250; 72125; 72128; 96372; 99284; A9270; J1171

== ENCOUNTER 2024-07-21 15:15 | Outpatient (CLI) | payer MEDICARE, SELFPAY ==
--- NOTE | ~2024-07-21 | MR_ITS ---
EXAMINATION: MR cervical spine wo con DATE: 07/21/2024 15:55 INDICATION: Neck pain. TECHNIQUE: Magnetic resonance imaging (MRI) of the cervical spine was performed without intravenous c ontrast. COMPARISON: Cervical spine MRI 11/02/2020 FINDINGS: Bone alignment is normal. Vertebral body heights are normal. There is moderately decreased disc height at C4-C5, severely decreased disc height at C5-C6, and moderately decreased disc height a t C6-C7. The spinal cord signal intensity is normal. The following disc levels are specifically discu ssed: C2-C3: The disc does not extend beyond the endplate margin. There is no uncovertebral joint osteoarth ritis. There is mild right and severe left facet joint osteoarthritis. There is mild left neural fora bindu stenosis. There is no central canal stenosis. C3-C4: There is a central protrusion. There is mild bilateral uncovertebral joint osteoarthritis. The re is mild right and severe left facet joint osteoarthritis. There is mild right and moderate left ne ural foraminal stenosis. There is mild central canal stenosis. C4-C5: The disc is bulging. There is severe bilateral uncovertebral joint osteoarthritis. There is mi ld right and severe left facet joint osteoarthritis. There is moderate bilateral neural foraminal jarred nosis. There is mild central canal stenosis. C5-C6: The disc is bulging. There is severe bilateral uncovertebral joint osteoarthritis. There is mi ld bilateral facet joint osteoarthritis. There is moderate bilateral neural foraminal stenosis. There is mild central canal stenosis. C6-C7: The disc is bulging. There is severe bilateral uncovertebral joint osteoarthritis. There is mi ld left facet joint osteoarthritis. There is mild bilateral neural foraminal stenosis. There is mild central canal stenosis. C7-T1: The disc does not extend beyond the endplate margin. There is no uncovertebral joint osteoarth ritis. There is moderate right and severe left facet joint osteoarthritis. There is mild right and mo derate left neural foraminal stenosis. There is no central canal stenosis. IMPRESSION: 1. Severe cervical spondylosis, stable from 11/02/2020. Reviewed, dictated and finalized at location A. SETTER AND DRILLER
== END 2024-07-21 15:16 | disposition home or self-care (01) ==
LOC: MICIMG 15:17
PROVIDERS: PCP Physician Assistant; Visit Provider Emergency Medicine
DX: M43.02 Spondylolysis, cervical region (principal)
CPT/HCPCS: 72141

== ENCOUNTER 2024-07-21 15:20 | Outpatient (CLI) | payer MEDICARE, SELFPAY ==
--- NOTE | ~2024-07-21 | MR_ITS ---
EXAMINATION: MR thoracic spine wo con DATE: 07/21/2024 16:03 INDICATION: Thoracic vertebral fracture TECHNIQUE: Magnetic resonance imaging (MRI) of the thoracic spine was performed without intravenous c ontrast. Sagittal localizer T1-weighted FSE of the cervicothoracic spine was obtained. Thoracic spine sequences included sagittal T2-weighted FSE, sagittal T1-weighted SE, Sagittal T2-weighted FS FSE, a nd axial T2-weighted FSE. COMPARISON: CT dated 07/04/2024 FINDINGS: 10 degrees lower thoracic levocurvature. Mild thoracic kyphosis. Minimal anterior wedging at T6, T7 a nd T11. T1 hyperintense hemangioma at T2.There is mild fibrovascular degenerative endplate changes an teriorly along the inferior endplate of T5 and T8 and superiorly at the anterior endplate of L1. Elma ow signal is otherwise normal. No acute fracture. Moderate disc height loss atT6-T7 and T7-T8. There is mild disc height loss at T1-T2 as well as at the remaining levels from T3-T4 through T9-T10. Mild disc bulges or small disc protrusions at the majority levels from C7-T1 through T9-T10 contributing t o multilevel minimal to mild central canal stenosis. There is normal spinal cord signal. The conus te rminates at L1. Paravertebral soft tissues are unremarkable. IMPRESSION: 1. Minimal chronic anterior wedging at T6, T7 and T11. No acute osseous abnormality. 2. Mild thoracic kyphosis with mild lower thoracic levocurvature with mild to moderate spondylosis. Reviewed, dictated and finalized at location A. TROCARDIOGRAPH OPERATOR IMPRESSION: 1. Minimal chronic anterior wedging at T6, T7 and T11. No acute osseous abnorma lity. 2. Mild thoracic kyphosis with mild lower thoracic levocurvature with mild to m oderate spondylosis.
== END 2024-07-21 15:21 | disposition home or self-care (01) ==
PROVIDERS: PCP Physician Assistant; Visit Provider Physician Assistant
DX: S22.050A Wedge compression fracture of T5-T6 vertebra, initial encounter for closed fracture (principal); S22.060A Wedge compression fracture of T7-T8 vertebra, initial encounter for closed fracture; S22.080A Wedge compression fracture of T11-T12 vertebra, initial encounter for closed fracture; M40.294 Other kyphosis, thoracic region; M43.8X4 Other specified deforming dorsopathies, thoracic region; M43.04 Spondylolysis, thoracic region; X58.XXXA Exposure to other specified factors, initial encounter
CPT/HCPCS: 72146

== ENCOUNTER 2024-08-10 07:14 | Outpatient (CLI) | payer MEDICARE, SELFPAY ==
[2024-08-10 08:14] LABS: Hemoglobin A1C 6.6 % (<5.7)
[2024-08-10 08:20] LABS: Alanine Aminotransferase 17 U/L (6-50); Alkaline Phosphatase 78 U/L (38-126); Anion Gap 6 mmol/L (4-12); Aspartate Amino Transferase 18 U/L (17-59); Bilirubin,Total 0.6 mg/dL (0.2-1.3); Blood Urea Nitrogen 21 mg/dL (9-20); Calcium 9.4 mg/dL (8.4-10.2); Carbon Dioxide 29 mmol/L (22-30); Chloride 105 mmol/L (98-107); Cholesterol 116 mg/dL (0-200); Estimated Glomerular Filt Rate > 60; Glucose 135 mg/dL (65-110); HDL Direct 42 mg/dL; Potassium 4.3 mmol/L (3.4-5.0); Sodium 140 mmol/L (137-145); Triglycerides 104 mg/dL (<150)
[2024-08-10 08:32] LABS: LDL Cholesterol Direct 50 mg/dL
[2024-08-10 08:56] LABS: Vitamin D 25 Hydroxy 60.2 ng/mL
[2024-08-10 09:31] LABS: Creatinine Urine 251.1 mg/dL
[2024-08-10 09:36] LABS: MALB Creatinine Ratio 3.1 mg/g (0-30); Microalbumin Urine Random 7.8 mg/L (0-16.7)
== END 2024-08-10 07:15 | disposition home or self-care (01) ==
LOC: ANHLAB 07:14
PROVIDERS: PCP Emergency Medicine; Visit Provider Emergency Medicine
DX: E78.5 Hyperlipidemia, unspecified (principal); E11.9 Type 2 diabetes mellitus without complications; E55.9 Vitamin D deficiency, unspecified
CPT/HCPCS: 36415; 80053; 80061; 82043; 82306; 83036

== ENCOUNTER 2024-11-09 07:17 | Outpatient (CLI) | payer MEDICARE, SELFPAY ==
--- OUTSIDE RECORDS SUMMARY | 2024-11-09 07:20 | XMS_ITS | Encounter Summary ---
Author Organization [facility] Facility Care Team Providers Care Medical Terminologist Name Role Phone Timothy White MD Primary Care Provide r Encounter Details Date Type Department Care Team (Latest Contact Info) Description 11/19/2017 Orders Only [facility] CLINCONV ProviderNeeta MD [address] [place] [id number] Social History Tobacco Use Types Packs/Day Years Used Date Smoking Tobacco: Never Assessed Sex and Gender Information Value Date Recorded Sex Assigned at Not on file Legal Sex Male 10:01 AM ARCHITECTURAL EXAMINER Gender Identity Not on file Sexual Orientation [...] on filedocumented in this encounter Care Teams Medical Terminologist Relationship Specialty Start Date End Date Timothy White MD [address] [place], [place] [id number] PCP - General 09/07/16 documented as of this encounter
--- OUTSIDE RECORDS SUMMARY | 2024-11-09 07:20 | XMS_ITS | Referral Summary ---
Author Organization [facility] Address [address] [place] [address] Care Team Providers Care Lead Architect Name Role Phone Timothy White MD Primary Care Provide r Encounters Date Type Department Care Team Description 08/31/2024 1:00 PM CDT Office Visit [facility] Neuro Sleep [address] [place] [address] 6th [address] [place] [address] Gosia Liao, PhD Insomnia, unspecified type (Primary Dx); TJ on CPAP from Last 3 Months Allergies No known [...] (FLONASE) 50 mcg/actuation nasal spray 06/06/2023 Active mometasone-form oterol (DULERA 200) 200-5 mcg/actuation inhaler Inhale 2 puffs 2 (two) times a day Rinse mouth with water after use. Do not swallow. 1 each 11 07/27/2024 Active Active Problems Problem Noted Date Diagnosed Date Restrictive lung disease 07/19/2020 Assessment & Plan (07/19/2020 5:09 PM RUBBER GOODS REPAIRER): Previous CT scan of the chest did not show any parenchymal lung disease. Restrictive lung disease is likely due to obesity. TJ (obstructive sleep apnea) 07/19/2020 Assessment & Plan (06/20/2021 1:30 PM RUBBER GOODS REPAIRER): The patient will continue with auto titrating CPAP set at 8-15 cm water pressure to treat obstructive sleep apnea. The patient denied need for supplies. DME company the [place]. The patient and I discussed the recall [...] water pressure. His DME supplier is the [place]. I asked him to follow up here in 3 months. I will send an order to the CT for him to receive a previous style of fullface mask. Assessment & Plan (07/19/2020 5:09 PM RUBBER GOODS REPAIRER): Continue with CPAP at night. Shortness of breath 12/30/2019 Assessment & Plan (07/19/2020 5:09 PM RUBBER GOODS REPAIRER): PFT's show moderate restrictive lung disease likely due to body habitus. Patient was advised to lose weight. Assessment & Plan (12/30/2019 2:50 PM CDT): I will obtain BNP and full set of PFTs for further evaluation of his dyspnea with exertion. Diastolic congestive heart failure 01/04/2019 Assessment & Plan (07/19/2020 5:10 PM RUBBER GOODS REPAIRER): Diastolic dysfunction is compensated. He is not [...] Date Resolved Date ILD (interstitial lung disease) 10/30/2016 12/23/2018 Immunizations Immunization Administration Dates Next Due Pneumococcal Polysaccharide PPV23 [...] on file Legal Sex Male 10:01 AM RUBBER GOODS REPAIRER Gender Identity Not on file Sexual Orientation Not on file Last Filed Vital Signs Vital Sign Reading Time Taken Comments Blood Pressure 116/64 07/27/2024 3:05 PM RUBBER GOODS REPAIRER Pulse 84 07/27/2024 3:05 PM RUBBER GOODS REPAIRER Temperature 36.2 C (97.2 F) 07/27/2024 3:05 PM RUBBER GOODS REPAIRER Respiratory Rate 18 07/27/2024 3:05 PM RUBBER GOODS REPAIRER Oxygen Saturation 96% 07/27/2024 3:05 PM RUBBER GOODS REPAIRER Inhaled Oxygen Concentration - - Weight 75.8 kg (167 lb) 07/27/2024 3:05 PM RUBBER GOODS REPAIRER Height 175.3 cm (5' 9) 07/27/2024 3:05 PM RUBBER GOODS REPAIRER Body Mass Index 24.66 07/27/2024 3:05 PM RUBBER GOODS REPAIRER Plan of Treatment Not on file Insurance [employer] MEDICARE ADVANTAGE [id number] MEDICARE ADVANTAGE [id number] MEDICARE ADVANTAGE Member Subscriber Plan / Payer (Ef fective 2023-Present) Name:Diann Elder Relation to Subscriber:Self Name:Diann Elder Payer ID:[id number] (NAIC) Type:[facility] Address: [address] [id number] Care Teams Lead Architect Relationship Specialty Start Date End Date Timothy White MD [address] [place] [address] PCP - General 09/07/16
--- OUTSIDE RECORDS SUMMARY | 2024-11-09 07:21 | XMS_ITS | Clinical Summary ---
Author Organization [facility] Address [address] [place] [address] Care Team Providers Care Spool Winder Name Role Phone Timothy White MD Primary [...] 07/19/2020 Assessment & Plan (07/19/2020 5:09 PM PIZZA CHEF): Previous CT scan of the chest did not show any parenchymal lung disease. Restrictive lung disease is likely due to obesity. TJ (obstructive sleep apnea) 07/19/2020 Assessment & Plan (06/20/2021 1:30 PM PIZZA CHEF): The patient will continue with auto titrating CPAP set at 8-15 cm water pressure to treat obstructive sleep apnea. The patient denied need for supplies. DME company the [place]. The patient and I discussed the recall [...] water pressure. His DME supplier is the [place]. I asked him to follow up here in 3 months. I will send an order to the [place] for him to receive a previous style of fullface mask. Assessment & Plan (07/19/2020 5:09 PM PIZZA CHEF): Continue with CPAP at night. Shortness of breath 12/30/2019 Assessment & Plan (07/19/2020 5:09 PM PIZZA CHEF): PFT's show moderate restrictive lung disease likely due to body habitus. Patient was advised to lose weight. Assessment & Plan (12/30/2019 2:50 PM CDT): I will obtain BNP and full set of PFTs for further evaluation of his dyspnea with exertion. Diastolic congestive heart failure 01/04/2019 Assessment & Plan (07/19/2020 5:10 PM PIZZA CHEF): Diastolic dysfunction is compensated. He is not [...] Date ILD (interstitial lung disease) 10/30/2016 12/23/2018 Encounters Date Type Department Care Team Description 08/31/2024 1:00 PM CDT Office Visit [facility] Neuro Sleep [address] [facility] 6th [address] [place] [address] Gosia Liao, PhD Insomnia, unspecified type (Primary Dx); TJ on CPAP from Last 3 Months Immunizations Immunization Administration Dates Next Due Pneumococcal [...] on file Legal Sex Male 10:01 AM PIZZA CHEF Gender Identity Not on file Sexual Orientation Not on file Obstetrics History Last Filed Vital Signs Vital Sign Reading Time Taken Comments Blood Pressure 116/64 07/27/2024 3:05 PM PIZZA CHEF Pulse 84 07/27/2024 3:05 PM PIZZA CHEF Temperature 36.2 C (97.2 F) 07/27/2024 3:05 PM PIZZA CHEF Respiratory Rate 18 07/27/2024 3:05 PM PIZZA CHEF Oxygen Saturation 96% 07/27/2024 3:05 PM PIZZA CHEF Inhaled Oxygen Concentration - - Weight 75.8 kg (167 lb) 07/27/2024 3:05 PM PIZZA CHEF Height 175.3 cm (5' 9) 07/27/2024 3:05 PM PIZZA CHEF Body Mass Index 24.66 07/27/2024 3:05 PM PIZZA CHEF Plan of Treatment Health Maintenance Due Date Last Done Comments Colon Cancer Screening-Colonoscopy 1950 Depression Screening 1950 Fall Risk Assessment 1950 Hepatitis C Screening 1950 Prostate Cancer Screening-PSA 1949 Hepatitis B Screening 11/01/1967 Well Visit 65+ 2014 Covid-19 Vaccine (2023-2 5 season) 2024 10/05/2021, 03/29/2021, 08/25/2020, Additional history exists Influenza Vaccine (Season Ended) 2025 03/18/20 07 DTaP/Tdap/Td Vaccine (3 - Td or Tdap) 05/16/2026 05/16/2016, 10/08/2006 Pneumococcal vaccine 65+ Completed 017, 12/19/2016, 01/14/2015, Additional history exists Zoster Vaccine Completed 03/21/2018, 12/08, 07/04/2010 Insurance [facility] MEDICARE ADVANTAGE [facility] MEDICARE ADVANTAGE [facility] Address: [address] [address] [place] [address] UHC MEDICARE ADVANTAGE [facility] MEDIC[facility] Address: [address] [address] [place] [address] Care Teams Spool Winder Relationship Specialty Start Date End Date Timothy White MD [address] [place] [address] PCP - General 09/07/16
[2024-11-09 07:59] LABS: Alanine Aminotransferase 19 U/L (6-50); Albumin Level 4.1 g/dL (3.5-5.1); Alkaline Phosphatase 69 U/L (38-126); Anion Gap 7 mmol/L (4-12); Aspartate Amino Transferase 25 U/L (17-59); Bilirubin,Total 0.4 mg/dL (0.2-1.3); Blood Urea Nitrogen 14 mg/dL (9-20); Calcium 9.1 mg/dL (8.4-10.2); Carbon Dioxide 24 mmol/L (22-30); Chloride 106 mmol/L (98-107); Cholesterol 124 mg/dL (0-200); Estimated Glomerular Filt Rate > 60; Glucose 146 mg/dL (65-110); HDL Direct 47 mg/dL; Potassium 4.1 mmol/L (3.4-5.0); Sodium 137 mmol/L (137-145); Triglycerides 73 mg/dL (<150)
[2024-11-09 08:10] LABS: LDL Cholesterol Direct 53 mg/dL
[2024-11-09 08:22] LABS: Hemoglobin A1C 6.5 % (<5.7)
[2024-11-09 08:57] LABS: MALB Creatinine Ratio 3.6 mg/g (0-30); Microalbumin Urine Random 7.6 mg/L (0-16.7)
[2024-11-09 09:07] LABS: Vitamin D 25 Hydroxy 51.1 ng/mL
== END 2024-11-09 07:18 | disposition home or self-care (01) ==
LOC: ANHLAB 07:18
PROVIDERS: PCP Emergency Medicine; Visit Provider Emergency Medicine
DX: E78.5 Hyperlipidemia, unspecified (principal); E11.9 Type 2 diabetes mellitus without complications; E55.9 Vitamin D deficiency, unspecified
CPT/HCPCS: 36415; 80053; 80061; 82043; 82306; 83036

== ENCOUNTER 2025-02-15 06:42 | Outpatient (CLI) | payer MEDICARE, SELFPAY ==
--- OUTSIDE RECORDS SUMMARY | 2016-11-12 06:00 | XMS_ITS | Continuity of Care Document ---
Author Organization [facility] Address [address] [place] [address] [address] [place] [address] Phone Care Team Providers Care Spinner Operator Name Role Phone Nathaniel PT,MPT,ATC, Joseph Unavailable Unavai lable Procedures Procedure Date Therapeutic Exercise Neuromuscular Re-Ed Carrying, Moving And Handling Objects-Cu rrent Carrying, Moving And Handling Objects-Go al Carrying, Moving And Handling Objects-Di scharge Therapeutic Exercise Neuromuscular Re-Ed Manual Therapy Therapeutic Exercise Neuromuscular Re-Ed Manual Therapy Carrying, Moving And Handling Objects-Cu rrent Carrying, Moving And Handling Objects-Go al Therapeutic Exercise Neuromuscular Re-Ed Manual Therapy Therapeutic Exercise Neuromuscular Re-Ed Manual Therapy Therapeutic Exercise Neuromuscular Re-Ed Manual Therapy Therapeutic Exercise Manual Therapy PT Re-evaluation Therapeutic Exercise Manual Therapy Carrying, Moving And Handling Objects-Cu rrent Carrying, Moving And Handling Objects-Go al Therapeutic Exercise Manual Therapy Therapeutic Exercise Manual Therapy Therapeutic Exercise Neuromuscular Re-Ed PT Evaluation Low Complexity Therapeutic Exercise Carrying, Moving And Handling Objects-Cu rrent Carrying, Moving And Handling Objects-Go al THERAPEUTIC EXERCISES NEUROMUSCULAR RE-ED MANUAL THERAPY FUNC ACTIVITY HOT/COLD PACK THERAPEUTIC EXERCISES NEUROMUSCULAR RE-ED MANUAL THERAPY FUNC ACTIVITY HOT/COLD PACK THERAPEUTIC EXERCISES NEUROMUSCULAR RE-ED MANUAL THERAPY FUNC ACTIVITY HOT/COLD PACK THERAPEUTIC EXERCISES NEUROMUSCULAR RE-ED MANUAL THERAPY FUNC ACTIVITY HOT/COLD PACK Progress Note THERAPEUTIC EXERCISES NEUROMUSCULAR RE-ED MANUAL THERAPY FUNC ACTIVITY /COLD PACK Carrying, Moving And Handling Objects-Cu rrent Carrying, Moving And Handling Objects-Go al Medications Name Dose Freq Route DOC Jun THERAPEUTIC EXERCISES NEUROMUSCULAR RE-ED MANUAL THERAPY FUNC ACTIVITY HOT/COLD PACK Medications Name Dose Freq Route DOC Jun THERAPEUTIC EXERCISES NEUROMUSCULAR RE-ED MANUAL THERAPY FUNC ACTIVITY HOT/COLD PACK Medications Name Dose Freq Route DOC Jun THERAPEUTIC EXERCISES NEUROMUSCULAR RE-ED MANUAL THERAPY FUNC ACTIVITY HOT/COLD PACK Medications Name Dose Freq Route DOC Jun THERAPEUTIC EXERCISES NEUROMUSCULAR RE-ED MANUAL THERAPY FUNC ACTIVITY HOT/COLD PACK Medications Name Dose Freq Route DOC Jun THERAPEUTIC EXERCISES NEUROMUSCULAR RE-ED MANUAL THERAPY FUNC ACTIVITY HOT/COLD PACK Medications Name Dose Freq Route DOC Jun Progress Note THERAPEUTIC EXERCISES NEUROMUSCULAR RE-ED MANUAL THERAPY FUNC ACTIVITY HOT/COLD PACK Carrying, Moving And Handling Objects-Cu rrent Carrying, Moving And Handling Objects-Go al Medications Name Dose Freq Route DOC Jun THERAPEUTIC EXERCISES NEUROMUSCULAR RE-ED MANUAL THERAPY FUNC ACTIVITY HOT/COLD PACK Medications Name Dose Freq Route DOC May THERAPEUTIC EXERCISES NEUROMUSCULAR RE-ED MANUAL THERAPY FUNC ACTIVITY HOT/COLD PACK Medications Name Dose Freq Route DOC May THERAPEUTIC EXERCISES NEUROMUSCULAR RE-ED MANUAL THERAPY FUNC ACTIVITY HOT/COLD PACK Medications Name Dose Freq Route DOC May THERAPEUTIC EXERCISES NEUROMUSCULAR RE-ED MANUAL THERAPY FUNC ACTIVITY HOT/COLD PACK Medications Name Dose Freq Route DOC May PT EVALUATION THERAPEUTIC EXERCISES MANUAL THERAPY HOT/COLD PACK Carrying, Moving And Handling Objects-Cu rrent Carrying, Moving And Handling Objects-Go al Medications Name Dose Freq Route DOC May Pain Assess Positive -03/19 DOC 2014 BMI Normal and DOC 18-64 yo=18.5-25.0 65 + yo=23.0-30.0 No Falls or 1 Fall w/o Injury Screened f or Fall Risk Functional Outcome Assessmen t documented, deficits identified, treatment plan es PT RE-EVALUATION THERAPEUTIC EXERCISES NEUROMUSCULAR RE-ED MANUAL THERAPY FUNC ACTIVITY HOT/COLD PACK Carrying, Moving And Handling Objects-Cu rrent Carrying, Moving And Handling Objects-Go al Medications Name Dose Freq Route DOC Apr THERAPEUTIC EXERCISES NEUROMUSCULAR RE-ED MANUAL THERAPY FUNC ACTIVITY HOT/COLD PACK Medications Name Dose Freq Route DOC Mar THERAPEUTIC EXERCISES NEUROMUSCULAR RE-ED MANUAL THERAPY FUNC ACTIVITY HOT/COLD PACK Medications Name Dose Freq Route DOC Mar THERAPEUTIC EXERCISES NEUROMUSCULAR RE-ED MANUAL THERAPY FUNC ACTIVITY HOT/COLD PACK Medications Name Dose Freq Route DOC Mar THERAPEUTIC EXERCISES NEUROMUSCULAR RE-ED MANUAL THERAPY FUNC ACTIVITY HOT/COLD PACK Medications Name Dose Freq Route DOC Mar THERAPEUTIC EXERCISES NEUROMUSCULAR RE-ED MANUAL THERAPY FUNC ACTIVITY HOT/COLD PACK Medications Name Dose Freq Route DOC Mar THERAPEUTIC EXERCISES NEUROMUSCULAR RE-ED FUNC ACTIVITY HOT/COLD PACK Medications Name Dose Freq Route DOC Mar FUNC ACTIVITY THERAPEUTIC EXERCISES NEUROMUSCULAR RE-ED HOT/COLD PACK Medications Name Dose Freq Route DOC Mar Full Foam Roller PT EVALUATION THERAPEUTIC EXERCISES HOT/COLD PACK Carrying, Moving And Handling Objects-Cu rrent Carrying, Moving And Handling Objects-Go al Medications Name Dose Freq Route DOC Mar Pain Assess Positive [facility] 2014 BMI Normal and DOC 18-64 yo=18.5-25.0 65 + yo=23.0-30.0 No Falls or 1 Fall w/o Injury Screened f or Fall Risk Functional Outcome Assessmen t documented, deficits identified, treatment plan es PT RE-EVALUATION THERAPEUTIC EXERCISES NEUROMUSCULAR RE-ED MANUAL THERAPY HOT/COLD PACK Carrying, Moving And Handling Objects-Cu rrent Carrying, Moving And Handling Objects-Go al Medications Name Dose Freq Route DOC Feb THERAPEUTIC EXERCISES NEUROMUSCULAR RE-ED MANUAL THERAPY HOT/COLD PACK Medications Name Dose Freq Route DOC Feb THERAPEUTIC EXERCISES NEUROMUSCULAR RE-ED MANUAL THERAPY HOT/COLD PACK Medications Name Dose Freq Route DOC Feb THERAPEUTIC EXERCISES NEUROMUSCULAR RE-ED MANUAL THERAPY HOT/COLD PACK Medications Name Dose Freq Route DOC Feb THERAPEUTIC EXERCISES NEUROMUSCULAR RE-ED MANUAL THERAPY HOT/COLD PACK Medications Name Dose Freq Route DOC Jan THERAPEUTIC EXERCISES NEUROMUSCULAR RE-ED MANUAL THERAPY HOT/COLD PACK Medications Name Dose Freq Route DOC Jan THERAPEUTIC EXERCISES NEUROMUSCULAR RE-ED MANUAL THERAPY HOT/COLD PACK Medications Name Dose Freq Route DOC Jan THERAPEUTIC EXERCISES NEUROMUSCULAR RE-ED MANUAL THERAPY /COLD PACK Medications Name Dose Freq Route DOC Jan PT RE-EVALUATION THERAPEUTIC EXERCISES NEUROMUSCULAR RE-ED MANUAL THERAPY HOT/COLD PACK Carrying, Moving And Handling Objects-Cu rrent Carrying, Moving And Handling Objects-Go al Medications Name Dose Freq Route DOC Jan THERAPEUTIC EXERCISES NEUROMUSCULAR RE-ED MANUAL THERAPY HOT/COLD PACK Medications Name Dose Freq Route DOC Jan THERAPEUTIC EXERCISES NEUROMUSCULAR RE-ED MANUAL THERAPY HOT/COLD PACK Medications Name Dose Freq Route DOC Jan THERAPEUTIC EXERCISES NEUROMUSCULAR RE-ED MANUAL THERAPY HOT/COLD PACK Medications Name Dose Freq Route DOC Jan THERAPEUTIC EXERCISES NEUROMUSCULAR RE-ED MANUAL THERAPY HOT/COLD PACK Medications Name Dose Freq Route DOC Dec THERAPEUTIC EXERCISES NEUROMUSCULAR RE-ED MANUAL THERAPY HOT/COLD PACK Medications Name Dose Freq Route DOC Dec PT RE-EVALUATION THERAPEUTIC EXERCISES NEUROMUSCULAR RE-ED MANUAL THERAPY HOT/COLD PACK Carrying, Moving And Handling Objects-Cu rrent Carrying, Moving And Handling Objects-Go al Medications Name Dose Freq Route DOC Dec THERAPEUTIC EXERCISES NEUROMUSCULAR RE-ED MANUAL THERAPY HOT/COLD PACK Medications Name Dose Freq Route DOC Dec THERAPEUTIC EXERCISES NEUROMUSCULAR RE-ED MANUAL THERAPY HOT/COLD PACK Medications Name Dose Freq Route DOC Dec THERAPEUTIC EXERCISES NEUROMUSCULAR RE-ED MANUAL THERAPY HOT/COLD PACK Medications Name Dose Freq Route DOC Dec THERAPEUTIC EXERCISES NEUROMUSCULAR RE-ED MANUAL THERAPY HOT/COLD PACK Medications Name Dose Freq Route DOC Nov PT EVALUATION THERAPEUTIC EXERCISES MANUAL THERAPY HOT/COLD PACK Carrying, Moving And Handling Objects-Cu rrent Carrying, Moving And Handling Objects-Go al Medications Name Dose Freq Route DOC Nov Pain Assess Positive [facility] 2014 BMI Normal and DOC 18-64 yo=18.5-25.0 65 + yo=23.0-30.0 No Falls or 1 Fall w/o Injury Screened f or Fall Risk Functional Outcome Assessmen t documented, deficits identified, treatment plan es Advance Directives Directive Yes / No Effective Date File Name No Information Encounters Encounter Description Practice Location Reason(s) For Visit Diagnoses Date Provider Providers Copied on Encounter [facility], [place], [place], [id number], tel:[phone] [place] No Information 7 Nathaniel Fofana [place]. [facility], [place], [place], [id number], tel:[phone] [place] No Information 7 Nathaniel Fofana [place], [place]. [facility], [place], [place], [id number], tel:[phone] [place] No Information 7 Nathaniel Fofana [place]. [facility], [place], [place], [id number], tel:[phone] [place] No Information 7 Nathaniel Fofana [place]. [facility] [facility], [place], [place], [id number], [place] tel:[phone] [place] No Information October-2 2- 7 Armstrong Joseph. , [place], [place]. [facility] [facility], [place], [place], [id number], tel:[phone] [place] No Information October-1 - 7 Armstrong Joseph. , [place], [place]. [facility] [facility], [place], [place], [id number], tel:[phone] [place] No Information October-1 - 7 Salinas Yaritza. [address] [place] [address], [address], [place], [place], [facility], . tel: [phone] [facility] [facility], [place], [place], [id number], tel:[phone] [place] Low back pain October-1 - 7 Salinas Yaritza. [address] [place] [address], [address], [place], [facility], [place]. tel: [phone] [facility] [facility], [place], [place], [id number], tel:[phone] [place] No Information October-06 10- 7 Salinas Yaritza. [address] [place] [address], [address], [place], [facility], . tel: [phone] [facility] [facility], [place], [place], [address], [place] tel:[phone] [place] No Information October-0 -201 7 Salinas Yaritza. [address] [place] [address], [address], [place], [facility], . tel: [phone] [facility] [facility], [place], [place], [address], [place] tel:[phone] [place] Spondylosis w/o myelopathy or radiculopathy, cervical region May-0 5-201 7 Armstrong Joseph. , [place], [place]. [facility], [place], [place], [id number], [place] tel:[phone] [place] No Information May-0 3-201 7 Armstrong Joseph. , [place], [place]. [facility], [place], [place], [address], [place] tel:[phone] [place] No Information Feb-1 2-201 6 Salinas Yaritza. [address] [place] [address], [address], [place], [address], [place]. tel: [phone] [facility], [place], [place], [address], [place] tel:[phone] [place] No Information Feb-0 9-201 6 Salinas Yaritza. [address] [place] [address], [address], [place], [address], [place]. tel: [phone] [facility], [place], [place], [address], [place] tel:[phone] [place] No Information Feb-0 5-201 6 Salinas Yaritza. [address] [place] [address], [address], [place], [address], [place]. tel: [phone] [facility] [address], [place], [place], [address], [place] tel:[phone] [place] No Information Feb-0 3-201 6 Salinas Yaritza. [address] [place] [address], [address], [place], [address], [place]. tel: [phone] [facility], [place], [place], [address], [place] tel:[phone] [place] No Information 2 9-201 6 Salinas Yaritza. [address] [place] [address], [address], [place], [address], [place]. tel: [phone] [facility], [place], [place], [address], [place] tel:[phone] [place] No Information 7- 6 Salinas Yaritza. [address] [place] [address], [address], [place], [address], [place]. tel: [phone] [address], [place], [place], [address], [place] tel:[phone] [place] No Information 2- 6 Salinas Yaritza. [address] [place] [address], [address], [place], [address], [place]. tel: [phone] [facility] [address], [place], [place], [address], [place] tel:[phone] [place] No Information 6 Salinas Yaritza. [address] [place] [address], [address], [place], [address], [place]. tel: [phone] [facility] [address], [place], [place], [address], [place] tel:[phone] [place] No Information - 6 Thuet Shaun. [address] [place] [address], [address], [place], [address], [place]. tel: [phone] [facility] [address], [place], [place], [address], [place] tel:[phone] [place] No Information 3- 6 Salinas Yaritza. [address] [place] [address], [address], [place], [address], [place]. tel: [phone] [facility] [address], [place], [place], [address], [place] tel:[phone] [place] No Information 5-201 6 Salinas Yaritza. [address] [place] [address], [address], [place], [address], [place]. tel: [phone] [facility] [address], [place], [place], [address], tel:[phone] [place] No Information Dec-2 9-201 5 Salinas Yaritza. [address] [place] [address], [address], [place], [facility], [place]. tel: [phone] [address], [place], [place], [address], tel:[phone] [place] No Information Dec-2 2-201 5 Salinas Yaritza. [address] [place] [address], [address], [place], [facility], [place]. tel: [phone] [address], [place], [place], [address], tel:[phone] [place] No Information Dec-1 5-201 5 Salinas Yaritza. [address] [place] [address], [address], [place], [facility], [place]. tel: [phone] [address], [place], [place], [address], tel:[phone] [place] No Information Dec-0 8-201 5 Salinas Yaritza. [address] [place] [address], [address], [place], [facility], [place]. tel: [phone] [address], [place], [place], [address], [place] tel:[phone] [place] Pain in right hipStiffness of right hip, not elsewhere classifiedCerv icalgiaTortico llisOther bursitis of hip, right hipOther spondylosis with radiculopathy, cervical region Dec-0 3-201 5 Salinas Yaritza. [address] [place] [address], [address], [place], [facility], [place]. tel: [phone] [facility] [address], [place], [place], [address], [place] tel:[phone] [place] No Information Nov-0 2-201 5 Giuseppe Negin. [address] [place] [address], [address], [place], [facility], [place]. tel: [phone] [address], [place], [place], [address], [place] tel:[phone] [place] No Information Oct-2 8-201 5 Giuseppe Negin. [address] [place] [address], [address], [place], [facility], [place]. tel: [phone] [address], [place], [place], [address], [place] tel:[phone] [place] No Information Oct-2 6-201 5 Jerrica Garza. [address] [place] [address], [address], [place], [facility], [place]. tel: [phone] [address], [place], [place], [address], tel:[phone] [place] No Information Oct-2 1-201 5 Giuseppe Negin. [address] [place] [address], [address], [place], [facility], [place]. tel: [phone] [address], [place], [address], [place] tel:[phone] [place] No Information Oct-1 9-201 5 Jerrica Garza. [address] [place] [address], [address], [place], [facility], [place]. tel: [phone] [address], [place], [place], [address], [place] tel:[phone] [place] No Information Oct-1 4-201 5 Giuseppe Negin. [address] [place] [address], [address], [place], [facility], [place]. tel: [phone] [address], [place], [place], [address], [place] tel:[phone] [place] No Information Oct-1 2-201 5 Jerrica Garza. [address] [place] [address], [address], [place], [facility], . tel: [phone] [place] [address], [place], [place], [address], tel:[phone] [place] No Information Oct-0 7-201 5 Geoffmarilynwayne Garza. [address] [place] [address], [address], [place], [facility], . tel:[phone] [address] [address], [place], [place], [address], tel:[phone] [place] Lumbago with sciatica, right sideStiffness of unspecified joint, not elsewhere classifiedMusc le weakness (generalized)I ntervertebral disc disorders w radiculopathy, lumbar region Oct-0 5-201 5 Giuseppe Kam. [address] [place] [address], [address] [place] [address], . tel:[phone] [address] [address], [place], [place], [address], tel:[phone] [place] No Information Sep-1 0-201 5 Brad Yaritza. [address] [place] [address], [address], [place], [facility], . tel:[phone] Referring Provider: Cecil Sylvester, [address] [place] [address] [place] [address], [facility]. tel:[phone] [place] [address], [place], [place], [address], tel:[phone] [place] No Information Sep-0 8-201 5 Brad Yaritza. [address] [place] [address], [address], [place] [address], . tel:[phone] Referring Provider: Cecil Sylvester, [address] [place] [address] [address], [place], [facility]. tel:[phone] [place] [address], [place], [place], [address], tel:[phone] [place] No Information Sep-0 3-201 5 Brad Yaritza. [address] [place] [address], [address], [place], [facility], . tel:[phone] Referring Provider: Cecil Sylvester, [address] [place] [address] [address], [place], [address]. tel:[phone] [place] [address], [id number], tel:[phone] [place] No Information Sep-0 1-201 5 Jerrica Garza. [address] [place] [address], [address], [place], [facility], . tel:[phone] Referring Provider: Cecil Sylvester, [address] [place] [address] [address], [place], [address]. tel:[phone] [place] [address], [id number], tel:[phone] [place] No Information Aug-2 8 5 Jerrica Garza. [address] [place] [address], [address], [place], [facility], . tel:[phone] Referring Provider: Cecil Sylvester, [address] [place] [address] [address], [place], [address]. tel:[phone] [place] [address], [id number], tel:[phone] [place] No Information Aug-2 7 5 Jerrica Garza. [address] [place] [address], [address], [place], [facility], . tel:[phone] Referring Provider: Cecil Sylvester, [address] [place] [address] [address], [place], [address]. tel:[phone] [place] [address], [id number], tel:[phone] [place] No Information Aug-2 1 5 Jerrica Garza. [address] [place] [address], [address], [place], [facility], . tel:[phone] Referring Provider: Cecil Sylvester, [address] [place] [address] [address], [place], [address]. tel:[phone] [place] [address], [id number], tel:[phone] [place] No Information 5 Jerrica Garza. [address] [place] [address], [address], [place], [facility], . tel:[phone] Referring Provider: Cecil Sylvester, [address] [place] [address] [address], [place], [address]. tel:[phone] [place] [address], [id number], tel:[phone] [place] No Information 5 Salinas Yaritza. [address] [place] [address], [address], [place], [facility], . tel:[phone] Referring Provider: Cecil Sylvester, [address] [place] [address] [address], [place], [address]. tel:[phone] [place] [address], [id number], tel:[phone] [place] No Information 5 Jerrica Garza. [address] [place] [address], [address], [place], [facility], . tel:[phone] Referring Provider: Cecil Sylvester, [address] [place] [address] [address], [address]. tel:[phone] [place] [address], [id number], tel:[phone] [place] No Information Jan-0 5 Salinas Yaritza. [address] [place] [address], [address], [place], [facility], . tel:[phone] Referring Provider: Cecil Sylvester, [address] [place] [address] [address], [place], [address]. tel:[phone] [place], [place] [address], [place], [place], [address], tel:[phone] [place] No Information 5 Salinas Yaritza. [address] [place] [address], [address], [place], [facility], . tel:[phone] Referring Provider: Cecil Sylvester, [address] [place] [address] [address], [place], [address]. tel:[phone] [place], [place] [address], [place], [place], [address], tel:[phone] [place] No Information 5 Salinas Yaritza. [address] [place] [address], [address], [place], [facility], . tel:[phone] Referring Provider: Cecil Sylvester, [address] [place] [address] [address], [place], [address]. tel:[phone] [place], [place] [address], [place], [address], tel:[phone] [place] No Information 5 Salinas Yaritza. [address] [place] [address], [address], [place], [facility], . tel:[phone] Referring Provider: Cecil Sylvester, [address] [place] [address] [address], [place], [address]. tel:[phone] [place], [place] [address], [place], [address], tel:[phone] [place] No Information 5 Salinas Yaritza. [address] [place] [address], [address], [place], [facility], . tel:[phone] Referring Provider: Cecil Sylvester, [address] [place] [address] [address], [place], [address]. tel:[phone] [place], [place] [address], [place], [place], [address], tel:[phone] [place] No Information Dec-0 9-201 5 Salinas Yaritza. [address] [place] [address], [address], [facility], . tel:[phone] Referring Provider: Cecil Sylvester, [address] [place] [address] [place] [address], [facility]. tel:[phone] [place] [address], [id number], tel:[phone] [place] No Information Dec-0 6-201 5 Salinas Yaritza. [address] [place] [address], [address], [facility], . tel:[phone] Referring Provider: Cecil Sylvester, [address] [place] [address] [place] [address], [facility]. tel:[phone] [place] [address], [id number], tel:[phone] [place] No Information Dec-0 2-201 5 Salinas Yaritza. [address] [place] [address], [address] [place] [address], [facility], . tel:[phone] Referring Provider: Cecil Sylvester, [address] [place] [address] [place] [address], [facility]. tel:[phone] [place] [address], [id number], tel:[phone] [place] No Information John-2 9-201 5 Salinas Yaritza. [address] [place] [address], [address] [address], . tel:[phone] Referring Provider: Cecil Sylvester, [address] [place] [address] [place] [address], [facility]. tel:[phone] [place] [address] [place] [address], [id number], tel:[phone] [place] Cervicalgia John- 5 Brad Vigil. [address] [facility], [address], [place], [address], [place]. tel: [phone] Referring Provider: Cecil Sylvester, [address] [facility] [address], [place], [address]. tel:[phone] Family History Family Member Type Diagnosis Age At Onset No Information Payers Payer name Insurance type Covered democrat ID Authoriza tiemilia(s) Medicare [place] [id number] [employer] [id number] [facility] [id number] Social History Type Description Quantity Date Captured Comments Sex Male Smoking Status No Information Chief Complaint And Reason For Visit No Information Reason For Referral Reason For Referral No Information History Of Present Illness Encounter Date Complaint History Of Prese nt Illness No Information Functional Status Date Functional Assessmen t No Information Instructions Date Instruction Additional Infor mation No Information Assessments Type Assessment Date No Information Patient Care Teams Name Effective Dates (start - stop) Status Members No Information
--- OUTSIDE RECORDS SUMMARY | 2025-02-15 06:44 | XMS_ITS | Clinical Summary ---
Author Organization [facility] Address [address] [place] [address] Care Team Providers Care Dental Financial Coordinator Name Role Phone Timothy White MD [...] 07/19/2020 Assessment & Plan (07/19/2020 5:09 PM LAND MOBILE RADIO TECHNICIAN): Previous CT scan of the chest did not show any parenchymal lung disease. Restrictive lung disease is likely due to obesity. TJ (obstructive sleep apnea) 07/19/2020 Assessment & Plan (06/20/2021 1:30 PM LAND MOBILE RADIO TECHNICIAN): The patient will continue with auto titrating CPAP set at 8-15 cm water pressure to treat obstructive sleep apnea. The patient denied need for supplies. DME company the [place]. The patient and I discussed the recall [...] water pressure. His DME supplier is the [place]. I asked him to follow up here in 3 months. I will send an order to the [place] for him to receive a previous style of fullface mask. Assessment & Plan (07/19/2020 5:09 PM LAND MOBILE RADIO TECHNICIAN): Continue with CPAP at night. Shortness of breath 12/30/2019 Assessment & Plan (07/19/2020 5:09 PM LAND MOBILE RADIO TECHNICIAN): PFT's show moderate restrictive lung disease likely due to body habitus. Patient was advised to lose weight. Assessment & Plan (12/30/2019 2:50 PM CDT): I will obtain BNP and full set of PFTs for further evaluation of his dyspnea with exertion. Diastolic congestive heart failure 01/04/2019 Assessment & Plan (07/19/2020 5:10 PM LAND MOBILE RADIO TECHNICIAN): Diastolic dysfunction is compensated. 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 TECHNICIAN Gender Identity Not on file Sexual Orientation Not on file Obstetrics History Last Filed Vital Signs Vital Sign Reading Time Taken Comments Blood Pressure 116/64 07/27/2024 3:05 PM LAND MOBILE RADIO TECHNICIAN Pulse 84 07/27/2024 3:05 PM LAND MOBILE RADIO TECHNICIAN Temperature 36.2 C (97.2 F) 07/27/2024 3:05 PM LAND MOBILE RADIO TECHNICIAN Respiratory Rate 18 07/27/2024 3:05 PM LAND MOBILE RADIO TECHNICIAN Oxygen Saturation 96% 07/27/2024 3:05 PM LAND MOBILE RADIO TECHNICIAN Inhaled Oxygen Concentration - - Weight 75.8 kg (167 lb) 07/27/2024 3:05 PM LAND MOBILE RADIO TECHNICIAN Height 175.3 cm (5' 9) 07/27/2024 3:05 PM LAND MOBILE RADIO TECHNICIAN Body Mass Index 24.66 07/27/2024 3:05 PM LAND MOBILE RADIO TECHNICIAN Plan of Treatment Health Maintenance Due Date Last Done Comments Colon Cancer Screening-Colonoscopy 1949 Depression Screening 1949 Fall Risk Assessment 1949 Hepatitis C Screening 1949 Prostate Cancer Screening-PSA 1949 Hepatitis B Screening 11/01/1967 Well Visit 65+ 2014 Covid-19 Vaccine (5 - 2024-2 6 season) 2025 10/05/2021, 03/29/2021, 08/25/2020, Additional history exists Influenza Vaccine (#1) 2025 03/18/2007 DTaP/Tdap/Td Vaccine (3 - Td or Tdap) 05/16/2026 05/16/2016, 10/08/2006 Pneumococcal vaccine 65+ Completed 017, 12/19/2016, 01/14/2015, Additional history exists Zoster Vaccine Completed 03/21/2018, 12/08, 07/04/2010 Insurance [facility] MEDICARE ADVANTAGE [facility] MEDICARE ADVANTAGE [address] [id number] [facility] MEDICARE ADVANTAGE Care Teams Dental Financial Coordinator Relationship Specialty Start Date End Date iTmothy White MD [address] [place] [address] PCP - General 09/07/16
--- OUTSIDE RECORDS SUMMARY | 2025-02-15 06:44 | XMS_ITS | Patient Health Record ---
Author Organization [facility] Address [address] [place] [address] Care Team Providers Care Motorcycle Maker Name Role Phone Judith Parish Primary Care Provider Augustin De La Fuente Unavailable [phone] Allergies Allergen (clinical drug ingredient) Drug/Non Drug Allergy documented on EMR Reaction Allergy Type Onset Date Status No Known Adverse Micah g Reactions (uncoded) Unknown Allergy Active Reason For Referral No Information Medications Medication SIG (Take, Route, Frequency, Duration) Notes Start Date End Date Status metFORMIN HCl 1000 MG 1 tablet with meal s Orally Twice a day Active Simvastatin 1 tablet in the even ing Orally Once a day Not-Taking Social History Tobacco use other than smoking: Question Answer Notes Are you an other tobacco user? No Problems Problem Type SNOMED Code ICD Code Onset Dates Problem Status W/U Status Risk Notes Problem Thoracic and lumbosacral neuritis (433472220) Thoracic or lumbosacral neuritis or radiculitis, unspecified (724.4) Active confirmed Problem Spinal stenosis of lumbar region (31371355) Spinal stenosis of lumbar region (724.02) Active confirmed Problem Degeneration of lumbar intervertebral disc (69297978) Degeneration of lumbar or lumbosacral intervertebral disc (722.52) Active confirmed Plan Of Treatment No Information Insurance Providers Payer Name Payer Address Payer Phone Subscriber Number Group Number Insured Name Patient Relationship to Insured Coverage Start Date Coverage End Date MEDICARE SERVICES [address] [address] [place] [address] [id number] Diann Elder Self - patient is the insured 9 [employer] [facility] [address] [place] [address] [phone] [id number] Jerrod, [place]ell Self - patient is the insured 0 Medical (General) History Medical History History ICD Code Diabetes Urinary incontinence Prostate problems Nerve damage Depression Anxiety Panic Attacks Surgical History Surgery Date(Month/Year) Shoulder surgery Sinus surgery
--- OUTSIDE RECORDS SUMMARY | 2025-02-15 06:44 | XMS_ITS | Encounter Summary ---
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
[2025-02-15 08:33] LABS: Hemoglobin A1C 6.9 % (<5.7)
[2025-02-15 08:52] LABS: Alanine Aminotransferase 18 U/L (6-50); Albumin Level 4.3 g/dL (3.5-5.1); Alkaline Phosphatase 78 U/L (38-126); Anion Gap 7 mmol/L (4-12); Aspartate Amino Transferase 26 U/L (17-59); Bilirubin,Total 0.6 mg/dL (0.2-1.3); Blood Urea Nitrogen 18 mg/dL (9-20); Calcium 9.7 mg/dL (8.4-10.2); Carbon Dioxide 26 mmol/L (22-30); Chloride 104 mmol/L (98-107); Cholesterol 128 mg/dL (0-200); Estimated Glomerular Filt Rate > 60; Glucose 121 mg/dL (65-110); HDL Direct 46 mg/dL; Potassium 4.1 mmol/L (3.4-5.0); Sodium 137 mmol/L (137-145); Total Protein 7.0 g/dL (6.3-8.2); Triglycerides 92 mg/dL (<150)
[2025-02-15 09:43] LABS: MALB Creatinine Ratio < 4.8 mg/g (0-30)
== END 2025-02-15 06:43 | disposition home or self-care (01) ==
LOC: ANHLAB 06:43
PROVIDERS: PCP Emergency Medicine; Visit Provider Emergency Medicine
DX: E55.9 Vitamin D deficiency, unspecified (principal); E78.5 Hyperlipidemia, unspecified; E11.9 Type 2 diabetes mellitus without complications
CPT/HCPCS: 36415; 80053; 80061; 82043; 82306; 83036

== ENCOUNTER 2025-04-23 10:20 | Emergency (ER) | payer MEDICARE, SELFPAY ==
--- NOTE | ~2025-04-23 | XR_ITS ---
EXAMINATION: XR hip LT 2V w AP pelvis DATE: 04/23/2025 12:01 INDICATION: Left hip pain TECHNIQUE: X-rays were obtained. COMPARISON: None. FINDINGS: No fracture subluxation or dislocation. No acute or aggressive bony or soft tissue process seen. IMPRESSION: 1. No acute hip abnormality. Pelvic bones partially obscured by overlying stool and bowel gas. Reviewed, dictated and finalized at location A. NSION ASSOCIATE
[2025-04-23 10:23] VITALS: BP 139/74; PULSE 60; RESP 18; TEMP 37; O2SAT 100
--- NOTE | 2025-04-23 11:45 | ED.LOWEXIN ---
HPI - Extremity Injury (Lower) General Chief Complaint: Extremity Injury, Lower Stated Complaint: L hip pain Time Seen by Provider: 04/23/25 11:11 Source: patient Mode of arrival: wheelchair Limitations: no limitations History of Present Illness HPI Narrative: this is a 74-year-old male with history of diabetes, COPD, PTSD, depression, hypertension who presents the ED for left hip pain. Patient states that he got out of bed this morning and felt his left hip give out on him. He has been having pain since then and has had significant difficulty walking. Denies numbness, tingling. Denies falling, hitting his head. He has no prior injuries to this hip that he is aware of. Related Data Home Medications ?Medication ?Instructions ?Recorded ?Confirmed ?Last Taken ?Type finasteride 5 mg tablet 5 mg PO DAILY 03/01/25 04/12/25 Unknown History glipizide 2.5 mg tablet 3 mg PO DAILY 03/01/25 04/12/25 Unknown History melatonin 3 mg capsule 3 mg PO QHS 03/01/25 04/12/25 Unknown History metformin 1,000 mg tablet 1,000 mg PO BID 03/01/25 04/12/25 Unknown History tamsulosin 0.4 mg capsule 0.4 mg PO DAILY 03/01/25 04/12/25 Unknown History atorvastatin 40 mg tablet (Lipitor) 40 mg PO DAILY 03/30/25 04/12/25 Unknown History Allergies Allergy/AdvReac Type Severity Reaction Status Date / Time No Known Allergies Allergy Unknown NONE Verified 04/23/25 11:07 Review of Systems Review of Systems: Gen.: Denies fevers or chills Eyes: Denies eye pain or visual change ENT: Denies congestion Respiratory: Denies shortness of breath or cough CV: Denies chest pain or palpitations GI: Denies abdominal pain nausea, emesis or diarrhea denies burning, urgency, frequency or hematuria Musculoskeletal: As per HPI Neuro: Denies numbness, tingling, weakness or focal weakness Skin: Denies rash Except as documented, all other systems reviewed and negative PMF Past Medical History Medical History Depression COPD (chronic obstructive pulmonary disease) Vitamin D deficiency Squamous cell carcinoma of penis Rectal bleed PTSD (post-traumatic stress disorder) Other hyperlipidemia Mixed hyperlipidemia Intractable hiccups Hypogonadism in male Encounter for screening for malignant neoplasm of colon Dizziness Cervicalgia Shanon infection Asbestos exposure Anxiety disorder, unspecified Acute non-recurrent frontal sinusitis Acute hemorrhoid COVID Post-operative pain Pharyngeal mass Oral herpes Thrush Cough with congestion of paranasal sinus Insomnia Loud snoring Apneic spell Diabetes mellitus HTN (hypertension) Surgical History Surgical History Hx of tonsillectomy History of lumbar surgery Family History Family History Mother Family history of diabetes mellitus in first degree relative, Onset Age: 72 Father Family history of diabetes mellitus in first degree relative, Onset Age: 75 Sibling Family history of kidney disease Social History Social History Smoking status: Former smoker Alcohol intake: current Alcohol use details: rarely Substance use: current Substance use type: marijuana Other substance usage details: MEDICAL MARIJUANA CARD - DAILY USAGE Do You Feel Safe in your Home?: Yes Lack of Transportation: No Lack of Food: Never True Current Housing: I Have Housing Concerned About Future Housing: No Difficulty Paying Gas/Electric Bills: No Difficulty Paying for Meds: No Currently Unemployed: No Education: High School Diploma/GED Difficulty w/ Childcare or Family Care: No Living arrangements: with family Gender identity (if verbalized by the patient): Male Sexual Orientation (if Verbalized by the Patient): Straight or Heterosexual Spiritual care concerns: No Exam Narrative: APPEARANCE: No acute distress, nontoxic, resting in bed EYES: EOMI HEENT: Normocephalic, atraumatic, OMM RESPIRATORY: No respiratory distress Clear to auscultation bilaterally with no rhonchi wheezing or rales. CARDIOVASCULAR: Regular rate and rhythm without murmurs rubs or gallops. ABDOMINAL: Soft, nontender, nondistended, no rebound or guarding MUSCULOSKELETAl: tenderness to the anterior aspect of the left hip overlying the lesser trochanter, pain when releasing a passive flexion to the left hip. NEURO: Awake and alert. Following commands, speech normal, no focal deficits SKIN:: Warm, dry. No rashes lesions or abrasions PSYCHIATRIC: Normal affect/mood, Course Vital Signs Vital signs: Vital Signs Temperature 98.6 F 04/23/25 10:23 Pulse Rate 60 04/23/25 10:23 Respiratory Rate 18 04/23/25 10:23 Blood Pressure 139/74 04/23/25 10:23 Pulse Oximetry 100 04/23/25 10:23 Oxygen Delivery Room Air 04/23/25 10:23 Temperature 98.6 F 04/23/25 10:23 Pulse Rate 60 04/23/25 10:23 Respiratory Rate 18 04/23/25 10:23 Blood Pressure 139/74 04/23/25 10:23 Pulse Oximetry 100 04/23/25 10:23 Oxygen Delivery Room Air 04/23/25 10:23 MDM - Extremity Injury (Lower) MDM Narrative Medical decision making narrative: 74-year-old male Presenting for left hip pain. On initial evaluation patient was in no acute distress afebrile, hemodynamic stable. Differentials include but are not limited to: Fracture, sprain, strain, contusion Notable exam findings: Tenderness over the anterior aspect of the left lesser trochanter, pain with release of passive range of motion I personally reviewed the patient's images. Notable imaging findings: X-ray left hip/pelvis showed no acute process. Patient was given Toradol and [place] and did have significant improvement of his pain. He was able ambulate but with a slightly antalgic gait. Patient states that this is much better than earlier today. I suspect that he did strain a muscle in his left hip. He was given prescriptions for tizanidine and Lidoderm. He was educated on Tylenol and ibuprofen use. He was educated on icing the area. He is advised follow-up his PCP next week for re-evaluation. Patient was agreeable to this plan. Given strict return precautions. Medical Records Attestation: I reviewed the patient's medical records. Imaging Data Attestation: I personally reviewed and interpreted this imaging study as follows: Radiologist's impression: Impressions Hip/Pelvis X-Ray 04/23/25 12:07 IMPRESSION: 1. No acute hip abnormality. Pelvic bones partially obscured by overlying stool and bowel gas. Discharge Plan Discharge Clinical Impression: Muscle strain of left hip Qualifiers: Encounter type: initial encounter Qualified Code(s): S76.012A - Strain of muscle, fascia and tendon of left hip, initial encounter Patient Disposition: Home Condition: Stable Instructions: Antibiotic Form Additional Instructions: x-ray of your hip showed no evidence of fractures. He likely strained a muscle in your hip. You were given prescriptions for Lidoderm and tizanidine, take these as prescribed. I would recommend icing the area 15 minutes on 15 minutes off for the 1st 3 days then switching to heat. You may take Tylenol and ibuprofen for the pain as well. Follow-up with your PCP in the next week for re-evaluation. return to the ED for any new or worsening symptoms. Patient Language: Vincentian Prescriptions: New tizanidine 4 mg tablet 4 mg PO HS PRN (Reason: muscle spasticity) Qty: 30 0RF lidocaine [Lidoderm] 5 % adhesive patch,medicated 1 patch topical DAILY Qty: 15 0RF Rx Instructions: leave on most painful area for up to 12 hrs No Action sildenafil [Viagra] 50 mg tablet 50 mg PO .COMPLEX Qty: 20 0RF Rx Instructions: 50 mg PO daily as needed approximately 1 hour before sexual activity; administer 30 minutes to 4 hours before activity tamsulosin 0.4 mg capsule 0.4 mg PO DAILY metformin 1,000 mg tablet 1,000 mg PO BID finasteride 5 mg tablet 5 mg PO DAILY melatonin 3 mg capsule 3 mg PO QHS glipizide 2.5 mg tablet 3 mg PO DAILY azelastine 137 mcg (0.1 %) spray,non-aerosol 2 spray intranasal DAILY Qty: 30 1RF Rx Instructions: administer into each nostril fluticasone propionate [Flonase Allergy Relief] 50 mcg/actuation spray,suspension 1 - 2 spray NASAL DAILY PRN (Reason: nasal congestion) Qty: 16 2RF Rx Instructions: administer into each nostril albuterol sulfate 90 mcg/actuation HFA aerosol inhaler See Rx Instructions .ROUTE .COMPLEX Qty: 34 3RF Dose Instruction: USE 2 INHALATIONS BY MOUTH 4 TIMES DAILY NEEDED FOR SHORTNESS OF BREATH OR WHEEZING Rx Instructions: USE 2 INHALATIONS BY MOUTH 4 TIMES DAILY NEEDED FOR SHORTNESS OF BREATH OR WHEEZING lisinopril 5 mg tablet See Rx Instructions .ROUTE .COMPLEX Qty: 90 3RF Dose Instruction: TAKE 1 TABLET BY MOUTH DAILY Rx Instructions: TAKE 1 TABLET BY MOUTH DAILY Januvia 25 mg tablet See Rx Instructions .ROUTE .COMPLEX Qty: 90 3RF Dose Instruction: TAKE 1 TABLET BY MOUTH DAILY Rx Instructions: TAKE 1 TABLET BY MOUTH DAILY alprazolam [Xanax] 0.5 mg tablet 0.5 mg PO BID PRN (Reason: anxiety) Qty: 60 2RF atorvastatin [Lipitor] 40 mg tablet 40 mg PO DAILY Follow-up/Referrals: Timothy White MD [Primary Care Provider, Internal Medicine]
[2025-04-23] MEDS: KETOROLAC 30 MG/ML VIAL (*BKC) IM (12:07)
[2025-04-23] MEDS: HYDROcodone/acetaminophen (*CRX) 5-325 MG TABLET 1 TAB PO (12:07)
== END 2025-04-23 13:01 | disposition home or self-care (01) ==
PROVIDERS: Emergency Provider Student in an Organized Health Care Education/Training Program; PCP Emergency Medicine
DX: S76.012A Strain of muscle, fascia and tendon of left hip, initial encounter (principal); X58.XXXA Exposure to other specified factors, initial encounter; E11.9 Type 2 diabetes mellitus without complications; J44.9 Chronic obstructive pulmonary disease, unspecified; I10 Essential (primary) hypertension; F43.10 Post-traumatic stress disorder, unspecified; E55.9 Vitamin D deficiency, unspecified; E78.2 Mixed hyperlipidemia; Z79.84 Long term (current) use of oral hypoglycemic drugs; Z79.899 Other long term (current) drug therapy
CPT/HCPCS: 73502; 96372; 99283; A9270; J1885

== ENCOUNTER 2025-04-29 12:52 | Outpatient (CLI) | payer MEDICARE, SELFPAY ==
--- NOTE | ~2025-04-29 | XR_ITS ---
XR thoracolumbar Indication: M54.50 - Low back pain, unspecified Comparison: None Findings: The vertebral heights are intact. No fracture or subluxation. Severe loss of disc height at L5-S1. Soft tissues unremarkable Impression: No acute abnormality. Reviewed, dictated and finalized at location P. STOCK YARD ATTENDANT Impression: No acute abnormality.
== END 2025-04-29 12:53 | disposition home or self-care (01) ==
PROVIDERS: PCP Emergency Medicine; Visit Provider Emergency Medicine
DX: M54.50 Low back pain, unspecified (principal)
CPT/HCPCS: 72080

== ENCOUNTER 2025-05-19 14:21 | Outpatient (CLI) | payer MEDICARE, SELFPAY ==
[2025-05-19 15:19] LABS: Alanine Aminotransferase 19 U/L (6-50); Albumin Level 4.4 g/dL (3.5-5.1); Alkaline Phosphatase 92 U/L (38-126); Anion Gap 7 mmol/L (4-12); Aspartate Amino Transferase 23 U/L (17-59); Bilirubin,Total 0.5 mg/dL (0.2-1.3); Blood Urea Nitrogen 12 mg/dL (9-20); Calcium 9.3 mg/dL (8.4-10.2); Carbon Dioxide 23 mmol/L (22-30); Chloride 105 mmol/L (98-107); Cholesterol 150 mg/dL (0-200); Estimated Glomerular Filt Rate > 60; Glucose 153 mg/dL (65-110); HDL Direct 56 mg/dL; Potassium 4.2 mmol/L (3.4-5.0); Sodium 135 mmol/L (137-145); Total Protein 7.5 g/dL (6.3-8.2); Triglycerides 161 mg/dL (<150)
[2025-05-19 18:00] LABS: Hemoglobin A1C 7.0 % (<5.7)
== END 2025-05-19 14:22 | disposition home or self-care (01) ==
PROVIDERS: PCP Emergency Medicine; Visit Provider Emergency Medicine
DX: E78.5 Hyperlipidemia, unspecified (principal); E11.9 Type 2 diabetes mellitus without complications; E55.9 Vitamin D deficiency, unspecified
CPT/HCPCS: 36415; 80053; 80061; 82043; 82306; 83036